=== PATIENT | female | born 1960 | race Caucasian/White ===

== ENCOUNTER 2024-06-18 13:50 | Outpatient (CLI) | payer OTHER, SELFPAY ==
--- NOTE | ~2024-06-18 | MM_ITS ---
EXAMINATION: MM screening jennifer BI w janet HISTORY: Screening TECHNIQUE: Craniocaudal and mediolateral oblique 3-D tomosynthesis images were obtained and synthetic 2-D images were generated. CAD analysis was submitted and interpreted. COMPARISON: No prior mammogram is available for comparison at this institution. BREAST PARENCHYMAL COMPOSITION: The breasts are heterogeneously dense, which may obscure small masses . FINDINGS: There is no evidence of suspicious mass, calcification, or architectural distortion to sugg est malignancy in either breast. There has been no suspicious interval change. IMPRESSION: 1. No mammographic evidence of malignancy. 2. Recommend routine screening mammography in one year. BI-RADS Category 1: Negative Reviewed, dictated and finalized at location B.
== END 2024-06-18 13:51 | disposition home or self-care (01) ==
LOC: ANHIMG 13:51
PROVIDERS: PCP Family Medicine; Visit Provider Student in an Organized Health Care Education/Training Program
DX: Z12.31 Encounter for screening mammogram for malignant neoplasm of breast (principal)
CPT/HCPCS: 77063; 77067

== ENCOUNTER 2025-02-22 09:15 | Outpatient (CLI) | payer MEDICARE, MEDICAID, SELFPAY ==
--- NOTE | ~2025-02-22 | MR_ITS ---
MRI of the left knee Clinical history: Medial meniscal tear Technique: Coronal proton density and proton density-weighted images, sagittal proton-density and T2 fat-sat images, and axial proton-density fat-saturated images were acquired. Findings: Possible partial tear at the proximal aspect of the ACL. No definite complete tear evident. Posterior cruciate ligament intact. Medial collateral ligament and the lateral collateral ligament c omplex are intact. Popliteus tendon is intact. There is complex tearing of the posterior horn and body of medial meniscus. No lateral meniscal tear evident. There is extensive high-grade chondromalacia patella. There is mild to moderate chondromalacia of the medial femoral condyle. There is high-grade chondral malacia at the inner aspect of the lateral femo ral condyle and aspect of the lateral tibial plateau. There is extensive amorphous marrow edema throu ghout the medial tibial plateau region extending to the tibial spine, with underlying linear subchond ral insufficiency fracture. There is more mild amorphous marrow edema in the medial femoral condyle w ith possible very early subchondral insufficiency fracture. Small tricompartmental osteophytes are pr esent. Extensor mechanism is intact. There is small joint effusion. There is moderate to large complex Mckinnon 's cyst. Impression: Subchondral insufficiency fracture at the medial tibial plateau with extensive surrounding amorphous marrow edema. Mild amorphous marrow edema in the medial femoral condyle with questionable very early developing sub chondral insufficiency fracture. Extensive complex tearing of the posterior horn and body of medial meniscus. Questionable partial tear of the proximal ACL. Underlying degenerative changes/chondromalacia of the knee, as above. Moderate to large complex Mckinnon's cyst with small joint effusion. Reviewed, dictated and finalized at [facility]. Impression: Subchondral insufficiency fracture at the medial tibial plateau with extensive surrounding amorphous marrow edema. Mild amorphous marrow edema in the medial femoral condyle with questionable carloz y early developing subchondral insufficiency fracture. Extensive complex tearing of the posterior horn and body of medial meniscus. Questionable partial tear of the proximal ACL. Underlying degenerative changes/chondromalacia of the knee, as above. Moderate to large complex Mckinnon's cyst with small joint effusion.
--- OUTSIDE RECORDS SUMMARY | 2025-02-22 09:20 | XMS_ITS | Continuity of Care Document ---
Author Organization [facility] Address [address] [facility] [place] [address] Phone Care Team Providers Care Scientist Immunology Name Role Phone Fabian Dalton PT Unavailable Unavailable Procedures Procedure Date Therapeutic Activities Neuromuscular Re-Ed Therapeutic Activities Neuromuscular Re-Ed Therapeutic Activities Neuromuscular Re-Ed Progress Note Therapeutic Activities Neuromuscular Re-Ed Therapeutic Exercise Therapeutic Activities Neuromuscular Re-Ed Therapeutic Exercise Therapeutic Activities Neuromuscular Re-Ed Therapeutic Exercise Therapeutic Activities Neuromuscular Re-Ed Therapeutic Exercise Therapeutic Activities Neuromuscular Re-Ed Therapeutic Exercise Therapeutic Activities Neuromuscular Re-Ed Therapeutic Exercise Therapeutic Activities Neuromuscular Re-Ed Therapeutic Exercise Therapeutic Activities Neuromuscular Re-Ed Therapeutic Exercise Therapeutic Activities Neuromuscular Re-Ed Therapeutic Exercise Doc neg elder mal no plan PT Evaluation Moderate Complexity Therapeutic Activities Neuromuscular Re-Ed HFO w/o joints CF Advance Directives Directive Yes / No Effective Date File Name No Information Encounters Encounter Description Practice Location Reason(s) For Visit Diagnoses Date Provider Providers Copied on Encounter [facility] [address] [place] [address], [id number], tel:[phone] [place] No Information 5 Krystle Peralta. . Referring Provider: Thomas Horowitz, [address] [place] [address], [id number]. tel:[phone] [place] [address], [id number], tel:[phone] [place] No Information 5 Liam Devi. [address] [place] [address], [address], [place], [facility], . tel: [phone] Referring Provider: Thomas Horowitz, [address] [place] [address], [id number]. tel:[phone] [place] [address], [id number], tel:[phone] [place] No Information 5 Benigno Reyes . Referring Provider: Thomas Horowitz, [address] [place] [address], [id number]. tel:[phone] [place] [address], [id number], [place] tel:[phone] [place] No Information 5 Krystle Greenwood . Referring Provider: Thomas Horowitz, [address] [place] [address], [address]. tel:[phone], [id number], tel:[phone] [place] No Information 5 Krystle Fabian. . Referring Provider: Thomas Horowitz, [address] [place] [address], [address]. tel:[phone] [place] [address], [id number], tel:[phone] [place] No Information 5 Krystle Fabian. . Referring Provider: Thomas Horowitz, [address] [place] [address], [address]. tel:[phone] [place] [address], [id number], [place] tel:[phone] [place] No Information 5 Krystle Fabian. . Referring Provider: Thomas Horowitz, [address] [place] [address], [address]. tel:[phone] [place] [address], [id number], [place] tel:[phone] [place] No Information 5 Krystle Fabian. . Referring Provider: Thomas Horowitz, [address] [place] [address], [address]. tel:[phone] [place] [address], [id number], [place] tel:[phone] [place] No Information 5 Krystle Fabian. . Referring Provider: Thomas Horowitz, [address] [place] [address], [address]. tel:[phone] [place] [address], [id number], [place] tel:[phone] [place] No Information 5 Liam Butler [address] [facility] [address] [facility], [address], [place], [facility], . tel: [phone] Referring Provider: Thomas Horowitz [address] [place] [address], [address]. tel:[phone] [place] [address], [id number], tel:[phone] [place] No Information 5 Krystle Avilaon. . Referring Provider: Thomas Horowitz, [address] [place] [address], [address]. tel:[phone] [place] [address], [id number], tel:[phone] [place] No Information 5 Krystle Avilaon. . Referring Provider: Thomas Horowitz, [address] [place] [address], [address]. tel:[phone] [place] [address], [id number], tel:[phone] [place] No Information 5 Krystle Avilaon. . Referring Provider: Thomas Horowitz, [address] [place] [address], [address]. tel:[phone] [place] [address], [id number], tel:[phone] [facility] No Information 4 Maulik Moe. [address], [address], [place], [address], [place]. tel:[phone] Referring Provider: Rui Graham, [facility] [address], [place], [address]. tel:[phone] Family History Family Member Type Diagnosis Age At Onset No Information Payers Payer name Insurance type Covered republican ID Authoriza tion(s) Medicare [place] MB [id number] Medicaid OON Write Off CI 00 Social History Type Description Quantity Date Captured Comments Sex Female Smoking Status No Information Chief Complaint And Reason For Visit No Information Reason For Referral Reason For Referral No Information History Of Present Illness Encounter Date Complaint History Of Prese nt Illness No Information Functional Status Date Functional Assessmen t No Information Instructions Date Instruction Additional Infor mation No Information Assessments Type Assessment Date No Information Patient Care Teams Name Effective Dates (start - stop) Status Members No Information
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
--- OUTSIDE RECORDS SUMMARY | 2025-02-22 09:20 | XMS_ITS | Encounter Summary ---
Author Organization [facility] Address [address] [place] [address] Phone Care Team Providers Care Heavy Equipment Supervisor Name Role Phone Sen Pruitt MD Primary Care Provider Alli Mancuso MD Unavailable Reason for Visit * Reason Comments Medication Refill Encounter Details Date Type Department Care Team (Late st Contact Info) Description 11/21/2020 Refill [facility] [address] [place] [address] Sen Pruitt MD [address] [place] [address] Medication Refill Social History Tobacco Use Types Packs/Day Years Used Date Smoking Tobacco: Former Cigarettes 0 11/26/1981 - 11/26/2011 Smokeless Tobacco: Never Alcohol Use Standard Drinks/Week Comments Yes 0 (1 standard drink = 0.6 oz pur e alcohol) 2-3 drinks per week PHQ-2 Answer Date Recorded Total Score - Questions 1-9 1 06/2020 Comments No Sex and Gender Information Value Date Recorded Sex Assigned at Not on file Legal Sex Female 4:[address] Gender Identity Not on file Sexual Orientation Not on file COVID-19 Exposure Response Date Recorded In the last month, have you been in contact with someone who was confirmed or suspected to have Coronavirus / COVID-19? No / Unsure 11/15/2020 4:[address] documented as of this encounter Miscellaneous Notes * Telephone Encounter - Sen Pruitt MD - 11/22/2020 1:[address] Script(s) signed and e-prescribed to listed pharmacy E TESTER * Telephone Encounter - Julieth Abreu RN - 11/22/2020 11:58 AM CST Medication failed the protocol, provider to review and approve the medication order. Requested Prescriptions Pending Prescriptions Disp Refills buPROPion (WELLBUTRIN) 300 MG TABLET SR 24 HR XL tablet [Pharmacy Med Name: buPROPion HCL XL 300 MGTABLET] 90 Tab 1 Sig: TAKE ONE TABLET BY MOUTH EVERY MORNING Not Delegated - Psychiatry: Antidepressants Failed - 11/21/2020 11:05 AM Failed - This refill cannot be delegated Passed - Valid encounter within last 12 months Past Office Visits Recent Outpatient Visits 1 month ago Essential hypertension [facility] - Internal Medicine & Pediatrics - Sen Red MD 2 months ago Vaginal discharge [facility] - Internal Medicine & Pediatrics - Sen Red MD 3 months ago Attention deficit hyperactivity disorder (ADHD), predominantly inattentive type [facility] - Internal Medicine & Pediatrics Kamille Camejo APN, ENVIRONMENTAL AUDITOR 3 months ago Mood changes [facility] - Internal Medicine & Pediatrics - Sen Red MD 7 months ago Essential hypertension [facility] - Internal Medicine & Pediatrics - Sen Red MD 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 - Recent and Past Visits Recent Visits Date Type Provider Dept 10/15/20 Office Visit Sen Pruitt MD [facility] 09/15/20 Office Visit Sen Pruitt MD [facility] 08/18/20 Office Visit Kamille Claudio APN, ENVIRONMENTAL AUDITOR [facility] 08/04/20 Office Visit Sen Pruitt MD [facility] 04/02/20 Office Visit Sen Pruitt MD [facility] 11/24/19 Office Visit Sen Pruitt MD [facility] 08/20/19 Office Visit Sen Pruitt MD [facility] Showing recent visits within past 460 days with a meds authorizing provider and meeting all other requirements Future Appointments No visits were found meeting these conditions. Showing future appointments within next 90 days with a meds authorizing provider and meeting all other requirements E TESTER documented in this encounter Plan of Treatment Not on file documented as of this encounter Goals Goal Patient Goal Type Associated Problems Recent Progress Patient-Stated? Author Angelica would like to go back to the gym and turn over in bed Pain Management No Cinda Funez RN Note: Goal Reviewed with: patient Readiness to change: Ready to change Department associated with goal: [facility] Steps to achieve goal: 1. Will start Physical therapy in two weeks 2. Medications documented as of this encounter Visit Diagnoses Not on filedocumented in this encounter Additional Health Concerns Assessment Noted Time PHQ-9 Depression Total Score: 1 04/02/20 20 9:00 AM CDT documented as of this encounter Care Teams Heavy Equipment Supervisor Relationship Specialty Start Date End Date Sen Pruitt MD PCP - General Internal Medicine/Pediatrics 07/23/18 05/30/23 Alli Mancuso MD [address] [place] [address] Consulting Physician Gastroenterology 04/14/20 documented as of this encounter
--- OUTSIDE RECORDS SUMMARY | 2025-02-22 09:20 | XMS_ITS | Referral Summary ---
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) 01/30/2025 Orders Only [facility] Bone Marrow Transplant [address] [place] [phone] Neeraj Sandoval MD 01/26/2025 Orders Only [address] [address] Jana Schaffer, RN 01/25/2025 Orders Only [facility] Oncology [address] [place] [phone] Neeraj Sandoval MD 01/16/2025 Orders Only [address] [address] Jana Schaffer, RN 01/15/2025 Orders Only [facility] Bone Marrow Transplant [address] [place] [phone] Neeraj Sandoval MD 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); History of allogeneic bone marrow transplant (HCC); 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) 01/12/2025 Results Follow-Up [address] [place] [address] Parris Sanders MD 01/12/2025 2:30 PM ORGANISATIONAL PSYCHOLOGIST Office Visit [facility] Dermatology [address] [facility] Floor 6 [place] [phone] Len Parsons MD Multiple benign nevi (Primary Dx); History of allogeneic bone marrow transplant (HCC); 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); 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 [address] [place] [address] Osteopenia of left hip; 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); Postmenopausal Discharge Disposition: Discharge to home or self care 01/09/2025 1:55 PM ORGANISATIONAL PSYCHOLOGIST [facility] [address] [place] [address] [address] [place] [address] Osteopenia of left hip; 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); Postmenopausal; History of allogeneic bone marrow transplant (HCC) 01/09/2025 12:10 PM ORGANISATIONAL PSYCHOLOGIST Clinical Support [facility] [address] [facility] [address] [place] [address] Osteopenia of left hip 01/09/2025 12:40 PM ORGANISATIONAL PSYCHOLOGIST Office Visit [facility] [address] [facility] [address] [place] [address] Parris Sanders MD Osteopenia of left hip (Primary Dx); 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); Postmenopausal 01/08/[address] [place] [address] Parris Sanders MD 12/31/2024 12:45 PM ORGANISATIONAL PSYCHOLOGIST - 12/31/2024 11:59 PM ORGANISATIONAL PSYCHOLOGIST Hospital Encounter [facility] - Diagnostic Imaging [address] [facility] Floor [address] [place] [address] History of allogeneic bone marrow transplant (HCC); 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) Discharge Disposition: Discharge to home or self care 12/31/2024 11:00 AM ORGANISATIONAL PSYCHOLOGIST Lab [facility] - Lab Collection [address] [facility] Floor 6 [place] [address] 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) 12/31/2024 11:40 AM ORGANISATIONAL PSYCHOLOGIST Office Visit [facility] Bone Marrow Transplant [address] [facility] Floor 6 [place] [phone] Neeraj Sandoval MD History of allogeneic bone marrow transplant (HCC) (Primary Dx); 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); 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 [address] [facility] 5th [place] [address] [place] [address] Parris Sanders MD Osteopenia of left hip (Primary Dx) from Last 3 Months Allergies No known active allergies Medications rivaroxaban (XARELTO) 20 mg tabletIndications:Ve nous Thrombosis Take 1 tablet (20 mg total) by mouth daily with dinner 30 tablet 06/02/20 025 Active acyclovir (ZOVIRAX) 400 mg tabletIndications:Pr ophylaxis, Medical Take 1 tablet (400 mg total) by mouth 3 (three) times a day 90 tablet 07/17/20 025 Active buPROPion XL (WELLBUTRIN XL) 150 mg 24 hr tabletIndications:An xiety with Depression Take 1 tablet (150 mg total) by mouth daily before breakfast 30 tablet 11 07/18/20 24 025 Active ergocalciferol (VITAMIN D) 50,000 unit capsuleIndications:V itamin D deficiency Take 1 capsule (50,000 Units total) by mouth once a week 4 capsule 11 07/25/20 24 025 Active busPIRone (BUSPAR) 10 mg tabletIndications:Ge neralized Anxiety Disorder Take 1 tablet (10 mg total) by mouth 3 (three) times a day 90 tablet 11 07/29/20 24 025 Active amLODIPine (NORVASC) 5 mg tabletIndications:hy pertension Take 1 tablet (5 mg total) by mouth daily before breakfast 90 tablet 3 10/15/20 24 025 Active gilteritinib (Xospata) 40 mg tabletIndications: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 Take 3 tablets (120 mg total) by mouth daily 90 tablet 5 10/21/20 24 025 Active gabapentin (NEURONTIN) 300 mg capsuleIndications: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 Take 1 capsule (300 mg total) by mouth 2 (two) times a day 60 capsule 1 11/17/20 24 Active venlafaxine XR (EFFEXOR-XR) 150 mg 24 hr capsuleIndications:A nxiety with Depression Take 1 capsule (150 mg total) by mouth daily before breakfast 30 capsule 1 11/17/20 24 Active artificial tears, dextran-hypromellose -glycerin, (GENTEAL TEARS MODERATE) 0.1-0.3-0.2 %Indications: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),History of allogeneic bone marrow transplant (HCC),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 Take with or without food. Mondays, Wednesdays, and Fridays for two weeks then stop. 12/31/19 25 025 Discontin ued(Thera py completed ) Active Problems Problem Noted Date Diagnosed Date Other osteoporosis without current pathological fracture 01/12/2025 GVHD (graft versus host disease) 09/11/2023 Lknng-wnzpca-lonu disease 09/11/2023 Immunocompromised 01/19/2023 Overview (07/17/2024): Bone [...] hypertension 11/21/2018 Overview (07/17/2024): Stable on norvasc Resolved Problems Problem Noted Date Diagnosed Date Resolved Date Acute myeloid leukemia 07/04/202201/15 Overview (07/17/2024): S/p bone marrow transplant Following with Dr. Voss at [facility] Immunizations Immunization Administration Dates Next Due Pfizer SARS-CoV-2 Monovalent Vaccination (12+ Yrs) PURPLE 12/22/2021 Social History Tobacco Use Types Packs/Day Years Used Date Smoking Tobacco: Former Cigarettes 0.8 15.2 S tarted: 11/26/1974 Smokeless Tobacco: Never Tobacco Cessation:Counseling Given: Not Answered AUDIT-C Answer Date Recorded Q1: How often do you have a drink containing alcohol? Never 05/09/2024 Q2: How many drinks containi ng alcohol do you have on a typical day when you are drinking? Patient does not drink Q3: How often do you have si x or more drinks on one occasion? Never 05/09/2024 Personal Safety Answer Date Recorded Have you ever been in or are you currently in a harmful physical or emotional relationship or is someone making you feel afraid or unsafe? Denies 05/09/2024 Comments Unknown Sex and Gender Information Value Date Recorded Sex Assigned at Not on file Legal Sex Female 6:18 PM ORGANISATIONAL PSYCHOLOGIST Gender Identity Female 08/30/2023 12:40 PM CDT Sexual Orientation Not on file Last Filed Vital Signs Vital Sign Reading Time Taken Comments Blood Pressure 129/85 12/31/2024 11:17 AM ORGANISATIONAL PSYCHOLOGIST Pulse 69 12/31/2024 11:17 AM ORGANISATIONAL PSYCHOLOGIST Temperature 36.3 C (97.3 F) 12/31/2024 11:17 AM ORGANISATIONAL PSYCHOLOGIST Respiratory Rate 17 12/31/2024 11:17 AM ORGANISATIONAL PSYCHOLOGIST Oxygen Saturation 99% 12/31/2024 11:17 AM ORGANISATIONAL PSYCHOLOGIST Inhaled Oxygen Concentration - - Weight 70.1 kg (154 lb 9.6 oz) 01/09/2025 12:20 PM ORGANISATIONAL PSYCHOLOGIST Height 162.5 cm (5' 3.98 ) 01/09/2025 12:[address] Body Mass Index 26.56 01/09/2025 12:20 PM ORGANISATIONAL PSYCHOLOGIST Plan of Treatment Not on file Procedures Procedure Name Priority Date/Time Associated Diagnosis Comments URIC ACID Routine 02/11/2025 12:23 PM CDT 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) VITAMIN D 25 HYDROXY Routine 02/11/2025 12:23 PM CDT 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) LUTEINIZING HORMONE (LH) Routine 02/11/2025 12:21 PM CDT 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) FOLLICLE STIMULATING HORMONE Routine 02/11/2025 12:21 PM CDT 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) T4, FREE Routine 02/11/2025 12:21 PM CDT 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) T3, FREE Routine 02/11/2025 12:21 PM CDT 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) TSH Routine 02/11/2025 12:21 PM CDT 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) LACTATE DEHYDROGENASE Routine 02/11/2025 12:21 PM CDT 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) COMPREHENSIVE METABOLIC PANEL Routine 02/11/2025 12:21 PM CDT 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) CBC WITH AUTO DIFFERENTIAL Routine 02/11/2025 12:21 PM CDT 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) CYTOMEGALOVIRUS (CMV) DNA, QUANT GEN LAB Routine 02/11/2025 12:21 PM CDT 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) XR SPINE THORACIC 2 VIEWS Schedule Routine, Read Routine (OP Routine) 01/09/2025 2:12 PM ORGANISATIONAL PSYCHOLOGIST Osteopenia of left hip 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) Postmenopausal XR SPINE LUMBAR 2 OR 3 VIEWS Schedule Routine, Read Routine (OP Routine) 01/09/2025 2:12 PM ORGANISATIONAL PSYCHOLOGIST Osteopenia of left hip 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) Postmenopausal EGFR Routine 01/09/2025 2:00 PM ORGANISATIONAL PSYCHOLOGIST Osteopenia of left hip 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) Postmenopausal DIFFERENTIAL AUTO Routine 01/09/2025 2:0 0 PM ORGANISATIONAL PSYCHOLOGIST 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) CBC WITH AUTO DIFFERENTIAL Routine 01/09/2025 2:00 PM ORGANISATIONAL PSYCHOLOGIST 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) LACTATE DEHYDROGENASE Routine 01/09/2025 2:00 PM ORGANISATIONAL PSYCHOLOGIST 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) PHOSPHORUS Routine 01/09/2025 2:00 PM ORGANISATIONAL PSYCHOLOGIST Osteopenia of left hip 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) Postmenopausal PTH Routine 01/09/2025 2:00 PM ORGANISATIONAL PSYCHOLOGIST Osteopenia of left hip 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) Postmenopausal VITAMIN D 25 HYDROXY Routine 01/09/2025 2:00 PM ORGANISATIONAL PSYCHOLOGIST Osteopenia of left hip 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) Postmenopausal COMPREHENSIVE METABOLIC PANEL Routine 01/09/2025 2:00 PM ORGANISATIONAL PSYCHOLOGIST Osteopenia of left hip 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) Postmenopausal DEXA TBS AXIAL SKELETON BONE DENSITY 1 OR MORE SITES Schedule Routine, Read Routine (OP Routine) 01/09/2025 11:49 AM ORGANISATIONAL PSYCHOLOGIST Osteopenia of left hip XR HIP RIGHT 2 OR 3 VIEWS Schedule Routine, Read Routine (OP Routine) 12/31/2024 1:08 PM ORGANISATIONAL PSYCHOLOGIST 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) EGFR Routine 12/31/2024 10:51 AM ORGANISATIONAL PSYCHOLOGIST 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) DIFFERENTIAL AUTO Routine 12/31/2024 10: 51 AM ORGANISATIONAL PSYCHOLOGIST 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) CBC WITH AUTO DIFFERENTIAL Routine 12/31/2024 10:51 AM ORGANISATIONAL PSYCHOLOGIST 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) COMPREHENSIVE METABOLIC PANEL Routine 12/31/2024 10:51 AM ORGANISATIONAL PSYCHOLOGIST 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) LACTATE DEHYDROGENASE Routine 12/31/2024 10:51 AM ORGANISATIONAL PSYCHOLOGIST 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) from Last 3 Months Results * (ABNORMAL) Vitamin D 25 hydroxy (02/11/2025 12:23 PM CDT) Vitamin D 25-OH 102(H) 30 - 100 ng/mL [facility] Comment: Vitamin D Status 25-OH Vitamin D: Deficiency: <20 ng/mL Insufficiency: 20 - 29 ng/mL Optimal: > or = 30 ng/mL For 25-OH Vitamin D testing on patients on D2-supplementation and patients for whom quantitation of D2 and D3 fractions is required, the [facility](TM) 25-OH VIT D, (D2,D3), LC/MS/MS is recommended: order code 19162 (patients >2yrs). See Note 1 Note 1 For additional information, please refer to http://education.[employer]/faq/AAM782 (This link is being provided for informational/ educational purposes only.) Blood 02/11/2025 12:2 3 PM CDT 02/11/2025 12:24 PM CDT Neeraj Sandoval MD LAB BLOOD ORDERABLES Final Resul t Performing Organization Address [facility] Co de Phone Number [facility] [address] [place] [address] * Uric acid (02/11/2025 12:23 PM CDT) Pathologist [facility] Uric acid 4.0 2.5 - 7.0 mg/dL [facility] Comment: Therapeutic target for gout patients: <6.0 mg/dL Blood 02/11/2025 12:2 3 PM CDT 02/11/2025 12:24 PM CDT Neeraj Sandoval MD LAB BLOOD ORDERABLES Final Resul t Performing Organization Address [facility] Co de Phone Number [facility] [address] [place] [address] * (ABNORMAL) Cytomegalovirus (CMV) DNA PCR, quantitative Blood (02/11/2025 12:21 PM CDT) Pathologist [facility] CMV DNA qn <34.5(A) Not Detected IU/mL [facility] Comment: Detected CMV DNA was detected below 34.5 IU/mL. Viral load in this range cannot be accurately quantified by t CMV DNA log IU/mL <1.54(A) Not Detected Log IU/mL [facility] Comment: Detected (Note) For additional information, please refer to http://education.[employer]/faq/CMVandEBVPCR (This link is being provided for informational/educational purposes only.) [facility] [address] [address],[address] [place] [address] Fermin Jasso MD, PhD Blood 02/11/2025 12:2 1 PM CDT 02/11/2025 12:22 PM CDT Narrative [facility] - 02/14/2025 3:53 PM CDT FASTING:NO FASTING: NO Neeraj Sandoval MD LAB MICROBIOLOGY - GENERAL ORDER BEATA Final Result [facility] [address] [address], [address] [place] [address] * CBC with auto differential (02/11/2025 12:21 PM CDT) WBC 6.5 3.8 - 10.8 Thousand/u L [facility] RBC, POC 4.25 3.80 - 5.10 Million/uL [facility] Hgb 13.5 11.7 - 15.5 g/dL [facility] Hct 40.8 35.0 - 45.0 % [facility] MCV 96.0 80.0 - 100.0 fL [facility] MCH 31.8 27.0 - 33.0 pg [facility] MCHC 33.1 32.0 - 36.0 g/dL [facility] Comment: For adults, a slight decrease in the calculated MCHC value (in the range of 30 to 32 g/dL) is most likely not clinically significant; however, it should be interpreted with caution in correlation with other red cell parameters and the patient's clinical condition. Rdw 13.7 11.0 - 15.0 % [facility] Platelets 246 140 - 400 Thousand/u L [facility] MPV 9.9 7.5 - 12.5 fL [facility] Neutrophils, abs 4,518 1,500 - 7,800 cells/uL [facility] Lymphocytes, abs 1,014 850 - 3,900 cells/uL [facility] Monocyte abs 644 200 - 950 cells/uL [facility] Eosinophils, abs 267 15 - 500 cells/uL [facility] Basophils, abs 59 0 - 200 cells/uL [facility] Neutrophils 69.5 % [facility] Lymphocyte pct 15.6 % [facility] Monocytes 9.9 % [facility] Eosinophils 4.1 % [facility] Basophils 0.9 % [facility] Blood 02/11/2025 12:2 1 PM CDT 02/11/2025 12:22 PM CDT Narrative [facility] - 02/14/2025 3:53 PM CDT FASTING:NO FASTING: NO Neeraj Sandoval MD LAB BLOOD ORDERABLES Final Resul t Performing Organization Address [facility]/ZIP Co de Phone Number [facility] [address] [place] [address] * T3, free (02/11/2025 12:21 PM CDT) Free T3 2.8 2.3 - 4.2 pg/mL [facility] Blood 02/11/2025 12:2 1 PM CDT 02/11/2025 12:22 PM CDT Narrative [facility] - 02/14/2025 3:53 PM CDT FASTING:NO FASTING: NO Neeraj Sandoval MD LAB BLOOD ORDERABLES Final Resul t Performing Organization Address City/[facility]/ZIP Co de Phone Number [facility] [address] [place] [address] * TSH (02/11/2025 12:21 PM CDT) TSH 1.48 0.40 - 4.50 mIU/L [facility] Blood 02/11/2025 12:2 1 PM CDT 02/11/2025 12:22 PM CDT Narrative [facility] - 02/14/2025 3:53 PM CDT FASTING:NO FASTING: NO us Neeraj Sandoval MD LAB BLOOD ORDERABLES Final Resul t Performing Organization Address [facility] Co de Phone Number [facility] [address] [place] [address] * T4, free (02/11/2025 12:21 PM CDT) Free T4 1.1 0.8 - 1.8 ng/dL [facility] Blood 02/11/2025 12:2 1 PM CDT 02/11/2025 12:22 PM CDT Narrative [facility] - 02/14/2025 3:53 PM CDT FASTING:NO FASTING: NO us Neeraj Sandoval MD LAB BLOOD ORDERABLES Final Resul t Performing Organization Address [facility] de Phone Number [facility] [address] [place] [address] * Lactate dehydrogenase (LD) (02/11/2025 12:21 PM CDT) Lactate dehydrogenase (LDH) 249 120 - 250 U/L [facility] Blood 02/11/2025 12:2 1 PM CDT 02/11/2025 12:22 PM CDT Narrative [facility] - 02/14/2025 3:53 PM CDT FASTING:NO FASTING: NO us Neeraj Sandoval MD LAB BLOOD ORDERABLES Final Resul t Performing Organization Address [facility] Co de Phone Number [facility] [address] [place] [address] * LH (02/11/2025 12:21 PM CDT) Pathologist [facility] LH 56.4 mIU/mL [facility] Comment: Reference Range Follicular Phase 1.9-12.5 Mid-Cycle Peak 8.7-76.3 Luteal Phase 0.5-16.9 Postmenopausal 10.0-54.7 Blood 02/11/2025 12:2 1 PM CDT 02/11/2025 12:22 PM CDT Narrative [facility] - 02/14/2025 3:53 PM CDT FASTING:NO FASTING: NO Neeraj Sandoval MD LAB BLOOD ORDERABLES Final Resul t Performing Organization Address [facility] Co de Phone Number [facility] [address] [place] [address] * Follicle stimulating hormone (02/11/2025 12:21 PM CDT) [facility] FSH 92.8 mIU/mL [facility] Comment: Reference Range Follicular Phase 2.5-10.2 Mid-cycle Peak 3.1-17.7 Luteal Phase 1.5- 9.1 Postmenopausal 23.0-116.3 Blood 02/11/2025 12:2 1 PM CDT 02/11/2025 12:22 PM CDT Narrative [facility] - 02/14/2025 3:53 PM CDT FASTING:NO FASTING: NO Neeraj Sandoval MD LAB BLOOD ORDERABLES Final Resul t Performing Organization Address [facility] de Phone Number [facility] [address] [place] [address] * (ABNORMAL) Comprehensive metabolic panel (02/11/2025 12:21 PM CDT) [facility] Glucose 94 65 - 139 mg/dL [facility] Comment: Non-fasting reference interval BUN 10 7 - 25 mg/dL [facility] Creatinine 0.86 0.50 - 1.05 mg/dL [facility] eGFR 76 > OR = 60 mL/min/1.7 3m2 [facility] BUN/creat ratio SEE NOTE: 6 - 22 (calc) [facility] Comment: Not Reported: BUN and Creatinine are within reference range. Sodium 142 135 - 146 mmol/L [facility] Potassium, pl 4.4 3.5 - 5.3 mmol/L [facility] Chloride 105 98 - 110 mmol/L [facility] CO2 28 20 - 32 mmol/L [facility] Calcium 9.0 8.6 - 10.4 mg/dL [facility] Protein, sr 6.6 6.1 - 8.1 g/dL [facility] Albumin 4.2 3.6 - 5.1 g/dL [facility] GLOBULIN 2.4 1.9 - 3.7 g/dL (calc) [facility] Alb/glob ratio 1.8 1.0 - 2.5 (calc) [facility] Bilirubin, total 0.6 0.2 - 1.2 mg/dL [facility] Alk phos 108 37 - 153 U/L [facility] AST 29 10 - 35 U/L [facility] ALT (SGPT) 39(H) 6 - 29 U/L [facility] Blood 02/11/2025 12:2 1 PM CDT 02/11/2025 12:22 PM CDT Narrative [facility] - 02/14/2025 3:53 PM CDT FASTING:NO FASTING: NO us Neeraj Sandoval MD LAB BLOOD ORDERABLES Final Resul t [facility] [address] [place] [address] * XR Spine Lumbar 2 or 3 Views (01/09/2025 2:12 PM ORGANISATIONAL PSYCHOLOGIST) Anatomical Region Laterality Modality Spine N/A Computed Radiogr aphy 01/09/2025 3:23 PM ORGANISATIONAL PSYCHOLOGIST Impressions 01/09/2025 3:32 PM ORGANISATIONAL PSYCHOLOGIST 1. Compression deformities of L2 and L4 superior endplates with less than 25% height loss and no osseous retropulsion. 2. Possible L1 inferior endplate deformity with less than 25% height loss and no osseous retropulsion. 3. No compression deformity in the thoracic spine. Dictated by: Pablito Bryant MD The radiology attending physician has personally reviewed this study, and had reviewed and/or edited this written report and agrees with it. Electronically signed by: Tee Gonzalez M.D. Narrative 01/09/2025 3:32 PM ORGANISATIONAL PSYCHOLOGIST EXAMINATION: XR SPINE THORACIC 2 VIEWS, XR SPINE LUMBAR 2 OR 3 VIEWS HISTORY: Height loss, back pain. Possible L1 compression fracture. FINDINGS: No comparison available. Thoracic spine: Alignment is normal. Multilevel degenerative disc disease of the thoracic spine. No compression fracture. Lumbar spine: There are compression deformities of the L2 and L4 superior endplates with less than 25% height loss. There is a possible inferior endplate deformity of L1. There is no osseous retropulsion. Multilevel degenerative disc disease worse and moderate at L4-L5 and L5-S1. No listhesis. Lower lumbar facet osteoarthritis. 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 Procedure Note Tee Gonzalez MD - 01/09/2025 EXAMINATION: XR SPINE THORACIC 2 VIEWS, XR SPINE LUMBAR 2 OR 3 VIEWS HISTORY: Height loss, back pain. Possible L1 compression fracture. FINDINGS: No comparison available. Thoracic spine: Alignment is normal. Multilevel degenerative disc disease of the thoracic spine. No compression fracture. Lumbar spine: There are compression deformities of the L2 and L4 superior endplates with less than 25% height loss. There is a possible inferior endplate deformity of L1. There is no osseous retropulsion. Multilevel degenerative disc disease worse and moderate at L4-L5 and L5-S1. No listhesis. Lower lumbar facet osteoarthritis. 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 IMPRESSION: 1. Compression deformities of L2 and L4 superior endplates with less than 25% height loss and no osseous retropulsion. 2. Possible L1 inferior endplate deformity with less than 25% height loss and no osseous retropulsion. 3. No compression deformity in the thoracic spine. Dictated by: Pablito Bryant MD The radiology attending physician has personally reviewed this study, and had reviewed and/or edited this written report and agrees with it. Electronically signed by: Tee Gonzalez M.D. us Parris Sanders MD IMG XR PROCEDURES Final Re sult * XR Spine Thoracic 2 Views (01/09/2025 2:12 PM ORGANISATIONAL PSYCHOLOGIST) Anatomical Region Laterality Modality Spine N/A Computed Radiogr aphy 01/09/2025 3:23 PM ORGANISATIONAL PSYCHOLOGIST Impressions 01/09/2025 3:32 PM ORGANISATIONAL PSYCHOLOGIST 1. Compression deformities of L2 and L4 superior endplates with less than 25% height loss and no osseous retropulsion. 2. Possible L1 inferior endplate deformity with less than 25% height loss and no osseous retropulsion. 3. No compression deformity in the thoracic spine. Dictated by: Pablito Bryant MD The radiology attending physician has personally reviewed this study, and had reviewed and/or edited this written report and agrees with it. Electronically signed by: Tee Gonzalez M.D. Narrative 01/09/2025 3:32 PM ORGANISATIONAL PSYCHOLOGIST EXAMINATION: XR SPINE THORACIC 2 VIEWS, XR SPINE LUMBAR 2 OR 3 VIEWS HISTORY: Height loss, back pain. Possible L1 compression fracture. FINDINGS: No comparison available. Thoracic spine: Alignment is normal. Multilevel degenerative disc disease of the thoracic spine. No compression fracture. Lumbar spine: There are compression deformities of the L2 and L4 superior endplates with less than 25% height loss. There is a possible inferior endplate deformity of L1. There is no osseous retropulsion. Multilevel degenerative disc disease worse and moderate at L4-L5 and L5-S1. No listhesis. Lower lumbar facet osteoarthritis. 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 Procedure Note Tee Gonzalez MD - 01/09/2025 EXAMINATION: XR SPINE THORACIC 2 VIEWS, XR SPINE LUMBAR 2 OR 3 VIEWS HISTORY: Height loss, back pain. Possible L1 compression fracture. FINDINGS: No comparison available. Thoracic spine: Alignment is normal. Multilevel degenerative disc disease of the thoracic spine. No compression fracture. Lumbar spine: There are compression deformities of the L2 and L4 superior endplates with less than 25% height loss. There is a possible inferior endplate deformity of L1. There is no osseous retropulsion. Multilevel degenerative disc disease worse and moderate at L4-L5 and L5-S1. No listhesis. Lower lumbar facet osteoarthritis. 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 IMPRESSION: 1. Compression deformities of L2 and L4 superior endplates with less than 25% height loss and no osseous retropulsion. 2. Possible L1 inferior endplate deformity with less than 25% height loss and no osseous retropulsion. 3. No compression deformity in the thoracic spine. Dictated by: Pablito Bryant MD The radiology attending physician has personally reviewed this study, and had reviewed and/or edited this written report and agrees with it. Electronically signed by: Tee Gonzalez M.D. Parris Sanders MD IMG XR PROCEDURES Final Re sult * eGFR (01/09/2025 2:00 PM ORGANISATIONAL PSYCHOLOGIST) eGFR 64 >=60 mL/min/1. 73 m2 Comment: Interpretive Data Reference Interval Normal >/= 90 mL/min/1.73m2 Mildly decreased* 60 - 89 mL/min/1.73m2 Mildly to moderately decreased 45 - 59 mL/min/1.73m2 Moderately to severely decreased 30 - 44 mL/min/1.73m2 Severely decreased 15 - 29 mL/min/1.73m2 Kidney Failure < 15 mL/min/1.73m2 *Relative to young adult level Estimated glomerular filtration rate is determined by the 2020 CKD-EPI equation recommended by the National Kidney Foundation (A Unifying Approach to GFR Estimation: Recommendations of the NKF-ASK Task Force on Reassessing the Inclusion of Race in Diagnosing Kidney Disease, JASN 202). The CKD-EPI equation should not be used for patients with unstable renal function and has not been validated in children and those over 70. Current interpretive data was last reviewed 2021. Blood 01/09/2025 2:00 PM ORGANISATIONAL PSYCHOLOGIST 01/09/2025 4:34 PM ORGANISATIONAL PSYCHOLOGIST us Parris Sanders MD LAB BLOOD ORDERABLES Final Result [facility] [address] [facility] Department [place] [address] * Differential, auto (01/09/2025 2:00 PM ORGANISATIONAL PSYCHOLOGIST) Neutrophil abs 1.8 1.5 - 6.5 K/cumm Imm gran abs 0.0 0.0 - 0.1 K/cumm [facility] Lymphocyte abs 1.5 0.8 - 3.3 K/cumm [facility] Monocyte abs 0.4 0.2 - 0.8 K/cumm [facility] Eosinophil abs 0.1 0.0 - 0.5 K/cumm [facility] Basophil abs 0.0 0.0 - 0.1 K/cumm [facility] Neutrophil pct 46.5 % [facility] Comment: Interpretive Data Percent cell count reference ranges are not reported, since discordance with absolute values may lead to misinterpretation of CBC data. Current Interpretive Data was last revised on 2018. Imm gran pct 0.5 % [facility] Comment: Interpretive Data Percent cell count reference ranges are not reported, since discordance with absolute values may lead to misinterpretation of CBC data. Current Interpretive Data was last revised on 2018. Lymphocyte pct 38.8 % [facility] Comment: Interpretive Data Percent cell count reference ranges are not reported, since discordance with absolute values may lead to misinterpretation of CBC data. Current Interpretive Data was last revised on 2018. Monocyte pct 10.2 % [facility] Comment: Interpretive Data Percent cell count reference ranges are not reported, since discordance with absolute values may lead to misinterpretation of CBC data. Current Interpretive Data was last revised on 2018. Eosinophil pct 3.0 % [facility] Comment: Interpretive Data Percent cell count reference ranges are not reported, since discordance with absolute values may lead to misinterpretation of CBC data. Current Interpretive Data was last revised on 2018. Basophil pct 1.0 % [facility] Comment: Interpretive Data Percent cell count reference ranges are not reported, since discordance with absolute values may lead to misinterpretation of CBC data. Current Interpretive Data was last revised on 2018. Blood 01/09/2025 2:00 PM ORGANISATIONAL PSYCHOLOGIST 01/09/2025 4:16 PM ORGANISATIONAL PSYCHOLOGIST Neeraj Sandoval MD LAB BLOOD ORDERABLES Final Resul t Performing Organization Address City/[facility] Co de Phone Number [facility] Department [place] [address] * (ABNORMAL) CBC with auto differential (01/09/2025 2:00 PM ORGANISATIONAL PSYCHOLOGIST) WBC 3.9 3.8 - 9.9 K/cumm Hgb 13.4 11.9 - 15.5 g/dL [facility] Hct 41.4 35.6 - 45.5 % [facility] Plt 192 150 - 400 K/cumm [facility] MPV 9.4 9.1 - 12.3 fL [facility] RBC 4.26 3.90 - 5.20 M/cumm [facility] MCV 97.2(H) 81.3 - 96.4 fL [facility] MCH 31.5 27.1 - 33.3 pg [facility] MCHC 32.4 32.3 - 35.7 g/dL [facility] RDW CV 14.6 11.1 - 14.9 % [facility] RDW SD 52.0(H) 35.7 - 48.1 fL [facility] NRBC abs 0.00 0.00 - 0.01 K/cumm [facility] Blood 01/09/2025 2:00 PM ORGANISATIONAL PSYCHOLOGIST 01/09/2025 4:16 PM ORGANISATIONAL PSYCHOLOGIST Neeraj Sandoval MD LAB BLOOD ORDERABLES Final Resul t Performing Organization Address [facility] Co de Phone Number [facility] Department [place] [address] * Vitamin D 25 hydroxy (01/09/2025 2:00 PM ORGANISATIONAL PSYCHOLOGIST) Pathologist [facility] Vitamin D 25-OH 74 30 - 80 ng/mL Blood 01/09/2025 2:00 PM ORGANISATIONAL PSYCHOLOGIST 01/09/2025 4:16 PM ORGANISATIONAL PSYCHOLOGIST Parris Sanders MD LAB BLOOD ORDERABLES Final Result Performing Organization Address [facility] de Phone Number [facility] [place] [address] * Phosphorus (01/09/2025 2:00 PM ORGANISATIONAL PSYCHOLOGIST) [facility] Phosphorus, pl 4.1 2.3 - 4.5 mg/dL Blood 01/09/2025 2:00 PM ORGANISATIONAL PSYCHOLOGIST 01/09/2025 4:16 PM ORGANISATIONAL PSYCHOLOGIST Parris Sanders MD LAB BLOOD ORDERABLES Final Result Performing Organization Address [facility] de Phone Number [facility] [place] [address] * (ABNORMAL) PTH (01/09/2025 2:00 PM ORGANISATIONAL PSYCHOLOGIST) [facility] PTH 70(H) 15 - 65 pg/mL Blood 01/09/2025 2:00 PM ORGANISATIONAL PSYCHOLOGIST 01/09/2025 4:16 PM ORGANISATIONAL PSYCHOLOGIST Result [facility] Parris Sanders MD LAB BLOOD ORDERABLES Final Result Performing Organization Address [facility] de Phone Number [facility] [place] [address] * (ABNORMAL) Lactate dehydrogenase (LD) (01/09/2025 2:00 PM ORGANISATIONAL PSYCHOLOGIST) [facility] Lactate dehydrogenase (LDH) 283(H) 100 - 250 Units/L Blood 01/09/2025 2:00 PM ORGANISATIONAL PSYCHOLOGIST 01/09/2025 4:16 PM ORGANISATIONAL PSYCHOLOGIST Neeraj Sandoval MD LAB BLOOD ORDERABLES Final Resul t [facility] [address] [facility] Department [place] [address] * Comprehensive metabolic panel (01/09/2025 2:00 PM ORGANISATIONAL PSYCHOLOGIST) Sodium 145 135 - 145 mmol/L Potassium, pl 4.8 3.3 - 4.9 mmol/L [facility] Chloride 105 97 - 110 mmol/L [facility] CO2 31 22 - 32 mmol/L [facility] Anion gap 9 2 - 15 mmol/L [facility] BUN 8 6 - 25 mg/dL [facility] Creatinine 0.99 0.60 - 1.10 mg/dL [facility] Glucose 79 70 - 199 mg/dL [facility] Comment: Interpretive Data Fasting glucose >/= 126 mg/dl is diagnostic for diabetes. Fasting is defined as no caloric intake for at least 8 hours. Fasting glucose between 100 mg/dl to 125 mg/dl is diagnostic of prediabetes. In a patient with classic symptoms of hyperglycemia or hyperglycemic crisis, a random glucose >/= 200 mg/dl is diagnostic for diabetes. In the absence of unequivocal hyperglycemia, results should be confirmed by repeat testing. The classification and Diagnosis of Diabetes Diabetes Care 202; 46: S19-S40. Current interpretive data was last revised 2022. Calcium 9.5 8.5 - 10.3 mg/dL [facility] Bilirubin, total 0.4 0.1 - 1.2 mg/dL [facility] Protein, pl 7.2 6.5 - 8.5 g/dL [facility] Albumin 4.3 3.5 - 5.0 g/dL [facility] Alk phos 100 40 - 130 Units/L [facility] ALT 33 7 - 45 Units/L [facility] AST 24 10 - 45 Units/L [facility] Blood 01/09/2025 2:00 PM ORGANISATIONAL PSYCHOLOGIST 01/09/2025 4:16 PM ORGANISATIONAL PSYCHOLOGIST Parris Sanders MD LAB BLOOD ORDERABLES Final Result [facility] Department [place] [address] * Dexa TBS Axial Skeleton Bone Density 1 or more sites (01/09/2025 11:49 AM ORGANISATIONAL PSYCHOLOGIST) Anatomical Region Laterality Modality Wrist, Body N/A Radiographic Valarie ging Narrative 01/12/2025 9:24 PM ORGANISATIONAL PSYCHOLOGIST Patient Name: Angelica Guerra Date of : 1960 Date of scan: 01/09/2025 Bone mineral density was performed on a Holo[employer]-On Discovery Densitometer. Based on machine cross-calibration and precision studies the least significant changes of this densitometer is 0.024 g/cm2 at the spine, 0.020 g/cm2 at the total proximal femur, and 0.014g/cm2 at the forearm. HISTORY: This is a 64 y.o. postmenopausal female with a history of bone marrow transplant, leukemia, low bone mass, and vitamin D deficiency. She reports that she has quit smoking. Her smoking use included cigarettes. She started smoking about 50 years ago. She has a 11.3 pack-year smoking history. She has never used smokeless tobacco. Currently on treatment with calcium, vitamin D, and anticoagulants, previously treated with glucocorticoids, testosterone, and diuretics, and current complaint of back pain, neck pain, and leg pain. INDICATIONS: Menopause status, history of glucocorticoids use, vitamin D deficiency, and history of low bone mass. FINDINGS: BONE MINERAL DENSITY OF THE LUMBAR SPINE Bone Mineral Density (BMD) of the lumbar spine was measured from L1-L4 and the average density was calculated to be 1.323 gm/cm2. This corresponds to a T-score (standard deviations from the mean of young adults) of 2.5. When compared to the previous study of 12/28/2023 there has been a 0.039 gm/cm (3.0%) increase in bone density that is considered significant. BONE MINERAL DENSITY OF THE PROXIMAL FEMUR Bone Mineral Density (BMD) of the left hip total was found to be 0.779 gm/cm2. This corresponds to a T-score standard deviations from the mean of young adults of -1.3. Femoral neck is 0.620 gm/cm2 with a T-score (standard deviations from the mean of young adults) of -2.1. When compared to the previous study of 12/28/2023 there has been a 0.020 gm/cm (2.7%) increase in bone density that is considered significant. BONE MINERAL DENSITY OF THE FOREARM Bone Mineral density (BMD) of the left proximal 1/3 of the radius measures 0.730 gm/cm2. This corresponds to a T-score (standard deviations from the mean of young adults) of 0.6. When compared to the previous study of 12/28/2023 there has been a 0.039 gm/cm (5.7%) increase in bone density that is considered significant. A forearm bone density study was performed in addition to the routine study due to the need to provide a comparison to the previous exam and department forearm protocol. SUMMARY: Bone mineral density shows evidence of low bone mass at the proximal femur and moderately increased fracture risk (Osteopenia). There has been a significant increase in bone density since previous measurement. The lumbar spine Trabecular Bone Score is 1.306 which suggests partially degraded bone microarchitecture compared to the general population. Final decisions regarding diagnostic or therapeutic recommendations should include BMD, TBS, additional clinical risk factors as well the clinical context of the patient. Please see attached TBS results for further details. ADDITIONAL COMMENTS: Postmenopausal Women and Men Over 50: Diagnostic criteria: Osteoporosis: BMD at or below -2.5 T-score; Osteopenia (low bone mass): BMD between -1.0 and -2.5 T-score. If the patient has a history of a fragility fracture, a fracture that occurred with trauma equivalent to a fall from a standing position or less, then the diagnosis is osteoporosis regardless of bone density. The history and data sections of the bone mineral density scan were prepared by Antoinette Shaw) [employer]RAD[employer] who is accredited by the International Society of Clinical Densitometry. The overall patient assessment and scan interpretation were performed by Parris Sanders M.D. who is certified by the International Society of Clinical Densitometry. [id number] us Parris Sanders MD IM DXA PROCEDURES Final R esult * XR Hip Right 2 or 3 Views (12/31/2024 1:08 PM ORGANISATIONAL PSYCHOLOGIST) Anatomical Region Laterality Modality Lower Extremities, Hip, Pelvis Right D igital Radiography 12/31/2024 2:02 PM ORGANISATIONAL PSYCHOLOGIST Impressions 12/31/2024 2:29 PM ORGANISATIONAL PSYCHOLOGIST 1. 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 Dictated by: Elijah Tolentino M.D. The radiology attending physician has personally reviewed this study, and had reviewed and/or edited this written report and agrees with it. Electronically signed by: Tee Gonzalez M.D. Narrative 12/31/2024 2:29 PM ORGANISATIONAL PSYCHOLOGIST EXAMINATION: XR HIP RIGHT 2 OR 3 VIEWS HISTORY: Chronic hip pain COMPARISON: No comparisons are available. FINDINGS: No acute fracture. No dislocation. Mild right hip osteoarthritis. Partially imaged moderate right sacroiliac joint osteoarthritis. 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 Procedure Note Tee Gonzalez MD - 12/31/2024 EXAMINATION: XR HIP RIGHT 2 OR 3 VIEWS HISTORY: Chronic hip pain COMPARISON: No comparisons are available. FINDINGS: No acute fracture. No dislocation. Mild right hip osteoarthritis. Partially imaged moderate right sacroiliac joint osteoarthritis. 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 IMPRESSION: 1. 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 Dictated by: Elijah Tolentino M.D. The radiology attending physician has personally reviewed this study, and had reviewed and/or edited this written report and agrees with it. Electronically signed by: Tee Gonzalez M.D. Neeraj Sandoval MD IMG XR PROCEDURES Final Result * eGFR (12/31/2024 10:51 AM ORGANISATIONAL PSYCHOLOGIST) eGFR 79 >=60 mL/min/1. 73 m2 Comment: Interpretive Data Reference Interval Normal >/= 90 mL/min/1.73m2 Mildly decreased* 60 - 89 mL/min/1.73m2 Mildly to moderately decreased 45 - 59 mL/min/1.73m2 Moderately to severely decreased 30 - 44 mL/min/1.73m2 Severely decreased 15 - 29 mL/min/1.73m2 Kidney Failure < 15 mL/min/1.73m2 *Relative to young adult level Estimated glomerular filtration rate is determined by the 2020 CKD-EPI equation recommended by the National Kidney Foundation (A Unifying Approach to GFR Estimation: Recommendations of the NKF-ASK Task Force on Reassessing the Inclusion of Race in Diagnosing Kidney Disease, JASN 2020). The CKD-EPI equation should not be used for patients with unstable renal function and has not been validated in children and those over 70. Current interpretive data was last reviewed 2021. Blood 12/31/2024 10:5 1 AM ORGANISATIONAL PSYCHOLOGIST 12/31/2024 11:02 AM ORGANISATIONAL PSYCHOLOGIST us Neeraj Sandoval MD LAB BLOOD ORDERABLES Final Resul t [facility] [address] [facility] [address] Department [place] [address] * Differential, auto (12/31/2024 10:51 AM ORGANISATIONAL PSYCHOLOGIST) Neutrophil abs 2.2 1.5 - 6.5 K/cumm Comment:Testing performed by : [facility], [address] [place] [phone] Lymphocyte abs 1.4 0.8 - 3.3 K/cumm [facility] Comment:Testing performed by : [facility], [address] [place] [phone] Monocyte abs 0.5 0.2 - 0.8 K/cumm [facility] Comment:Testing performed by : [facility], [address] [place] [phone] Eosinophil abs 0.2 0.0 - 0.5 K/cumm [facility] Comment:Testing performed by : [facility], [address] [place] [phone] Basophil abs 0.0 0.0 - 0.1 K/cumm [facility] Comment:Testing performed by : [facility], [address] [place] [phone] Neutrophil pct 52.0 % [facility] Comment: Interpretive Data Percent cell count reference ranges are not reported, since discordance with absolute values may lead to misinterpretation of CBC data. Current Interpretive Data was last revised on 2018. Testing performed by: [facility], [address] [place] [phone] Lymphocyte pct 32.5 % [facility] Comment: Interpretive Data Percent cell count reference ranges are not reported, since discordance with absolute values may lead to misinterpretation of CBC data. Current Interpretive Data was last revised on 2018. Testing performed by: [facility], [address] [place] [phone] Monocyte pct 10.7 % [facility] Comment: Interpretive Data Percent cell count reference ranges are not reported, since discordance with absolute values may lead to misinterpretation of CBC data. Current Interpretive Data was last revised on 2018. Testing performed by: [facility], [address] [place] [address] Eosinophil pct 4.1 % [facility] Comment: Interpretive Data Percent cell count reference ranges are not reported, since discordance with absolute values may lead to misinterpretation of CBC data. Current Interpretive Data was last revised on 2018. Testing performed by: [facility], [address] [place] [phone] Basophil pct 0.7 % [facility] Comment: Interpretive Data Percent cell count reference ranges are not reported, since discordance with absolute values may lead to misinterpretation of CBC data. Current Interpretive Data was last revised on 2018. Testing performed by: [facility], [address] [place] [phone] Blood 12/31/2024 10:5 1 AM ORGANISATIONAL PSYCHOLOGIST 12/31/2024 11:00 AM ORGANISATIONAL PSYCHOLOGIST us Neeraj Sandoval MD LAB BLOOD ORDERABLES Final Resul t [facility] [address] [facility] [address] Department [place] [address] * CBC with auto differential (12/31/2024 10:51 AM ORGANISATIONAL PSYCHOLOGIST) WBC 4.3 3.8 - 9.9 K/cumm Comment:Testing performed by : [facility], [address] [place], [place] [phone] Hgb 12.6 11.9 - 15.5 g/dL [facility] Comment:Testing performed by : [facility], [address] [place], [place] [phone] Hct 37.9 35.6 - 45.5 % [facility] Comment:Testing performed by : [facility], [address] [place], [place] [phone] Plt 201 150 - 400 K/cumm [facility] Comment:Testing performed by : [facility], [address] [place], [place] [phone] MPV 7.9 6.8 - 10.4 fL [facility] Comment:Testing performed by : [facility], [address] [place] [address] RBC 3.95 3.90 - 5.20 M/cumm [facility] Comment:Testing performed by : [facility], [address] [place], [place] [phone] MCV 96.0 81.3 - 96.4 fL [facility] Comment:Testing performed by : [facility], [address] [place] [address] MCH 31.9 27.1 - 33.3 pg [facility] Comment:Testing performed by : [facility], [address] [place] [address] MCHC 33.2 32.3 - 35.7 g/dL [facility] Comment:Testing performed by : [facility], [address] [place] [address] RDW CV 14.8 11.1 - 14.9 % [facility] Comment:Testing performed by : [facility], [address] [place] [address] NRBC abs 0.00 0.00 - 0.01 K/cumm [facility] Comment:Testing performed by : [facility], [address] [place] [phone] Blood 12/31/2024 10:5 1 AM ORGANISATIONAL PSYCHOLOGIST 12/31/2024 11:00 AM ORGANISATIONAL PSYCHOLOGIST Neeraj Sandoval MD LAB BLOOD ORDERABLES Final Resul t Performing Organization Address [facility] Co de Phone Number [facility] Department [place] [address] * Lactate dehydrogenase (LD) (12/31/2024 10:51 AM ORGANISATIONAL PSYCHOLOGIST) Lactate dehydrogenase (LDH) 239 100 - 250 Units/L Blood 12/31/2024 10:5 1 AM ORGANISATIONAL PSYCHOLOGIST 12/31/2024 11:02 AM ORGANISATIONAL PSYCHOLOGIST Neeraj Sandoval MD LAB BLOOD ORDERABLES Final Resul t Performing Organization Address [facility] de Phone Number [facility] [place] [address] * (ABNORMAL) Comprehensive metabolic panel (12/31/2024 10:51 AM ORGANISATIONAL PSYCHOLOGIST) Sodium 141 135 - 145 mmol/L Potassium, pl 5.1(H) 3.3 - 4.9 mmol/L [facility] Chloride 105 97 - 110 mmol/L [facility] CO2 32 22 - 32 mmol/L [facility] Anion gap 4 2 - 15 mmol/L [facility] BUN 10 6 - 25 mg/dL [facility] Creatinine 0.84 0.60 - 1.10 mg/dL [facility] Glucose 83 70 - 199 mg/dL [facility] Comment: Interpretive Data Fasting glucose >/= 126 mg/dl is diagnostic for diabetes. Fasting is defined as no caloric intake for at least 8 hours. Fasting glucose between 100 mg/dl to 125 mg/dl is diagnostic of prediabetes. In a patient with classic symptoms of hyperglycemia or hyperglycemic crisis, a random glucose >/= 200 mg/dl is diagnostic for diabetes. In the absence of unequivocal hyperglycemia, results should be confirmed by repeat testing. The classification and Diagnosis of Diabetes Diabetes Care 202; 46: S19-S40. Current interpretive data was last revised 2022. Calcium 9.1 8.5 - 10.3 mg/dL [facility] Bilirubin, total 0.5 0.1 - 1.2 mg/dL [facility] Protein, pl 6.9 6.5 - 8.5 g/dL [facility] Albumin 4.1 3.5 - 5.0 g/dL [facility] Alk phos 100 40 - 130 Units/L [facility] ALT 39 7 - 45 Units/L [facility] AST 32 10 - 45 Units/L [facility] Blood 12/31/2024 10:5 1 AM ORGANISATIONAL PSYCHOLOGIST 12/31/2024 11:02 AM ORGANISATIONAL PSYCHOLOGIST us Neeraj Sandoval MD LAB BLOOD ORDERABLES Final Resul t [facility] [address] [facility] [place] [address] from Last 3 Months Insurance [facility] MEDICARE [facility] MEDICARE IDPA Advance Directives For more information, please contact: [phone] * Full Code (Latest Code Status on File) Date Activated Date Inactivated Comments 04/09/2024 9:57 AM 04/10/2024 5:28 AM Care Teams Forensic Document Examiner Relationship Specialty Start Date End Date Thomas Horowitz DO John [address] [place] [id number] PCP - General Family Medicine 04/24/24 Neeraj Sandoval MD [address] [facility] [address] [place] [address] Medical Oncologist/Pharmacy Technician Assistant Medical Oncology 08/01/23
--- OUTSIDE RECORDS SUMMARY | 2025-02-22 09:20 | XMS_ITS | Encounter Summary ---
Author Organization [facility] Address [address] 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 No / Unsure 07/26/2020 1:22 PM CDT documented as of this encounter Miscellaneous Notes * Telephone Encounter - Kaya Velasquez, RN - 07/30/2020 8:15 AM CDT Refill request for: omeprazole Last office visit: 04/14/20 Next office visit: none scheduled Medication pended for physician approval documented in this encounter Plan of Treatment Not on file documented as of this encounter Goals Goal Patient Goal Type Associated Problems Recent Progress Patient-Stated? Author Angelica would like to go back to the gym and turn over in bed Pain Management No Cinda Funez RN Note: Goal Reviewed with: patient Readiness to change: Ready to change Department associated with goal: [facility] Steps to achieve goal: 1. Will start Physical therapy in two weeks 2. Medications documented as of this encounter Visit Diagnoses Not on filedocumented in this encounter Additional Health Concerns Assessment Noted Time PHQ-9 Depression Total Score: 1 04/02/20 20 9:00 AM CDT documented as of this encounter Care Teams Dimensional Inspector Relationship Specialty Start Date End Date Sen Pruitt MD PCP - General Internal Medicine/Pediatrics 07/23/18 05/30/23 Alli Mancuso MD [address] [place] [address] Consulting Physician Gastroenterology 04/14/20 documented as of this encounter
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
--- OUTSIDE RECORDS SUMMARY | 2025-02-22 09:20 | XMS_ITS | Encounter Summary ---
Author Organization [facility] Address [address] 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 No / Unsure 04/14/2020 8:24 AM CDT documented as of this encounter Miscellaneous Notes * Telephone Encounter - Tom Madrigal CNA - 04/14/2020 6:41 PM CDT Date of service 04/21/20 Dr. Hodges documented in this encounter Plan of Treatment Not on file documented as of this encounter Visit Diagnoses Not on filedocumented in this encounter Additional Health Concerns Assessment Noted Time PHQ-9 Depression Total Score: 1 04/02/20 20 9:00 AM CDT documented as of this encounter Care Teams Distribution Warehouse Manager Relationship Specialty Start Date End Date Sen Pruitt MD PCP - General Internal Medicine/Pediatrics 07/23/18 05/30/23 Alli Mancuso MD [address] [place] [address] Consulting Physician Gastroenterology 04/14/20 documented as of this encounter
--- OUTSIDE RECORDS SUMMARY | 2025-02-22 09:20 | XMS_ITS | Data Portability ---
Author Organization [facility], [id number] Address [address] [place] [address] Assessment No assessment recorded. Plan of Treatment Reminders Order Date Submit Date Provider Last Modified By Organization Details Last Modified Time Details Appointments None recorde d. Lab wet mount panel, vaginal fluid 2024 025 erna [id number] Geraldo Corrales_tereza, [address], [place], [address], 5 12:14:32 bacteri al vaginos is panel, vaginal 2024 025 erna [facility] ([facility]), [address] [facility] , [facility] [address], [place], [address], 5 21:17:24 Referral None recorde d. Procedures None recorde d. Surgeries None recorde d. Imaging US, pelvis, transab dominal + transva ginal 2024 025 [facility], [address], [facility] [address], [place], [address], 5 18:15:31 Medication Orders metroni dazole 0.75 % (37.5 mg/5 gram) vaginal gel [address] [id number], [address] [place], [address], 12:14:34 Patient TargetsNo targets recorded. Patient InstructionsNo instructions recorded. Reason for Referral None Reported. Results Created Date Observation Date Name Description Value Unit Range Abnormal Flag Note LastModifiedBy Organization Detail LastModifiedTime 02/14/2002/15/2025 BACTE RIAL VAGIN OSIS+ WITH LACTO PROFI LING top line result Normal normal Not Available [facility] ([facility]) [address] [place] [address] Dr Laureano, [place], [address], 02/16/2025 06:55:20 02/14/2002/15/2025 BACTE RIAL VAGIN OSIS+ WITH LACTO PROFI LING interpretati on SEE COMMEN T The organ isms detec balbina in this speci men are indic ative of rosa l micro claritza .Thes e resul ts, meant to aid in the diagn osis and manag ement of BV, do not compl etely rule out BV and shoul d be inter prete d in the aden xt of other test resul ts and clini koby findi ngs. Not Available [facility] ([facility]) [address] [place] [address] Dr Laureano, [place], [address], 02/16/2025 06:55:20 02/14/20 25 02/15/2025 BACTE RIAL VAGIN OSIS+ WITH LACTO PROFI LING atopobium vaginae Not Detect ed normal Not Available [facility]) [address] [place] [address] Dr Laureano, [place], [address], 02/16/2025 06:55:20 02/14/20 25 02/15/2025 BACTE RIAL VAGIN OSIS+ WITH LACTO PROFI LING gardnerella vaginalis Not Detect ed normal Not Available [facility] [address] [place] [address] Dr Laureano, [place], [address], 02/16/2025 06:55:20 02/14/20 25 02/15/2025 BACTE RIAL VAGIN OSIS+ WITH LACTO PROFI LING bvab2 Not Detect ed normal Not Available [facility] ([facility]) [address] [place] [address] Dr Laureano, [place], [address], 02/16/2025 06:55:20 02/14/20 25 02/15/2025 BACTE RIAL VAGIN OSIS+ WITH LACTO PROFI LING megasphaera 1 Not Detect ed normal Not Available [facility] ([facility]) [address] [place] [address] Dr Laureano, [place], [address], 02/16/2025 06:55:20 02/14/20 25 02/15/2025 BACTE RIAL VAGIN OSIS+ WITH LACTO PROFI LING megaspherea 2 Not Detect ed normal Not Available [facility] ([facility]) [address] [place] [address] Dr Laureano, [place], [address], 02/16/2025 06:55:20 02/14/20 25 02/15/2025 BACTE RIAL VAGIN OSIS+ WITH LACTO PROFI LING lactobacillu s crispatus Normal normal Not Available [facility] ([facility]) [address] [place] [address] Dr Laureano, [place], [address], 02/16/2025 06:55:20 02/14/20 25 02/15/2025 BACTE RIAL VAGIN OSIS+ WITH LACTO PROFI LING lactobacillu s gasseri Normal normal Not Available [facility] ([facility]) [address] [place] [address] Dr Laureano, [place], [address], 02/16/2025 06:55:20 02/14/20 25 02/15/2025 BACTE RIAL VAGIN OSIS+ WITH LACTO PROFI LING lactobacillu s iners ql Normal normal Not Available [facility] ([facility]) [address] [place] [address] Dr Laureano, [place], [address], 02/16/2025 06:55:20 02/14/20 25 02/15/2025 BACTE RIAL VAGIN OSIS+ WITH LACTO PROFI LING lactobacillu s jensenii ql Not Detect ed normal Not Available [facility]) [address] [place] [address] Dr Laureano, [place], [address], 02/16/2025 06:55:20 02/14/20 25 02/15/2025 BACTE RIAL VAGIN OSIS+ WITH LACTO PROFI LING mobiluncus mulieris Not Detect ed normal Not Available [facility] ([facility]) [address] [place] [address] Dr Laureano, [place], [address], 02/16/2025 06:55:20 02/14/20 25 02/15/2025 BACTE RIAL VAGIN OSIS+ WITH LACTO PROFI LING mobiluncus curtisii Not Detect ed normal Not Available [facility] ([facility]) [address] [place] [address] Dr Laureano, [place], [address], 02/16/2025 06:55:20 02/14/20 25 02/15/2025 BACTE RIAL VAGIN OSIS+ WITH LACTO PROFI LING mycoplasma hominis Not Detect ed normal Not Available [facility]) [address] [place] [address] Dr Laureano, [place], [address], 02/16/2025 06:55:20 02/14/20 25 02/15/2025 BACTE RIAL VAGIN OSIS+ WITH LACTO PROFI LING ureaplasma urealyticum Not Detect ed normal Not Available [facility] ([facility]) [address] [place] [address] Dr Laureano, [place], [address], 02/16/2025 06:55:20 02/14/20 25 02/13/2025 wet mount panel , vagin al fluid Unknown Analyte >20% Not Available [id number], [place], [address], 02/13/2025 12:10:36 02/14/20 25 02/13/2025 wet mount panel , vagin al fluid Unknown Analyte positi ve Not Available [id number], [place], [address], 02/13/2025 12:10:36 02/14/20 25 02/13/2025 wet mount panel , vagin al fluid Unknown Analyte Negati ve Not Available [id number], [place], [address], 02/13/2025 12:10:36 Result Notes None recorded. Problems Name Problem SNOMED Code Status Onset Date Resolution Date Notes Provider Name and Address Organization Details Recorded Time Bacterial vaginosis 878478605 Active 025 RIVKA MARK MD [address], [place], [address], [facility] 5 12:10:01 Atrophic vaginitis 45410119 Active 025 RIVKA MARK MD [address], [place], [address], [facility] 5 12:10:11 Acute myeloid leukemia, disease 18782898 Active 025 RIVKA MARK MD [address], [place], [address], [facility] 5 12:10:17 Pain in pelvis 92211234 Active 025 RIVKA MARK MD [address], [place], [address], [facility] 12:10:22 Problem Notes None recorded. Procedures Surgical History Date Name Laterality Status Provider Name and Address Organization Details Recorded Time 11/26/19 24 Date of Last Mammogram completed [facility] 02/12/2025 11:04:11 11/26/19 24 Date of Last Colonoscopy completed [facility] 02/12/2025 11:04:21 discectomy of spine completed [facility] 02/12/2025 11:05:54 Laparoscopy completed [facility] 02/12/2025 11:06:06 hysterectomy completed [facility] 02/12/2025 11:06:23 laminotomy completed [facility] 02/12/2025 11:06:39 partial excision of rib completed [facility] 02/12/2025 11:06:46 Endometrial Biopsy completed [facility] 02/13/2025 11:29:51 Appendectomy completed [facility] 02/13/2025 11:29:51 Imaging Results None recorded. Procedure Notes None recorded. Medical Equipment None Reported. Allergies No known drug allergies Medications Name Sig Start Date Stop Date Status Note LastModified by Organization Details LastModified Time tizanidine 4 mg tablet TAKE 1 TABLET BY MOUTH EVERY 6 HOURS NEEDED 02/13 completed Not Available Not Available Not Available sulfamethox azole 400 mg-trimetho prim 80 mg tablet TAKE 1 TABLET BY MOUTH EVERY DAY 02/13 completed Not Available Not Available Not Available hydrocodone 5 mg-acetamin ophen 325 mg tablet PLEASE SEE ATTACHED FOR DETAILED DIRECTION S 02/13 completed Not Available Not Available Not Available metronidazo le 0.75 % (37.5 mg/5 gram) vaginal gel Insert 1 applicato rful every day by vaginal route at bedtime for 5 days. 2024 active Not Available Not Available Not Avai lable prednisone 20 mg tablet TAKE 3 TABLETS FOR THREE DAYS, THEN TAKE 2 TABLETS FOR THREE DAYS, THEN TAKE 1 TABLET FOR THREE DAYS active Not Available Not Available No t Available venlafaxine ER 150 mg capsule,ext ended release 24 hr TAKE 1 CAPSULE BY MOUTH EVERY DAY active Not Available Not Available No t Available amlodipine 5 mg tablet TAKE 1 TABLET BY MOUTH DAILY BEFORE BREAKFAST . active Not Available Not Available No t Available acyclovir 400 mg tablet TAKE 1 TABLET BY MOUTH THREE TIMES A DAY active Not Available Not Available No t Available buspirone 10 mg tablet TAKE 1 TABLET BY MOUTH THREE TIMES A DAY active Not Available Not Available No t Available gabapentin 300 mg capsule TAKE 2 CAPSULES BY MOUTH 3 TIMES DAILY. active Not Available Not Available No t Available furosemide 20 mg tablet TAKE 1 TABLET BY MOUTH EVERY DAY NEEDED 02/13 completed Not Available Not Available Not Available ergocalcife rol (vitamin D2) 1,250 mcg (50,000 unit) capsule TAKE 1 CAPSULE BY MOUTH ONE TIME PER WEEK active Not Available Not Available No t Available estradiol 0.01% (0.1 mg/gram) vaginal cream INSERT 1 GRAM VAGINALLY 3 TIMES A WEEK active Not Available Not Available No t Available oxycodone 5 mg tablet TAKE 1 TABLET (5 MG TOTAL) BY MOUTH EVERY 4 (FOUR) HOURS NEEDED FOR PAIN FOR UP TO 10 DAYS 02/13 completed Not Available Not Available Not Available bupropion HCl XL 300 mg 24 hr tablet, extended release TAKE 1 TABLET BY MOUTH EVERY DAY 02/13 completed Not Available Not Available Not Available bupropion HCl XL 150 mg 24 hr tablet, extended release TAKE 1 TABLET (150 MG TOTAL) BY MOUTH DAILY BEFORE BREAKFAST active Not Available Not Available No t Available Xarelto 20 mg tablet TAKE 1 TABLET BY MOUTH EVERY DAY WITH DINNER active Not Available Not Available No t Available Jakafi 5 mg tablet 02/13 completed Not Available Not Available Not Available Xospata 40 mg tablet active Not Available Not Available No t Available Vitals Date Recorded Body height Body mass index (BMI) Body weight Systolic blood pressure Diastolic blood pressure Provider Name and Address Organization Details Last Updated DateTime 02/13/2025 162.56 cm 26.9 kg/m2 76340 g 134 mm[Hg] 74 mm[Hg] Zev Fonseca [facility] 11:29:32 Social History Question Answer Notes LastModified by Organizat ion Details LastModified Time Tobacco Smoking Status Former Smoker Zev Fonseca [facility] 02/13/2025 11:29:47 What Is Your Level Of Alcohol Consumption? Occasional Information not available 02/13/2025 If You Are , What Was Your Level Of Alcohol Consumption Prior To ? None Information not available 02/13/2025 How Many Years Have You Consumed Alcohol? 40 Information not available 02/13/2025 What Is Your Level Of Caffeine Consumption? Heavy Information not available 02/13/2025 Are You Currently Employed? No Information not available 02/13/2025 What Type Of Diet Are You Following? REGULAR Information not available 02/13/2025 At What Age Did You Start Smoking Tobacco? 17 Information not available 02/13/2025 How Much Tobacco Do You Smoke? 2 PPW Information not available 02/13/2025 Sex: Unknown Functional Status None recorded. Mental Status None recorded. Family History Relationship Description Onset Age of this Age Resolved Age Notes LastModified by Organization Details LastModified Time Father Hypertensive disorder [email or web address] Not available 2024 11:29:38 Father Family history of stroke [email or web address] Not available 2024 11:29:38 Father Heart disease [email or web address] Not available 2024 11:29:38 Father Substance abuse [email or web address] Not available 2024 11:29:38 Mother Hypertensive disorder [email or web address] Not available 2024 11:29:38 Mother Anxiety disorder [email or web address] Not available 2024 11:29:38 Mother Depressive disorder [email or web address] Not available 2024 11:29:38 Mother Osteoporosis [email or web address] Not avai lable 02/13/2025 11:29:38 Mother Substance abuse [email or web address] Not available 2024 11:29:38 Sister Hypertensive disorder [email or web address] Not available 2024 11:29:38 Sister Anxiety disorder [email or web address] Not available 2024 11:29:38 Sister Depressive disorder [email or web address] Not available 2024 11:29:38 Sister Hypothyroidi sm mwuebbels Not available 2024 11:29:38 Sister Substance abuse [email or web address] Not available 2024 11:29:38 Paternal Grandmother Anxiety disorder [email or web address] Not available 2024 11:29:38 Paternal Grandmother Depressive disorder [email or web address] Not available 2024 11:29:38 Paternal Grandfather Diabetes mellitus [email or web address] Not available 2024 11:29:38 Medical History Condition Response Cancer-Other Y Gynecological History Statement/Question Response History of PCOS N Date of Last Mammogram 11/26/2023 History of Fibroids N History of Infertility N History of Cervical Dysplasia N History of Vulvar Dysplasia N History of HPV N History of Recurrent Ovarian Cysts N History of Endometriosis Y Date of Last Colonoscopy 11/26/2023 Sexually Active? N History of Abnormal PAP N History of Dysmenorrhea Y Menses Monthly N Date of Last Pap Smear History of Sexually Transmitted Infectio n N Date of Last Cholesterol Screening 11/26 Obstetrics History GPAL:G 2 P 2 0 0 2 Type Value Multiple Births 0 Full Term 2 Induced 0 Spontaneous 0 Premature 0 Living 2 Ectopics 0 Total 2 Past Encounters Encounter ID Performer Location Encounter Start Date Encounter Closed Date Diagnosis/Indication Diagnosis SNOMED-CT Code Diagnosis ICD10 Code Diagnosis Note [id number] RIVKA GARCIA RD, MD [id number] [facility] [address] [facility] [place] [address] 02/13/2025 11:24:15 02/13/2025 12:10:04 Bacterial vaginosis 206567504 N76.0 Atrophic vaginitis 71341 000 N95.2 Acute myel oid leukemia, disease 33333036 C92.00 Continue care with oncologist Pain in pelvis 36266733 R10.2 Health Concerns Section Related Observation LastModified by Organization Detai ls LastModified Time None Recorded Concern Status LastModified by Organization Details LastModified Time None Recorded Advance Directives Directive None Recorded Payers Encounter Date Sequence Insurance Name Policy Number Policy Hawkins Covered Member ID Hawkins Member ID Guarantor Name 02/13/2025 1 [place]ARE[place] (MEDICARE[place] Angelica Guerra [id number] Angelica Gonzaleztristen 02/13/2025 2 [place] [facility] OF PUBLIC AID Angelica Guerra [id number] Angelica Guerra Notes Date Note Type Note Provider Name and Address Organization Details Recorded Time 02/13/2025 text/html Vaginal/Vulvar ProblemReported bypatient.Location:[facility]; vagina Onset/Timing:present most months Duration:persistent Quality:irritation Severity:moderate Context:not sexually active Alleviating Factors:none Aggravating Factors:none Associated Symptoms:no fever stopped estrogen cream a couple months ago. On chronic chemo for AML and has hot flashes and night sweats. Having a lot of vaginal discharge. More in last 2 months Thick green discharge. RIVKA CASTILLO MD [address] [facility] [address], [place], [address], [facility] 02/13/2025 12:16:50 OBGyn Episode No OBEpisode recorded.
--- OUTSIDE RECORDS SUMMARY | 2025-02-22 09:20 | XMS_ITS | Encounter Summary ---
Author Organization [facility] Address [facility] [place] [address] Care Team Providers Care Front Line Supervisor Name Role Phone Thomas Horowitz DO Primary Care Provider + Encounter Details Date Type Department Care Team (Late st Contact Info) Description 09/02/2024 MyCBuzzmetricst Message Enc [facility] Family & Internal Medicine [facility] [address] [place] [address] Thomas Horowitz DO [address] [place] [address] Medical marijuana card Social History Tobacco Use Types Packs/Day Years Used Date Smoking Tobacco: Former Cigarettes 1 35 1 979 - 2014 Passive Smoke Exposure: Never Smokeless Tobacco: Never Alcohol Use Standard Drinks/Week Comments Not Currently 0 (1 standard drink = 0.6 oz pur e alcohol) very rare. PHQ-2 Answer Date Recorded Patient Health Questionnaire-2 Score 4 03/11/2024 Comments No Sex and Gender Information Value Date Recorded Sex Assigned at Female 11/11/2024 10:08 AM COMMUNICATIONS ASSISTANT Legal Sex Female 8:10 PM CDT Gender Identity Female 11/11/2024 10:08 AM COMMUNICATIONS ASSISTANT Sexual Orientation Not on file documented as of this encounter Progress Notes * Thomas Horowitz DO - 09/03/2024 3:01 PM CDT I completed it online. Typically they talk with the dispensary from there from my understanding. * Thomas Horowitz DO - 09/03/2024 9:12 AM CDT It is completed now. * Caitie Mott MA - 09/02/2024 2:44 PM CDT Have you completed this? * Caitie Mott MA - 09/02/2024 2:44 PM CDTFrom: Angelica Guerra To: Dr. Thomas Horowitz Sent: 09/02/2024 7:54 AM CDT Subject: Medical marijuana card Good morning Dr Horowitz. I am following up on my medical marijuana card as you instructed me to do. I appreciate all the help. Thank you, Angelica documented in this encounter Plan of Treatment Upcoming Encounters Date Type Department Care Team (Late st Contact Info) Description 02/24/2025 9:00 AM CDT Office Visit [facility] Family & Internal Medicine - [address] [phone] Thomas Horowitz DO [address] [place] [address] documented as of this encounter Visit Diagnoses Not on filedocumented in this encounter Additional Health Concerns Assessment Noted Time PHQ-9 Depression Total Score: 15 024 11:51 AM CDT documented as of this encounter Care Teams Front Line Supervisor Relationship Specialty Start Date End Date Thomas Horowitz DO [address] [place] [address] PCP - General FAMILY PRACTICE 12/31/23 documented as of this encounter
--- OUTSIDE RECORDS SUMMARY | 2025-02-22 09:20 | XMS_ITS | Encounter Summary ---
Author Organization [facility] Address [address] 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 No / Unsure 08/26/2020 12:56 PM CDT documented as of this encounter Miscellaneous Notes * Telephone Encounter - Ghazala Galindo RN - 08/26/2020 9:01 AM CDT Patient notified and voiced good understanding. Thank you * Telephone Encounter - Rose Pruitt MD - 08/25/2020 8:21 AM CDT Requested Prescriptions Signed Prescriptions Disp Refills ??? buPROPion (WELLBUTRIN) 300 MG TABLET SR 24 HR XL tablet 30 Tab 2 Sig: Take 1 Tab by mouth every morning. Authorizing Provider: ROSE PRUITT Ok * Telephone Encounter - Hemalatha Gandhi - 08/24/2020 3:12 PM CDT Patient called in to request bupropion increase in dosage. documented in this encounter Plan of Treatment Not on file documented as of this encounter Goals Goal Patient Goal Type Associated Problems Recent Progress Patient-Stated? Author Angelica would like to go back to the gym and turn over in bed Pain Management No Cinda Fuenz, RN Note: Goal Reviewed with: patient Readiness to change: Ready to change Department associated with goal: [facility] Steps to achieve goal: 1. Will start Physical therapy in two weeks 2. Medications documented as of this encounter Visit Diagnoses Not on filedocumented in this encounter Additional Health Concerns Assessment Noted Time PHQ-9 Depression Total Score: 1 04/02/20 20 9:00 AM CDT documented as of this encounter Care Teams Reservations Sales Supervisor Relationship Specialty Start Date End Date Rose Pruitt MD PCP - General Internal Medicine/Pediatrics 07/23/18 05/30/23 Alli Mancuso MD [address] [place] [address] Consulting Physician Gastroenterology 04/14/20 documented as of this encounter
--- OUTSIDE RECORDS SUMMARY | 2025-02-22 09:20 | XMS_ITS | Encounter Summary ---
Author Organization [facility] Address formerly [facility] [place] [address] Care Team Providers Care Tax Senior Associate Name Role Phone Thomas Horowitz DO Primary Care Provider + Encounter Details Date Type Department Care Team (Late st Contact Info) Description 11/12/2024 MyChart Message Enc [facility] Family & Internal Medicine [facility] [address] [place] [address] Thomas Horowitz DO [facility] [place] [address] Prednisone Social History Tobacco Use Types Packs/Day Years [...] Sex Assigned at Female 11/11/2024 10:08 AM GRAPHITE GRINDER Legal Sex Female 8:10 PM CDT Gender Identity Female 11/11/2024 10:08 AM GRAPHITE GRINDER Sexual Orientation Not on file documented as of this encounter Progress Notes * Thomas Horowitz DO - 11/13/2024 8:23 AM CST Glad she is starting to feel better. HITE GRINDER documented in this encounter Plan of Treatment Upcoming Encounters Date Type Department Care Team (Late st Contact Info) Description 02/24/2025 9:00 AM CDT Office Visit [facility] Family & Internal Medicine [facility] [address] [place] [address] Thomas Horowitz DO [facility] [place] [address] documented as of this encounter Visit Diagnoses Not on filedocumented in this encounter Additional Health Concerns Assessment Noted Time PHQ-9 Depression Total Score: 15 024 11:51 AM CDT documented as of this encounter Care Teams Tax Senior Associate Relationship Specialty Start Date End Date Thomas Horowitz DO [address] [place] [address] PCP - General FAMILY PRACTICE 12/31/23 documented as of this encounter
--- OUTSIDE RECORDS SUMMARY | 2025-02-22 09:20 | XMS_ITS | Clinical Summary ---
Author Organization [facility] Address [facility] [place] [address] Care Team Providers Care Office Machine Servicer Name Role Phone Neeraj Sandoval MD Unavailable Thomas Horowitz DO Primary Care Provide r Allergies No known active allergies Medications rivaroxaban [...] by mouth daily before breakfast 30 tablet 07/18/20 025 Active ergocalciferol (VITAMIN D) 50,000 unit capsuleIndications:V itamin D deficiency Take 1 capsule (50,000 Units total) by mouth once a week 4 capsule 07/25/20 025 Active busPIRone (BUSPAR) 10 mg tabletIndications:Ge neralized Anxiety Disorder Take 1 tablet (10 mg total) by mouth 3 (three) times a day 90 tablet 07/29/20 025 Active amLODIPine (NORVASC) 5 mg tabletIndications:hy pertension Take 1 tablet (5 mg total) by mouth daily before breakfast 90 tablet 3 10/15/20 24 025 Active gilteritinib (Xospata) 40 mg tabletIndications: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 Voss at [facility] Date Type Department Care Team Description 02/11/[address] 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 Bone Marrow Transplant [address] [place] [phone] Neeraj Sandoval MD 01/26/2025 Orders Only [address] [address] Jana Schaffer, LISY 01/25/[address] [facility] Oncology [address] [place] [phone] Neeraj Sandoval MD 01/16/2025 Orders Only [address] [address] Jana Schaffer RN 01/15/[address] 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); Seborrheic keratosis; Solar purpura 01/12/2025 Results Follow-Up [address] [place] [address] Parris Sanders MD 01/09/2025 1:58 PM HYDRAULIC MECHANIC - 01/09/2025 11:59 PM HYDRAULIC MECHANIC Hospital [facility] Radiology at [address] [address] Osteopenia of left hip; 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); Postmenopausal Discharge Disposition: Discharge to home or self care 01/09/2025 1:55 PM HYDRAULIC MECHANIC [facility] [address] [place] [address] [address] [place] [address] Osteopenia of left hip; 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); Postmenopausal; History of allogeneic bone marrow transplant (HCC) 01/09/2025 12:40 PM HYDRAULIC MECHANIC Office Visit [facility] [address] [facility] [address] [place] [address] Parris Sanders MD Osteopenia of left hip (Primary Dx); 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); Postmenopausal 01/09/2025 12:10 PM HYDRAULIC MECHANIC Clinical Support [facility] [address] [facility] [address] [place] [address] Osteopenia of left hip 01/09/[address] Medical Office Building [address] [place] [address] Parris Sanders MD 01/08/2025 Telephone [facility] [address] [facility] Medical Office Building 2 [address] [place] [address] Parris Sanders MD 12/31/2024 12:45 PM HYDRAULIC MECHANIC - 12/31/2024 11:59 PM HYDRAULIC MECHANIC Hospital Encounter [facility] Cancer Outing - Diagnostic Imaging [address] [facility] [address] 8 [place] [address] History of allogeneic bone marrow transplant (HCC); 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) 12/18/2024 Orders Only [facility] [address] [facility] 5th [place] [address] [place] [address] Parris Sanders MD Osteopenia of left hip (Primary Dx) from Last 3 Months Immunizations Immunization Administration Dates Next Due Pfizer SARS-CoV-2 Monovalent Vaccination (12+ Yrs) PURPLE 12/22/2021 Surgical History Surgery Date Site/Laterality Comments LUMBAR PUNCTURE WO INJECTION , DIAGNOSTIC 07/13/2022 N/A EXPLORATORY LAPAROTOMY 11/26/1975 - 11/25/1976 ADHESIOLYSIS 11/26/1976 - 11/25/1977 LIGATION / DIVISION SAPHENOUS VEIN 11/26/1999 - 11/25/20 00 Right BONE RESECTION, RIB 11/26/2005 - 11/25/2006 PARTIAL HYSTERECTOMY 11/26/2001 - 11/25/2002 APPENDECTOMY HYSTERECTOMY SPINE SURGERY ORGAN TRANSPLANT 12/26/2022 ADENOIDECTOMY Child Medical History Medical History Date Comments Anemia Arthritis Osteoporosis 2022 Cancer (HCC) 06/27/2022 Brain concussion Depression Dysmenorrhea Hypertension Menstrual problem Dental disease Tinnitus Seizures (HCC) HL (hearing loss) History of chemotherapy 06/29/2022 Family History Medical History Relation Name Comments Arthritis Father Enrique Hearing loss Father Enrique Heart disease Father Enrique Hypertension Father Enrique Obesity Father Enrique Snoring Father Enrique Stroke Father Enrique Vision loss Father Enrique Lung cancer Maternal Grandmother Breast cancer Maternal cousin Depression Mother Erum Osteoarthritis Mother Erum Osteoporosis Mother Erum Diabetes Paternal Grandfather Rene Vision loss Paternal Grandfather Rene Drug abuse Sister 1 Sugar Miscarriages / Stillbirths Sister 2 Betty Thyroid disease Sister 2 Betty Allergies Sister 3 Chaya Thyroid disease Sister 3 Chaya Seizures Sister 4 Virginia Thyroid disease Sister 4 Virginia Thyroid disease Sister 5 Rufus Anesthesia problems Neg Hx Relation Name Status Comments Father Enrique Maternal Grandmother Maternal cousin Alive Mother Erum Paternal Grandfather Rene Sister 1 Sugar Sister 2 Betty Sister 3 Chaya Sister 4 Virginia Sister 5 Rufus Social History Tobacco Use Types Packs/Day Years [...] on file Legal Sex Female 6:18 PM HYDRAULIC MECHANIC Gender Identity Female 08/30/2023 12:40 PM CDT Sexual Orientation Not on file Obstetrics History Last Filed Vital Signs Vital Sign Reading Time Taken Comments Blood Pressure 129/85 12/31/2024 11:17 AM HYDRAULIC MECHANIC Pulse 69 12/31/2024 11:17 AM HYDRAULIC MECHANIC Temperature 36.3 C (97.3 F) 12/31/2024 11:17 AM HYDRAULIC MECHANIC Respiratory Rate 17 12/31/2024 11:17 AM HYDRAULIC MECHANIC Oxygen Saturation 99% 12/31/2024 11:17 AM HYDRAULIC MECHANIC Inhaled Oxygen Concentration - - Weight 70.1 kg (154 lb 9.6 oz) 01/09/2025 12:20 PM HYDRAULIC MECHANIC Height 162.5 cm (5' 3.98 ) 01/09/2025 12:[address] Body Mass Index 26.56 01/09/2025 12:20 PM HYDRAULIC MECHANIC Plan of Treatment Health Maintenance Due Date Last Done Comments Colon Cancer Screening-Colonoscopy 1960 Depression Screening 1960 Hepatitis C Screening 1962 DTaP/Tdap/Td Vaccine (1 - Tdap) 1973 Hepatitis B Screening 02/11/1980 Regular Well Visit/Exam 18-64 02/11/1980 Pneumococcal vaccine <65 (1 of 2 - PCV) 1981 Zoster Vaccine (1 of 2) 1981 Covid-19 Vaccine (3 - Pfizer risk series) 01/19/2022 12/22/2021, 12/01/2021 Breast Cancer Screening-Mammogram 04/27/2023 04/27/2022, 04/27/2022, 09/04/2017, Additional history exists Influenza Vaccine (#1) 2024 Procedures Procedure Name Priority Date/Time Associated Diagnosis [...] Read Routine (OP Routine) 01/09/2025 2:12 PM HYDRAULIC MECHANIC Osteopenia of left hip 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) Postmenopausal XR SPINE LUMBAR 2 OR 3 VIEWS Schedule Routine, Read Routine (OP Routine) 01/09/2025 2:12 PM HYDRAULIC MECHANIC Osteopenia of left hip 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) Postmenopausal EGFR Routine 01/09/2025 2:00 PM HYDRAULIC MECHANIC Osteopenia of left hip 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) Postmenopausal DIFFERENTIAL AUTO Routine 01/09/2025 2:0 0 PM HYDRAULIC MECHANIC 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) CBC WITH AUTO DIFFERENTIAL Routine 01/09/2025 2:00 PM HYDRAULIC MECHANIC 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) LACTATE DEHYDROGENASE Routine 01/09/2025 2:00 PM HYDRAULIC MECHANIC 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) PHOSPHORUS Routine 01/09/2025 2:00 PM HYDRAULIC MECHANIC Osteopenia of left hip 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) Postmenopausal PTH Routine 01/09/2025 2:00 PM HYDRAULIC MECHANIC Osteopenia of left hip 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) Postmenopausal VITAMIN D 25 HYDROXY Routine 01/09/2025 2:00 PM HYDRAULIC MECHANIC Osteopenia of left hip 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) Postmenopausal COMPREHENSIVE METABOLIC PANEL Routine 01/09/2025 2:00 PM HYDRAULIC MECHANIC Osteopenia of left hip 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) Postmenopausal DEXA TBS AXIAL SKELETON BONE DENSITY 1 OR MORE SITES Schedule Routine, Read Routine (OP Routine) 01/09/2025 11:49 AM HYDRAULIC MECHANIC Osteopenia of left hip XR HIP RIGHT 2 OR 3 VIEWS Schedule Routine, Read Routine (OP Routine) 12/31/2024 1:08 PM HYDRAULIC MECHANIC 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) EGFR Routine 12/31/2024 10:51 AM HYDRAULIC MECHANIC 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) DIFFERENTIAL AUTO Routine 12/31/2024 10: 51 AM HYDRAULIC MECHANIC 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) CBC WITH AUTO DIFFERENTIAL Routine 12/31/2024 10:51 AM HYDRAULIC MECHANIC 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) COMPREHENSIVE METABOLIC PANEL Routine 12/31/2024 10:51 AM HYDRAULIC MECHANIC 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) LACTATE DEHYDROGENASE Routine 12/31/2024 10:51 AM HYDRAULIC MECHANIC 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 See Note 1 Note 1 For additional information, please refer to http://education.Loudie/faq/XEG521 (This link is being provided for informational/ educational purposes only.) Blood 02/11/2025 12:2 3 PM CDT 02/11/2025 12:24 PM CDT Neeraj Sandoval MD LAB BLOOD ORDERABLES Final Resul t Performing Organization Address [facility] Co de Phone Number [facility] [address] [place] [address] * Uric acid (02/11/2025 12:23 PM CDT) Pathologist [facility] Uric acid 4.0 2.5 - 7.0 mg/dL [employer] Comment: Therapeutic target for gout patients: <6.0 mg/dL Blood 02/11/2025 12:2 3 PM CDT 02/11/2025 12:24 PM CDT Neeraj Sandoval MD LAB BLOOD ORDERABLES Final Resul t Performing Organization Address City/[facility]/ZIP Co de Phone Number [facility] [address] [place] [address] * (ABNORMAL) Cytomegalovirus (CMV) DNA PCR, quantitative Blood (02/11/2025 12:21 PM CDT) Pathologist [facility] CMV DNA qn <34.5(A) Not Detected IU/mL [facility] Comment: Detected CMV DNA was detected below 34.5 IU/mL. Viral load in this range cannot be accurately quantified by t CMV DNA log IU/mL <1.54(A) Not Detected Log IU/mL [facility] Comment: Detected (Note) For additional information, please refer to http://education.WeoGeo/faq/CMVandEBVPCR (This link is being provided for informational/educational purposes only.) [facility] [address] [address],[address] [facility] [address] Fermin Jasso MD, PhD Blood 02/11/2025 12:2 1 PM CDT 02/11/2025 12:22 PM CDT Narrative [facility] - 02/14/2025 3:53 PM CDT FASTING:NO FASTING: NO Neeraj Sandoval MD LAB MICROBIOLOGY - GENERAL ORDER BEATA Final Result [facility] [address] [address], [address] [place] [address] * CBC with auto differential (02/11/2025 12:21 PM CDT) [facility] WBC 6.5 3.8 - 10.8 Thousand/u L [...] ORDERABLES Final Resul t Performing Organization Address City/[facility] Co de Phone Number [facility] [address] [place] [address] * T3, free (02/11/2025 12:21 PM CDT) Pathologist [facility] Free T3 2.8 2.3 - 4.2 pg/mL [facility] Blood 02/11/2025 12:2 1 PM CDT 02/11/2025 12:22 PM CDT Narrative [facility] - 02/14/2025 3:53 PM CDT FASTING:NO FASTING: NO us Neeraj Sandoval MD LAB BLOOD ORDERABLES Final Resul t Performing Organization Address [facility]/ZIP Co de Phone Number [facility] [address] [place] [address] * TSH (02/11/2025 12:21 PM CDT) TSH 1.48 0.40 - 4.50 mIU/L [facility] Blood 02/11/2025 12:2 1 PM CDT 02/11/2025 12:22 PM CDT Narrative [facility] - 02/14/2025 3:53 PM CDT FASTING:NO FASTING: NO us Neeraj Sandoval MD LAB BLOOD ORDERABLES Final Resul t Performing Organization Address [facility]/ZIP Co de Phone Number [facility] [address] [place] [address] * T4, free (02/11/2025 12:21 PM CDT) Free T4 1.1 0.8 - 1.8 ng/dL [facility] Blood 02/11/2025 12:2 1 PM CDT 02/11/2025 12:22 PM CDT Narrative [facility] - 02/14/2025 3:53 PM CDT FASTING:NO FASTING: NO us Neeraj Sandoval MD LAB BLOOD ORDERABLES Final Resul t Performing Organization Address [facility] de Phone Number [facility] [address] [place] [address] * Lactate dehydrogenase (LD) (02/11/2025 12:21 PM CDT) Lactate dehydrogenase (LDH) 249 120 - 250 U/L [facility] Blood 02/11/2025 12:2 1 PM CDT 02/11/2025 12:22 PM CDT Narrative [facility] - 02/14/2025 3:53 PM CDT FASTING:NO FASTING: NO us Neeraj Sandoval MD LAB BLOOD ORDERABLES Final Resul t Performing Organization Address [facility] Co de Phone Number [facility] [address] [place] [address] * LH (02/11/2025 12:21 PM CDT) [facility] LH 56.4 mIU/mL [facility] Comment: Reference Range Follicular Phase 1.9-12.5 Mid-Cycle Peak 8.7-76.3 Luteal Phase 0.5-16.9 Postmenopausal 10.0-54.7 Blood 02/11/2025 12:2 1 PM CDT 02/11/2025 12:22 PM CDT Narrative [facility] - 02/14/2025 3:53 PM CDT FASTING:NO FASTING: NO Neeraj Sandoval MD LAB BLOOD ORDERABLES Final Resul t Performing Organization Address [facility] Co de Phone Number [facility] [address] [place] [address] * Follicle stimulating hormone (02/11/2025 12:21 PM CDT) [facility] FSH 92.8 mIU/mL [facility] Comment: Reference Range Follicular Phase 2.5-10.2 Mid-cycle Peak 3.1-17.7 Luteal Phase 1.5- 9.1 Postmenopausal 23.0-116.3 Blood 02/11/2025 12:2 1 PM CDT 02/11/2025 12:22 PM CDT Narrative [facility] - 02/14/2025 3:53 PM CDT FASTING:NO FASTING: NO Neeraj Sandoval MD LAB BLOOD ORDERABLES Final Resul t Performing Organization Address City[facility]/ZIP Co de Phone Number [facility] [address] [facility] [place] [address] * (ABNORMAL) Comprehensive metabolic panel (02/11/2025 12:21 PM CDT) [facility] Glucose 94 65 - 139 mg/dL [...] MD LAB BLOOD ORDERABLES Final Resul t TANIKA [facility] [address] [place] [address] * XR Spine Lumbar 2 or 3 Views (01/09/2025 2:12 PM HYDRAULIC MECHANIC) Anatomical Region Laterality Modality Spine N/A Computed Radiogr aphy 01/09/2025 3:23 PM HYDRAULIC MECHANIC Impressions 01/09/2025 3:32 PM HYDRAULIC MECHANIC 1. Compression deformities of L2 and L4 [...] Tee Gonzalez M.D. Narrative 01/09/2025 3:32 PM HYDRAULIC MECHANIC EXAMINATION: XR SPINE THORACIC 2 VIEWS, XR [...] Spine Thoracic 2 Views (01/09/2025 2:12 PM HYDRAULIC MECHANIC) Anatomical Region Laterality Modality Spine N/A Computed Radiogr aphy 01/09/2025 3:23 PM HYDRAULIC MECHANIC Impressions 01/09/2025 3:32 PM HYDRAULIC MECHANIC 1. Compression deformities of L2 and L4 [...] Tee Gonzalez M.D. Narrative 01/09/2025 3:32 PM HYDRAULIC MECHANIC EXAMINATION: XR SPINE THORACIC 2 VIEWS, XR [...] Re sult * eGFR (01/09/2025 2:00 PM HYDRAULIC MECHANIC) eGFR 64 >=60 mL/min/1. 73 m2 Comment: [...] last reviewed 2021. Blood 01/09/2025 2:00 PM HYDRAULIC MECHANIC 01/09/2025 4:34 PM HYDRAULIC MECHANIC us Parris Sanders MD LAB BLOOD ORDERABLES Final Result [facility] One [facility] Department [place] [address] * Differential, auto (01/09/2025 2:00 PM HYDRAULIC MECHANIC) Neutrophil abs 1.8 1.5 - 6.5 K/cumm Imm gran abs 0.0 0.0 - 0.1 K/cumm [facility] Lymphocyte abs 1.5 0.8 - 3.3 K/cumm [facility] Monocyte abs 0.4 0.2 - 0.8 K/cumm [facility] Eosinophil abs 0.1 0.0 - 0.5 K/cumm [facility] Basophil abs 0.0 0.0 - 0.1 K/cumm [facility] Neutrophil pct 46.5 % [facility] Comment: Interpretive Data Percent cell count reference ranges are not reported, since discordance with absolute values may lead to misinterpretation of CBC data. Current Interpretive Data was last revised on 2018. Imm gran pct 0.5 % [facility] Comment: Interpretive Data Percent cell count reference ranges are not reported, since discordance with absolute values may lead to misinterpretation of CBC data. Current Interpretive Data was last revised on 2018. Lymphocyte pct 38.8 % [facility] Comment: Interpretive Data Percent cell count reference ranges are not reported, since discordance with absolute values may lead to misinterpretation of CBC data. Current Interpretive Data was last revised on 2018. Monocyte pct 10.2 % [facility] Comment: Interpretive Data Percent cell count reference ranges are not reported, since discordance with absolute values may lead to misinterpretation of CBC data. Current Interpretive Data was last revised on 2018. Eosinophil pct 3.0 % [facility] Comment: Interpretive Data Percent cell count reference ranges are not reported, since discordance with absolute values may lead to misinterpretation of CBC data. Current Interpretive Data was last revised on 2018. Basophil pct 1.0 % [facility] Comment: Interpretive Data Percent cell count reference ranges are not reported, since discordance with absolute values may lead to misinterpretation of CBC data. Current Interpretive Data was last revised on 2018. Blood 01/09/2025 2:00 PM HYDRAULIC MECHANIC 01/09/2025 4:16 PM HYDRAULIC MECHANIC Neeraj Sandoval MD LAB BLOOD ORDERABLES Final Resul t Performing Organization Address [facility] Co de Phone Number [facility] [place] [address] * (ABNORMAL) CBC with auto differential (01/09/2025 2:00 PM HYDRAULIC MECHANIC) WBC 3.9 3.8 - 9.9 K/cumm Hgb 13.4 11.9 - 15.5 g/dL [facility] Hct 41.4 35.6 - 45.5 % [facility] Plt 192 150 - 400 K/cumm [facility] MPV 9.4 9.1 - 12.3 fL [facility] RBC 4.26 3.90 - 5.20 M/cumm [facility] MCV 97.2(H) 81.3 - 96.4 fL [facility] MCH 31.5 27.1 - 33.3 pg [facility] MCHC 32.4 32.3 - 35.7 g/dL [facility] RDW CV 14.6 11.1 - 14.9 % [facility] RDW SD 52.0(H) 35.7 - 48.1 fL [facility] NRBC abs 0.00 0.00 - 0.01 K/cumm [facility] Blood 01/09/2025 2:00 PM HYDRAULIC MECHANIC 01/09/2025 4:16 PM HYDRAULIC MECHANIC us Neeraj Sandoval MD LAB BLOOD ORDERABLES Final Resul t Performing Organization Address City[facility]/ZIP Co de Phone Number [facility] [place] [address] * Vitamin D 25 hydroxy (01/09/2025 2:00 PM HYDRAULIC MECHANIC) Pathologist [facility] Vitamin D 25-OH 74 30 - 80 ng/mL Blood 01/09/2025 2:00 PM HYDRAULIC MECHANIC 01/09/2025 4:16 PM HYDRAULIC MECHANIC Parris Sanders MD LAB BLOOD ORDERABLES Final Result Performing Organization Address City/[facility] Co de Phone Number [facility] Department [place] [address] * Phosphorus (01/09/2025 2:00 PM HYDRAULIC MECHANIC) [facility] Phosphorus, pl 4.1 2.3 - 4.5 mg/dL Blood 01/09/2025 2:00 PM HYDRAULIC MECHANIC 01/09/2025 4:16 PM HYDRAULIC MECHANIC Parris Sanders MD LAB BLOOD ORDERABLES Final Result Performing Organization Address [facility] de Phone Number [facility] [place] [address] * (ABNORMAL) PTH (01/09/2025 2:00 PM HYDRAULIC MECHANIC) [facility] PTH 70(H) 15 - 65 pg/mL Blood 01/09/2025 2:00 PM HYDRAULIC MECHANIC 01/09/2025 4:16 PM HYDRAULIC MECHANIC Result [facility] Parris Sanders MD LAB BLOOD ORDERABLES Final Result Performing Organization Address [facility] de Phone Number [facility] [place] [address] * (ABNORMAL) Lactate dehydrogenase (LD) (01/09/2025 2:00 PM HYDRAULIC MECHANIC) [facility] Lactate dehydrogenase (LDH) 283(H) 100 - 250 Units/L Blood 01/09/2025 2:00 PM HYDRAULIC MECHANIC 01/09/2025 4:16 PM HYDRAULIC MECHANIC us Neeraj Sandoval MD LAB BLOOD ORDERABLES Final Resul t [facility] One [facility] Department [place] [address] * Comprehensive metabolic panel (01/09/2025 2:00 PM HYDRAULIC MECHANIC) Pathologist [facility] Sodium 145 135 - 145 mmol/L Potassium, pl 4.8 3.3 - 4.9 mmol/L [facility] Chloride 105 97 - 110 mmol/L [facility] CO2 31 22 - 32 mmol/L [facility] Anion gap 9 2 - 15 mmol/L [facility] BUN 8 6 - 25 mg/dL [facility] Creatinine 0.99 0.60 - 1.10 mg/dL [facility] Glucose 79 70 - 199 mg/dL [facility] Comment: Interpretive Data Fasting glucose >/= 126 [...] classification and Diagnosis of Diabetes Diabetes Care 2021; 46: S19-S40. Current interpretive data was last revised 2022. Calcium 9.5 8.5 - 10.3 mg/dL [facility] Bilirubin, total 0.4 0.1 - 1.2 mg/dL [facility] Protein, pl 7.2 6.5 - 8.5 g/dL [facility] Albumin 4.3 3.5 - 5.0 g/dL [facility] Alk phos 100 40 - 130 Units/L [facility] ALT 33 7 - 45 Units/L [facility] AST 24 10 - 45 Units/L [facility] Blood 01/09/2025 2:00 PM HYDRAULIC MECHANIC 01/09/2025 4:16 PM HYDRAULIC MECHANIC us Parris Sanders MD LAB BLOOD ORDERABLES Final Result [facility] Department [place] [address] * Dexa TBS Axial Skeleton Bone Density 1 or more sites (01/09/2025 11:49 AM HYDRAULIC MECHANIC) Anatomical Region Laterality Modality Wrist, Body N/A Radiographic Valarie ging Narrative 01/12/2025 9:24 PM HYDRAULIC MECHANIC Patient Name: Angelica Guerra Date of : 1960 Date of scan: 01/09/2025 Bone mineral density was performed on a HoloGoPollGo Discovery Densitometer. Based on machine cross-calibration and [...] by the International Society of Clinical Densitometry. [id number] us Parris Sanders MD [facility] DXA PROCEDURES Final R esult * XR Hip Right 2 or 3 Views (12/31/2024 1:08 PM HYDRAULIC MECHANIC) Anatomical Region Laterality Modality Lower Extremities, Hip, Pelvis Right D igital Radiography 12/31/2024 2:02 PM HYDRAULIC MECHANIC Impressions 12/31/2024 2:29 PM HYDRAULIC MECHANIC 1. 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 Dictated by: Elijah Tolentino M.D. The radiology attending physician has personally reviewed this study, and had reviewed and/or edited this written report and agrees with it. Electronically signed by: Tee Gonzalez M.D. Narrative 12/31/2024 2:29 PM HYDRAULIC MECHANIC EXAMINATION: XR HIP RIGHT 2 OR 3 [...] Final Result * eGFR (12/31/2024 10:51 AM HYDRAULIC MECHANIC) eGFR 79 >=60 mL/min/1. 73 m2 Comment: [...] reviewed 2021. Blood 12/31/2024 10:5 1 AM HYDRAULIC MECHANIC 12/31/2024 11:02 AM HYDRAULIC MECHANIC us Neeraj Sandoval MD LAB BLOOD ORDERABLES Final Resul t [facility] Department of Laboratories [place] [id number] * Differential, auto (12/31/2024 10:51 AM HYDRAULIC MECHANIC) Neutrophil abs 2.2 1.5 - 6.5 K/cumm Comment:Testing performed by : [facility], [address] [place] [phone] Lymphocyte abs 1.4 0.8 - 3.3 K/cumm [facility] Comment:Testing performed by : [facility], [address] [place] [phone] Monocyte abs 0.5 0.2 - 0.8 K/cumm [facility] Comment:Testing performed by : [facility], [address] [place] [phone] Eosinophil abs 0.2 0.0 - 0.5 K/cumm [facility] Comment:Testing performed by : [facility], [address] [place] [phone] Basophil abs 0.0 0.0 - 0.1 K/cumm [facility] Comment:Testing performed by : [facility], [address] [place] [phone] Neutrophil pct 52.0 % [facility] Comment: Interpretive Data Percent cell count reference ranges are not reported, since discordance with absolute values may lead to misinterpretation of CBC data. Current Interpretive Data was last revised on 2018. Testing performed by: [facility], [address] [place] [phone] Lymphocyte pct 32.5 % [facility] Comment: Interpretive Data Percent cell count reference ranges are not reported, since discordance with absolute values may lead to misinterpretation of CBC data. Current Interpretive Data was last revised on 2018. Testing performed by: [facility], [address] [place] [phone] Monocyte pct 10.7 % [facility] Comment: Interpretive Data Percent cell count reference ranges are not reported, since discordance with absolute values may lead to misinterpretation of CBC data. Current Interpretive Data was last revised on 2018. Testing performed by: [facility], [address] [place] [phone] Eosinophil pct 4.1 % [facility] Comment: Interpretive Data Percent cell count reference ranges are not reported, since discordance with absolute values may lead to misinterpretation of CBC data. Current Interpretive Data was last revised on 2018. Testing performed by: [facility], [address] [place] [phone] Basophil pct 0.7 % [facility] Comment: Interpretive Data Percent cell count reference ranges are not reported, since discordance with absolute values may lead to misinterpretation of CBC data. Current Interpretive Data was last revised on 2018. Testing performed by: [facility], [address] [place] [phone] Blood 12/31/2024 10:5 1 AM HYDRAULIC MECHANIC 12/31/2024 11:00 AM HYDRAULIC MECHANIC us Neeraj Sandoval MD LAB BLOOD ORDERABLES Final Resul t [facility] One [facility] Department [place] [address] * CBC with auto differential (12/31/2024 10:51 AM HYDRAULIC MECHANIC) WBC 4.3 3.8 - 9.9 K/cumm Comment:Testing performed by : [facility], [address] [place] [address] Hgb 12.6 11.9 - 15.5 g/dL [facility] Comment:Testing performed by : [facility], [address] [place] [address] Hct 37.9 35.6 - 45.5 % [facility] Comment:Testing performed by : [facility], [address] [place] [address] Plt 201 150 - 400 K/cumm [facility] Comment:Testing performed by : [facility], [address] [place] [address] MPV 7.9 6.8 - 10.4 fL [facility] Comment:Testing performed by : [facility], [address] [place] [address] RBC 3.95 3.90 - 5.20 M/cumm [facility] Comment:Testing performed by : [facility], [address] [place] [address] MCV 96.0 81.3 - 96.4 fL [facility] Comment:Testing performed by : [facility], [address] [place] [address] MCH 31.9 27.1 - 33.3 pg [facility] Comment:Testing performed by : [facility], [address] [place] [address] MCHC 33.2 32.3 - 35.7 g/dL [facility] Comment:Testing performed by : [facility], [address] [place] [address] RDW CV 14.8 11.1 - 14.9 % [facility] Comment:Testing performed by : [facility], [address] [place] [address] NRBC abs 0.00 0.00 - 0.01 K/cumm [facility] Comment:Testing performed by : [facility], [address] [place] [phone] Blood 12/31/2024 10:5 1 AM HYDRAULIC MECHANIC 12/31/2024 11:00 AM HYDRAULIC MECHANIC Neeraj Sandoval MD LAB BLOOD ORDERABLES Final Resul t Performing Organization Address [facility] Co de Phone Number [facility] [place] [address] * Lactate dehydrogenase (LD) (12/31/2024 10:51 AM HYDRAULIC MECHANIC) Lactate dehydrogenase (LDH) 239 100 - 250 Units/L Blood 12/31/2024 10:5 1 AM HYDRAULIC MECHANIC 12/31/2024 11:02 AM HYDRAULIC MECHANIC Neeraj Sandoval MD LAB BLOOD ORDERABLES Final Resul t Performing Organization Address [facility] de Phone Number [facility] Department [place] [address] * (ABNORMAL) Comprehensive metabolic panel (12/31/2024 10:51 AM HYDRAULIC MECHANIC) Sodium 141 135 - 145 mmol/L Potassium, pl 5.1(H) 3.3 - 4.9 mmol/L [facility] Chloride 105 97 - 110 mmol/L [facility] CO2 32 22 - 32 mmol/L [facility] Anion gap 4 2 - 15 mmol/L [facility] BUN 10 6 - 25 mg/dL [facility] Creatinine 0.84 0.60 - 1.10 mg/dL [facility] Glucose 83 70 - 199 mg/dL [facility] Comment: Interpretive Data Fasting glucose >/= 126 [...] pl 6.9 6.5 - 8.5 g/dL [facility] Albumin 4.1 3.5 - 5.0 g/dL [facility] Alk phos 100 40 - 130 Units/L [facility] ALT 39 7 - 45 Units/L [facility] AST 32 10 - 45 Units/L [facility] Blood 12/31/2024 10:5 1 AM HYDRAULIC MECHANIC 12/31/2024 11:02 AM HYDRAULIC MECHANIC Neeraj Sandoval MD LAB BLOOD ORDERABLES Final Resul t [facility] One [facility] Department [place] [address] from Last 3 Months Insurance [facility] MEDICARE [facility] MEDIC[facility] [place] Advance Directives For more information, please contact: [phone] * Full Code (Latest Code Status on File) Date Activated Date Inactivated Comments 04/09/2024 9:57 AM 04/10/2024 5:28 AM Care Teams Office Machine Servicer Relationship Specialty Start Date End Date Thomas Horowitz DO [address] [place] [id number] PCP - General Family Medicine 04/24/24 Neeraj Sandoval MD [address] [facility] 7 DIV IM BONE [place] [address] Medical Oncologist/Parking Analyst Medical Oncology 08/01/23
--- OUTSIDE RECORDS SUMMARY | 2025-02-22 09:20 | XMS_ITS | Encounter Summary ---
Author Organization [facility] Healthcare Address [address] [place] [address] Care Team Providers Care Nanny/Household Manager Name Role Phone Neeraj aSndoval MD Unavailable Unknown, Notidonis Primary Care Provider Unavail able Thomas Horowitz DO Primary Care Provide r Encounter Details Date Type Department Care Team (Late st Contact Info) Description 04/03/2024 Telephone [facility] Radiology [address] [place] [address] José Luis Lyon, RN Social History Tobacco Use Types Packs/Day Years Used Date Smoking Tobacco: Former Cigarettes 0.8 15.2 S tarted: 1975 Smokeless Tobacco: Never Personal Safety Answer Date Recorded Getting School Help Needed Not on file 11/07 Comments Unknown Sex and Gender Information Value Date Recorded Sex Assigned at Not on file Legal Sex Female 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 Gender Identity Female 08/30/2023 12:40 PM CDT Sexual Orientation Not on file documented as of this encounter Plan of Treatment Not on file documented as of this encounter Visit Diagnoses Not on filedocumented in this encounter Care Teams Nanny/Household Manager Relationship Specialty Start Date End Date Unknown, Isac PCP - General 08/27/23 04/23/24 Thomas Horowitz DO [address] [place] [id number] PCP - General Family Medicine 04/24/24 Neeraj Sandoval MD [address] [place] [address] [address] [place] 7 DIV [place] [address] Medical Oncologist/Heading Saw Operator Medical Oncology 08/01/23 documented as of this encounter
--- OUTSIDE RECORDS SUMMARY | 2025-02-22 09:20 | XMS_ITS | Encounter Summary ---
Author Organization [facility] Address [facility] [place] [address] Care Team Providers Care Data Warehouse Administrator Name Role Phone Thomas Horowitz DO Primary Care Provider + Encounter Details Date Type Department Care Team (Late Contact Info) Description 01/01/2025 MyChart Message Enc [facility] Family & Internal [place] [address] [place] [address] Thomas Horowitz DO [address] [place] [address] [place] Social History Tobacco Use Types Packs/Day Years [...] Sex Assigned at Female 11/11/2024 10:08 AM TAKER DOWN Legal Sex Female 8:10 PM CDT Gender Identity Female 11/11/2024 10:08 AM TAKER DOWN Sexual Orientation Not on file documented as of this encounter Plan of Treatment Upcoming Encounters Date Type Department Care Team (Late Contact Info) Description 02/24/2025 9:00 AM CDT Office Visit [facility] Family & Internal Medicine - [address] [phone] Thomas Horowitz DO [address] [place] [address] documented as of this encounter Visit Diagnoses Not on filedocumented in this encounter Additional Health Concerns Assessment Noted Time PHQ-9 Depression Total Score: 15 024 11:51 AM CDT documented as of this encounter Care Teams Data Warehouse Administrator Relationship Specialty Start Date End Date Thomas Horowitz DO [address] [place] [address] PCP - General FAMILY PRACTICE 12/31/23 documented as of this encounter
--- OUTSIDE RECORDS SUMMARY | 2025-02-22 09:20 | XMS_ITS | Encounter Summary ---
Author Organization [facility] Address [facility] [place] [address] Care Team Providers Care Arranger Assembler Name Role Phone Thomas Horowitz DO Primary Care Provider + Encounter Details Date Type Department Care Team (Late Contact Info) Description 06/24/2024 Almashopping Message Enc [facility] Family & Internal Medicine [address] [phone] [facility] Provider Appointment for 07/11/2024 Social History Tobacco Use Types Packs/Day Years [...] Sex Assigned at Female 11/11/2024 10:08 AM PHONOGRAPH CARTRIDGE ASSEMBLER Legal Sex Female 8:10 PM CDT Gender Identity Female 11/11/2024 10:08 AM PHONOGRAPH CARTRIDGE ASSEMBLER Sexual Orientation Not on file documented as of this encounter Plan of Treatment Upcoming Encounters Date Type Department Care Team (Late Contact Info) Description 02/24/2025 9:00 AM CDT Office Visit [facility] Family & Internal [address] [phone] Thomas Horowitz DO [facility] [address] [place] [address] documented as of this encounter Visit Diagnoses Not on filedocumented in this encounter Additional Health Concerns Assessment Noted Time PHQ-9 Depression Total Score: 15 024 11:51 AM CDT documented as of this encounter Care Teams Arranger Assembler Relationship Specialty Start Date End Date Thomas Horowitz DO [address] [place] [address] PCP - General FAMILY PRACTICE 12/31/23 documented as of this encounter
--- OUTSIDE RECORDS SUMMARY | 2025-02-22 09:20 | XMS_ITS | Encounter Summary ---
Author Organization [facility] Address [address] [place] [address] Phone Care Team Providers Care Web Application Dev Specialist Name Role Phone Sen Pruitt MD Primary Care Provider Alli Mancuso MD Unavailable Reason for Visit * Reason Onset Date Comments Medication Refill 04/29/2021 [place] Encounter Details Date Type Department Care Team (Late st Contact Info) Description 04/29/2021 Refill [facility] - Internal Medicine & Pediatrics - [place] [address] [place], [place] [phone] Sen Pruitt MD [address] [place] [address] Medication Refill ([place]) Social History Tobacco Use Types Packs/Day Years [...] on file Legal Sex Female 4:[address] 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 Requested Prescriptions Pending Prescriptions Disp Refills buPROPion (WELLBUTRIN) 300 MG TABLET SR 24 HR XL tablet 90 Tablet 1 Sig: Take 1 Tablet by mouth every morning. Bupropion (6 Month Refill Only) Protocol Failed - 04/29/2021 2:28 PM Failed - Visit with relevant provider in past 6 months or upcoming 90 days Recent Visits No visits were found meeting these conditions. Showing recent visits within past 182 days and meeting all other requirements Future Appointments No visits were found meeting these conditions. Showing future appointments within next 90 days and meeting all other requirements Failed - Has an encounter in the past 6 months with a depression or anxiety visit diagnosis Passed - Patient has established therapy with Bupropion for at least 6 months * Telephone Encounter - Roberta Acevedo - 04/29/2021 2:02 PM CDT Received phone call from Angelica Guerra regarding a requested refill/medication management. Pharmacy verified with caller Yes Name of pharmacy: [facility] Outcome: medication pended, routed to authorizing physician/LAUREN BabbleriStormWind. documented in this encounter Plan of Treatment Not on file documented as of this encounter Goals Goal Patient Goal Type Associated Problems Recent Progress Patient-Stated? Author Angelica would like to go back to the gym and turn over in bed Pain Management No Cinda Funez RN Note: Goal Reviewed with: patient Readiness to change: Ready to change Department associated with goal: [facility] Steps to achieve goal: 1. Will start Physical therapy in two weeks 2. Medications documented as of this encounter Visit Diagnoses Not on filedocumented in this encounter Additional Health Concerns Assessment Noted Time PHQ-9 Depression Total Score: 1 04/02/20 20 9:00 AM CDT documented as of this encounter Care Teams Web Application Dev Specialist Relationship Specialty Start Date End Date Sen Pruitt MD PCP - General Internal Medicine/Pediatrics 07/23/18 05/30/23 Alli Mancuso MD [address] [place] [address] Consulting Physician Gastroenterology 04/14/20 documented as of this encounter
--- OUTSIDE RECORDS SUMMARY | 2025-02-22 09:20 | XMS_ITS | Encounter Summary ---
Author Organization [facility] Address [address] [facility] 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 No / Unsure 05/13/2020 4:01 PM CDT documented as of this encounter Plan of Treatment Not on file documented as of this encounter Procedures Procedure Name Priority Date/Time Associated Diagnosis Comments HAPTOGLOBIN Routine 06/02/2020 2:09 PM CDT Anemia, unspecified documented in this encounter Results * HAPTOGLOBIN (06/02/2020 2:09 PM CDT) HAPTOGLOBIN 56 35 - 250 mg/dL 06/02/2020 5:41 PM CDT [facility] Blood 06/02/2020 2:09 PM CDT 06/02/2020 5:09 PM CDT us Jeffrey Wallace MD CHEMISTRY ORDERABLES Fin al Result [facility] [address] [place] [address], [place] documented in this encounter Visit Diagnoses Diagnosis Anemia, unspecified documented in this encounter Additional Health Concerns Assessment Noted Time PHQ-9 Depression Total Score: 1 04/02/20 20 9:00 AM CDT documented as of this encounter Care Teams Home Agent Relationship Specialty Start Date End Date Sen Pruitt MD PCP - General Internal Medicine/Pediatrics 07/23/18 05/30/23 Alli Mancuso MD [address] [place] [address] Consulting Physician Gastroenterology 04/14/20 documented as of this encounter
--- OUTSIDE RECORDS SUMMARY | 2025-02-22 09:20 | XMS_ITS | Clinical Summary ---
Author Organization [facility] Address [address] [place] [address] Phone Care Team Providers Care Medical Doctor Name Role Phone Alli Mancuso MD Unavailable Allergies No known active allergies Medications Multiple Vitamins-Mineral s (MULTIVITAMIN PO) Take 1 Tab by mouth daily. Active Cholecalciferol (VITAMIN D PO)Indications:h as been taking daily Take 5,000 Units by mouth daily. Does not take on Sunday and Sunday. Indications: has been taking daily Active B Complex Vitamins (VITAMIN B COMPLEX PO) Take 1,000 mg by mouth daily. Active MAGNESIUM GLYCINATE PLUS PO Take 1-4 Caps by mouth nightly as needed. Active CRANBERRY PO Take 2 Tabs by mouth daily. Active otherIndications :CLEAR MIND by Other route daily. Indications: CLEAR MIND Active otherIndications :DIETARY ENZYME by Other route 3 times daily. Indications: DIETARY ENZYME Active Coenzyme Q10 (CO Q 10 PO) Take by mouth daily. Active [place]-3 Fatty Acids (OMEGA 3 PO) Take by mouth 2 times daily. Active liothyronine (CYTOMEL) 5 MCG Tablet Take 5 mcg by mouth 2 times daily. Combined with Levothyroxine Active Probiotic Product (PROBIOTIC-10 PO) Take by mouth. Activ e ESTRADIOL POIndications:6 lines at night Take by mouth. Indications: 6 lines at night Active otherIndications :DANAZOLE by Other route. Indications: DANAZOLE Active Misc Natural Products (ADRENAL PO)Indications:A drenal Revive Take by mouth daily. Indications: Adrenal Revive Active Testosterone 10 MG/ACT (2%) Gel 2 Applicators by Transdermal route every morning. Apply to forearms Active PROGESTERONE MICRONIZED PO Take 75 mg by mouth nightly. Active other by Other route. Ibutamoren 10 mg, 1 cap per day by mouth, 5 days per week, every other week Active LEVOTHYROXINE SODIUM PO Take 5 mcg by mouth 2 times daily. Combined with Liothyronine Active omeprazole (PriLOSEC) 20 MG CAPSULE DELAYED RELEASE TAKE ONE CAPSULE BY MOUTH EVERY MORNING ONE HOUR BEFORE EATING 90 Cap 2 07/30/20 20 Active lisinopril (PRINIVIL, ZESTRIL) 10 MG TabletIndication s:Essential hypertension Take 0.5 Tabs by mouth daily. 180 Tab 3 10/15/20 20 Active buPROPion (WELLBUTRIN) 300 MG TABLET SR 24 HR XL tablet Take 1 Tablet by mouth every morning. 90 Tablet 1 04/29/20 21 Active Active Problems Problem Noted Date Diagnosed Date Lumbar radiculopathy 06/09/2020 Colon cancer screening 04/21/2020 Overview (04/26/2020): Colonoscopy 04/21/2020. Repeat due 03/2030. Pyogenic granuloma of skin 03/20/2019 High blood pressure 11/21/2018 Attention deficit hyperactiv ity disorder (ADHD), predominantly inattentive type 10/25/2018 Psoriasis of scalp 07/19/2018 Fatigue 07/19/2018 Hair loss 07/19/2018 Family History Medical History Relation Name Comments Asthma Other 1 Heart Disease Other 2 Hypertension Other 3 High Cholesterol Other 4 Stroke Other 5 Osteoporosis Other 6 Mental Disorder, Other Other 7 Alcohol Abuse Other 8 Breast Cancer Other 9 cousin Ovarian Cancer Neg Hx Relation Name Status Comments Other 1 Other 2 Other 3 Other 4 Other 5 Other 6 Other 7 Other 8 Other 9 cousin Alive Social History Tobacco Use Types Packs/Day Years Used Date Smoking Tobacco: Former Cigarettes 0 11/26/1981 - 11/26/2011 Smokeless Tobacco: Never Tobacco Cessation:Counseling Given: No Alcohol Use Standard Drinks/Week Comments Yes 0 (1 standard drink = 0.6 oz pur e alcohol) 2-3 drinks per week PHQ-2 Answer Date Recorded Total Score - Questions 1-9 1 06/2020 Comments No Sex and Gender Information Value Date Recorded Sex Assigned at Not on file Legal Sex Female 4:02 AM SUPPLY CHAIN INTERN Gender Identity Not on file Sexual Orientation Not on file Last Filed Vital Signs Vital Sign Reading Time Taken Comments Blood Pressure 112/78 10/15/2020 2:30 PM SUPPLY CHAIN INTERN Pulse 84 10/15/2020 2:30 PM SUPPLY CHAIN INTERN Temperature 36.7 C (98.1 F) 07/02/2020 12:53 PM CDT Respiratory Rate 18 10/15/2020 2:30 PM SUPPLY CHAIN INTERN Oxygen Saturation 100% 09/15/2020 3:13 PM CDT Inhaled Oxygen Concentration - - Weight 74.5 kg (164 lb 4.8 oz) 10/15/2020 2:30 P M SUPPLY CHAIN INTERN Height 165.1 cm (5' 5 ) 10/15/2020 2:30 PM SUPPLY CHAIN INTERN Body Mass Index 27.34 10/15/2020 2:30 PM SUPPLY CHAIN INTERN Plan of Treatment Health Maintenance Due Date Last Done Comments Hepatitis C Virus (HCV) Screening 1960 TdaP Immunization 1960 Cologuard 02/11/2012 Pneumococcal Immunization (5 0+ years) (1 of 1 - PCV) 02/11/2012 Zoster Immunization (1 of 2) 02/11/2012 Immunochemical Fecal Occult Blood 08/22/2019 08/22/2018 Influenza Immunization (#1) 2024 SARS-COV-2 Immunization ( - season) 2024 Colonoscopy 04/21/2030 04/21/2020, 04/21/2020, 05/22/2012 Colorectal Cancer Screening 04/21/2030 Respiratory Syncytial Virus (RSV) Immunization (Adult) (1 - 1-dose 75+ series) 2037 04/21/2020 Mammogram Discontinued 09/04/2017, 08/28/2017 Hepatitis B Immunization Aged Out No longer eligible based on patient's age to complete this topic Meningococcal Immunization (ACWY) Aged Out No longer eligible based on patient's age to complete this topic Rotavirus Immunization Aged Out No lo nger eligible based on patient's age to complete this topic Goals Goal Patient Goal Type Associated Problems Recent Progress Patient-Stated? Author Angelica would like to go back to the gym and turn over in bed Pain Management No Cinda Funez, RN Note: Goal Reviewed with: patient Readiness to change: Ready to change Department associated with goal: [facility] Steps to achieve goal: 1. Will start Physical therapy in two weeks 2. Medications Procedures Procedure Name Priority Date/Time Associated Diagnosis Comments STOOL, OCCULT BLOOD IMMUNOASSAY (IFOB) Routine 08/22/2018 8:00 AM CDT Anemia, unspecified type [facility] DIAG BILATERAL DIGITAL WO CAD W JAZZMINE Routine 09/04/2017 7:41 AM CDT Mammogram abnormal Breast calcifications from Last 3 Months or Most Recently Relevant to Health Maintenance Results * STOOL, OCCULT BLOOD IMMUNOASSAY (IFOB) (08/22/2018 8:00 AM CDT) OCCULT BLOOD - IFOB Negative Negative 08/22/2018 2:10 PM CDT [facility] Specimen of unknown material (specimen) STOOL SPECIMEN / Unknown Non-Phlebotomy Collection / Unknown 08/22/2018 8:00 AM CDT 08/22/2018 10:31 AM CDT us Sen Pruitt MD BODY FLUIDS & STOOLS O RDERABLES Final Result Performing Organization Address City/State/[facility] Co de Phone Number [facility] [address] [place] [address], [place] * [facility] DIAG BILATERAL DIGITAL WO CAD W JAZZMINE (09/04/2017 7:41 AM CDT) Anatomical Region Laterality Modality breast Bilateral Mammography 09/04/2017 7:41 AM CDT Impressions 09/04/2017 5:13 PM CDT IMPRESSION: 1. Bilateral breast asymmetries corresponds to superimposed breast tissue. 2. There is no mammographic evidence of malignancy. RECOMMENDATION: A screening mammogram is recommended in 1 year. Written results and recommendations were given to the patient at the conclusion of this examination today. BI-RADS: 2 - Benign Findings. ATTESTATION: I, Dr. Opal Reynolds, as the teaching physician, personally reviewed the radiologic study(studies) and concur with this interpretation. Narrative 09/04/2017 5:13 PM CDT DICTATING PHYSICIAN: Michael Gordillo D.O. EXAM: [facility] ABBEY BILATERAL DIGITAL WO CAD W JAZZMINE, 09/04/2017 7:41 AM. COMPARISON: 08/28/2017, 05/23/2016, 05/09/2016. HISTORY: Returned from screening mammography for evaluation of bilateral breast asymmetries and right breast calcification. FINDINGS: Bilateral spot compression and right magnification views were obtained. The breast tissue is heterogeneously dense, which could obscure detection of small masses. With additional imaging the bilateral breast asymmetries seen in prior mammography in the slight lateral middle depth right breast, posterior central right breast, and lateral middle depth left breast efface with spot compression and are compatible with superimposition of normal breast tissue. There is a single coarse benign-appearing calcification in the posterior central breast which is not associated with the asymmetry on magnification view. No suspicious masses, calcifications, or other significant findings are seen. With this additional imaging there now has been no significant interval change when compared to other prior exams. . Procedure Note Opal Reynolds MD - 09/04/2017 DICTATING PHYSICIAN: Michael Gordillo D.O. EXAM: [facility] ABBEY BILATERAL DIGITAL WO CAD W JAZZMINE, 09/04/2017 7:41 AM. COMPARISON: 08/28/2017, 05/23/2016, 05/09/2016. HISTORY: Returned from screening mammography for evaluation of bilateralbreast asymmetries and right breast calcification. FINDINGS: Bilateral spot compression and right magnification views wereobtained. The breast tissue is heterogeneously dense, which could obscuredetection of small masses. With additional imaging the bilateral breast asymmetries seen in priormammography in the slight lateral middle depth right breast, posteriorcentral right breast, and lateral middle depth left breast efface withspot compression and are compatible with superimposition of normal breasttissue. There is a single coarse benign- appearing calcification in theposterior central breast which is not associated with the asymmetry onmagnification view. No suspicious masses, calcifications, or othersignificant findings are seen. With this additional imaging there now hasbeen no significant interval change when compared to other prior exams. . IMPRESSION: 1. Bilateral breast asymmetries corresponds to superimposed breasttissue. 2. There is no mammographic evidence of malignancy. RECOMMENDATION: A screening mammogram is recommended in 1 year. Written results and recommendations were given to the patient at theconclusion of this examination today. BI-RADS: 2 - Benign Findings. ATTESTATION: I, Dr. Opal Reynolds, as the teaching physician, personally reviewedthe radiologic study(studies) and concur with this interpretation. us Kamille Claudio RISK AND COMPLIANCE ANALYTICS DIRECTOR, PROGRAMS MANAGER IMG MAMMO ORDERABLES Dionna l Result from Last 3 Months or Most Recently Relevant to Health Maintenance Insurance [facility] Care Teams Medical Doctor Relationship Specialty Start Date End Date Alli Mancuso MD [address] [place] [address] Consulting Physician Gastroenterology 04/14/20
--- OUTSIDE RECORDS SUMMARY | 2025-02-22 09:20 | XMS_ITS | Encounter Summary ---
Author Organization [facility] Address [facility] [place] [address] Care Team Providers Care Plaster Die Maker Name Role Phone Thomas Horowitz DO Primary Care Provider + Encounter Details Date Type Department Care Team (Late Contact Info) Description 06/20/2024 [employer] Message Enc [facility] Family & Internal [place] [address] [place] [address] Thomas Horowitz DO [address] [place] [id number] Mammogram results Social History Tobacco Use Types Packs/Day Years [...] Sex Assigned at Female 11/11/2024 10:08 AM THREAD MARKER Legal Sex Female 8:10 PM CDT Gender Identity Female 11/11/2024 10:08 AM THREAD MARKER Sexual Orientation Not on file documented as of this encounter Plan of Treatment Upcoming Encounters Date Type Department Care Team (Late Contact Info) Description 02/24/2025 9:00 AM CDT Office Visit [facility] Family & Internal Medicine - [address] [address] Thomas Horowitz DO [address] [place] [phone] documented as of this encounter Visit Diagnoses Not on filedocumented in this encounter Additional Health Concerns Assessment Noted Time PHQ-9 Depression Total Score: 15 024 11:51 AM CDT documented as of this encounter Care Teams Plaster Die Maker Relationship Specialty Start Date End Date Thomas Horowitz DO [address] [place] [id number] PCP - General FAMILY PRACTICE 12/31/23 documented as of this encounter
--- OUTSIDE RECORDS SUMMARY | 2025-02-22 09:20 | XMS_ITS | Encounter Summary ---
Author Organization [facility] Address [facility] [place] [address] Care Team Providers Care Dietitian Helper Name Role Phone Thomas Horowitz DO Primary Care Provider + Reason for Visit * Reason Onset Date Comments Refill Request 11/03/2024 Encounter Details Date Type Department Care Team (Late st Contact Info) Description 11/03/2024 MyChart Message Enc [facility] Family & Internal Medicine [facility] [address] [place] [address] Thomas Horowitz DO [facility] [place] [address] Ven[place]af[place] Social History Tobacco Use Types Packs/Day Years [...] Sex Assigned at Female 11/11/2024 10:08 AM AIR QUALITY CHEMIST Legal Sex Female 8:10 PM CDT Gender Identity Female 11/11/2024 10:08 AM AIR QUALITY CHEMIST Sexual Orientation Not on file documented as of this encounter Plan of Treatment Upcoming Encounters Date Type Department Care Team (Late st Contact Info) Description 02/24/2025 9:00 AM CDT Office Visit [facility] Family & Internal Medicine - [place] [address] [place] [address] Thomas Horowitz DO [address] [place] [id number] documented as of this encounter Visit Diagnoses Not on filedocumented in this encounter Additional Health Concerns Assessment Noted Time PHQ-9 Depression Total Score: 15 024 11:51 AM CDT documented as of this encounter Care Teams Dietitian Helper Relationship Specialty Start Date End Date Thomas Horowitz DO [address] [place] [id number] PCP - General FAMILY PRACTICE 12/31/23 documented as of this encounter
--- OUTSIDE RECORDS SUMMARY | 2025-02-22 09:20 | XMS_ITS | Encounter Summary ---
Author Organization [facility] Address [address] [place] [address] Care Team Providers Care Silo Operator Name Role Phone Neeraj Sandoval MD Unavailable Thomas Horowitz DO Primary Care Provide r Encounter Details Date Type Department Care Team (Late st Contact Info) Description 05/06/2024 Telephone [facility] Radiology [address] [place] [address] Eliel Xie RN Social History Tobacco Use Types Packs/Day Years Used Date Smoking Tobacco: Former Cigarettes 0.8 15.2 S tarted: 1975 Smokeless Tobacco: Never AUDIT-C Answer Date Recorded Q1: How often [...] on file Legal Sex Female 6:18 PM TEST ENGINE OPERATOR Gender Identity Female 08/30/2023 12:40 PM CDT Sexual Orientation Not on file documented as of this encounter Functional Status documented as of this encounter Plan of Treatment Not on file documented as of this encounter Visit Diagnoses Not on filedocumented in this encounter Care Teams Silo Operator Relationship Specialty Start Date End Date Thomas Horowitz DO [address] [place] [id number] PCP - General Family Medicine 04/24/24 Neeraj Sandoval MD [address] [facility] 7 DIV [place] [address] Medical Oncologist/Pupil Personnel Services Director Medical Oncology 08/01/23 documented as of this encounter
== END 2025-02-22 09:16 | disposition home or self-care (01) ==
PROVIDERS: PCP Student in an Organized Health Care Education/Training Program; Visit Provider Orthopaedic Surgery
DX: S83.242A Other tear of medial meniscus, current injury, left knee, initial encounter (principal); X58.XXXA Exposure to other specified factors, initial encounter; M71.22 Synovial cyst of popliteal space [Baker], left knee; M25.462 Effusion, left knee
CPT/HCPCS: 73721

== ENCOUNTER 2025-03-05 10:55 | Outpatient (CLI) | payer MEDICARE, MEDICAID, SELFPAY ==
--- NOTE | ~2025-03-05 | US_ITS ---
Pelvic ultrasound. Clinical History: Pelvic pain Technique: Realtime transabdominal and transvaginal scanning of the pelvis was performed. Color flow Doppler and Doppler spectral analysis were performed. Findings: Uterus absent, compatible hysterectomy. Neither ovary seen. No adnexal mass seen. There is no evidence of free fluid in the cul de sac. Impression: No significant abnormality seen. Status post hysterectomy. Nonvisualization of ovaries. Reviewed, dictated and finalized at location . Impression: No significant abnormality seen. Status post hysterectomy. Nonvisualization of ovaries.
--- OUTSIDE RECORDS SUMMARY | 2025-03-05 11:46 | XMS_ITS ---
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 Voss at [place]
--- OUTSIDE RECORDS SUMMARY | 2025-03-05 11:46 | XMS_ITS | Data Portability ---
Author Organization [facility], [id number] Address [address] [place] [address] Assessment No assessment recorded. Plan of Treatment Reminders Order Date Submit Date Provider Last Modified By Organization Details Last Modified Time Details Appointments None recorde d. Lab wet mount panel, vaginal fluid 2024 025 erna [id number] Geraldo Corrales_tereza, [address], [place], [address], 12:14:32 bacteri al vaginos is panel, vaginal 2024 025 erna [facility] ([facility]), [address] [facility] [address] , [facility] [address], [place], [address], 5 21:17:24 Referral None recorde d. Procedures None recorde d. Surgeries None recorde d. Imaging US, pelvis, transab dominal + transva ginal 2024 025 [facility], [address], [facility] [address], [place], [address], 5 19:25:27 Medication Orders metroni dazole 0.75 % (37.5 mg/5 gram) vaginal gel 2024 025 [facility][id number], [address] [place], [address], 12:14:34 Patient TargetsNo targets recorded. Patient InstructionsNo instructions recorded. Reason for Referral None Reported. Results Created Date Observation Date Name Description Value Unit Range Abnormal Flag Note LastModifiedBy Organization Detail LastModifiedTime 02/14/2002/15/2025 BACTE RIAL VAGIN OSIS+ WITH LACTO PROFI LING top line result Normal normal Not Available [facility] ([facility]) [address] [place] [address] Dr Laureano, [place], [address], 02/16/2025 06:55:20 02/14/2002/15/2025 BACTE RIAL VAGIN OSIS+ [...] and clini koby findi ngs. Not Available [facility] [address] [place] [address] Dr Laureano, [place], [address], 02/16/2025 06:55:20 02/14/20 25 02/15/2025 BACTE RIAL VAGIN OSIS+ WITH LACTO PROFI LING atopobium vaginae Not Detect ed normal Not Available [facility] ([facility]) [address] [place] [address] Dr Laureano, [place], [address], 02/16/2025 06:55:20 02/14/20 25 02/15/2025 BACTE RIAL VAGIN OSIS+ WITH LACTO PROFI LING gardnerella vaginalis Not Detect ed normal Not Available [facility]) [address] [place] [address] Dr Laureano, [place], [address], 02/16/2025 06:55:20 02/14/20 25 02/15/2025 BACTE RIAL VAGIN OSIS+ WITH LACTO PROFI LING bvab2 Not Detect ed normal Not Available [facility] ([facility]) [address] [place] [address] Dr Laureano, [place], [address], 02/16/2025 06:55:20 02/14/20 25 02/15/2025 BACTE RIAL VAGIN OSIS+ WITH LACTO PROFI LING megasphaera 1 Not Detect ed normal Not Available [facility] ([facility]) [address] [place] [address] Dr Laureano, [place], [address], 02/16/2025 06:55:20 02/14/20 25 02/15/2025 BACTE RIAL VAGIN OSIS+ WITH LACTO PROFI LING megaspherea 2 Not Detect ed normal Not Available [facility] ([facility]) [address] [place] [address] Dr Laureano, [place], [address], 02/16/2025 06:55:20 02/14/20 25 02/15/2025 BACTE RIAL VAGIN OSIS+ WITH LACTO PROFI LING lactobacillu s crispatus Normal normal Not Available [facility] ([facility]) [address] [place] [address] Dr Laureano, [place], [address], 02/16/2025 06:55:20 02/14/20 25 02/15/2025 BACTE RIAL VAGIN OSIS+ WITH LACTO PROFI LING lactobacillu s gasseri Normal normal Not Available [facility] ([facility]) [address] [place] [address] Dr Laureano, [place], [address], 02/16/2025 06:55:20 02/14/20 25 02/15/2025 BACTE RIAL VAGIN OSIS+ WITH LACTO PROFI LING lactobacillu s iners ql Normal normal Not Available [facility] ([facility]) [address] [place] [address] Dr Laureano, [place], [address], 02/16/2025 06:55:20 02/14/20 25 02/15/2025 BACTE RIAL VAGIN OSIS+ WITH LACTO PROFI LING lactobacillu s jensenii ql Not Detect ed normal Not Available [facility] ([facility]) [address] [place] [address] Dr Laureano, [place], [address], 02/16/2025 06:55:20 02/14/20 25 02/15/2025 BACTE RIAL VAGIN OSIS+ WITH LACTO PROFI LING mobiluncus mulieris Not Detect ed normal Not Available [facility] ([facility]) [address] [place] [address] Dr Laureano, [place], [address], 02/16/2025 06:55:20 02/14/20 25 02/15/2025 BACTE RIAL VAGIN OSIS+ WITH LACTO PROFI LING mobiluncus curtisii Not Detect ed normal Not Available [facility] ([facility]) [address] [place] [address] Dr Laureano, [place], [address], 02/16/2025 06:55:20 02/14/20 25 02/15/2025 BACTE RIAL VAGIN OSIS+ WITH LACTO PROFI LING mycoplasma hominis Not Detect ed normal Not Available [facility] ([facility]) [address] [place] [address] Dr Laureano, [place], [address], 02/16/2025 06:55:20 02/14/20 25 02/15/2025 BACTE RIAL VAGIN OSIS+ WITH LACTO PROFI LING ureaplasma urealyticum Not Detect ed normal Not Available [facility] ([facility]) [address] [place] [address] Dr Laureano, [place], [address], 02/16/2025 06:55:20 02/14/20 25 02/13/2025 wet mount panel , vagin al fluid Unknown Analyte >20% Not Available [id number], [place], [address], 02/13/2025 12:10:36 02/14/20 25 02/13/2025 wet mount panel , vagin al fluid Unknown Analyte positi ve Not Available [id number], [place], [address], 02/13/2025 12:10:36 02/14/20 25 02/13/2025 wet mount panel , vagin al fluid Unknown Analyte Negati ve Not Available [id number], [place], [address], 02/13/2025 12:10:36 Result Notes None recorded. 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 Procedures Surgical History Date Name Laterality Status Provider Name and Address Organization Details Recorded Time 11/26/19 24 Date of Last Mammogram completed [facility] 02/12/2025 11:04:11 11/26/19 24 Date of Last Colonoscopy completed [facility] 02/12/2025 11:04:21 discectomy of spine completed [facility] 02/12/2025 11:05:[address] [facility] 02/12/2025 11:06:[address] [facility] 02/12/2025 11:06:[address] [facility] 02/12/2025 11:06:39 partial excision of rib completed [facility] 02/12/2025 11:06:46 Endometrial Biopsy completed [facility] 02/13/2025 11:29:[address] [facility] 02/13/2025 11:29:51 Imaging Results None recorded. Procedure Notes None recorded. Medical Equipment None Reported. Allergies No known drug allergies Medications Name Sig Start Date Stop Date Status Note LastModified by Organization Details LastModified Time prednisone 10 mg tablet 10 MG ORALLY TWICE A DAY FOR 10 DAYS active Not Available Not Available No t Available tizanidine 4 mg tablet TAKE 1 TABLET BY MOUTH EVERY 8 HOURS NEEDED active Not Available Not Available No t Available sulfamethox azole 400 mg-trimetho prim 80 mg tablet TAKE 1 TABLET BY MOUTH EVERY DAY 02/13 completed Not Available Not Available Not Available hydrocodone 5 mg-acetamin ophen 325 mg tablet PLEASE SEE ATTACHED FOR DETAILED DIRECTION S 02/13 completed Not Available Not Available Not Available metronidazo le 0.75 % (37.5 mg/5 gram) vaginal gel INSERT 1 APPLICATO RFUL VAGINALLY EVERY DAY AT BEDTIME FOR 5 DAYS active Not Available Not Available No t Available prednisone 20 mg tablet TAKE 3 TABLETS [...] Not Available Not Available No t Available tramadol 50 mg tablet TAKE 1 TABLET BY MOUTH EVERY 6 HOURS NEEDED FOR PAIN active Not Available Not Available No t [...] Updated DateTime 02/13/2025 162.56 cm 26.9 kg/m2 48823 g 134 mm[Hg] 74 mm[Hg] Zev Fonseca [facility] 11:29:32 Social History Question Answer Notes LastModified by Organizat ion Details LastModified Time Tobacco Smoking Status Former Smoker Zev Fonseca [facility] 02/13/2025 11:29:47 What Is Your Level Of [...] SNOMED-CT Code Diagnosis ICD10 Code Diagnosis Note [id number] RIVKA GARCIA RD, MD [id number] [facility] [place] [address] 02/13/2025 11:24:15 02/13/2025 12:10:04 Bacterial vaginosis 057542905 N76.0 Atrophic vaginitis 69565 000 N95.2 Acute myel oid leukemia, disease 03605291 C92.00 Continue care with oncologist Pain in pelvis 33180945 R10.2 Health Concerns Section Related Observation LastModified by Organization Detai ls LastModified Time None Recorded Concern Status LastModified by Organization Details LastModified Time None Recorded Advance Directives Directive None Recorded Payers Encounter Date Sequence Insurance Name Policy Number Policy Hawkins Covered Member ID Hawkins Member ID Guarantor Name 02/13/2025 1 [place] Angelica Guerra [id number] Angelica Guerra 02/13/2025 2 [place] [id number] Angelica Guerra [id number] Angelica Guerra Notes Date Note Type Note [...] Thick green discharge. RIVKA CASTILLO MD [address] [facility] [address], [place], [address], [facility] 02/13/2025 12:16:50 OBGyn Episode No OBEpisode recorded.
--- OUTSIDE RECORDS SUMMARY | 2025-03-05 11:46 | XMS_ITS | Referral Summary ---
Author Organization [facility] Address [facility] [place] [address] Care Team Providers Care Service Station Operator Name Role Phone Neeraj Sandoval MD Unavailable Thomas Horowitz DO Primary Care Provide r Encounters Date Type Department Care Team Description 03/05/2025 Orders Only [address] [address] Rupa Segovia, LISY 02/11/2025 Orders Only [facility] Bone Marrow Transplant [address] [place] [phone] Neeraj Sandoval MD 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) 01/30/2025 Orders Only [facility] Bone Marrow Transplant [address] [place] [phone] Neeraj Sandoval MD 01/26/2025 Orders Only [address] [address] Jana Schaffer, RN 01/25/2025 Orders Only [facility] Oncology [address] [place] [phone] Neeraj Sandoval MD 01/16/2025 Orders Only [address] [address] Jana Schaffer, RN 01/15/2025 Orders Only [facility] Bone Marrow Transplant [address] [place] [phone] Neeraj Sandoval MD 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); History of allogeneic bone marrow transplant (HCC); 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) 01/12/2025 Results Follow-Up [address] [place] [address] Parris Sanders MD 01/12/2025 2:30 PM QUALITY CONTROL SYSTEMS MANAGER Office Visit [facility] Dermatology [address] [facility] Floor 6 [place] [address] Len Parsons MD Multiple benign nevi (Primary Dx); History of allogeneic bone marrow transplant (HCC); 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); 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); Seborrheic keratosis; Solar purpura 01/09/[address] [place] [address] Parris Sanders MD 01/09/2025 1:58 PM QUALITY CONTROL SYSTEMS MANAGER - 01/09/2025 11:59 PM QUALITY CONTROL SYSTEMS MANAGER Hospital [facility] Radiology at [address] [address] Osteopenia of left hip; 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); Postmenopausal Discharge Disposition: Discharge to home or self care 01/09/2025 1:55 PM QUALITY CONTROL SYSTEMS MANAGER [facility] [address] [place] [address] [address] [place] [address] Osteopenia of left hip; 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); Postmenopausal; History of allogeneic bone marrow transplant (HCC) 01/09/2025 12:10 PM QUALITY CONTROL SYSTEMS MANAGER Clinical Support [facility] [address] [facility] [address] [place] [address] Osteopenia of left hip 01/09/2025 12:40 PM QUALITY CONTROL SYSTEMS MANAGER Office Visit [place] [id number] [facility] [address] [place] [address] Parris Sanders MD Osteopenia of left hip (Primary Dx); 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); Postmenopausal 01/08/2025 Telephone [facility] [address] [facility] [address] [place] [phone] Parris Sanders MD 12/31/2024 12:45 PM QUALITY CONTROL SYSTEMS MANAGER - 12/31/2024 11:59 PM QUALITY CONTROL SYSTEMS MANAGER Hospital Encounter [facility] - Diagnostic Imaging [address] [place] [address] [address] 8 [place] [address] History of allogeneic bone marrow transplant (HCC); 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) Discharge Disposition: Discharge to home or self care 12/31/2024 11:00 AM QUALITY CONTROL SYSTEMS MANAGER Lab [facility] - Lab Collection [address] [facility] Floor 6 [place] [address] 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) 12/31/2024 11:40 AM QUALITY CONTROL SYSTEMS MANAGER Office Visit [facility] Bone Marrow Transplant [address] [place] [address] [address] 6 [place] [phone] Neeraj Sandoval MD History of allogeneic bone marrow transplant (HCC) (Primary Dx); 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); 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) 12/31/2024 10:30 AM QUALITY CONTROL SYSTEMS MANAGER Lab [facility] Oncology Lab [address] [place] [address] [address] 6 [place] [address] 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) 12/18/2024 Orders Only [facility] [address] [facility] 5[address] [place] [address] [place] [address] Parris Sanders MD Osteopenia of left hip (Primary Dx) from Last 3 Months Allergies No known active allergies Medications rivaroxaban (XARELTO) 20 mg tabletIndications:Ve nous Thrombosis Take 1 tablet (20 mg total) by mouth daily with dinner 30 tablet 11 06/02/20 24 025 Active acyclovir (ZOVIRAX) 400 mg tabletIndications:Pr ophylaxis, Medical Take 1 tablet (400 mg total) by mouth 3 (three) times a day 90 tablet 11 07/17/20 24 025 Active buPROPion XL (WELLBUTRIN XL) 150 [...] NEEDED (DRY EYE) 30 mL 3 01/15/20 Active Active Problems Problem Noted Date Diagnosed Date Other osteoporosis without current pathological fracture 01/12/2025 GVHD (graft versus host disease) 09/11/2023 Eozqb-yedeqs-okpp disease 09/11/2023 Immunocompromised 01/19/2023 Overview (07/17/2024): Bone [...] marrow transplant Following with Dr. Voss at [facility] Immunization Administration Dates Next Due Pfizer SARS-CoV-2 Monovalent Vaccination (12+ Yrs) PURPLE 12/22/2021 Social History Tobacco Use Types Packs/Day Years Used Date Smoking Tobacco: Former Cigarettes 0.8 15.3 S tarted: 11/26/1974 Smokeless Tobacco: Never Tobacco [...] on file Legal Sex Female 6:18 PM QUALITY CONTROL SYSTEMS MANAGER Gender Identity Female 08/30/2023 12:40 PM CDT Sexual Orientation Not on file Last Filed Vital Signs Vital Sign Reading Time Taken Comments Blood Pressure 129/85 12/31/2024 11:17 AM QUALITY CONTROL SYSTEMS MANAGER Pulse 69 12/31/2024 11:17 AM QUALITY CONTROL SYSTEMS MANAGER Temperature 36.3 C (97.3 F) 12/31/2024 11:17 AM QUALITY CONTROL SYSTEMS MANAGER Respiratory Rate 17 12/31/2024 11:17 AM QUALITY CONTROL SYSTEMS MANAGER Oxygen Saturation 99% 12/31/2024 11:17 AM QUALITY CONTROL SYSTEMS MANAGER Inhaled Oxygen Concentration - - Weight 70.1 kg (154 lb 9.6 oz) 01/09/2025 12:20 PM QUALITY CONTROL SYSTEMS MANAGER Height 162.5 cm (5' 3.98 ) 01/09/2025 12:[address] Body Mass Index 26.56 01/09/2025 12:20 PM QUALITY CONTROL SYSTEMS MANAGER Plan of Treatment Not on file Procedures [...] Read Routine (OP Routine) 01/09/2025 2:12 PM QUALITY CONTROL SYSTEMS MANAGER Osteopenia of left hip 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) Postmenopausal XR SPINE LUMBAR 2 OR 3 VIEWS Schedule Routine, Read Routine (OP Routine) 01/09/2025 2:12 PM QUALITY CONTROL SYSTEMS MANAGER Osteopenia of left hip 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) Postmenopausal EGFR Routine 01/09/2025 2:00 PM QUALITY CONTROL SYSTEMS MANAGER Osteopenia of left hip 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) Postmenopausal DIFFERENTIAL AUTO Routine 01/09/2025 2:0 0 PM QUALITY CONTROL SYSTEMS MANAGER 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) CBC WITH AUTO DIFFERENTIAL Routine 01/09/2025 2:00 PM QUALITY CONTROL SYSTEMS MANAGER 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) LACTATE DEHYDROGENASE Routine 01/09/2025 2:00 PM QUALITY CONTROL SYSTEMS MANAGER 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) PHOSPHORUS Routine 01/09/2025 2:00 PM QUALITY CONTROL SYSTEMS MANAGER Osteopenia of left hip 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) Postmenopausal PTH Routine 01/09/2025 2:00 PM QUALITY CONTROL SYSTEMS MANAGER Osteopenia of left hip 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) Postmenopausal VITAMIN D 25 HYDROXY Routine 01/09/2025 2:00 PM QUALITY CONTROL SYSTEMS MANAGER Osteopenia of left hip 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) Postmenopausal COMPREHENSIVE METABOLIC PANEL Routine 01/09/2025 2:00 PM QUALITY CONTROL SYSTEMS MANAGER Osteopenia of left hip 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) Postmenopausal DEXA TBS AXIAL SKELETON BONE DENSITY 1 OR MORE SITES Schedule Routine, Read Routine (OP Routine) 01/09/2025 11:49 AM QUALITY CONTROL SYSTEMS MANAGER Osteopenia of left hip XR HIP RIGHT 2 OR 3 VIEWS Schedule Routine, Read Routine (OP Routine) 12/31/2024 1:08 PM QUALITY CONTROL SYSTEMS MANAGER 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) EGFR Routine 12/31/2024 10:51 AM QUALITY CONTROL SYSTEMS MANAGER 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) DIFFERENTIAL AUTO Routine 12/31/2024 10: 51 AM QUALITY CONTROL SYSTEMS MANAGER 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) CBC WITH AUTO DIFFERENTIAL Routine 12/31/2024 10:51 AM QUALITY CONTROL SYSTEMS MANAGER 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) COMPREHENSIVE METABOLIC PANEL Routine 12/31/2024 10:51 AM QUALITY CONTROL SYSTEMS MANAGER 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) LACTATE DEHYDROGENASE Routine 12/31/2024 10:51 AM QUALITY CONTROL SYSTEMS MANAGER 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) from Last 3 Months Results * (ABNORMAL) Vitamin D 25 hydroxy (02/11/2025 12:23 PM CDT) Pathologist [facility] Vitamin D 25-OH 102(H) 30 - 100 ng/mL [facility] Comment: Vitamin D Status 25-OH Vitamin D: Deficiency: <20 ng/mL Insufficiency: 20 - 29 ng/mL Optimal: > or = 30 ng/mL For 25-OH Vitamin D testing on patients on D2-supplementation and patients for whom quantitation of D2 and D3 fractions is required, the [facility](TM) 25-OH VIT D, (D2,D3), LC/MS/MS is recommended: order code 95509 (patients >2yrs). See Note 1 Note 1 For additional information, please refer to http://education.[employer]/faq/UTH923 (This link is being provided for informational/ educational purposes only.) Blood 02/11/2025 12:2 3 PM CDT 02/11/2025 12:24 PM CDT Neeraj Sandoval MD LAB BLOOD ORDERABLES Final Resul t Performing Organization Address City/[facility]/ZIP Co de Phone Number [facility] [address] [place] [address] * Uric acid (02/11/2025 12:23 PM CDT) Uric acid 4.0 2.5 - 7.0 mg/dL [facility] Comment: Therapeutic target for gout patients: <6.0 mg/dL Blood 02/11/2025 12:2 3 PM CDT 02/11/2025 12:24 PM CDT Neeraj Sandoval MD LAB BLOOD ORDERABLES Final Resul t [facility] [address] [place] [address] * (ABNORMAL) Cytomegalovirus (CMV) DNA PCR, quantitative Blood (02/11/2025 12:21 PM CDT) CMV DNA qn <34.5(A) Not Detected IU/mL [facility] Comment: Detected CMV DNA was detected below 34.5 IU/mL. Viral load in this range cannot be accurately quantified by t CMV DNA log IU/mL <1.54(A) Not Detected Log IU/mL [facility] Comment: Detected (Note) For additional information, please refer to http://education.[employer]/faq/CMVandEBVPCR (This link is being provided for informational/educational purposes only.) [facility] [address] [facility] [address] [facility] [address] Fermin Jasso MD, PhD Blood 02/11/2025 12:2 1 PM CDT 02/11/2025 12:22 PM CDT Narrative [facility] - 02/14/2025 3:53 PM CDT FASTING:NO FASTING: NO us Neeraj Sandoval MD LAB MICROBIOLOGY - GENERAL ORDER BEATA Final Result [facility] [address] [address], [address] [place] [address] * CBC with auto differential (02/11/2025 12:21 PM CDT) Pathologist [facility] WBC 6.5 3.8 - 10.8 Thousand/u [...] ORDERABLES Final Resul t Performing Organization Address City/[facility] Co de Phone Number [facility] [address] [place] [address] * T3, free (02/11/2025 12:21 PM CDT) Free T3 2.8 2.3 - 4.2 pg/mL [facility] Blood 02/11/2025 12:2 1 PM CDT 02/11/2025 12:22 PM CDT Narrative [facility] - 02/14/2025 3:53 PM CDT FASTING:NO FASTING: NO Neeraj Sandoval MD LAB BLOOD ORDERABLES Final Resul t Performing Organization Address City/[facility] Co de Phone Number [facility] [address] [place] [address] * TSH (02/11/2025 12:21 PM CDT) TSH 1.48 0.40 - 4.50 mIU/L [facility] Blood 02/11/2025 12:2 1 PM CDT 02/11/2025 12:22 PM CDT Narrative [facility] - 02/14/2025 3:53 PM CDT FASTING:NO FASTING: NO Neeraj Sandoval MD LAB BLOOD ORDERABLES Final Resul t Performing Organization Address [facility] de Phone Number [facility] [address] [place] [address] * T4, free (02/11/2025 12:21 PM CDT) Free T4 1.1 0.8 - 1.8 ng/dL [facility] Blood 02/11/2025 12:2 1 PM CDT 02/11/2025 12:22 PM CDT Narrative [facility] - 02/14/2025 3:53 PM CDT FASTING:NO FASTING: NO us Neeraj Sandoval MD LAB BLOOD ORDERABLES Final Resul t Performing Organization Address [facility] de Phone Number [facility] [address] [place] [address] * Lactate dehydrogenase (LD) (02/11/2025 12:21 PM CDT) Lactate dehydrogenase (LDH) 249 120 - 250 U/L [facility] Blood 02/11/2025 12:2 1 PM CDT 02/11/2025 12:22 PM CDT Narrative [facility] - 02/14/2025 3:53 PM CDT FASTING:NO FASTING: NO us Neeraj Sandoval MD LAB BLOOD ORDERABLES Final Resul t Performing Organization Address [facility] de Phone Number [facility] [address] [place] [address] * LH (02/11/2025 12:21 PM CDT) LH 56.4 mIU/mL [facility] Comment: Reference Range Follicular Phase 1.9-12.5 Mid-Cycle Peak 8.7-76.3 Luteal Phase 0.5-16.9 Postmenopausal 10.0-54.7 Blood 02/11/2025 12:2 1 PM CDT 02/11/2025 12:22 PM CDT Narrative [facility] - 02/14/2025 3:53 PM CDT FASTING:NO FASTING: NO us Neeraj Sandoval MD LAB BLOOD ORDERABLES Final Resul t Performing Organization Address [facility] de Phone Number [facility] [address] [place] [address] * Follicle stimulating hormone (02/11/2025 12:21 PM CDT) Pathologist [facility] FSH 92.8 mIU/mL [facility] Comment: Reference Range Follicular Phase 2.5-10.2 Mid-cycle Peak 3.1-17.7 Luteal Phase 1.5- 9.1 Postmenopausal 23.0-116.3 Blood 02/11/2025 12:2 1 PM CDT 02/11/2025 12:22 PM CDT Narrative [facility] - 02/14/2025 3:53 PM CDT FASTING:NO FASTING: NO us Neeraj Sandoval MD LAB BLOOD ORDERABLES Final Resul t Performing Organization Address [facility] de Phone Number [facility] [address] [place] [address] * (ABNORMAL) Comprehensive metabolic panel (02/11/2025 12:21 PM CDT) Glucose 94 65 - 139 mg/dL [facility] Comment: Non-fasting reference interval BUN 10 7 - 25 mg/dL [facility] Creatinine 0.86 0.50 - 1.05 mg/dL [facility] eGFR 76 > OR = 60 mL/min/1.7 3m2 [facility] BUN/creat ratio SEE NOTE: (calc) [facility] Comment: Not Reported: [...] BLOOD ORDERABLES Final Resul t [facility] [address] [place] [address] * XR Spine Lumbar 2 or 3 Views (01/09/2025 2:12 PM QUALITY CONTROL SYSTEMS MANAGER) Anatomical Region Laterality Modality Spine N/A Computed Radiogr aphy 01/09/2025 3:23 PM QUALITY CONTROL SYSTEMS MANAGER Impressions 01/09/2025 3:32 PM QUALITY CONTROL SYSTEMS MANAGER 1. Compression deformities of L2 and L4 [...] Tee Gonzalez M.D. Narrative 01/09/2025 3:32 PM QUALITY CONTROL SYSTEMS MANAGER EXAMINATION: XR SPINE THORACIC 2 VIEWS, XR [...] Spine Thoracic 2 Views (01/09/2025 2:12 PM QUALITY CONTROL SYSTEMS MANAGER) Anatomical Region Laterality Modality Spine N/A Computed Radiogr aphy 01/09/2025 3:23 PM QUALITY CONTROL SYSTEMS MANAGER Impressions 01/09/2025 3:32 PM QUALITY CONTROL SYSTEMS MANAGER 1. Compression deformities of L2 and L4 [...] Tee Gonzalez M.D. Narrative 01/09/2025 3:32 PM QUALITY CONTROL SYSTEMS MANAGER EXAMINATION: XR SPINE THORACIC 2 VIEWS, XR [...] Re sult * eGFR (01/09/2025 2:00 PM QUALITY CONTROL SYSTEMS MANAGER) eGFR 64 >=60 mL/min/1. 73 m2 Comment: [...] last reviewed 2021. Blood 01/09/2025 2:00 PM QUALITY CONTROL SYSTEMS MANAGER 01/09/2025 4:34 PM QUALITY CONTROL SYSTEMS MANAGER Parris Sanders MD LAB BLOOD ORDERABLES Final Result [facility] Department [place] [address] * Differential, auto (01/09/2025 2:00 PM QUALITY CONTROL SYSTEMS MANAGER) Neutrophil abs 1.8 1.5 - 6.5 K/cumm Imm gran abs 0.0 0.0 - 0.1 K/cumm [facility] Lymphocyte abs 1.5 0.8 - 3.3 K/cumm [facility] Monocyte abs 0.4 0.2 - 0.8 K/cumm [facility] Eosinophil abs 0.1 0.0 - 0.5 K/cumm [facility] Basophil abs 0.0 0.0 - 0.1 K/cumm [facility] Neutrophil pct 46.5 % [facility] Comment: Interpretive Data Percent cell count reference ranges are not reported, since discordance with absolute values may lead to misinterpretation of CBC data. Current Interpretive Data was last revised on 2018. Imm gran pct 0.5 % [facility] Comment: Interpretive Data Percent cell count reference ranges are not reported, since discordance with absolute values may lead to misinterpretation of CBC data. Current Interpretive Data was last revised on 2018. Lymphocyte pct 38.8 % [facility] Comment: Interpretive Data Percent cell count reference ranges are not reported, since discordance with absolute values may lead to misinterpretation of CBC data. Current Interpretive Data was last revised on 2018. Monocyte pct 10.2 % [facility] Comment: Interpretive Data Percent cell count reference ranges are not reported, since discordance with absolute values may lead to misinterpretation of CBC data. Current Interpretive Data was last revised on 2018. Eosinophil pct 3.0 % [facility] Comment: Interpretive Data Percent cell count reference ranges are not reported, since discordance with absolute values may lead to misinterpretation of CBC data. Current Interpretive Data was last revised on 2018. Basophil pct 1.0 % [facility] Comment: Interpretive Data Percent cell count reference ranges are not reported, since discordance with absolute values may lead to misinterpretation of CBC data. Current Interpretive Data was last revised on 2018. Blood 01/09/2025 2:00 PM QUALITY CONTROL SYSTEMS MANAGER 01/09/2025 4:16 PM QUALITY CONTROL SYSTEMS MANAGER Neeraj Sandoval MD LAB BLOOD ORDERABLES Final Resul t Performing Organization Address [facility]/ZIP Co de Phone Number [facility] Department [place] [address] * (ABNORMAL) CBC with auto differential (01/09/2025 2:00 PM QUALITY CONTROL SYSTEMS MANAGER) Pathologist [facility] WBC 3.9 3.8 - 9.9 K/cumm Hgb 13.4 11.9 - 15.5 g/dL [facility] Hct 41.4 35.6 - 45.5 % [facility] Plt 192 150 - 400 K/cumm [facility] MPV 9.4 9.1 - 12.3 fL [facility] RBC 4.26 3.90 - 5.20 M/cumm [facility] MCV 97.2(H) 81.3 - 96.4 fL [facility] MCH 31.5 27.1 - 33.3 pg [facility] MCHC 32.4 32.3 - 35.7 g/dL [facility] RDW CV 14.6 11.1 - 14.9 % [facility] RDW SD 52.0(H) 35.7 - 48.1 fL [facility] NRBC abs 0.00 0.00 - 0.01 K/cumm [facility] Blood 01/09/2025 2:00 PM QUALITY CONTROL SYSTEMS MANAGER 01/09/2025 4:16 PM QUALITY CONTROL SYSTEMS MANAGER Neeraj Sandoval MD LAB BLOOD ORDERABLES Final Resul t [facility] Department [place] [address] * Vitamin D 25 hydroxy (01/09/2025 2:00 PM QUALITY CONTROL SYSTEMS MANAGER) Pathologist [facility] Vitamin D 25-OH 74 30 - 80 ng/mL Blood 01/09/2025 2:00 PM QUALITY CONTROL SYSTEMS MANAGER 01/09/2025 4:16 PM QUALITY CONTROL SYSTEMS MANAGER us Parris Sanders MD LAB BLOOD ORDERABLES Final Result Performing Organization Address [facility] Phone Number [facility] [place] [address] * Phosphorus (01/09/2025 2:00 PM QUALITY CONTROL SYSTEMS MANAGER) Phosphorus, pl 4.1 2.3 - 4.5 mg/dL Blood 01/09/2025 2:00 PM QUALITY CONTROL SYSTEMS MANAGER 01/09/2025 4:16 PM QUALITY CONTROL SYSTEMS MANAGER Parris Sanders MD LAB BLOOD ORDERABLES Final Result Performing Organization Address [facility] Phone Number [facility] [place] [address] * (ABNORMAL) PTH (01/09/2025 2:00 PM QUALITY CONTROL SYSTEMS MANAGER) PTH 70(H) 15 - 65 pg/mL Blood 01/09/2025 2:00 PM QUALITY CONTROL SYSTEMS MANAGER 01/09/2025 4:16 PM QUALITY CONTROL SYSTEMS MANAGER Parris Sanders MD LAB BLOOD ORDERABLES Final Result Performing Organization Address [facility] Phone Number [place] [address] * (ABNORMAL) Lactate dehydrogenase (LD) (01/09/2025 2:00 PM QUALITY CONTROL SYSTEMS MANAGER) Lactate dehydrogenase (LDH) 283(H) 100 - 250 Units/L Blood 01/09/2025 2:00 PM QUALITY CONTROL SYSTEMS MANAGER 01/09/2025 4:16 PM QUALITY CONTROL SYSTEMS MANAGER Neeraj Sandoval MD LAB BLOOD ORDERABLES Final Resul t Performing Organization Address [facility]/State/ZIP Co de Phone Number [facility] Department [place] [address] * Comprehensive metabolic panel (01/09/2025 2:00 PM QUALITY CONTROL SYSTEMS MANAGER) Sodium 145 135 - 145 mmol/L Potassium, pl 4.8 3.3 - 4.9 mmol/L [facility] Chloride 105 97 - 110 mmol/L [facility] CO2 31 22 - 32 mmol/L [facility] Anion gap 9 2 - 15 mmol/L [facility] BUN 8 6 - 25 mg/dL [facility] Creatinine 0.99 0.60 - 1.10 mg/dL [facility] Glucose 79 70 - 199 mg/dL [facility] Comment: Interpretive Data Fasting [...] 2022. Calcium 9.5 8.5 - 10.3 mg/dL [facility] Bilirubin, total 0.4 0.1 - 1.2 mg/dL [facility] Protein, pl 7.2 6.5 - 8.5 g/dL [facility] Albumin 4.3 3.5 - 5.0 g/dL [facility] Alk phos 100 40 - 130 Units/L [facility] ALT 33 7 - 45 Units/L [facility] AST 24 10 - 45 Units/L [facility] Blood 01/09/2025 2:00 PM QUALITY CONTROL SYSTEMS MANAGER 01/09/2025 4:16 PM QUALITY CONTROL SYSTEMS MANAGER us Parris Sanders MD LAB BLOOD ORDERABLES Final Result [facility] Department [place] [address] * Dexa TBS Axial Skeleton Bone Density 1 or more sites (01/09/2025 11:49 AM QUALITY CONTROL SYSTEMS MANAGER) Anatomical Region Laterality Modality Wrist, Body N/A Radiographic Valarie ging Narrative 01/12/2025 9:24 PM QUALITY CONTROL SYSTEMS MANAGER Patient Name: Angelica Guerra Date of : 1960 Date of scan: 01/09/2025 Bone mineral density was performed on a [id number] Discovery Densitometer. Based on machine cross-calibration and [...] mineral density scan were prepared by Antoinette Luna(Cristiano) CONRADO who is accredited by the International Society of Clinical Densitometry. The overall patient assessment and scan interpretation were performed by Parris Sanders M.D. who is certified by the International Society of Clinical Densitometry. [id number] Parris Sanders MD [facility] DXA PROCEDURES Final R esult * XR Hip Right 2 or 3 Views (12/31/2024 1:08 PM QUALITY CONTROL SYSTEMS MANAGER) Anatomical Region Laterality Modality Lower Extremities, Hip, Pelvis Right D igital Radiography 12/31/2024 2:02 PM QUALITY CONTROL SYSTEMS MANAGER Impressions 12/31/2024 2:29 PM QUALITY CONTROL SYSTEMS MANAGER 1. 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 Dictated by: Elijah Tolentino M.D. The radiology attending physician has personally reviewed this study, and had reviewed and/or edited this written report and agrees with it. Electronically signed by: Tee Gonzalez M.D. Narrative 12/31/2024 2:29 PM QUALITY CONTROL SYSTEMS MANAGER EXAMINATION: XR HIP RIGHT 2 OR 3 [...] Final Result * eGFR (12/31/2024 10:51 AM QUALITY CONTROL SYSTEMS MANAGER) eGFR 79 >=60 mL/min/1. 73 m2 Comment: [...] reviewed 2021. Blood 12/31/2024 10:5 1 AM QUALITY CONTROL SYSTEMS MANAGER 12/31/2024 11:02 AM QUALITY CONTROL SYSTEMS MANAGER us Neeraj Sandoval MD LAB BLOOD ORDERABLES Final Resul t [facility] Department [place] [address] * Differential, auto (12/31/2024 10:51 AM QUALITY CONTROL SYSTEMS MANAGER) Neutrophil abs 2.2 1.5 - 6.5 K/cumm Comment:Testing performed by : [facility], [address] [place], [place] [phone] Lymphocyte abs 1.4 0.8 - 3.3 K/cumm CERNER BJ Comment:Testing performed by : [facility], [address] [place] [phone] Monocyte abs 0.5 0.2 - 0.8 K/cumm CERNER BJ Comment:Testing performed by : [facility], [address] [place] [phone] Eosinophil abs 0.2 0.0 - 0.5 K/cumm CERNER BJ Comment:Testing performed by : [facility], [address] [place] [phone] Basophil abs 0.0 0.0 - 0.1 K/cumm CERNER BJ Comment:Testing performed by : [facility], [address] [place] [phone] Neutrophil pct 52.0 % CERNER BJ Comment: Interpretive Data Percent cell count reference ranges are not reported, since discordance with absolute values may lead to misinterpretation of CBC data. Current Interpretive Data was last revised on 2018. Testing performed by: [facility], [address] [place] [phone] Lymphocyte pct 32.5 % CERSTONE CRUZ Comment: Interpretive Data Percent cell count reference ranges are not reported, since discordance with absolute values may lead to misinterpretation of CBC data. Current Interpretive Data was last revised on 2018. Testing performed by: [facility], [address] [place] [phone] Monocyte pct 10.7 % CERSTONE CRUZ Comment: Interpretive Data Percent cell count reference ranges are not reported, since discordance with absolute values may lead to misinterpretation of CBC data. Current Interpretive Data was last revised on 2018. Testing performed by: [facility], [address] [place] [phone] Eosinophil pct 4.1 % CERSTONE CRUZ Comment: Interpretive Data Percent cell count reference ranges are not reported, since discordance with absolute values may lead to misinterpretation of CBC data. Current Interpretive Data was last revised on 2018. Testing performed by: [facility], [address] [place] [phone] Basophil pct 0.7 % CERSTONE CRUZ Comment: Interpretive Data Percent cell count reference ranges are not reported, since discordance with absolute values may lead to misinterpretation of CBC data. Current Interpretive Data was last revised on 2018. Testing performed by: [facility], [address] [place] [phone] Blood 12/31/2024 10:5 1 AM QUALITY CONTROL SYSTEMS MANAGER 12/31/2024 11:00 AM QUALITY CONTROL SYSTEMS MANAGER us Neeraj Sandoval MD LAB BLOOD ORDERABLES Final Resul t [facility]ION [facility] Department [place] [address] * CBC with auto differential (12/31/2024 10:51 AM QUALITY CONTROL SYSTEMS MANAGER) WBC 4.3 3.8 - 9.9 K/cumm Comment:Testing performed by : [facility], [address] [place] [address] Hgb 12.6 11.9 - 15.5 g/dL CERNER BJ Comment:Testing performed by : [facility], [address] [place] [address] Hct 37.9 35.6 - 45.5 % CERNER BJ Comment:Testing performed by : [facility], [address] [place] [address] Plt 201 150 - 400 K/cumm CERNER BJ Comment:Testing performed by : [facility], [address] [place] [address] MPV 7.9 6.8 - 10.4 fL CERNER BJ Comment:Testing performed by : [facility], [address] [place], [place] [phone] RBC 3.95 3.90 - 5.20 M/cumm CERNER BJ Comment:Testing performed by : [facility], [address] [place] [address] MCV 96.0 81.3 - 96.4 fL CERNER BJ Comment:Testing performed by : [facility], [address] [place] [address] MCH 31.9 27.1 - 33.3 pg CERNER BJ Comment:Testing performed by : [facility], [address] [place] [address] MCHC 33.2 32.3 - 35.7 g/dL CERNER BJ Comment:Testing performed by : [facility], [address] [place] [address] RDW CV 14.8 11.1 - 14.9 % CERNER BJ Comment:Testing performed by : [facility], [address] [place] [address] NRBC abs 0.00 0.00 - 0.01 K/cumm CERNER BJ Comment:Testing performed by : [facility], [address] [place] [address] Blood 12/31/2024 10:5 1 AM QUALITY CONTROL SYSTEMS MANAGER 12/31/2024 11:00 AM QUALITY CONTROL SYSTEMS MANAGER Neeraj Sandoval MD LAB BLOOD ORDERABLES Final Resul t Performing Organization Address City/[facility] Co de Phone Number [facility] [place] [address] * Lactate dehydrogenase (LD) (12/31/2024 10:51 AM QUALITY CONTROL SYSTEMS MANAGER) Pathologist [facility] Lactate dehydrogenase (LDH) 239 100 - 250 Units/L Blood 12/31/2024 10:5 1 AM QUALITY CONTROL SYSTEMS MANAGER 12/31/2024 11:02 AM QUALITY CONTROL SYSTEMS MANAGER Neeraj Sandoval MD LAB BLOOD ORDERABLES Final Resul t Performing Organization Address [facility] de Phone Number [facility] Department [place] [address] * (ABNORMAL) Comprehensive metabolic panel (12/31/2024 10:51 AM QUALITY CONTROL SYSTEMS MANAGER) [facility] Sodium 141 135 - 145 mmol/L Potassium, pl 5.1(H) 3.3 - 4.9 mmol/L [facility] Chloride 105 97 - 110 mmol/L [facility] CO2 32 22 - 32 mmol/L [facility] Anion gap 4 2 - 15 mmol/L [facility] BUN 10 6 - 25 mg/dL [facility] Creatinine 0.84 0.60 - 1.10 mg/dL [facility] Glucose 83 70 - 199 mg/dL [facility] Comment: Interpretive Data Fasting [...] CERNER BJ Blood 12/31/2024 10:5 1 AM QUALITY CONTROL SYSTEMS MANAGER 12/31/2024 11:02 AM QUALITY CONTROL SYSTEMS MANAGER us Neeraj Sandoval MD LAB BLOOD ORDERABLES Final Resul t [facility] Department [place] [address] from Last 3 Months Insurance [facility] MEDICARE [facility] MEDICARE [place] Advance Directives For more information, please contact: [phone] * Full Code (Latest Code Status on File) Date Activated Date Inactivated Comments 04/09/2024 9:57 AM 04/10/2024 5:28 AM Care Teams Service Station Operator Relationship Specialty Start Date End Date Thomas Horowitz DO [address] [place] [id number] PCP - General Family Medicine 04/24/24 Neeraj Sandoval MD [address] [facility] [address] [place] [address] Medical Oncologist/Configuration Management Specialist Medical Oncology 08/01/23
--- OUTSIDE RECORDS SUMMARY | 2025-03-05 11:47 | XMS_ITS | Clinical Summary ---
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 Voss at [facility] Date Type Department Care Team Description 03/05/2025 Orders Only [address] [address] Rupa Segovia RN 02/11/2025 Orders Only [facility] Bone Marrow Transplant [address] [place] [phone] Neeraj Sandoval MD 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) 01/30/2025 Orders Only [facility] Bone Marrow Transplant [address] [place] [phone] Neeraj Sandoval MD 01/26/2025 Orders Only [address] [address] Jana Schaffer RN 01/25/2025 Orders Only [facility] Oncology [address] [place] [phone] Neeraj Sandoval MD 01/16/2025 Orders Only [facility] [address] [place] [address] Jana Schaffer RN 01/15/2025 Orders Only [facility] Bone Marrow Transplant [address] [place] [phone] Neeraj Sandoval MD 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); History of allogeneic bone marrow transplant (HCC); 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) 01/12/2025 2:30 PM SLOT FLOORPERSON Office Visit [facility] Dermatology [address] [place] [phone] Len Parsons MD Multiple benign nevi (Primary Dx); History of allogeneic bone marrow transplant (HCC); 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); 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); Seborrheic keratosis; Solar purpura 01/12/2025 Results Follow-Up [address] Medical Office Building 2 [address] [place] [address] Parris Sanders MD 01/09/2025 1:58 PM SLOT FLOORPERSON - 01/09/2025 11:59 PM SLOT FLOORPERSON [facility] Radiology at [address] [address] Osteopenia of left hip; 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); Postmenopausal Discharge Disposition: Discharge to home or self care 01/09/2025 1:55 PM SLOT FLOORPERSON [facility] [address] [place] [address] [address] [place] [address] Osteopenia of left hip; 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); Postmenopausal; History of allogeneic bone marrow transplant (HCC) 01/09/2025 12:40 PM SLOT FLOORPERSON Office Visit [address] [place] [address] Parris Sanders MD Osteopenia of left hip (Primary Dx); 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); Postmenopausal 01/09/2025 12:10 PM SLOT FLOORPERSON Clinical Support [address] [place] [address] Osteopenia of left hip 01/09/[address] Office Building [address] [place] [address] Parris Sanders MD 01/08/[address] Office Building [address] [place] [address] Parris Sanders MD 12/31/2024 12:45 PM SLOT FLOORPERSON - 12/31/2024 11:59 PM SLOT FLOORPERSON Hospital Encounter [facility] - Diagnostic Imaging [address] [facility] Floor 8 [place] [address] History of allogeneic bone marrow transplant (HCC); 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) Discharge Disposition: Discharge to home or self care 12/31/2024 11:40 AM SLOT FLOORPERSON Office Visit [facility] Bone Marrow Transplant [facility] Floor 6 [place] [address] Neeraj Sandoval MD History of allogeneic bone marrow transplant (HCC) (Primary Dx); 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); 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) 12/31/2024 11:00 AM SLOT FLOORPERSON Lab [facility] - Lab Collection [address] [facility] Floor 6 [place] [address] 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) 12/31/2024 10:30 AM SLOT FLOORPERSON Lab [facility] Oncology Lab [address] [place] [address] Floor 6 [place] [address] 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) 12/18/2024 Orders Only [facility] [address] [facility] Medicine 5th [place] [address] [place] [address] Parris Sanders MD Osteopenia of left hip [...] on file Legal Sex Female 6:18 PM SLOT FLOORPERSON Gender Identity Female 08/30/2023 12:40 PM CDT Sexual Orientation Not on file Obstetrics History Last Filed Vital Signs Vital Sign Reading Time Taken Comments Blood Pressure 129/85 12/31/2024 11:17 AM SLOT FLOORPERSON Pulse 69 12/31/2024 11:17 AM SLOT FLOORPERSON Temperature 36.3 C (97.3 F) 12/31/2024 11:17 AM SLOT FLOORPERSON Respiratory Rate 17 12/31/2024 11:17 AM SLOT FLOORPERSON Oxygen Saturation 99% 12/31/2024 11:17 AM SLOT FLOORPERSON Inhaled Oxygen Concentration - - Weight 70.1 kg (154 lb 9.6 oz) 01/09/2025 12:20 PM SLOT FLOORPERSON Height 162.5 cm (5' 3.98 ) 01/09/2025 12:[address] Body Mass Index 26.56 01/09/2025 12:20 PM SLOT FLOORPERSON Plan of Treatment Health Maintenance Due Date [...] 04/27/2022, 09/04/2017, Additional history exists Influenza Vaccine (Season Ended) 2025 Procedures Procedure Name Priority Date/Time Associated Diagnosis [...] Read Routine (OP Routine) 01/09/2025 2:12 PM SLOT FLOORPERSON Osteopenia of left hip 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) Postmenopausal XR SPINE LUMBAR 2 OR 3 VIEWS Schedule Routine, Read Routine (OP Routine) 01/09/2025 2:12 PM SLOT FLOORPERSON Osteopenia of left hip 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) Postmenopausal EGFR Routine 01/09/2025 2:00 PM SLOT FLOORPERSON Osteopenia of left hip 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) Postmenopausal DIFFERENTIAL AUTO Routine 01/09/2025 2:0 0 PM SLOT FLOORPERSON 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) CBC WITH AUTO DIFFERENTIAL Routine 01/09/2025 2:00 PM SLOT FLOORPERSON 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) LACTATE DEHYDROGENASE Routine 01/09/2025 2:00 PM SLOT FLOORPERSON 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) PHOSPHORUS Routine 01/09/2025 2:00 PM SLOT FLOORPERSON Osteopenia of left hip 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) Postmenopausal PTH Routine 01/09/2025 2:00 PM SLOT FLOORPERSON Osteopenia of left hip 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) Postmenopausal VITAMIN D 25 HYDROXY Routine 01/09/2025 2:00 PM SLOT FLOORPERSON Osteopenia of left hip 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) Postmenopausal COMPREHENSIVE METABOLIC PANEL Routine 01/09/2025 2:00 PM SLOT FLOORPERSON Osteopenia of left hip 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) Postmenopausal DEXA TBS AXIAL SKELETON BONE DENSITY 1 OR MORE SITES Schedule Routine, Read Routine (OP Routine) 01/09/2025 11:49 AM SLOT FLOORPERSON Osteopenia of left hip XR HIP RIGHT 2 OR 3 VIEWS Schedule Routine, Read Routine (OP Routine) 12/31/2024 1:08 PM SLOT FLOORPERSON 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) EGFR Routine 12/31/2024 10:51 AM SLOT FLOORPERSON 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) DIFFERENTIAL AUTO Routine 12/31/2024 10: 51 AM SLOT FLOORPERSON 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) CBC WITH AUTO DIFFERENTIAL Routine 12/31/2024 10:51 AM SLOT FLOORPERSON 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) COMPREHENSIVE METABOLIC PANEL Routine 12/31/2024 10:51 AM SLOT FLOORPERSON 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) LACTATE DEHYDROGENASE Routine 12/31/2024 10:51 AM SLOT FLOORPERSON 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) from Last 3 Months Results * (ABNORMAL) Vitamin D 25 hydroxy (02/11/2025 12:23 PM CDT) Pathologist [facility] Vitamin D 25-OH 102(H) 30 - 100 ng/mL [facility] Comment: Vitamin D Status 25-OH Vitamin D: Deficiency: <20 ng/mL Insufficiency: 20 - 29 ng/mL Optimal: > or = 30 ng/mL For 25-OH Vitamin D testing on patients on D2-supplementation and patients for whom quantitation of D2 and D3 fractions is required, the Quest[facility]ure[facility](TM) 25-OH VIT D, (D2,D3), LC/MS/MS is recommended: order code 60997 (patients >2yrs). See Note 1 Note 1 For additional information, please refer to http://education.Aristotl/faq/YPI248 (This link is being provided for informational/ educational purposes only.) Blood 02/11/2025 12:2 3 PM CDT 02/11/2025 12:24 PM CDT Neeraj Sandoval MD LAB BLOOD ORDERABLES Final Resul t Performing Organization Address [facility] Co de Phone Number [facility] [address] [place] [address] * Uric acid (02/11/2025 12:23 PM CDT) Uric acid 4.0 2.5 - 7.0 mg/dL [facility] Comment: Therapeutic target for gout patients: <6.0 mg/dL Blood 02/11/2025 12:2 3 PM CDT 02/11/2025 12:24 PM CDT Neeraj Sandoval MD LAB BLOOD ORDERABLES Final Resul t Performing Organization Address City/[facility]/ZIP Co de Phone Number [facility] [address] [place] [address] * (ABNORMAL) Cytomegalovirus (CMV) DNA PCR, quantitative Blood (02/11/2025 12:21 PM CDT) CMV DNA qn <34.5(A) Not Detected IU/mL [facility] Comment: Detected CMV DNA was detected below 34.5 IU/mL. Viral load in this range cannot be accurately quantified by t CMV DNA log IU/mL <1.54(A) Not Detected Log IU/mL [facility] Comment: Detected (Note) For additional information, please refer to http://education.GHash.IO.Stevie/faq/CMVandEBVPCR (This link is being provided for informational/educational purposes only.) [facility] [address] [address],[address] [facility] [id number] Fermin Jasso MD, PhD Blood 02/11/2025 12:2 1 PM CDT 02/11/2025 12:22 PM CDT Narrative [facility] - 02/14/2025 3:53 PM CDT FASTING:NO FASTING: NO us Neeraj Sandoval MD LAB MICROBIOLOGY - GENERAL ORDER BEATA Final Result [facility] [address] [address], [address] [place] [address] * CBC with auto differential (02/11/2025 12:21 [...] ORDERABLES Final Resul t Performing Organization Address City/[facility] Co de Phone Number [facility] [address] [place] [address] * T3, free (02/11/2025 12:21 PM CDT) Free T3 2.8 2.3 - 4.2 pg/mL [facility] Blood 02/11/2025 12:2 1 PM CDT 02/11/2025 12:22 PM CDT Narrative [facility] - 02/14/2025 3:53 PM CDT FASTING:NO FASTING: NO Neeraj Sandoval MD LAB BLOOD ORDERABLES Final Resul t Performing Organization Address City/[facility] Co de Phone Number [facility] [address] [place] [address] * TSH (02/11/2025 12:21 PM CDT) TSH 1.48 0.40 - 4.50 mIU/L [facility] Blood 02/11/2025 12:2 1 PM CDT 02/11/2025 12:22 PM CDT Narrative [facility] - 02/14/2025 3:53 PM CDT FASTING:NO FASTING: NO Neeraj Sandoval MD LAB BLOOD ORDERABLES Final Resul t Performing Organization Address [facility]/ZIP Co de Phone Number [facility] [address] [place] [address] * T4, free (02/11/2025 12:21 PM CDT) Free T4 1.1 0.8 - 1.8 ng/dL [facility] Blood 02/11/2025 12:2 1 PM CDT 02/11/2025 12:22 PM CDT Narrative [facility] - 02/14/2025 3:53 PM CDT FASTING:NO FASTING: NO Neeraj Sandoval MD LAB BLOOD ORDERABLES Final Resul t Performing Organization Address [facility] de Phone Number [facility] [address] [place] [address] * Lactate dehydrogenase (LD) (02/11/2025 12:21 PM CDT) Lactate dehydrogenase (LDH) 249 120 - 250 U/L [facility] Blood 02/11/2025 12:2 1 PM CDT 02/11/2025 12:22 PM CDT Narrative [facility] - 02/14/2025 3:53 PM CDT FASTING:NO FASTING: NO Neeraj Sandoval MD LAB BLOOD ORDERABLES Final Resul t Performing Organization Address [facility] de Phone Number [facility] [address] [facility] [place] [address] * LH (02/11/2025 12:21 PM CDT) LH 56.4 mIU/mL [facility] Comment: Reference Range Follicular Phase 1.9-12.5 Mid-Cycle Peak 8.7-76.3 Luteal Phase 0.5-16.9 Postmenopausal 10.0-54.7 Blood 02/11/2025 12:2 1 PM CDT 02/11/2025 12:22 PM CDT Narrative [facility] - 02/14/2025 3:53 PM CDT FASTING:NO FASTING: NO Neeraj Sandoval MD LAB BLOOD ORDERABLES Final Resul t Performing Organization Address [facility] de Phone Number [facility] [address] [place] [address] * Follicle stimulating hormone (02/11/2025 12:21 PM CDT) FSH 92.8 mIU/mL [facility] Comment: Reference Range Follicular Phase 2.5-10.2 Mid-cycle Peak 3.1-17.7 Luteal Phase 1.5- 9.1 Postmenopausal 23.0-116.3 Blood 02/11/2025 12:2 1 PM CDT 02/11/2025 12:22 PM CDT Narrative [facility] - 02/14/2025 3:53 PM CDT FASTING:NO FASTING: NO Neeraj Sandoval MD LAB BLOOD ORDERABLES Final Resul t Performing Organization Address [facility] de Phone Number [facility] [address] [place] [address] * (ABNORMAL) Comprehensive metabolic panel (02/11/2025 12:21 [...] BLOOD ORDERABLES Final Resul t [facility] [address] [address] [phone] * XR Spine Lumbar 2 or 3 Views (01/09/2025 2:12 PM SLOT FLOORPERSON) Anatomical Region Laterality Modality Spine N/A Computed Radiogr aphy 01/09/2025 3:23 PM SLOT FLOORPERSON Impressions 01/09/2025 3:32 PM SLOT FLOORPERSON 1. Compression deformities of L2 and L4 [...] Tee Gonzalez M.D. Narrative 01/09/2025 3:32 PM SLOT FLOORPERSON EXAMINATION: XR SPINE THORACIC 2 VIEWS, XR [...] Spine Thoracic 2 Views (01/09/2025 2:12 PM SLOT FLOORPERSON) Anatomical Region Laterality Modality Spine N/A Computed Radiogr aphy 01/09/2025 3:23 PM SLOT FLOORPERSON Impressions 01/09/2025 3:32 PM SLOT FLOORPERSON 1. Compression deformities of L2 and L4 [...] Tee Gonzalez M.D. Narrative 01/09/2025 3:32 PM SLOT FLOORPERSON EXAMINATION: XR SPINE THORACIC 2 VIEWS, XR [...] Re sult * eGFR (01/09/2025 2:00 PM SLOT FLOORPERSON) eGFR 64 >=60 mL/min/1. 73 m2 Comment: [...] last reviewed 2021. Blood 01/09/2025 2:00 PM SLOT FLOORPERSON 01/09/2025 4:34 PM SLOT FLOORPERSON us Parris Sanders MD LAB BLOOD ORDERABLES Final Result [facility] Department [place] [address] * Differential, auto (01/09/2025 2:00 PM SLOT FLOORPERSON) Neutrophil abs 1.8 1.5 - 6.5 K/cumm Imm gran abs 0.0 0.0 - 0.1 K/cumm [facility] Lymphocyte abs 1.5 0.8 - 3.3 K/cumm [facility] Monocyte abs 0.4 0.2 - 0.8 K/cumm [facility] Eosinophil abs 0.1 0.0 - 0.5 K/cumm [facility] Basophil abs 0.0 0.0 - 0.1 K/cumm [facility] Neutrophil pct 46.5 % [facility] Comment: Interpretive Data Percent cell count reference ranges are not reported, since discordance with absolute values may lead to misinterpretation of CBC data. Current Interpretive Data was last revised on 2018. Imm gran pct 0.5 % [facility] Comment: Interpretive Data Percent cell count reference ranges are not reported, since discordance with absolute values may lead to misinterpretation of CBC data. Current Interpretive Data was last revised on 2018. Lymphocyte pct 38.8 % [facility] Comment: Interpretive Data Percent cell count reference ranges are not reported, since discordance with absolute values may lead to misinterpretation of CBC data. Current Interpretive Data was last revised on 2018. Monocyte pct 10.2 % [facility] Comment: Interpretive Data Percent cell count reference ranges are not reported, since discordance with absolute values may lead to misinterpretation of CBC data. Current Interpretive Data was last revised on 2018. Eosinophil pct 3.0 % [facility] Comment: Interpretive Data Percent cell count reference ranges are not reported, since discordance with absolute values may lead to misinterpretation of CBC data. Current Interpretive Data was last revised on 2018. Basophil pct 1.0 % [facility] Comment: Interpretive Data Percent cell count reference ranges are not reported, since discordance with absolute values may lead to misinterpretation of CBC data. Current Interpretive Data was last revised on 2018. Blood 01/09/2025 2:00 PM SLOT FLOORPERSON 01/09/2025 4:16 PM SLOT FLOORPERSON Neeraj Sandoval MD LAB BLOOD ORDERABLES Final Resul t Performing Organization Address [facility] Co de Phone Number [facility] Department [place] [address] * (ABNORMAL) CBC with auto differential (01/09/2025 2:00 PM SLOT FLOORPERSON) Pathologist [facility] WBC 3.9 3.8 - 9.9 K/cumm Hgb 13.4 11.9 - 15.5 g/dL [facility] Hct 41.4 35.6 - 45.5 % [facility] Plt 192 150 - 400 K/cumm [facility] MPV 9.4 9.1 - 12.3 fL [facility] RBC 4.26 3.90 - 5.20 M/cumm [facility] MCV 97.2(H) 81.3 - 96.4 fL [facility] MCH 31.5 27.1 - 33.3 pg [facility] MCHC 32.4 32.3 - 35.7 g/dL [facility] RDW CV 14.6 11.1 - 14.9 % [facility] RDW SD 52.0(H) 35.7 - 48.1 fL [facility] NRBC abs 0.00 0.00 - 0.01 K/cumm [facility] Blood 01/09/2025 2:00 PM SLOT FLOORPERSON 01/09/2025 4:16 PM SLOT FLOORPERSON Neeraj Sandoval MD LAB BLOOD ORDERABLES Final Resul t Performing Organization Address [facility]/ZIP Co de Phone Number [facility] Department [place] [address] * Vitamin D 25 hydroxy (01/09/2025 2:00 PM SLOT FLOORPERSON) Pathologist [facility] Vitamin D 25-OH 74 30 - 80 ng/mL Blood 01/09/2025 2:00 PM SLOT FLOORPERSON 01/09/2025 4:16 PM SLOT FLOORPERSON us Parris Sanders MD LAB BLOOD ORDERABLES Final Result Performing Organization Address [facility] Co de Phone Number [facility] [place] [address] * Phosphorus (01/09/2025 2:00 PM SLOT FLOORPERSON) Phosphorus, pl 4.1 2.3 - 4.5 mg/dL Blood 01/09/2025 2:00 PM SLOT FLOORPERSON 01/09/2025 4:16 PM SLOT FLOORPERSON Parris Sanders MD LAB BLOOD ORDERABLES Final Result Performing Organization Address [facility] de Phone Number [facility] [place] [address] * (ABNORMAL) PTH (01/09/2025 2:00 PM SLOT FLOORPERSON) Pathologist [facility] PTH 70(H) 15 - 65 pg/mL Blood 01/09/2025 2:00 PM SLOT FLOORPERSON 01/09/2025 4:16 PM SLOT FLOORPERSON Parris Sanders MD LAB BLOOD ORDERABLES Final Result Performing Organization Address [facility] de Phone Number [facility] [place] [address] * (ABNORMAL) Lactate dehydrogenase (LD) (01/09/2025 2:00 PM SLOT FLOORPERSON) Lactate dehydrogenase (LDH) 283(H) 100 - 250 Units/L Blood 01/09/2025 2:00 PM SLOT FLOORPERSON 01/09/2025 4:16 PM SLOT FLOORPERSON us Neeraj Sandoval MD LAB BLOOD ORDERABLES Final Resul t [facility] Department [place] [address] * Comprehensive metabolic panel (01/09/2025 2:00 PM SLOT FLOORPERSON) Sodium 145 135 - 145 mmol/L Potassium, pl 4.8 3.3 - 4.9 mmol/L [facility] Chloride 105 97 - 110 mmol/L [facility] CO2 31 22 - 32 mmol/L [facility] Anion gap 9 2 - 15 mmol/L [facility] BUN 8 6 - 25 mg/dL [facility] Creatinine 0.99 0.60 - 1.10 mg/dL [facility] Glucose 79 70 - 199 mg/dL [facility] Comment: Interpretive Data Fasting glucose >/= [...] 2022. Calcium 9.5 8.5 - 10.3 mg/dL [facility] Bilirubin, total 0.4 0.1 - 1.2 mg/dL [facility] Protein, pl 7.2 6.5 - 8.5 g/dL [facility] Albumin 4.3 3.5 - 5.0 g/dL [facility] Alk phos 100 40 - 130 Units/L [facility] ALT 33 7 - 45 Units/L [facility] AST 24 10 - 45 Units/L [facility] Blood 01/09/2025 2:00 PM SLOT FLOORPERSON 01/09/2025 4:16 PM SLOT FLOORPERSON Parris Sanders MD LAB BLOOD ORDERABLES Final Result Performing Organization Address City/[facility]/ZIP Co de Phone Number [facility] Department [place] [address] * Dexa TBS Axial Skeleton Bone Density 1 or more sites (01/09/2025 11:49 AM SLOT FLOORPERSON) Anatomical Region Laterality Modality Wrist, Body N/A Radiographic Valarie ging Narrative 01/12/2025 9:24 PM SLOT FLOORPERSON Patient Name: Angelica Guerra Date of : 1960 Date of scan: 01/09/2025 Bone mineral density was performed on a [employer] Discovery Densitometer. Based on machine cross-calibration and [...] density scan were prepared by Antoinette Luna(Cristiano) [employer] who is accredited by the International Society of Clinical Densitometry. The overall patient assessment and scan interpretation were performed by Parris Sanders M.D. who is certified by the International Society of Clinical Densitometry. [id number] us Parris Sanders MD [facility]XA PROCED[facility] Final R esult * XR Hip Right 2 or 3 Views (12/31/2024 1:08 PM SLOT FLOORPERSON) Anatomical Region Laterality Modality Lower Extremities, Hip, Pelvis Right D igital Radiography 12/31/2024 2:02 PM SLOT FLOORPERSON Impressions 12/31/2024 2:29 PM SLOT FLOORPERSON 1. 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 Dictated by: Elijah Tolentino M.D. The radiology attending physician has personally reviewed this study, and had reviewed and/or edited this written report and agrees with it. Electronically signed by: Tee Gonzalez M.D. Narrative 12/31/2024 2:29 PM SLOT FLOORPERSON EXAMINATION: XR HIP RIGHT 2 OR 3 [...] Final Result * eGFR (12/31/2024 10:51 AM SLOT FLOORPERSON) eGFR 79 >=60 mL/min/1. 73 m2 Comment: [...] reviewed 2021. Blood 12/31/2024 10:5 1 AM SLOT FLOORPERSON 12/31/2024 11:02 AM SLOT FLOORPERSON us Neeraj Sandoval MD LAB BLOOD ORDERABLES Final Resul t [facility] Department [place] [address] * Differential, auto (12/31/2024 10:51 AM SLOT FLOORPERSON) Neutrophil abs 2.2 1.5 - 6.5 K/cumm Comment:Testing performed by : [facility], [address] [place] [phone] Lymphocyte abs 1.4 0.8 - 3.3 K/cumm [facility] Comment:Testing performed by : [facility], [address] [place] [phone] Monocyte abs 0.5 0.2 - 0.8 K/cumm CERNER BJ Comment:Testing performed by : [facility], [address] [place] [phone] Eosinophil abs 0.2 0.0 - 0.5 K/cumm CERNER BJ Comment:Testing performed by : [facility], [address] [place] [phone] Basophil abs 0.0 0.0 - 0.1 K/cumm CERNER BJ Comment:Testing performed by : [facility], [address] [place] [phone] Neutrophil pct 52.0 % CERNER [facility] Comment: Interpretive Data Percent cell count reference ranges are not reported, since discordance with absolute values may lead to misinterpretation of CBC data. Current Interpretive Data was last revised on 2018. Testing performed by: [facility], [address] [place] [phone] Lymphocyte pct 32.5 % LION CRUZ Comment: Interpretive Data Percent cell count reference ranges are not reported, since discordance with absolute values may lead to misinterpretation of CBC data. Current Interpretive Data was last revised on 2018. Testing performed by: [facility], [address] [place] [phone] Monocyte pct 10.7 % LION CRUZ Comment: Interpretive Data Percent cell count reference ranges are not reported, since discordance with absolute values may lead to misinterpretation of CBC data. Current Interpretive Data was last revised on 2018. Testing performed by: [facility], [address] [place] [phone] Eosinophil pct 4.1 % LION CRUZ Comment: Interpretive Data Percent cell count reference ranges are not reported, since discordance with absolute values may lead to misinterpretation of CBC data. Current Interpretive Data was last revised on 2018. Testing performed by: [facility], [address] [place] [phone] Basophil pct 0.7 % LION CRUZ Comment: Interpretive Data Percent cell count reference ranges are not reported, since discordance with absolute values may lead to misinterpretation of CBC data. Current Interpretive Data was last revised on 2018. Testing performed by: [facility], [address] [place] [phone] Blood 12/31/2024 10:5 1 AM SLOT FLOORPERSON 12/31/2024 11:00 AM SLOT FLOORPERSON us Neeraj Sandoval MD LAB BLOOD ORDERABLES Final Resul t LION CRUZ [facility] Department [place] [address] * CBC with auto differential (12/31/2024 10:51 AM SLOT FLOORPERSON) WBC 4.3 3.8 - 9.9 K/cumm Comment:Testing performed by : [facility], [address] [place] [address] Hgb 12.6 11.9 - 15.5 g/dL CERNER BJ Comment:Testing performed by : [facility], [address] [place] [address] Hct 37.9 35.6 - 45.5 % CERNER BJ Comment:Testing performed by : [facility], [address] [place] [address] Plt 201 150 - 400 K/cumm CERNER BJ Comment:Testing performed by : [facility], [address] [place], [place] [phone] MPV 7.9 6.8 - 10.4 fL CERNER BJ Comment:Testing performed by : [facility], [address] [place], [place] [phone] RBC 3.95 3.90 - 5.20 M/cumm CERNER BJ Comment:Testing performed by : [facility], [address] [place], [place] [phone] MCV 96.0 81.3 - 96.4 fL CERNER BJ Comment:Testing performed by : [facility], [address] [place], [place] [phone] MCH 31.9 27.1 - 33.3 pg CERNER BJ Comment:Testing performed by : [facility], [address] [place] [address] MCHC 33.2 32.3 - 35.7 g/dL CERNER BJ Comment:Testing performed by : [facility], [address] [place] [address] RDW CV 14.8 11.1 - 14.9 % CERNER BJ Comment:Testing performed by : [facility], [address] [place] [address] NRBC abs 0.00 0.00 - 0.01 K/cumm CERNER BJ Comment:Testing performed by : [facility], [address] [place] [address] Blood 12/31/2024 10:5 1 AM SLOT FLOORPERSON 12/31/2024 11:00 AM SLOT FLOORPERSON Neeraj Sandoval MD LAB BLOOD ORDERABLES Final Resul t Performing Organization Address City/[facility] Co de Phone Number [facility] [place] [address] * Lactate dehydrogenase (LD) (12/31/2024 10:51 AM SLOT FLOORPERSON) Lactate dehydrogenase (LDH) 239 100 - 250 Units/L Blood 12/31/2024 10:5 1 AM SLOT FLOORPERSON 12/31/2024 11:02 AM SLOT FLOORPERSON Neeraj Sandoval MD LAB BLOOD ORDERABLES Final Resul t Performing Organization Address [facility] de Phone Number [facility] [place] [address] * (ABNORMAL) Comprehensive metabolic panel (12/31/2024 10:51 AM SLOT FLOORPERSON) Sodium 141 135 - 145 mmol/L Potassium, pl 5.1(H) 3.3 - 4.9 mmol/L [facility] Chloride 105 97 - 110 mmol/L [facility] CO2 32 22 - 32 mmol/L [facility] Anion gap 4 2 - 15 mmol/L [facility] BUN 10 6 - 25 mg/dL [facility] Creatinine 0.84 0.60 - 1.10 mg/dL [facility] Glucose 83 70 - 199 mg/dL [facility] Comment: Interpretive Data Fasting glucose >/= [...] total 0.5 0.1 - 1.2 mg/dL [facility] Protein, pl 6.9 6.5 - 8.5 g/dL CERNER BJ Albumin 4.1 3.5 - 5.0 g/dL CERNER BJ Alk phos 100 40 - 130 Units/L [facility] ALT 39 7 - 45 Units/L [facility] AST 32 10 - 45 Units/L CERNER BJ Blood 12/31/2024 10:5 1 AM SLOT FLOORPERSON 12/31/2024 11:02 AM SLOT FLOORPERSON us Neeraj Sandoval MD LAB BLOOD ORDERABLES Final Resul t [facility] Department [place] [address] from Last 3 Months Insurance [facility] MEDICARE [facility] MEDICARE IDPA Advance Directives For more information, please contact: [phone] * Full Code (Latest Code Status on File) Date Activated Date Inactivated Comments 04/09/2024 9:57 AM 04/10/2024 5:28 AM Care Teams Cap Sewer Relationship Specialty Start Date End Date Thomas Horowitz DO [address] [place] [phone] PCP - General Family Medicine 04/24/24 Neeraj Sandoval MD [address] [facility] 7 DIV [place] [address] Medical Oncologist/Miniature Set Designer Medical Oncology 08/01/23
--- OUTSIDE RECORDS SUMMARY | 2025-03-05 11:47 | XMS_ITS | Encounter Summary ---
Author Organization [facility] Healthcare Address [address] [place] [address] Care Team Providers Care Special Education Preschool Teacher Name Role Phone Neeraj Sandoval MD Unavailable Thomas Horowitz DO Primary Care Provide r Encounter Details Date Type Department Care Team (Late st Contact Info) Description 03/05/2025 Orders Only [address] [address] Rupa Segovia, RN Social History Tobacco Use Types Packs/Day Years Used Date Smoking Tobacco: Former Cigarettes 0.8 15.3 S tarted: 11/26/1974 Smokeless Tobacco: Never AUDIT-C Answer Date Recorded [...] on file Legal Sex Female 6:18 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
--- OUTSIDE RECORDS SUMMARY | 2025-03-05 11:47 | XMS_ITS | Encounter Summary ---
Author Organization [facility] Address [address] [facility] [place] [address] Phone Care Team Providers Care Business Continuity Consultant Name Role Phone Sen Pruitt MD Primary Care Provider Alli Mancuso MD Unavailable Reason for Visit * Reason Comments Medication Refill Encounter Details Date Type Department Care Team (Late st Contact Info) Description 07/30/[address] 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 Steps to achieve goal: 1. Will start Physical therapy in two weeks 2. Medications documented as of this encounter Visit Diagnoses Not on filedocumented in this encounter Additional Health Concerns Assessment Noted Time PHQ-9 Depression Total Score: 1 04/02/20 20 9:00 AM CDT documented as of this encounter Care Teams Business Continuity Consultant Relationship Specialty Start Date End Date Sen Pruitt MD PCP - General Internal Medicine/Pediatrics 07/23/18 05/30/23 Alli Mancuso MD [address] [place] [address] Consulting Physician Gastroenterology 04/14/20 documented as of this encounter
--- OUTSIDE RECORDS SUMMARY | 2025-03-05 11:47 | XMS_ITS | Encounter Summary ---
Author Organization [facility] Address [facility] [place] [address] Care Team Providers Care Asbestos Cement Sheet Supervisor Name Role Phone Thomas Horowitz DO Primary Care Provider + Encounter Details Date Type Department Care Team (Late Contact Info) Description 06/20/2024 MyChart Message Enc [facility] Family & Internal Medicine [facility] [address] [place] [address] Thomas Horowitz DO [address] [place] [phone] Mammogram results Social History Tobacco Use [...] Sex Assigned at Female 11/11/2024 10:08 AM COMMUNITY PLACEMENT 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 Legal Sex Female 8:10 PM CDT Gender Identity Female 11/11/2024 10:08 AM COMMUNITY PLACEMENT WORKER Sexual Orientation Not on file documented as of this encounter Plan of Treatment Upcoming Encounters Date Type Department Care Team (Late Contact Info) Description 03/13/2025 12:00 PM CDT Appointment [facility] [address] [place] [address] Thomas Horowitz DO [address] [place] [address] 04/14/2025 10:20 AM CDT Office Visit [facility] Family & Internal Medicine - [place] [address] [place] [address] Thomas Horowitz DO [address] [place] [address] documented as of this encounter Visit Diagnoses Not on filedocumented in this encounter Additional Health Concerns Assessment Noted Time PHQ-9 Depression Total Score: 15 024 11:51 AM CDT documented as of this encounter Care Teams Asbestos Cement Sheet Supervisor Relationship Specialty Start Date End Date Thomas Horowitz DO [address] [place] [phone] PCP - General FAMILY PRACTICE 12/31/23 documented as of this encounter
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
--- OUTSIDE RECORDS SUMMARY | 2025-03-05 11:47 | XMS_ITS | Encounter Summary ---
Author Organization [facility] Address [address] [place] [address] Phone Care Team Providers Care Beverage Steward Name Role Phone Sen Pruitt MD Primary Care Provider Alli Mancuso MD Unavailable Reason for Visit * Reason Comments Medication Refill Encounter Details Date Type Department Care Team (Late st Contact Info) Description 11/21/2020 Refill [facility] [address] [place] [address] Sen Pruitt MD [address] [place] [address] Medication Refill Social History Tobacco [...] on file Legal Sex Female 4:02 AM TRANSLATOR INTERPRETER Gender Identity Not on file Sexual Orientation Not on file COVID-19 Exposure Response Date Recorded In the last month, have you been in contact with someone who was confirmed or suspected to have Coronavirus / COVID-19? No / Unsure 11/15/2020 4:57 PM TRANSLATOR INTERPRETER documented as of this encounter Miscellaneous Notes * Telephone Encounter - Sen Pruitt MD - 11/22/2020 1:11 PM TRANSLATOR INTERPRETER Script(s) signed and e-prescribed to listed pharmacy SLATOR INTERPRETER * Telephone Encounter - Julieth Arbeu RN - 11/22/2020 11:58 AM CST Medication [...] Outpatient Visits 1 month ago Essential hypertension [facility] Group - Internal Medicine & Pediatrics - Sen Red MD 2 months ago Vaginal discharge [facility] Medical [facility] - Internal Medicine & Pediatrics - Sen Red MD 3 months ago Attention deficit hyperactivity disorder (ADHD), predominantly inattentive type [facility] Medical [facility] - Internal Medicine & Pediatrics Kamille Camejo APN, OB SCRUB TECH 3 months ago Mood changes [facility] Medical [facility] - Internal Medicine & Pediatrics - Sen Red MD 7 months ago Essential hypertension [facility] - Internal Medicine & Pediatrics - Sen Red MD Upcoming Appointments BULK LOADER - Recent and Past Visits Recent Visits Date Type Provider Dept 10/15/20 Office Visit Sen Pruitt MD [facility] Im/Pediatrics Darius William 09/15/20 Office Visit Sen Pruitt MD [facility]/P[facility]s Darius William 08/18/20 Office Visit Kamille Claudio APN, OB SCRUB TECH [facility] Im/Pediatrics Darius William 08/04/20 Office Visit Sen Pruitt MD [facility] Im/Pediatrics Darius William 04/02/20 Office Visit Sen Pruitt MD [facility] Im/Pediatrics Darius William 11/24/19 Office Visit Sen Pruitt MD [facility] Im/Pediatrics Darius William 08/20/19 Office Visit Sen Pruitt MD [facility] Im/Pediatrics Darius William Showing recent visits within past 460 days with a meds authorizing provider and meeting all other requirements Future Appointments No visits were found meeting these conditions. Showing future appointments within next 90 days with a meds authorizing provider and meeting all other requirements SLATOR INTERPRETER documented in this encounter Plan of Treatment Not on file documented as of this encounter Goals Goal Patient Goal Type Associated Problems Recent Progress Patient-Stated? Author Angelica would like to go back to the gym and turn over in bed Pain Management No Cinda Funez RN Note: Goal Reviewed with: patient Readiness to change: Ready to change Department associated with goal: [facility] Steps to achieve goal: 1. Will start Physical therapy in two weeks 2. Medications documented as of this encounter Visit Diagnoses Not on filedocumented in this encounter Additional Health Concerns Assessment Noted Time PHQ-9 Depression Total Score: 1 04/02/20 20 9:00 AM CDT documented as of this encounter Care Teams Beverage Steward Relationship Specialty Start Date End Date Sen Pruitt MD PCP - General Internal Medicine/Pediatrics 07/23/18 05/30/23 Alli Mancuso MD [address] [place] [address] Consulting Physician Gastroenterology 04/14/20 documented as of this encounter
--- OUTSIDE RECORDS SUMMARY | 2025-03-05 11:47 | XMS_ITS | Encounter Summary ---
Author Organization [facility] Address [facility] [place] [address] Care Team Providers Care Professor Of Political Science Name Role Phone Thomas Horowitz DO Primary Care Provider + Reason for Visit * Reason Onset Date Comments Refill Request 11/03/2024 Encounter Details Date Type Department Care Team (Late st Contact Info) Description 11/03/2024 MyChart Message Enc [facility] Medical Group Family & Internal Medicine [facility] [address] [place] [address] Thomas Horowitz DO [facility] [place] [address] [place] Social History Tobacco Use [...] Sex Assigned at Female 11/11/2024 10:08 AM LOGGING TRUCK DRIVER Legal Sex Female 8:10 PM CDT Gender Identity Female 11/11/2024 10:08 AM LOGGING TRUCK DRIVER Sexual Orientation Not on file documented as of this encounter Plan of Treatment Upcoming Encounters Date Type Department Care Team (Late st Contact Info) Description 03/13/2025 12:00 PM CDT Appointment [facility] Open MRI [address] [place] [address] Thomas Horowitz DO [address] [place] [address] 04/14/2025 10:20 AM CDT Office Visit [facility] Medical Group Family & Internal Medicine - [address] [address] Thomas Horowitz DO [address] [place] [address] documented as of this encounter Visit Diagnoses Not on filedocumented in this encounter Additional Health Concerns Assessment Noted Time PHQ-9 Depression Total Score: 15 024 11:51 AM CDT documented as of this encounter Care Teams Professor Of Political Science Relationship Specialty Start Date End Date Thomas Horowitz DO [address] [place] [address] PCP - General FAMILY PRACTICE 12/31/23 documented as of this encounter
--- OUTSIDE RECORDS SUMMARY | 2025-03-05 11:47 | XMS_ITS | Encounter Summary ---
Author Organization [facility] Address [address] 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 Will start Physical therapy in two weeks 2. Medications documented as of this encounter Visit Diagnoses Not on filedocumented in this encounter Additional Health Concerns Assessment Noted Time PHQ-9 Depression Total Score: 1 04/02/20 20 9:00 AM CDT documented as of this encounter Care Teams Commercial Energy Rater Relationship Specialty Start Date End Date Rose Pruitt MD PCP - General Internal Medicine/Pediatrics 07/23/18 05/30/23 Alli Mancuso MD [address] [place] [address] Consulting Physician Gastroenterology 04/14/20 documented as of this encounter
--- OUTSIDE RECORDS SUMMARY | 2025-03-05 11:47 | XMS_ITS | Encounter Summary ---
Author Organization [facility] Address [facility] [place] [address] Care Team Providers Care Treater Name Role Phone Thomas Horowitz DO Primary Care Provider + Encounter Details Date Type Department Care Team (Late Contact Info) Description 01/01/2025 MyChart Message Enc [facility] Medical Group Family & Internal Medicine [facility] [address] [place] [address] Thomas Horowitz DO [address] [place] [address] [place] Social History Tobacco Use Types [...] Sex Assigned at Female 11/11/2024 10:08 AM AIRBRUSH ARTIST PHOTOGRAPHY Legal Sex Female 8:10 PM CDT Gender Identity Female 11/11/2024 10:08 AM AIRBRUSH ARTIST PHOTOGRAPHY Sexual Orientation Not on file documented as of this encounter Plan of Treatment Upcoming Encounters Date Type Department Care Team (Late Contact Info) Description 03/13/2025 12:00 PM CDT Appointment [facility] [address] [place] [address] Thomas Horowitz DO [address] [place] [address] 04/14/2025 10:20 AM CDT Office Visit [facility] Medical Group Family & Internal Medicine - [place] [address] [place] [address] Thomas Horowitz DO [address] [place] [address] documented as of this encounter Visit Diagnoses Not on filedocumented in this encounter Additional Health Concerns Assessment Noted Time PHQ-9 Depression Total Score: 15 024 11:51 AM CDT documented as of this encounter Care Teams Treater Relationship Specialty Start Date End Date Thomas Horowitz DO [address] [place] [address] PCP - General FAMILY PRACTICE 12/31/23 documented as of this encounter
--- OUTSIDE RECORDS SUMMARY | 2025-03-05 11:47 | XMS_ITS | Encounter Summary ---
Author Organization [facility] Address [facility] [place] [address] Care Team Providers Care Orthopedic Shoe Fitter Name Role Phone Thomas Horowitz DO Primary Care Provider + Encounter Details Date Type Department Care Team (Late st Contact Info) Description 11/12/2024 MyChart Message Enc [facility] Medical Group Family & Internal Medicine [facility] [address] [place] [address] Thomas Horowitz DO [facility] [place] [address] Prednisone Social History Tobacco Use [...] Sex Assigned at Female 11/11/2024 10:08 AM TIER IN Legal Sex Female 8:10 PM CDT Gender Identity Female 11/11/2024 10:08 AM TIER IN Sexual Orientation Not on file documented as of this encounter Progress Notes * Thomas Horowitz DO - 11/13/2024 8:23 AM CST Glad she is starting to feel better. IN documented in this encounter Plan of Treatment Upcoming Encounters Date Type Department Care Team (Late st Contact Info) Description 03/13/2025 12:00 PM CDT Appointment [facility] Open MRI [address] [facility] [place] [address] Thomas Horowitz DO [address] [place] [address] 04/14/2025 10:20 AM CDT Office Visit [facility] Medical Group Family & Internal Medicine - [place] [address] [place] [address] Thomas Horowitz DO [address] [place] [address] documented as of this encounter Visit Diagnoses Not on filedocumented in this encounter Additional Health Concerns Assessment Noted Time PHQ-9 Depression Total Score: 15 024 11:51 AM CDT documented as of this encounter Care Teams Orthopedic Shoe Fitter Relationship Specialty Start Date End Date Thomas Horowitz DO [address] [place] [address] PCP - General FAMILY PRACTICE 12/31/23 documented as of this encounter
--- OUTSIDE RECORDS SUMMARY | 2025-03-05 11:47 | XMS_ITS | Clinical Summary ---
Author Organization [facility] Address [address] [place] [address] Phone Care Team Providers Care Industrial Relations Counselor Name Role Phone Alli Mancuso MD Unavailable [phone] Allergies No known active allergies Medications Multiple [...] 10 PO) Take by mouth daily. Active [place]-3 Fatty Acids (OMEGA 3 PO) Take by [...] on file Legal Sex Female 4:02 AM UNIT NURSE Gender Identity Not on file Sexual Orientation Not on file Last Filed Vital Signs Vital Sign Reading Time Taken Comments Blood Pressure 112/78 10/15/2020 2:30 PM UNIT NURSE Pulse 84 10/15/2020 2:30 PM UNIT NURSE Temperature 36.7 C (98.1 F) 07/02/2020 12:53 PM CDT Respiratory Rate 18 10/15/2020 2:30 PM UNIT NURSE Oxygen Saturation 100% 09/15/2020 3:13 PM CDT Inhaled Oxygen Concentration - - Weight 74.5 kg (164 lb 4.8 oz) 10/15/2020 2:30 P M UNIT NURSE Height 165.1 cm (5' 5 ) 10/15/2020 2:30 PM UNIT NURSE Body Mass Index 27.34 10/15/2020 2:30 PM UNIT NURSE Plan of Treatment Health Maintenance Due Date Last Done Comments Hepatitis C Virus (HCV) Screening 1960 TdaP Immunization 1960 Cologuard 02/11/2012 Pneumococcal Immunization (5 0+ years) (1 of 1 - PCV) 02/11/2012 Zoster Immunization (1 of 2) 02/11/2012 Immunochemical Fecal Occult Blood 08/22/2019 08/22/2018 SARS-COV-2 Immunization (1 - 2023- season) 2024 Influenza Immunization (Seas on Ended) 2025 Colonoscopy 04/21/2030 04/21/2020, 04/21/2020, 05/22/2012 Colorectal Cancer [...] Ready to change Department associated with goal: [facility] Steps to achieve goal: 1. Will start Physical therapy in two weeks 2. Medications Procedures Procedure Name Priority Date/Time Associated Diagnosis Comments STOOL, OCCULT BLOOD IMMUNOASSAY (IFOB) Routine 08/22/2018 8:00 AM CDT Anemia, unspecified type [facility] DIAG BILATERAL DIGITAL WO CAD W JAZZMINE Routine 09/04/2017 7:41 AM CDT Mammogram abnormal Breast calcifications from Last 3 Months or Most Recently Relevant to Health Maintenance Results * STOOL, OCCULT BLOOD IMMUNOASSAY (IFOB) (08/22/2018 8:00 AM CDT) OCCULT BLOOD - IFOB Negative Negative 08/22/2018 2:10 PM CDT [facility] Specimen of unknown material (specimen) STOOL SPECIMEN / Unknown Non-Phlebotomy Collection / Unknown 08/22/2018 8:00 AM CDT 08/22/2018 10:31 AM CDT us Sen Pruitt MD BODY FLUIDS & STOOLS O RDERABLES Final Result Performing Organization Address City/State/[facility] Co de Phone Number [facility] [address] [place] [address], [place] * [facility] DIAG BILATERAL DIGITAL WO CAD [...] CDT DICTATING PHYSICIAN: Michael Gordillo D.O. EXAM: [facility] ABBEY BILATERAL DIGITAL WO CAD [...] 09/04/2017 DICTATING PHYSICIAN: Michael Gordillo D.O. EXAM: [facility] BILATERAL DIGITAL WO CAD W JAZZMINE, 09/04/2017 [...] concur with this interpretation. us Kamille Claudio COMMUNITY SPECIALIST, FACILITIES MAINTENANCE MANAGER IMG MAMMO ORDERABLES Dionna l Result from Last 3 Months or Most Recently Relevant to Health Maintenance Insurance [facility] Care Teams Industrial Relations Counselor Relationship Specialty Start Date End Date Alli Mancuso MD [address] [place] [address] Consulting Physician Gastroenterology 04/14/20
--- OUTSIDE RECORDS SUMMARY | 2025-03-05 11:47 | XMS_ITS | Encounter Summary ---
Author Organization [facility] Address [address] [facility] 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 Blood 06/02/2020 2:09 PM CDT 06/02/2020 5:09 PM CDT us Jeffrey Wallace MD CHEMISTRY ORDERABLES Fin al Result [facility] [address] [place] [address], [place] documented in this encounter Visit Diagnoses Diagnosis Anemia, unspecified documented in this encounter Additional Health Concerns Assessment Noted Time PHQ-9 Depression Total Score: 1 04/02/20 20 9:00 AM CDT documented as of this encounter Care Teams Document Review Attorney Relationship Specialty Start Date End Date Sen Pruitt MD PCP - General Internal Medicine/Pediatrics 07/23/18 05/30/23 Alli Mancuso MD [address] [place] [address] Consulting Physician Gastroenterology 04/14/20 documented as of this encounter
--- OUTSIDE RECORDS SUMMARY | 2025-03-05 11:47 | XMS_ITS | Encounter Summary ---
Author Organization [facility] Address [facility] [place] [address] Care Team Providers Care Sales Representatives Name Role Phone Thomas Horowitz DO Primary Care Provider + Encounter Details Date Type Department Care Team (Late Contact Info) Description 06/24/2024 [employer] Message Enc [facility] Medical Group Family & Internal Medicine [address] [address] [facility] Provider Appointment for 07/11/2024 Social History Tobacco [...] Sex Assigned at Female 11/11/2024 10:08 AM IN PROCESSING INSTRUCTOR Legal Sex Female 8:10 PM CDT Gender Identity Female 11/11/2024 10:08 AM IN PROCESSING INSTRUCTOR Sexual Orientation Not on file documented as of this encounter Plan of Treatment Upcoming Encounters Date Type Department Care Team (Late Contact Info) Description 03/13/2025 12:00 PM CDT Appointment [facility] MRI [address] [place] [address] Thomas Horowitz DO [address] [place] [address] 04/14/2025 10:20 AM CDT Office Visit [facility] Medical Group Family & Internal Medicine - [place] [address] [place] [address] Thomas Horowitz DO [address] [place] [address] documented as of this encounter Visit Diagnoses Not on filedocumented in this encounter Additional Health Concerns Assessment Noted Time PHQ-9 Depression Total Score: 15 024 11:51 AM CDT documented as of this encounter Care Teams Sales Representatives Relationship Specialty Start Date End Date Thomas Horowitz DO [address] [place] [address] PCP - General FAMILY PRACTICE 12/31/23 documented as of this encounter
--- OUTSIDE RECORDS SUMMARY | 2025-03-05 11:47 | XMS_ITS | Encounter Summary ---
Author Organization [facility] Address [address] 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
--- OUTSIDE RECORDS SUMMARY | 2025-03-05 11:47 | XMS_ITS | Encounter Summary ---
Author Organization [facility] Address [address] [place] [address] Care Team Providers Care Ordained Minister Name Role Phone Neeraj Sandoval MD Unavailable Thomas oHrowitz DO Primary Care Provide r Encounter Details Date Type Department Care Team (Late st Contact Info) Description 05/06/2024 Telephone [facility] Radiology [address] [place] [address] Eliel Xie RN Social History Tobacco Use Types Packs/Day Years Used Date Smoking Tobacco: Former Cigarettes 0.8 15.3 S tarted: 1975 Smokeless Tobacco: Never AUDIT-C [...] on file Legal Sex Female 6:18 PM BAND TACKER Gender Identity Female 08/30/2023 12:40 PM CDT Sexual Orientation Not on file documented as of this encounter Functional Status documented as of this encounter Plan of Treatment Not on file documented as of this encounter Visit Diagnoses Not on filedocumented in this encounter Care Teams Ordained Minister Relationship Specialty Start Date End Date Thomas Horowitz DO [address] [place] [address] PCP - General Family Medicine 04/24/24 Neeraj Sandoval MD [address] [facility] [address] DIV [place] [address] Medical Oncologist/Supervisor Pit And Auxiliaries Medical Oncology 08/01/23 documented as of this encounter
--- OUTSIDE RECORDS SUMMARY | 2025-03-05 11:47 | XMS_ITS | Encounter Summary ---
Author Organization [facility] Address [facility] [place] [address] Care Team Providers Care Shelter Advocate Name Role Phone Thomas Horowitz DO Primary Care Provider + Reason for Visit * Reason Onset Date Comments Error 03/04/2025 Encounter Details Date Type Department Care Team (Late st Contact Info) Description 03/04/2025 Telephone [facility] Medical Group Family & Internal Medicine [facility] [address] [place] [address] Thomas Horowitz DO [facility] [place], [place] [id number] Error Social History Tobacco Use Types Packs/Day Years [...] Sex Assigned at Female 11/11/2024 10:08 AM TRANSPORTATION SPECIALIST Legal Sex Female 8:10 PM CDT Gender Identity Female 11/11/2024 10:08 AM TRANSPORTATION SPECIALIST Sexual Orientation Not on file documented as of this encounter Progress Notes * Dulce Malone - 03/04/2025 10:03 AM CDT error documented in this encounter Plan of Treatment Upcoming Encounters Date Type Department Care Team (Late st Contact Info) Description 03/13/2025 12:00 PM CDT [facility] [address] [facility] [address] Thomas Horowitz DO [address] [place] [address] 04/14/2025 10:20 AM CDT Office Visit [facility] Medical Group Family & Internal Medicine [facility] [address] [place] [address] Thomas Horowitz DO [address] [place] [address] documented as of this encounter Visit Diagnoses Not on filedocumented in this encounter Additional Health Concerns Assessment Noted Time PHQ-9 Depression Total Score: 15 024 11:51 AM CDT documented as of this encounter Care Teams Shelter Advocate Relationship Specialty Start Date End Date Thomas Horowitz DO [address] [place] [address] PCP - General FAMILY PRACTICE 12/31/23 documented as of this encounter
--- OUTSIDE RECORDS SUMMARY | 2025-03-05 11:47 | XMS_ITS | Encounter Summary ---
Author Organization [facility] Address [address] [place] [address] Care Team Providers Care Engraving Plate Maker Name Role Phone Neeraj Sandoval MD Unavailable Unknown, Notidonis Primary Care Provider Unavail able Thomas Horowitz DO Primary Care Provide r Encounter Details Date Type Department Care Team (Late st Contact Info) Description 04/03/2024 Telephone [facility] Radiology [address] [place] [address] José Luis Lyon, RN Social History Tobacco Use Types Packs/Day Years Used Date Smoking Tobacco: Former Cigarettes 0.8 15.3 S tarted: 1975 Smokeless Tobacco: Never Personal Safety Answer Date Recorded Getting School Help Needed Not on file 11/07 Comments Unknown Sex and Gender Information Value Date Recorded Sex Assigned at Not on file Legal Sex Female 6:18 PM CORPORATE FINANCIAL ANALYST Gender Identity Female 08/30/2023 12:40 PM CDT Sexual Orientation Not on file documented as of this encounter Plan of Treatment Not on file documented as of this encounter Visit Diagnoses Not on filedocumented in this encounter Care Teams Engraving Plate Maker Relationship Specialty Start Date End Date Unknown, Isac PCP - General 08/27/23 04/23/24 Thomas Horowitz DO [address] [place] [address] PCP - General Family Medicine 04/24/24 Neeraj Sandoval MD [address] [place] [address] [address] [place] [address] Medical Oncologist/Chief Lifestyle Officer Medical Oncology 08/01/23 documented as of this encounter
--- OUTSIDE RECORDS SUMMARY | 2025-03-05 11:47 | XMS_ITS | Encounter Summary ---
Author Organization [facility] Address [facility] [place] [address] Care Team Providers Care Sports Broadcasting Internship Name Role Phone Thomas Horowitz DO Primary Care Provider + Encounter Details Date Type Department Care Team (Late st Contact Info) Description 09/02/2024 MyCJukelyt Message Enc [facility] Family & Internal Medicine [facility] [address] [place] [address] Thomas Horowitz DO [address] [place] [address] Medical marijuana card Social History [...] Sex Assigned at Female 11/11/2024 10:08 AM ADMINISTRATIVE SALES ASSISTANT Legal Sex Female 8:10 PM CDT Gender Identity Female 11/11/2024 10:08 AM ADMINISTRATIVE SALES ASSISTANT Sexual Orientation Not on file documented [...] Info) Description 03/13/2025 12:00 PM CDT Appointment [facility] Open MRI [address] [place] [address] Thomas Horowitz DO [address] [place] [address] 04/14/2025 10:20 AM CDT Office Visit [facility] Family & Internal Medicine - [place] [address] [place] [address] Thomas Horowitz DO [address] [place] [address] documented as of this encounter Visit Diagnoses Not on filedocumented in this encounter Additional Health Concerns Assessment Noted Time PHQ-9 Depression Total Score: 15 024 11:51 AM CDT documented as of this encounter Care Teams Sports Broadcasting Internship Relationship Specialty Start Date End Date Thomas Horowitz DO [address] [place] [id number] PCP - General FAMILY PRACTICE 12/31/23 documented as of this encounter
--- OUTSIDE RECORDS SUMMARY | 2025-03-05 11:47 | XMS_ITS | Encounter Summary ---
Author Organization [facility] Address [address] 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 documented in this encounter Plan of Treatment Not on file documented as of this encounter Goals Goal Patient Goal Type Associated Problems Recent Progress Patient-Stated? Author Angelica would like to go back to the gym and turn over in bed Pain Management No Cinda Funez RN Note: Goal Reviewed with: patient Readiness to change: Ready to change Department associated with goal: [facility] Steps to achieve goal: 1. Will start Physical therapy in two weeks 2. Medications documented as of this encounter Visit Diagnoses Not on filedocumented in this encounter Additional Health Concerns Assessment Noted Time PHQ-9 Depression Total Score: 1 04/02/20 20 9:00 AM CDT documented as of this encounter Care Teams Assisted Living Nursing Director Relationship Specialty Start Date End Date Sen Pruitt MD PCP - General Internal Medicine/Pediatrics 07/23/18 05/30/23 Alli Mancuso MD [address] [place] [address] Consulting Physician Gastroenterology 04/14/20 documented as of this encounter
== END 2025-03-05 10:56 | disposition home or self-care (01) ==
PROVIDERS: PCP Student in an Organized Health Care Education/Training Program; Visit Provider Obstetrics & Gynecology
DX: R10.2 Pelvic and perineal pain (principal)
CPT/HCPCS: 76830; 76856

== ENCOUNTER 2025-03-19 11:23 | Outpatient (CLI) | payer MEDICARE, MEDICAID, SELFPAY ==
--- NOTE | 2025-03-19 11:41 | ECG_ITS ---
Test Date: 2025-03-19 11:48:09 Measurements Intervals [place] Rate: 75 P: 56 IN: 157 QRS: 0 QRSD: 76 T: 22 QT: 365 QTc: 408 Interpretive Statements SINUS RHYTHM POSSIBLE LEFT ATRIAL ENLARGEMENT POSSIBLE ANTERIOR MYOCARDIAL INFARCTION BASELINE ARTIFACT- I, II, III, AVR, AVL,A VF, V4-V6 ABNORMAL ECG No previous ECG available for comparison Electronically Signed On 03-19-2025 11:49:37 CDT by Cornel Esteves D.O.
--- OUTSIDE RECORDS SUMMARY | 2025-03-19 12:59 | XMS_ITS | Encounter Summary ---
Author Organization [facility] Address [address] [facility] 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 Will start Physical therapy in two weeks 2. Medications documented as of this encounter Visit Diagnoses Not on filedocumented in this encounter Additional Health Concerns Assessment Noted Time PHQ-9 Depression Total Score: 1 04/02/20 20 9:00 AM CDT documented as of this encounter Care Teams Primer Charger Relationship Specialty Start Date End Date Sen Pruitt MD PCP - General Internal Medicine/Pediatrics 07/23/18 05/30/23 Alli Mancuso MD [address] [place] [address] Consulting Physician Gastroenterology 04/14/20 documented as of this encounter
--- OUTSIDE RECORDS SUMMARY | 2025-03-19 12:59 | XMS_ITS | Data Portability ---
Author Organization [facility], [id number] Address [address] [place] [address] Assessment No assessment recorded. Plan of Treatment Reminders Order Date Submit Date Provider Last Modified By Organization Details Last Modified Time Details Appointments None recorde d. Lab wet mount panel, vaginal fluid 2024 025 erna [id number], [address], [place], [address], 12:14:32 bacteri al vaginos is panel, vaginal 2024 025 erna [facility] ([facility]), [address] [facility] , [facility] [address], [place], [address], 5 21:17:24 Referral None recorde d. Procedures None recorde d. Surgeries None recorde d. Imaging US, pelvis, transab dominal + transva ginal 2024 025 [facility], [address], [facility] [address], [place], [address], 5 13:22:33 Medication Orders metroni dazole 0.75 % (37.5 mg/5 gram) vaginal gel 2024 025 [id number], [address] [place], [address], 12:14:34 Patient TargetsNo targets recorded. Patient InstructionsNo instructions recorded. Reason for Referral None Reported. Results Created Date Observation Date Name Description Value Unit Range Abnormal Flag Note LastModifiedBy Organization Detail LastModifiedTime 02/14/2002/15/2025 BACTE RIAL VAGIN OSIS+ WITH LACTO PROFI LING top line result Normal normal Not Available [facility] ([facility]) [address] [place] [address] Dr Laureano, [place], [address], 02/16/2025 06:55:20 02/14/2002/15/2025 BACTE RIAL VAGIN OSIS+ [...] and clini koby findi ngs. Not Available [facility]) [address] [place] [address] Dr Laureano, [place], [address], 02/16/2025 06:55:20 02/14/20 25 02/15/2025 BACTE RIAL VAGIN OSIS+ WITH LACTO PROFI LING atopobium vaginae Not Detect ed normal Not Available [facility]) [address] [place] [address] Dr Laureano, [place], [address], 02/16/2025 06:55:20 02/14/20 25 02/15/2025 BACTE RIAL VAGIN OSIS+ WITH LACTO PROFI LING gardnerella vaginalis Not Detect ed normal Not Available [facility]) [address] [place] [address] Dr Laureano, [place], [address], 02/16/2025 06:55:20 02/14/20 25 02/15/2025 BACTE RIAL VAGIN OSIS+ WITH LACTO PROFI LING bvab2 Not Detect ed normal Not Available [facility] ([facility]) [address] [place] [address] Dr Laureano, [place], [address], 02/16/2025 06:55:20 02/14/20 25 02/15/2025 BACTE RIAL VAGIN OSIS+ WITH LACTO PROFI LING megasphaera 1 Not Detect ed normal Not Available [facility] ([facility]) [address] [place] [address] Dr Laureano, [place], [address], 02/16/2025 06:55:20 02/14/20 25 02/15/2025 BACTE RIAL VAGIN OSIS+ WITH LACTO PROFI LING megaspherea 2 Not Detect ed normal Not Available [facility] ([facility]) [address] [place] [address] Dr Laureano, [place], [address], 02/16/2025 06:55:20 02/14/20 25 02/15/2025 BACTE RIAL VAGIN OSIS+ WITH LACTO PROFI LING lactobacillu s crispatus Normal normal Not Available [facility] ([facility]) [address] [place] [address] Dr Laureano, [place], [address], 02/16/2025 06:55:20 02/14/20 25 02/15/2025 BACTE RIAL VAGIN OSIS+ WITH LACTO PROFI LING lactobacillu s gasseri Normal normal Not Available [facility] ([facility]) [address] [place] [address] Dr Laureano, [place], [address], 02/16/2025 06:55:20 02/14/20 25 02/15/2025 BACTE RIAL VAGIN OSIS+ WITH LACTO PROFI LING lactobacillu s iners ql Normal normal Not Available [facility] ([facility]) [address] [place] [address] Dr Laureano, [place], [address], 02/16/2025 06:55:20 02/14/20 25 02/15/2025 BACTE RIAL VAGIN OSIS+ WITH LACTO PROFI LING lactobacillu s jensenii ql Not Detect ed normal Not Available [facility]) [address] [place] [address] Dr Laureano, [place], [address], 02/16/2025 06:55:20 02/14/20 25 02/15/2025 BACTE RIAL VAGIN OSIS+ WITH LACTO PROFI LING mobiluncus mulieris Not Detect ed normal Not Available [facility] ([facility]) [address] [place] [address] Dr Laureano, [place], [address], 02/16/2025 06:55:20 02/14/20 25 02/15/2025 BACTE RIAL VAGIN OSIS+ WITH LACTO PROFI LING mobiluncus curtisii Not Detect ed normal Not Available [facility] ([facility]) [address] [place] [address] Dr Laureano, [place], [address], 02/16/2025 06:55:20 02/14/20 25 02/15/2025 BACTE RIAL VAGIN OSIS+ WITH LACTO PROFI LING mycoplasma hominis Not Detect ed normal Not Available [facility]) [address] [place] [address] Dr Laureano, [place], [address], 02/16/2025 06:55:20 02/14/20 25 02/15/2025 BACTE RIAL VAGIN OSIS+ WITH LACTO PROFI LING ureaplasma urealyticum Not Detect ed normal Not Available [facility]) [address] [place] [address] Dr Laureano, [place], [address], 02/16/2025 06:55:20 02/14/20 25 02/13/2025 wet mount panel , vagin al fluid Unknown Analyte >20% Not Available [id number], [place], [address], 02/13/2025 12:10:36 02/14/20 25 02/13/2025 wet mount panel , vagin al fluid Unknown Analyte positi ve Not Available [id number], [place], [address], 02/13/2025 12:10:36 02/14/20 25 02/13/2025 wet mount panel , vagin al fluid Unknown Analyte Negati ve Not Available [id number], [place], [address], 02/13/2025 12:10:36 03/05/20 25 03/05/2025 US, pelvi s, trans abdom inal + trans vagin al No observ ation record ed. [facility] [address], [place], [address], 03/10/2025 10:11:44 Result Notes None recorded. 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 Procedures Surgical History Date Name Laterality Status Provider Name and Address Organization Details Recorded Time 11/26/19 24 Date of Last Mammogram completed [facility] 02/12/2025 11:04:11 11/26/19 24 Date of Last Colonoscopy completed [facility] 02/12/2025 11:04:21 discectomy of spine completed [facility] 02/12/2025 11:05:54 Laparoscopy completed [facility] 02/12/2025 11:06:06 hysterectomy completed [facility] 02/12/2025 11:06:23 laminotomy completed [facility] 02/12/2025 11:06:39 partial excision of rib completed [facility] 02/12/2025 11:06:46 Endometrial Biopsy completed [facility] 02/13/2025 11:29:51 Appendectomy completed [facility] 02/13/2025 11:29:51 Imaging Results Imaging Date Name Status LastModified by Organization Details LastModified Time 03/05/2025 US, pelvis, transabdominal + transvaginal completed [place] [address], [place], [address], 03/10/2025 10:11:44 Procedure Notes None recorded. Medical Equipment None [...] Updated DateTime 02/13/2025 162.56 cm 26.9 kg/m2 40961 g 134 mm[Hg] 74 mm[Hg] Zev Fonseca [facility] 11:29:32 Social History Question Answer Notes LastModified by Organizat ion Details LastModified Time Tobacco Smoking Status Former Smoker Zev Fonseca [facility] 02/13/2025 11:29:47 What Is Your Level Of [...] SNOMED-CT Code Diagnosis ICD10 Code Diagnosis Note [id number] RIVKA GARCIA RD, MD [id number] [address] [place] [address] 02/13/2025 11:24:15 02/13/2025 12:10:04 Bacterial vaginosis 325727147 N76.0 Atrophic vaginitis 88683 000 N95.2 Acute myel oid leukemia, disease 52789315 C92.00 Continue care with oncologist Pain in pelvis 81406117 R10.2 Health Concerns Section Related Observation LastModified by Organization Detai ls LastModified Time None Recorded Concern Status LastModified by Organization Details LastModified Time None Recorded Advance Directives Directive None Recorded Payers Encounter Date Sequence Insurance Name Policy Number Policy Hawkins Covered Member ID Hawkins Member ID Guarantor Name 02/13/2025 1 [place] Angelica Guerra [id number] Angelica Guerra 02/13/2025 2 [place] [facility] Angelica Guerra [id number] Angelica Guerra Notes Date Note Type Note [...] Thick green discharge. RIVKA CASTILLO MD [address] [facility] [address], [place], [address], [facility] 02/13/2025 12:16:50 OBGyn Episode No OBEpisode recorded.
--- OUTSIDE RECORDS SUMMARY | 2025-03-19 12:59 | XMS_ITS | Encounter Summary ---
Author Organization [facility] Address [address] 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 Author Agnelica would like to go back to the gym and turn over in bed Pain Management No Cinda Funez, RN Note: Goal Reviewed with: patient Readiness to change: Ready to change Department associated with goal: [facility] Steps to achieve goal: 1. Will start Physical therapy in two weeks 2. Medications documented as of this encounter Visit Diagnoses Not on filedocumented in this encounter Additional Health Concerns Assessment Noted Time PHQ-9 Depression Total Score: 1 04/02/20 20 9:00 AM CDT documented as of this encounter Care Teams Toddler Lead Teacher Relationship Specialty Start Date End Date Rose Pruitt MD PCP - General Internal Medicine/Pediatrics 07/23/18 05/30/23 Alli Mancuso MD [address] [place] [address] Consulting Physician Gastroenterology 04/14/20 documented as of this encounter
--- OUTSIDE RECORDS SUMMARY | 2025-03-19 13:00 | XMS_ITS | Encounter Summary ---
Author Organization [facility] Address [address] 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 No / Unsure 11/15/2020 4:57 PM DOOR SERVICEMAN documented as of this encounter Miscellaneous Notes * Telephone Encounter - Sen Pruitt MD - 11/22/2020 1:11 PM DOOR SERVICEMAN Script(s) signed and e-prescribed to listed pharmacy SERVICEMAN * Telephone Encounter - Julieth Abreu RN [...] Outpatient Visits 1 month ago Essential hypertension [facility] - Internal Medicine & Pediatrics - Sen Red MD 2 months ago Vaginal discharge [facility] Medical [facility] - Internal Medicine & Pediatrics - Sen Red MD 3 months ago Attention deficit hyperactivity disorder (ADHD), predominantly inattentive type [facility] Medical [facility] - Internal Medicine & Pediatrics Kamille Camejo APN, FOOD TRADES ASSISTANTS 3 months ago Mood changes [facility] Medical [facility] - Internal Medicine & Pediatrics - Sen Red MD 7 months ago Essential hypertension [facility] - Internal Medicine & Pediatrics - Sen Red MD Upcoming Appointments 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 - 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 and Past Visits Recent Visits Date Type Provider Dept 10/15/20 Office Visit [facility]ru[facility] Darius William 09/15/20 Office Visit Sen Pruitt MD [facility] William 08/18/20 Office Visit Kamille Claudio APN, FOOD TRADES ASSISTANTS [facility] Darius William 08/04/20 Office Visit Sen Pruitt MD [facility] D[facility] William 04/02/20 Office Visit Sen Pruitt MD [facility] Im/Pediatrics Darius William 11/24/19 Office Visit Sen Pruitt MD [facility] Im/Pediatrics Darius William 08/20/19 Office Visit Sen Pruitt MD [facility] Im/Pediatrics Darius William Showing recent visits within past 460 days with a meds authorizing provider and meeting all other requirements Future Appointments No visits were found meeting these conditions. Showing future appointments within next 90 days with a meds authorizing provider and meeting all other requirements SERVICEMAN documented in this encounter Plan of Treatment [...] Department associated with goal: [facility] Steps to achieve goal: 1. Will start Physical therapy in two weeks 2. Medications documented as of this encounter Visit Diagnoses Not on filedocumented in this encounter Additional Health Concerns Assessment Noted Time PHQ-9 Depression Total Score: 1 04/02/20 20 9:00 AM CDT documented as of this encounter Care Teams Stripper Latex Relationship Specialty Start Date End Date Sen Pruitt MD PCP - General Internal Medicine/Pediatrics 07/23/18 05/30/23 Alli Mancuso MD [address] [place] [address] Consulting Physician Gastroenterology 04/14/20 documented as of this encounter
--- OUTSIDE RECORDS SUMMARY | 2025-03-19 13:00 | XMS_ITS | Referral Summary ---
Author Organization [facility] Address [facility] [place] [address] Care Team Providers Care Seat Joiner Name Role Phone Neeraj Sandoval MD Unavailable Thomas Horowitz DO Primary Care Provide r Encounters Date Type Department Care Team Description 03/13/2025 Orders Only [facility] ONCOLOGY Scanning, Provider 03/05/2025 Orders Only [address] [address] Rupa Segovia RN 02/11/2025 Orders Only [facility] Bone Marrow Transplant [address] [place] [phone] Neeraj Sandoval MD 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) 01/30/2025 Orders Only [facility] Bone Marrow Transplant [address] [place] [phone] Neeraj Sandoval MD 01/26/2025 Orders Only [facility] [address] [address] Jana Schaffer, RN 01/25/2025 Orders Only [facility] Oncology [address] [place] [phone] Neeraj Sandoval MD 01/16/2025 Orders Only [facility] [address] [address] Jana Schaffer, RN 01/15/2025 Orders Only [facility] Bone Marrow Transplant [facility] Floor 6 [place] [address] Neeraj Sandoval MD 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); History of allogeneic bone marrow transplant (HCC); 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) 01/12/2025 Results Follow-Up [address] Medical Office Building [address] [place] [address] Parris Sanders MD 01/12/2025 2:30 PM SINK MAKER Office Visit [facility] Dermatology [facility] Floor 6 [place] [address] Len Parsons MD Multiple benign nevi (Primary Dx); History of allogeneic bone marrow transplant (HCC); 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); 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); Seborrheic keratosis; Solar purpura 01/09/[address] Medical Office [address] [place] [address] Parris Sanders MD 01/09/2025 1:58 PM SINK MAKER - 01/09/2025 11:59 PM SINK MAKER [facility] [address] [place] [address] Osteopenia of left hip; 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); Postmenopausal Discharge Disposition: Discharge to home or self care 01/09/2025 1:55 PM SINK MAKER Lab [facility] [address] [place] [address] [address] [place] [address] Osteopenia of left hip; 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); Postmenopausal; History of allogeneic bone marrow transplant (HCC) 01/09/2025 12:10 PM SINK MAKER Clinical Support [place] [address] [facility] [address] [place] [address] Osteopenia of left hip 01/09/2025 12:40 PM SINK MAKER Office Visit [address] [place] [address] Parris Sanders MD Osteopenia of left hip (Primary Dx); 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); Postmenopausal 01/08/2025 Telephone [facility] Health [facility] Medical Office Building 2 [address] [place] [address] Parris Sanders MD 12/31/2024 12:45 PM SINK MAKER - 12/31/2024 11:59 PM SINK MAKER Hospital Encounter [facility] - Diagnostic Imaging [address] [facility] Floor 8 [place] [address] History of allogeneic bone marrow transplant (HCC); 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) Discharge Disposition: Discharge to home or self care 12/31/2024 11:00 AM SINK MAKER Lab [facility] - Lab Collection [address] [facility] Floor 6 [place] [address] 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) 12/31/2024 11:40 AM SINK MAKER Office Visit [facility] Bone Marrow Transplant [address] [place] [address] 6 [place] [address] Neeraj Sandoval MD History of allogeneic bone marrow transplant (HCC) (Primary Dx); 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); 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 Voss at [facility] Immunizations Immunization Administration Dates Next Due Pfizer [...] on file Legal Sex Female 6:18 PM SINK MAKER Gender Identity Female 08/30/2023 12:40 PM CDT Sexual Orientation Not on file Last Filed Vital Signs Vital Sign Reading Time Taken Comments Blood Pressure 129/85 12/31/2024 11:17 AM SINK MAKER Pulse 69 12/31/2024 11:17 AM SINK MAKER Temperature 36.3 C (97.3 F) 12/31/2024 11:17 AM SINK MAKER Respiratory Rate 17 12/31/2024 11:17 AM SINK MAKER Oxygen Saturation 99% 12/31/2024 11:17 AM SINK MAKER Inhaled Oxygen Concentration - - Weight 70.1 kg (154 lb 9.6 oz) 01/09/2025 12:20 PM SINK MAKER Height 162.5 cm (5' 3.98 ) 01/09/2025 12:[address] Body Mass Index 26.56 01/09/2025 12:20 PM SINK MAKER Plan of Treatment Not on file Procedures Procedure Name Priority Date/Time Associated Diagnosis Comments SCAN - RADIOLOGY/IMAGING 03/13/2025 URIC ACID Routine 02/11/2025 12:23 PM CDT [...] Read Routine (OP Routine) 01/09/2025 2:12 PM SINK MAKER Osteopenia of left hip 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) Postmenopausal XR SPINE LUMBAR 2 OR 3 VIEWS Schedule Routine, Read Routine (OP Routine) 01/09/2025 2:12 PM SINK MAKER Osteopenia of left hip 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) Postmenopausal EGFR Routine 01/09/2025 2:00 PM SINK MAKER Osteopenia of left hip 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) Postmenopausal DIFFERENTIAL AUTO Routine 01/09/2025 2:0 0 PM SINK MAKER 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) CBC WITH AUTO DIFFERENTIAL Routine 01/09/2025 2:00 PM SINK MAKER 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) LACTATE DEHYDROGENASE Routine 01/09/2025 2:00 PM SINK MAKER 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) PHOSPHORUS Routine 01/09/2025 2:00 PM SINK MAKER Osteopenia of left hip 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) Postmenopausal PTH Routine 01/09/2025 2:00 PM SINK MAKER Osteopenia of left hip 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) Postmenopausal VITAMIN D 25 HYDROXY Routine 01/09/2025 2:00 PM SINK MAKER Osteopenia of left hip 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) Postmenopausal COMPREHENSIVE METABOLIC PANEL Routine 01/09/2025 2:00 PM SINK MAKER Osteopenia of left hip 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) Postmenopausal DEXA TBS AXIAL SKELETON BONE DENSITY 1 OR MORE SITES Schedule Routine, Read Routine (OP Routine) 01/09/2025 11:49 AM SINK MAKER Osteopenia of left hip XR HIP RIGHT 2 OR 3 VIEWS Schedule Routine, Read Routine (OP Routine) 12/31/2024 1:08 PM SINK MAKER 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) EGFR Routine 12/31/2024 10:51 AM SINK MAKER 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) DIFFERENTIAL AUTO Routine 12/31/2024 10: 51 AM SINK MAKER 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) CBC WITH AUTO DIFFERENTIAL Routine 12/31/2024 10:51 AM SINK MAKER 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) COMPREHENSIVE METABOLIC PANEL Routine 12/31/2024 10:51 AM SINK MAKER 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) LACTATE DEHYDROGENASE Routine 12/31/2024 10:51 AM SINK MAKER 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) from Last 3 Months Results * SCAN - RADIOLOGY/IMAGING (03/13/2025) Anatomical Region Laterality Modality Other us Provider Scanning Final Result * (ABNORMAL) Vitamin D 25 hydroxy (02/11/2025 [...] D, (D2,D3), LC/MS/MS is recommended: order code 69924 (patients >2yrs). See Note 1 Note 1 For additional information, please refer to http://education.Widemile/faq/UXY771 (This link is being provided for informational/ educational purposes only.) Blood 02/11/2025 12:2 3 PM CDT 02/11/2025 12:24 PM CDT Neeraj Sandoval MD LAB BLOOD ORDERABLES Final Resul t Performing Organization Address City/[facility]/ZIP Co de Phone Number [facility] [address] [place] [address] * Uric acid (02/11/2025 12:23 PM CDT) Uric acid 4.0 2.5 - 7.0 mg/dL [facility] Comment: Therapeutic target for gout patients: <6.0 mg/dL Blood 02/11/2025 12:2 3 PM CDT 02/11/2025 12:24 PM CDT Neeraj Sandoval MD LAB BLOOD ORDERABLES Final Resul t Performing Organization Address City/[facility]/ZIP Co de Phone Number [facility] [address] [facility] [address] * (ABNORMAL) Cytomegalovirus (CMV) DNA PCR, quantitative Blood (02/11/2025 12:21 PM CDT) CMV DNA qn <34.5(A) Not Detected IU/mL [facility] Comment: Detected CMV DNA was detected below 34.5 IU/mL. Viral load in this range cannot be accurately quantified by t CMV DNA log IU/mL <1.54(A) Not Detected Log IU/mL [facility] Comment: Detected (Note) For additional information, please refer to http://education.[employer].MakuCell/faq/CMVandEBVPCR (This link is being provided for informational/educational purposes only.) [facility] [address] [facility] [address] [facility] [id number] Fermin Jasso MD, PhD Blood 02/11/2025 12:2 1 PM CDT 02/11/2025 12:22 PM CDT Narrative [facility] - 02/14/2025 3:53 PM CDT FASTING:NO FASTING: NO us Neeraj Sandoval MD LAB MICROBIOLOGY - GENERAL ORDER BEATA Final Result [facility] [address] [address], [address] [place] [address] * CBC with auto differential (02/11/2025 12:21 [...] ORDERABLES Final Resul t Performing Organization Address City/[facility]/ZIP Co de Phone Number [facility] [address] [place] [address] * T3, free (02/11/2025 12:21 PM CDT) Pathologist [facility] Free T3 2.8 2.3 - 4.2 pg/mL [facility] Blood 02/11/2025 12:2 1 PM CDT 02/11/2025 12:22 PM CDT Narrative [facility] - 02/14/2025 3:53 PM CDT FASTING:NO FASTING: NO Neeraj Sandoval MD LAB BLOOD ORDERABLES Final Resul t Performing Organization Address City/[facility] Co de Phone Number [facility] [address] [place] [address] * TSH (02/11/2025 12:21 PM CDT) Pathologist [facility] TSH 1.48 0.40 - 4.50 mIU/L [facility] Blood 02/11/2025 12:2 1 PM CDT 02/11/2025 12:22 PM CDT Narrative [facility] - 02/14/2025 3:53 PM CDT FASTING:NO FASTING: NO us Neeraj Sandoval MD LAB BLOOD ORDERABLES Final Resul t Performing Organization Address [facility] Co de Phone Number [facility] [address] [place] [address] * T4, free (02/11/2025 12:21 PM CDT) Free T4 1.1 0.8 - 1.8 ng/dL [facility] Blood 02/11/2025 12:2 1 PM CDT 02/11/2025 12:22 PM CDT Narrative [facility] - 02/14/2025 3:53 PM CDT FASTING:NO FASTING: NO us Neeraj Sandoval MD LAB BLOOD ORDERABLES Final Resul t Performing Organization Address [facility] de Phone Number [facility] [address] [place] [address] * Lactate dehydrogenase (LD) (02/11/2025 12:21 PM CDT) Lactate dehydrogenase (LDH) 249 120 - 250 U/L [facility] Blood 02/11/2025 12:2 1 PM CDT 02/11/2025 12:22 PM CDT Narrative [facility] - 02/14/2025 3:53 PM CDT FASTING:NO FASTING: NO us Neeraj Sandoval MD LAB BLOOD ORDERABLES Final Resul t Performing Organization Address [facility] Co de Phone Number [facility] [address] [facility] [place] [address] * LH (02/11/2025 12:21 PM CDT) LH 56.4 mIU/mL [facility] Comment: Reference Range Follicular Phase 1.9-12.5 Mid-Cycle Peak 8.7-76.3 Luteal Phase 0.5-16.9 Postmenopausal 10.0-54.7 Blood 02/11/2025 12:2 1 PM CDT 02/11/2025 12:22 PM CDT Narrative [facility] - 02/14/2025 3:53 PM CDT FASTING:NO FASTING: NO us Neeraj Sandoval MD LAB BLOOD ORDERABLES Final Resul t Performing Organization Address [facility] de Phone Number [facility] [address] [place] [address] * Follicle stimulating hormone (02/11/2025 12:21 PM CDT) FSH 92.8 mIU/mL [facility] Comment: Reference Range Follicular Phase 2.5-10.2 Mid-cycle Peak 3.1-17.7 Luteal Phase 1.5- 9.1 Postmenopausal 23.0-116.3 Blood 02/11/2025 12:2 1 PM CDT 02/11/2025 12:22 PM CDT Narrative [facility] - 02/14/2025 3:53 PM CDT FASTING:NO FASTING: NO us Neeraj Sanodval MD LAB BLOOD ORDERABLES Final Resul t Performing Organization Address [facility] de Phone Number [facility] [address] [place] [address] * (ABNORMAL) Comprehensive metabolic panel (02/11/2025 12:21 [...] BLOOD ORDERABLES Final Resul t [facility] [address] [facility] [place] [address] * XR Spine Lumbar 2 or 3 Views (01/09/2025 2:12 PM SINK MAKER) Anatomical Region Laterality Modality Spine N/A Computed Radiogr aphy 01/09/2025 3:23 PM SINK MAKER Impressions 01/09/2025 3:32 PM SINK MAKER 1. Compression deformities of L2 and L4 [...] Tee Gonzalez M.D. Narrative 01/09/2025 3:32 PM SINK MAKER EXAMINATION: XR SPINE THORACIC 2 VIEWS, XR [...] Spine Thoracic 2 Views (01/09/2025 2:12 PM SINK MAKER) Anatomical Region Laterality Modality Spine N/A Computed Radiogr aphy 01/09/2025 3:23 PM SINK MAKER Impressions 01/09/2025 3:32 PM SINK MAKER 1. Compression deformities of L2 and L4 [...] Tee Gonzalez M.D. Narrative 01/09/2025 3:32 PM SINK MAKER EXAMINATION: XR SPINE THORACIC 2 VIEWS, XR [...] Re sult * eGFR (01/09/2025 2:00 PM SINK MAKER) eGFR 64 >=60 mL/min/1. 73 m2 Comment: [...] last reviewed 2021. Blood 01/09/2025 2:00 PM SINK MAKER 01/09/2025 4:34 PM SINK MAKER us Parris Sanders MD LAB BLOOD ORDERABLES Final Result [facility] [place] [address] * Differential, auto (01/09/2025 2:00 PM SINK MAKER) Neutrophil abs 1.8 1.5 - 6.5 K/cumm Imm gran abs 0.0 0.0 - 0.1 K/cumm [facility] Lymphocyte abs 1.5 0.8 - 3.3 K/cumm [facility] Monocyte abs 0.4 0.2 - 0.8 K/cumm [facility] Eosinophil abs 0.1 0.0 - 0.5 K/cumm [facility] Basophil abs 0.0 0.0 - 0.1 K/cumm [facility] Neutrophil pct 46.5 % [facility] Comment: Interpretive Data Percent cell count reference ranges are not reported, since discordance with absolute values may lead to misinterpretation of CBC data. Current Interpretive Data was last revised on 2018. Imm gran pct 0.5 % [facility] Comment: Interpretive Data Percent cell count reference ranges are not reported, since discordance with absolute values may lead to misinterpretation of CBC data. Current Interpretive Data was last revised on 2018. Lymphocyte pct 38.8 % [facility] Comment: Interpretive Data Percent cell count reference ranges are not reported, since discordance with absolute values may lead to misinterpretation of CBC data. Current Interpretive Data was last revised on 2018. Monocyte pct 10.2 % [facility] Comment: Interpretive Data Percent cell count reference ranges are not reported, since discordance with absolute values may lead to misinterpretation of CBC data. Current Interpretive Data was last revised on 2018. Eosinophil pct 3.0 % [facility] Comment: Interpretive Data Percent cell count reference ranges are not reported, since discordance with absolute values may lead to misinterpretation of CBC data. Current Interpretive Data was last revised on 2018. Basophil pct 1.0 % [facility] Comment: Interpretive Data Percent cell count reference ranges are not reported, since discordance with absolute values may lead to misinterpretation of CBC data. Current Interpretive Data was last revised on 2018. Blood 01/09/2025 2:00 PM SINK MAKER 01/09/2025 4:16 PM SINK MAKER Neeraj Sandoval MD LAB BLOOD ORDERABLES Final Resul t Performing Organization Address [facility] Co de Phone Number [facility] [place] [address] * (ABNORMAL) CBC with auto differential (01/09/2025 2:00 PM SINK MAKER) Pathologist [facility] WBC 3.9 3.8 - 9.9 K/cumm Hgb 13.4 11.9 - 15.5 g/dL [facility] Hct 41.4 35.6 - 45.5 % [facility] Plt 192 150 - 400 K/cumm [facility] MPV 9.4 9.1 - 12.3 fL [facility] RBC 4.26 3.90 - 5.20 M/cumm [facility] MCV 97.2(H) 81.3 - 96.4 fL [facility] MCH 31.5 27.1 - 33.3 pg [facility] MCHC 32.4 32.3 - 35.7 g/dL [facility] RDW CV 14.6 11.1 - 14.9 % [facility] RDW SD 52.0(H) 35.7 - 48.1 fL [facility] NRBC abs 0.00 0.00 - 0.01 K/cumm [facility] Blood 01/09/2025 2:00 PM SINK MAKER 01/09/2025 4:16 PM SINK MAKER Neeraj Sandoval MD LAB BLOOD ORDERABLES Final Resul t Performing Organization Address [facility]/ZIP Co de Phone Number [facility] [place] [address] * Vitamin D 25 hydroxy (01/09/2025 2:00 PM SINK MAKER) Pathologist [facility] Vitamin D 25-OH 74 30 - 80 ng/mL Blood 01/09/2025 2:00 PM SINK MAKER 01/09/2025 4:16 PM SINK MAKER us Parris Sanders MD LAB BLOOD ORDERABLES Final Result Performing Organization Address [facility] Co de Phone Number [facility] [place] [address] * Phosphorus (01/09/2025 2:00 PM SINK MAKER) Phosphorus, pl 4.1 2.3 - 4.5 mg/dL Blood 01/09/2025 2:00 PM SINK MAKER 01/09/2025 4:16 PM SINK MAKER us Parris Sanders MD LAB BLOOD ORDERABLES Final Result Performing Organization Address [facility] de Phone Number [facility] [place] [address] * (ABNORMAL) PTH (01/09/2025 2:00 PM SINK MAKER) Pathologist [facility] PTH 70(H) 15 - 65 pg/mL Blood 01/09/2025 2:00 PM SINK MAKER 01/09/2025 4:16 PM SINK MAKER Parris Sanders MD LAB BLOOD ORDERABLES Final Result Performing Organization Address [facility] [place] [address] * (ABNORMAL) Lactate dehydrogenase (LD) (01/09/2025 2:00 PM SINK MAKER) Lactate dehydrogenase (LDH) 283(H) 100 - 250 Units/L Blood 01/09/2025 2:00 PM SINK MAKER 01/09/2025 4:16 PM SINK MAKER Neeraj Sandoval MD LAB BLOOD ORDERABLES Final Resul t [facility] One [facility] Department [place] [address] * Comprehensive metabolic panel (01/09/2025 2:00 PM SINK MAKER) Sodium 145 135 - 145 mmol/L Potassium, pl 4.8 3.3 - 4.9 mmol/L [facility] Chloride 105 97 - 110 mmol/L [facility] CO2 31 22 - 32 mmol/L [facility] Anion gap 9 2 - 15 mmol/L [facility] BUN 8 6 - 25 mg/dL [facility] Creatinine 0.99 0.60 - 1.10 mg/dL [facility] Glucose 79 70 - 199 mg/dL [facility] Comment: Interpretive Data Fasting glucose >/= [...] 2022. Calcium 9.5 8.5 - 10.3 mg/dL [facility] Bilirubin, total 0.4 0.1 - 1.2 mg/dL [facility] Protein, pl 7.2 6.5 - 8.5 g/dL [facility] Albumin 4.3 3.5 - 5.0 g/dL [facility] Alk phos 100 40 - 130 Units/L [facility] ALT 33 7 - 45 Units/L [facility] AST 24 10 - 45 Units/L [facility] Blood 01/09/2025 2:00 PM SINK MAKER 01/09/2025 4:16 PM SINK MAKER Parris Sanders MD LAB BLOOD ORDERABLES Final Result [facility] One [facility] Department [place] [address] * Dexa TBS Axial Skeleton Bone Density 1 or more sites (01/09/2025 11:49 AM SINK MAKER) Anatomical Region Laterality Modality Wrist, Body N/A Radiographic Valarie ging Narrative 01/12/2025 9:24 PM SINK MAKER Patient Name: Angelica Guerra Date of : 1960 Date of scan: 01/09/2025 Bone mineral density was performed on a [employer] Discovery Densitometer. Based on machine cross-calibration and [...] mineral density scan were prepared by Antoinette Luna(R) CBDYuli who is accredited by the International Society of Clinical Densitometry. The overall patient assessment and scan interpretation were performed by Parris Sanders M.D. who is certified by the International Society of Clinical Densitometry. [id number] us Parris Sanders MD [facility] DXA PROCEDURES Final R esult * XR Hip Right 2 or 3 Views (12/31/2024 1:08 PM SINK MAKER) Anatomical Region Laterality Modality Lower Extremities, Hip, Pelvis Right D igital Radiography 12/31/2024 2:02 PM SINK MAKER Impressions 12/31/2024 2:29 PM SINK MAKER 1. 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 Dictated by: Elijah Tolentino M.D. The radiology attending physician has personally reviewed this study, and had reviewed and/or edited this written report and agrees with it. Electronically signed by: Tee Gonzalez M.D. Narrative 12/31/2024 2:29 PM SINK MAKER EXAMINATION: XR HIP RIGHT 2 OR 3 [...] Final Result * eGFR (12/31/2024 10:51 AM SINK MAKER) eGFR 79 >=60 mL/min/1. 73 m2 Comment: [...] reviewed 2021. Blood 12/31/2024 10:5 1 AM SINK MAKER 12/31/2024 11:02 AM SINK MAKER us Neeraj Sandoval MD LAB BLOOD ORDERABLES Final Resul t [facility] One [facility] Department [place] [address] * Differential, auto (12/31/2024 10:51 AM SINK MAKER) Neutrophil abs 2.2 1.5 - 6.5 K/cumm Comment:Testing performed by : [facility], [address] [place], [place] [phone] Lymphocyte abs 1.4 0.8 - 3.3 K/cumm [facility] Comment:Testing performed by : [facility], [address] [place] [phone] Monocyte abs 0.5 0.2 - 0.8 K/cumm [facility] Comment:Testing performed by : [facility], [address] [place] [address] Eosinophil abs 0.2 0.0 - 0.5 K/cumm [facility] Comment:Testing performed by : [facility], [address] [place] [phone] Basophil abs 0.0 0.0 - 0.1 K/cumm [facility] Comment:Testing performed by : [facility], [address] [place], [place] [phone] Neutrophil pct 52.0 % [facility] Comment: Interpretive Data Percent cell count reference ranges are not reported, since discordance with absolute values may lead to misinterpretation of CBC data. Current Interpretive Data was last revised on 2018. Testing performed by: [facility], [address] [place] [phone] Lymphocyte pct 32.5 % LION CRUZ Comment: Interpretive Data Percent cell count reference ranges are not reported, since discordance with absolute values may lead to misinterpretation of CBC data. Current Interpretive Data was last revised on 2018. Testing performed by: [facility], [address] [place] [phone] Monocyte pct 10.7 % LION CRUZ Comment: Interpretive Data Percent cell count reference ranges are not reported, since discordance with absolute values may lead to misinterpretation of CBC data. Current Interpretive Data was last revised on 2018. Testing performed by: [facility], [address] [place] [phone] Eosinophil pct 4.1 % LION CRUZ Comment: Interpretive Data Percent cell count reference ranges are not reported, since discordance with absolute values may lead to misinterpretation of CBC data. Current Interpretive Data was last revised on 2018. Testing performed by: [facility], [address] [place] [phone] Basophil pct 0.7 % LION CRUZ Comment: Interpretive Data Percent cell count reference ranges are not reported, since discordance with absolute values may lead to misinterpretation of CBC data. Current Interpretive Data was last revised on 2018. Testing performed by: [facility], [address] [place] [phone] Blood 12/31/2024 10:5 1 AM SINK MAKER 12/31/2024 11:00 AM SINK MAKER us Neeraj Sandoval MD LAB BLOOD ORDERABLES Final Resul t LION ALEJANDRA [facility] Department [place] [address] * CBC with auto differential (12/31/2024 10:51 AM SINK MAKER) WBC 4.3 3.8 - 9.9 K/cumm Comment:Testing performed by : [facility], [address] [place] [address] Hgb 12.6 11.9 - 15.5 g/dL CERNER BJ Comment:Testing performed by : [facility], [address] [place], [place] [id number] Hct 37.9 35.6 - 45.5 % CERNER BJ Comment:Testing performed by : [facility], [address] [place], [place] [id number] Plt 201 150 - 400 K/cumm CERNER BJ Comment:Testing performed by : [facility], [address] [place], [place] [id number] MPV 7.9 6.8 - 10.4 fL CERNER BJ Comment:Testing performed by : [facility], [address] [place], [place] [id number] RBC 3.95 3.90 - 5.20 M/cumm CERNER BJ Comment:Testing performed by : [facility], [address] [place], [place] [id number] MCV 96.0 81.3 - 96.4 fL CERNER BJ Comment:Testing performed by : [facility], [address] [place], [place] [id number] MCH 31.9 27.1 - 33.3 pg CERNER BJ Comment:Testing performed by : [facility], [address] [place] [address] MCHC 33.2 32.3 - 35.7 g/dL CERNER BJ Comment:Testing performed by : [facility], [address] [place] [address] RDW CV 14.8 11.1 - 14.9 % CERNER BJ Comment:Testing performed by : [facility], [address] [place] [address] NRBC abs 0.00 0.00 - 0.01 K/cumm CERNER BJ Comment:Testing performed by : [facility], [address] [place] [address] Blood 12/31/2024 10:5 1 AM SINK MAKER 12/31/2024 11:00 AM SINK MAKER Neeraj Sandoval MD LAB BLOOD ORDERABLES Final Resul t Performing Organization Address City/[facility] Co de Phone Number [facility] [place] [address] * Lactate dehydrogenase (LD) (12/31/2024 10:51 AM SINK MAKER) Lactate dehydrogenase (LDH) 239 100 - 250 Units/L Blood 12/31/2024 10:5 1 AM SINK MAKER 12/31/2024 11:02 AM SINK MAKER Neeraj Sandoval MD LAB BLOOD ORDERABLES Final Resul t Performing Organization Address [facility] de Phone Number [facility] [place] [address] * (ABNORMAL) Comprehensive metabolic panel (12/31/2024 10:51 AM SINK MAKER) Sodium 141 135 - 145 mmol/L Potassium, pl 5.1(H) 3.3 - 4.9 mmol/L [facility] Chloride 105 97 - 110 mmol/L [facility] CO2 32 22 - 32 mmol/L [facility] Anion gap 4 2 - 15 mmol/L [facility] BUN 10 6 - 25 mg/dL [facility] Creatinine 0.84 0.60 - 1.10 mg/dL [facility] Glucose 83 70 - 199 mg/dL [facility] Comment: Interpretive Data Fasting glucose >/= [...] CERNER BJ Blood 12/31/2024 10:5 1 AM SINK MAKER 12/31/2024 11:02 AM SINK MAKER us Neeraj Sandoval MD LAB BLOOD ORDERABLES Final Resul t [facility] Department [place] [address] from Last 3 Months Insurance [facility] MEDICARE [facility] MEDICARE [employer] Advance Directives For more information, please contact: [phone] * Full Code (Latest Code Status on File) Date Activated Date Inactivated Comments 04/09/2024 9:57 AM 04/10/2024 5:28 AM Care Teams Seat Joiner Relationship Specialty Start Date End Date Thomas Horowitz DO [address] [place] [address] [phone] PCP - General Family Medicine 04/24/24 Neeraj Sandoval MD [address] [facility] 7 DIV IM [employer] [place] [address] Medical Oncologist/Cookie Mixer Helper Medical Oncology 08/01/23
--- OUTSIDE RECORDS SUMMARY | 2025-03-19 13:00 | XMS_ITS | Clinical Summary ---
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 Voss at [facility] Date Type Department Care Team Description 03/13/2025 Orders Only [facility] ONCOLOGY Scanning, Provider 03/05/2025 Orders Only [address] [address] Rupa Segovia RN 02/11/2025 Orders Only [facility]row Transplant [address] [place] [phone] Neeraj Sandoval MD 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) 01/30/2025 Orders Only [facility] Transplant [address] [place] [phone] Neeraj Sandoval MD 01/26/2025 Orders Only [facility] Infusion [address] [address] Jana Schaffer RN 01/25/2025 Orders Only [facility] Oncology [address] [place] [phone] Neeraj Sandoval MD 01/16/2025 Orders Only [facility] Infusion Center [address] [place] [address] Jana Schaffer, LISY 01/15/2025 Orders Only [facility] Transplant [address] [place] [phone] Neeraj Sandoval MD 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); History of allogeneic bone marrow transplant (HCC); 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) 01/12/2025 2:30 PM CITY COUNCILMAN Office Visit [facility] Dermatology [address] [place] [address] Len Parsons MD Multiple benign nevi (Primary Dx); History of allogeneic bone marrow transplant (HCC); 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); 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); Seborrheic keratosis; Solar purpura 01/12/2025 Results Follow-Up [address] Medical Office Building [address] [place] [address] Parris Sanders MD 01/09/2025 1:58 PM CITY COUNCILMAN - 01/09/2025 11:59 PM CITY COUNCILMAN Hospital [facility] Radiology at [facility] [address] [place] [address] Osteopenia of left hip; 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); Postmenopausal Discharge Disposition: Discharge to home or self care 01/09/2025 1:55 PM CITY COUNCILMAN [facility] [address] [place] [address] [address] [place] [address] Osteopenia of left hip; 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); Postmenopausal; History of allogeneic bone marrow transplant (HCC) 01/09/2025 12:40 PM CITY COUNCILMAN Office Visit [facility] [address] [facility] [address] [place] [address] Parris Sanders MD Osteopenia of left hip (Primary Dx); 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); Postmenopausal 01/09/2025 12:10 PM CITY COUNCILMAN Clinical Support [facility] [address] [facility] [address] [place] [address] Osteopenia of left hip 01/09/[address] Medical Office Building [address] [place] [address] Parris Sanders MD 01/08/[address] Medical Office Building [address] [place] [address] Parris Sanders MD 12/31/2024 12:45 PM CITY COUNCILMAN - 12/31/2024 11:59 PM CITY COUNCILMAN Hospital Encounter [facility] [address] [facility] [address] [place] [address] History of allogeneic bone marrow transplant (HCC); 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) Discharge Disposition: Discharge to home or self care 12/31/2024 11:40 AM CITY COUNCILMAN Office Visit [facility]row Transplant [address] [place] [address] [address] [place] [phone] Neeraj Sandoval MD History of allogeneic bone marrow transplant (HCC) (Primary Dx); 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); 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) 12/31/2024 11:00 AM CITY COUNCILMAN Lab [facility] - Lab Collection [address] [place] [address] 6 [place] [address] 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) 12/31/2024 10:30 AM CITY COUNCILMAN Lab [facility] On[facility] Lab [address] [place] [phone] 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) from Last 3 Months Immunizations Immunization Administration [...] on file Legal Sex Female 6:18 PM CITY COUNCILMAN Gender Identity Female 08/30/2023 12:40 PM CDT Sexual Orientation Not on file Obstetrics History Last Filed Vital Signs Vital Sign Reading Time Taken Comments Blood Pressure 129/85 12/31/2024 11:17 AM CITY COUNCILMAN Pulse 69 12/31/2024 11:17 AM CITY COUNCILMAN Temperature 36.3 C (97.3 F) 12/31/2024 11:17 AM CITY COUNCILMAN Respiratory Rate 17 12/31/2024 11:17 AM CITY COUNCILMAN Oxygen Saturation 99% 12/31/2024 11:17 AM CITY COUNCILMAN Inhaled Oxygen Concentration - - Weight 70.1 kg (154 lb 9.6 oz) 01/09/2025 12:20 PM CITY COUNCILMAN Height 162.5 cm (5' 3.98 ) 01/09/2025 12:[address] Body Mass Index 26.56 01/09/2025 12:20 PM CITY COUNCILMAN Plan of Treatment Health Maintenance Due Date [...] Read Routine (OP Routine) 01/09/2025 2:12 PM CITY COUNCILMAN Osteopenia of left hip 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) Postmenopausal XR SPINE LUMBAR 2 OR 3 VIEWS Schedule Routine, Read Routine (OP Routine) 01/09/2025 2:12 PM CITY COUNCILMAN Osteopenia of left hip 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) Postmenopausal EGFR Routine 01/09/2025 2:00 PM CITY COUNCILMAN Osteopenia of left hip 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) Postmenopausal DIFFERENTIAL AUTO Routine 01/09/2025 2:0 0 PM CITY COUNCILMAN 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) CBC WITH AUTO DIFFERENTIAL Routine 01/09/2025 2:00 PM CITY COUNCILMAN 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) LACTATE DEHYDROGENASE Routine 01/09/2025 2:00 PM CITY COUNCILMAN 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) PHOSPHORUS Routine 01/09/2025 2:00 PM CITY COUNCILMAN Osteopenia of left hip 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) Postmenopausal PTH Routine 01/09/2025 2:00 PM CITY COUNCILMAN Osteopenia of left hip 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) Postmenopausal VITAMIN D 25 HYDROXY Routine 01/09/2025 2:00 PM CITY COUNCILMAN Osteopenia of left hip 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) Postmenopausal COMPREHENSIVE METABOLIC PANEL Routine 01/09/2025 2:00 PM CITY COUNCILMAN Osteopenia of left hip 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) Postmenopausal DEXA TBS AXIAL SKELETON BONE DENSITY 1 OR MORE SITES Schedule Routine, Read Routine (OP Routine) 01/09/2025 11:49 AM CITY COUNCILMAN Osteopenia of left hip XR HIP RIGHT 2 OR 3 VIEWS Schedule Routine, Read Routine (OP Routine) 12/31/2024 1:08 PM CITY COUNCILMAN 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) EGFR Routine 12/31/2024 10:51 AM CITY COUNCILMAN 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) DIFFERENTIAL AUTO Routine 12/31/2024 10: 51 AM CITY COUNCILMAN 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) CBC WITH AUTO DIFFERENTIAL Routine 12/31/2024 10:51 AM CITY COUNCILMAN 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) COMPREHENSIVE METABOLIC PANEL Routine 12/31/2024 10:51 AM CITY COUNCILMAN 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) LACTATE DEHYDROGENASE Routine 12/31/2024 10:51 AM CITY COUNCILMAN 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) [...] D, (D2,D3), LC/MS/MS is recommended: order code [id number] (patients >2yrs). See Note 1 Note 1 For additional information, please refer to http://education.[employer]/faq/BVQ391 (This link is being provided for informational/ educational purposes only.) Blood 02/11/2025 12:2 3 PM CDT 02/11/2025 12:24 PM CDT Neeraj Sandoval MD LAB BLOOD ORDERABLES Final Resul t Performing Organization Address City/[facility]/ZIP Co de Phone Number [facility] [address] [place] [address] * Uric acid (02/11/2025 12:23 PM CDT) Pathologist [facility] Uric acid 4.0 2.5 - 7.0 mg/dL [facility] Comment: Therapeutic target for gout patients: <6.0 mg/dL Blood 02/11/2025 12:2 3 PM CDT 02/11/2025 12:24 PM CDT Neeraj Sandoval MD LAB BLOOD ORDERABLES Final Resul t Performing Organization Address City/[facility]/ZIP Co de Phone Number [facility] [address] [place] [address] * (ABNORMAL) Cytomegalovirus (CMV) DNA PCR, quantitative Blood (02/11/2025 12:21 PM CDT) CMV DNA qn <34.5(A) Not Detected IU/mL [facility] Comment: Detected CMV DNA was detected below 34.5 IU/mL. Viral load in this range cannot be accurately quantified by t CMV DNA log IU/mL <1.54(A) Not Detected Log IU/mL [facility] Comment: Detected (Note) For additional information, please refer to http://education.[employer].Plurchase/faq/CMVandEBVPCR (This link is being provided for informational/educational purposes only.) [facility] med [facility] [address] [address],[address] [place] [address] Fermin Jasso MD, PhD Blood 02/11/2025 12:2 1 PM CDT 02/11/2025 12:22 PM CDT Narrative [facility] - 02/14/2025 3:53 PM CDT FASTING:NO FASTING: NO us Neeraj Sandoval MD LAB MICROBIOLOGY - GENERAL ORDER BEATA Final Result [facility] [address] [address], [address] [place] [address] * CBC with auto differential (02/11/2025 12:21 [...] Resul t Performing Organization Address [facility] de Phone Number [facility] [address] [place] [address] * T3, free (02/11/2025 12:21 PM CDT) Free T3 2.8 2.3 - 4.2 pg/mL [facility] Blood 02/11/2025 12:2 1 PM CDT 02/11/2025 12:22 PM CDT Narrative [facility] - 02/14/2025 3:53 PM CDT FASTING:NO FASTING: NO Neeraj Sandoval MD LAB BLOOD ORDERABLES Final Resul t Performing Organization Address City/[facility] Co de Phone Number [facility] [address] [place] [address] * TSH (02/11/2025 12:21 PM CDT) TSH 1.48 0.40 - 4.50 mIU/L [facility] Blood 02/11/2025 12:2 1 PM CDT 02/11/2025 12:22 PM CDT Narrative [facility] - 02/14/2025 3:53 PM CDT FASTING:NO FASTING: NO Neeraj Sandoval MD LAB BLOOD ORDERABLES Final Resul t Performing Organization Address [facility]/ZIP Co de Phone Number [facility] [address] [place] [address] * T4, free (02/11/2025 12:21 PM CDT) Pathologist [facility] Free T4 1.1 0.8 - 1.8 ng/dL [facility] Blood 02/11/2025 12:2 1 PM CDT 02/11/2025 12:22 PM CDT Narrative [facility] - 02/14/2025 3:53 PM CDT FASTING:NO FASTING: NO Neeraj Sandoval MD LAB BLOOD ORDERABLES Final Resul t Performing Organization Address [facility] Co de Phone Number [facility] [address] [place] [address] * Lactate dehydrogenase (LD) (02/11/2025 12:21 PM CDT) Lactate dehydrogenase (LDH) 249 120 - 250 U/L [facility] Blood 02/11/2025 12:2 1 PM CDT 02/11/2025 12:22 PM CDT Narrative [facility] - 02/14/2025 3:53 PM CDT FASTING:NO FASTING: NO us Neeraj Sandoval MD LAB BLOOD ORDERABLES Final Resul t Performing Organization Address [facility] Co de Phone Number [facility] [address] [facility] [place] [address] * LH (02/11/2025 12:21 PM CDT) LH 56.4 mIU/mL [facility] Comment: Reference Range Follicular Phase 1.9-12.5 Mid-Cycle Peak 8.7-76.3 Luteal Phase 0.5-16.9 Postmenopausal 10.0-54.7 Blood 02/11/2025 12:2 1 PM CDT 02/11/2025 12:22 PM CDT Narrative [facility] - 02/14/2025 3:53 PM CDT FASTING:NO FASTING: NO Neeraj Sandoval MD LAB BLOOD ORDERABLES Final Resul t Performing Organization Address [facility] de Phone Number [facility] [address] [place] [address] * Follicle stimulating hormone (02/11/2025 12:21 PM CDT) [facility] FSH 92.8 mIU/mL [facility] Comment: Reference Range Follicular Phase 2.5-10.2 Mid-cycle Peak 3.1-17.7 Luteal Phase 1.5- 9.1 Postmenopausal 23.0-116.3 Blood 02/11/2025 12:2 1 PM CDT 02/11/2025 12:22 PM CDT Narrative [facility] - 02/14/2025 3:53 PM CDT FASTING:NO FASTING: NO Neeraj Sandoval MD LAB BLOOD ORDERABLES Final Resul t Performing Organization Address [facility] de Phone Number [facility] [address] [place] [address] * (ABNORMAL) Comprehensive metabolic panel (02/11/2025 12:21 PM CDT) [facility] Glucose 94 65 - 139 mg/dL [facility] [...] BLOOD ORDERABLES Final Resul t [facility] [address] [place] [address] * XR Spine Lumbar 2 or 3 Views (01/09/2025 2:12 PM CITY COUNCILMAN) Anatomical Region Laterality Modality Spine N/A Computed Radiogr aphy 01/09/2025 3:23 PM CITY COUNCILMAN Impressions 01/09/2025 3:32 PM CITY COUNCILMAN 1. Compression deformities of L2 and L4 [...] Tee Gonzalez M.D. Narrative 01/09/2025 3:32 PM CITY COUNCILMAN EXAMINATION: XR SPINE THORACIC 2 VIEWS, XR [...] Spine Thoracic 2 Views (01/09/2025 2:12 PM CITY COUNCILMAN) Anatomical Region Laterality Modality Spine N/A Computed Radiogr aphy 01/09/2025 3:23 PM CITY COUNCILMAN Impressions 01/09/2025 3:32 PM CITY COUNCILMAN 1. Compression deformities of L2 and L4 [...] Tee Gonzalez M.D. Narrative 01/09/2025 3:32 PM CITY COUNCILMAN EXAMINATION: XR SPINE THORACIC 2 VIEWS, XR [...] Re sult * eGFR (01/09/2025 2:00 PM CITY COUNCILMAN) eGFR 64 >=60 mL/min/1. 73 m2 Comment: [...] last reviewed 2021. Blood 01/09/2025 2:00 PM CITY COUNCILMAN 01/09/2025 4:34 PM CITY COUNCILMAN Parris Sanders MD LAB BLOOD ORDERABLES Final Result [facility] Department [place] [address] * Differential, auto (01/09/2025 2:00 PM CITY COUNCILMAN) Neutrophil abs 1.8 1.5 - 6.5 K/cumm Imm gran abs 0.0 0.0 - 0.1 K/cumm [facility] Lymphocyte abs 1.5 0.8 - 3.3 K/cumm [facility] Monocyte abs 0.4 0.2 - 0.8 K/cumm [facility] Eosinophil abs 0.1 0.0 - 0.5 K/cumm [facility] Basophil abs 0.0 0.0 - 0.1 K/cumm [facility] Neutrophil pct 46.5 % [facility] Comment: Interpretive Data Percent cell count reference ranges are not reported, since discordance with absolute values may lead to misinterpretation of CBC data. Current Interpretive Data was last revised on 2018. Imm gran pct 0.5 % [facility] Comment: Interpretive Data Percent cell count reference ranges are not reported, since discordance with absolute values may lead to misinterpretation of CBC data. Current Interpretive Data was last revised on 2018. Lymphocyte pct 38.8 % [facility] Comment: Interpretive Data Percent cell count reference ranges are not reported, since discordance with absolute values may lead to misinterpretation of CBC data. Current Interpretive Data was last revised on 2018. Monocyte pct 10.2 % [facility] Comment: Interpretive Data Percent cell count reference ranges are not reported, since discordance with absolute values may lead to misinterpretation of CBC data. Current Interpretive Data was last revised on 2018. Eosinophil pct 3.0 % [facility] Comment: Interpretive Data Percent cell count reference ranges are not reported, since discordance with absolute values may lead to misinterpretation of CBC data. Current Interpretive Data was last revised on 2018. Basophil pct 1.0 % [facility] Comment: Interpretive Data Percent cell count reference ranges are not reported, since discordance with absolute values may lead to misinterpretation of CBC data. Current Interpretive Data was last revised on 2018. Blood 01/09/2025 2:00 PM CITY COUNCILMAN 01/09/2025 4:16 PM CITY COUNCILMAN Neeraj Sandoval MD LAB BLOOD ORDERABLES Final Resul t Performing Organization Address City/[facility]/ZIP Co de Phone Number [facility] [place] [address] * (ABNORMAL) CBC with auto differential (01/09/2025 2:00 PM CITY COUNCILMAN) [facility] WBC 3.9 3.8 - 9.9 K/cumm Hgb 13.4 11.9 - 15.5 g/dL [facility] Hct 41.4 35.6 - 45.5 % [facility] Plt 192 150 - 400 K/cumm [facility] MPV 9.4 9.1 - 12.3 fL [facility] RBC 4.26 3.90 - 5.20 M/cumm [facility] MCV 97.2(H) 81.3 - 96.4 fL [facility] MCH 31.5 27.1 - 33.3 pg [facility] MCHC 32.4 32.3 - 35.7 g/dL [facility] RDW CV 14.6 11.1 - 14.9 % [facility] RDW SD 52.0(H) 35.7 - 48.1 fL [facility] NRBC abs 0.00 0.00 - 0.01 K/cumm [facility] Blood 01/09/2025 2:00 PM CITY COUNCILMAN 01/09/2025 4:16 PM CITY COUNCILMAN us Neeraj Sandoval MD LAB BLOOD ORDERABLES Final Resul t Performing Organization Address City/[facility]/ZIP Co de Phone Number [facility] [place] [address] * Vitamin D 25 hydroxy (01/09/2025 2:00 PM CITY COUNCILMAN) [facility] Vitamin D 25-OH 74 30 - 80 ng/mL Blood 01/09/2025 2:00 PM CITY COUNCILMAN 01/09/2025 4:16 PM CITY COUNCILMAN us Parris Sanders MD LAB BLOOD ORDERABLES Final Result Performing Organization Address [facility] Phone Number [facility] [place] [address] * Phosphorus (01/09/2025 2:00 PM CITY COUNCILMAN) [facility] Phosphorus, pl 4.1 2.3 - 4.5 mg/dL Blood 01/09/2025 2:00 PM CITY COUNCILMAN 01/09/2025 4:16 PM CITY COUNCILMAN us Parris Sanders MD LAB BLOOD ORDERABLES Final Result Performing Organization Address [facility] Phone Number [facility] Department [place] [address] * (ABNORMAL) PTH (01/09/2025 2:00 PM CITY COUNCILMAN) [facility] PTH 70(H) 15 - 65 pg/mL Blood 01/09/2025 2:00 PM CITY COUNCILMAN 01/09/2025 4:16 PM CITY COUNCILMAN Result [facility] Parris Sanders MD LAB BLOOD ORDERABLES Final Result Performing Organization Address [facility] Phone Number [facility] [place] [address] * (ABNORMAL) Lactate dehydrogenase (LD) (01/09/2025 2:00 PM CITY COUNCILMAN) [facility] Lactate dehydrogenase (LDH) 283(H) 100 - 250 Units/L Blood 01/09/2025 2:00 PM CITY COUNCILMAN 01/09/2025 4:16 PM CITY COUNCILMAN Result [facility] Neeraj Sandoval MD LAB BLOOD ORDERABLES Final Resul t [facility] Department [place] [address] * Comprehensive metabolic panel (01/09/2025 2:00 PM CITY COUNCILMAN) Sodium 145 135 - 145 mmol/L Potassium, pl 4.8 3.3 - 4.9 mmol/L [facility] Chloride 105 97 - 110 mmol/L [facility] CO2 31 22 - 32 mmol/L [facility] Anion gap 9 2 - 15 mmol/L [facility] BUN 8 6 - 25 mg/dL [facility] Creatinine 0.99 0.60 - 1.10 mg/dL [facility] Glucose 79 70 - 199 mg/dL [facility] Comment: Interpretive Data Fasting glucose >/= [...] Calcium 9.5 8.5 - 10.3 mg/dL [facility] Bilirubin, total 0.4 0.1 - 1.2 mg/dL [facility] Protein, pl 7.2 6.5 - 8.5 g/dL [facility] Albumin 4.3 3.5 - 5.0 g/dL [facility] Alk phos 100 40 - 130 Units/L [facility] ALT 33 7 - 45 Units/L [facility] AST 24 10 - 45 Units/L [facility] Blood 01/09/2025 2:00 PM CITY COUNCILMAN 01/09/2025 4:16 PM CITY COUNCILMAN Parris Sanders MD LAB BLOOD ORDERABLES Final Result [facility] Department [place] [address] * Dexa TBS Axial Skeleton Bone Density 1 or more sites (01/09/2025 11:49 AM CITY COUNCILMAN) Anatomical Region Laterality Modality Wrist, Body N/A Radiographic Valarie ging Narrative 01/12/2025 9:24 PM CITY COUNCILMAN Patient Name: Angelica Guerra Date of : 1960 Date of scan: 01/09/2025 Bone mineral density was performed on a [employer] Discovery Densitometer. Based on machine cross-calibration and [...] by the International Society of Clinical Densitometry. [id number] Parris Sanders MD [facility] DXA PROCEDURES Final R esult * XR Hip Right 2 or 3 Views (12/31/2024 1:08 PM CITY COUNCILMAN) Anatomical Region Laterality Modality Lower Extremities, Hip, Pelvis Right D igital Radiography 12/31/2024 2:02 PM CITY COUNCILMAN Impressions 12/31/2024 2:29 PM CITY COUNCILMAN 1. 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 Dictated by: Elijah Tolentino M.D. The radiology attending physician has personally reviewed this study, and had reviewed and/or edited this written report and agrees with it. Electronically signed by: Tee Gonzalez M.D. Narrative 12/31/2024 2:29 PM CITY COUNCILMAN EXAMINATION: XR HIP RIGHT 2 OR 3 [...] by: Tee Gonzalez M.D. Neeraj Sandoval MD IM XR PROCEDURES Final Result * eGFR (12/31/2024 10:51 AM CITY COUNCILMAN) eGFR 79 >=60 mL/min/1. 73 m2 Comment: [...] reviewed 2021. Blood 12/31/2024 10:5 1 AM CITY COUNCILMAN 12/31/2024 11:02 AM CITY COUNCILMAN us Neeraj Sandoval MD LAB BLOOD ORDERABLES Final Resul t [facility] Department [place] [address] * Differential, auto (12/31/2024 10:51 AM CITY COUNCILMAN) Neutrophil abs 2.2 1.5 - 6.5 K/cumm Comment:Testing performed by : [facility], [address] [place] [phone] Lymphocyte abs 1.4 0.8 - 3.3 K/cumm [facility] Comment:Testing performed by : [facility], [address] [place] [phone] Monocyte abs 0.5 0.2 - 0.8 K/cumm [facility] Comment:Testing performed by : [facility], [address] [place] [phone] Eosinophil abs 0.2 0.0 - 0.5 K/cumm [facility] Comment:Testing performed by : [facility], [address] [place] [phone] Basophil abs 0.0 0.0 - 0.1 K/cumm [facility] Comment:Testing performed by : [facility], [address] [place] [phone] Neutrophil pct 52.0 % [facility] Comment: Interpretive Data Percent cell count reference ranges are not reported, since discordance with absolute values may lead to misinterpretation of CBC data. Current Interpretive Data was last revised on 2018. Testing performed by: [facility], [address] [place] [phone] Lymphocyte pct 32.5 % [facility] Comment: Interpretive Data Percent cell count reference ranges are not reported, since discordance with absolute values may lead to misinterpretation of CBC data. Current Interpretive Data was last revised on 2018. Testing performed by: [facility], [address] [place] [phone] Monocyte pct 10.7 % [facility] Comment: Interpretive Data Percent cell count reference ranges are not reported, since discordance with absolute values may lead to misinterpretation of CBC data. Current Interpretive Data was last revised on 2018. Testing performed by: [facility], [address] [place] [phone] Eosinophil pct 4.1 % [facility] Comment: Interpretive Data Percent cell count reference ranges are not reported, since discordance with absolute values may lead to misinterpretation of CBC data. Current Interpretive Data was last revised on 2018. Testing performed by: [facility], [address] [place] [phone] Basophil pct 0.7 % [facility] Comment: Interpretive Data Percent cell count reference ranges are not reported, since discordance with absolute values may lead to misinterpretation of CBC data. Current Interpretive Data was last revised on 2018. Testing performed by: [facility], [address] [place] [phone] Blood 12/31/2024 10:5 1 AM CITY COUNCILMAN 12/31/2024 11:00 AM CITY COUNCILMAN us Neeraj Sandoval MD LAB BLOOD ORDERABLES Final Resul t [facility] Department [place] [address] * CBC with auto differential (12/31/2024 10:51 AM CITY COUNCILMAN) WBC 4.3 3.8 - 9.9 K/cumm Comment:Testing performed by : [facility], [address] [place] [address] Hgb 12.6 11.9 - 15.5 g/dL [facility] Comment:Testing performed by : [facility], [address] [place] [address] Hct 37.9 35.6 - 45.5 % [facility] Comment:Testing performed by : [facility], [address] [place], [place] [phone] Plt 201 150 - 400 K/cumm [facility] Comment:Testing performed by : [facility], [address] [place], [place] [id number] MPV 7.9 6.8 - 10.4 fL [facility] Comment:Testing performed by : [facility], [address] [place], [place] [phone] RBC 3.95 3.90 - 5.20 M/cumm [facility] Comment:Testing performed by : [facility], [address] [place] [address] MCV 96.0 81.3 - 96.4 fL [facility] Comment:Testing performed by : [facility], [address] [place], [place] [phone] MCH 31.9 27.1 - 33.3 pg [facility] Comment:Testing performed by : [facility], [address] [place] [address] MCHC 33.2 32.3 - 35.7 g/dL [facility] Comment:Testing performed by : [facility], [address] [place] [address] RDW CV 14.8 11.1 - 14.9 % [facility] Comment:Testing performed by : [facility], [address] [place], [place] [phone] NRBC abs 0.00 0.00 - 0.01 K/cumm [facility] Comment:Testing performed by : [facility], [address] [place] [phone] Blood 12/31/2024 10:5 1 AM CITY COUNCILMAN 12/31/2024 11:00 AM CITY COUNCILMAN Neeraj Sandoval MD LAB BLOOD ORDERABLES Final Resul t Performing Organization Address City/[facility] [place] [address] * Lactate dehydrogenase (LD) (12/31/2024 10:51 AM CITY COUNCILMAN) Lactate dehydrogenase (LDH) 239 100 - 250 Units/L Blood 12/31/2024 10:5 1 AM CITY COUNCILMAN 12/31/2024 11:02 AM CITY COUNCILMAN Neeraj Sandoval MD LAB BLOOD ORDERABLES Final Resul t Performing Organization Address [facility] Phone Number [facility] [place] [address] * (ABNORMAL) Comprehensive metabolic panel (12/31/2024 10:51 AM CITY COUNCILMAN) Sodium 141 135 - 145 mmol/L Potassium, pl 5.1(H) 3.3 - 4.9 mmol/L [facility] Chloride 105 97 - 110 mmol/L [facility] CO2 32 22 - 32 mmol/L [facility] Anion gap 4 2 - 15 mmol/L [facility] BUN 10 6 - 25 mg/dL [facility] Creatinine 0.84 0.60 - 1.10 mg/dL [facility] Glucose 83 70 - 199 mg/dL [facility] Comment: Interpretive Data Fasting glucose >/= [...] [facility] Blood 12/31/2024 10:5 1 AM CITY COUNCILMAN 12/31/2024 11:02 AM CITY COUNCILMAN us Neeraj Sandoval MD LAB BLOOD ORDERABLES Final Resul t [facility] Department [place] [address] from Last 3 Months Insurance [facility] MEDICARE [facility] MEDICARE IDPA Advance Directives For more information, please contact: [phone] * Full Code (Latest Code Status on File) Date Activated Date Inactivated Comments 04/09/2024 9:57 AM 04/10/2024 5:28 AM Care Teams Billet Checker Relationship Specialty Start Date End Date Thomas Horowitz DO [address] [place] [address] PCP - General Family Medicine 04/24/24 Neeraj Sandoval MD [address] [facility] 7 DIV [place] [address] Medical Oncologist/Line Mover Medical Oncology 08/01/23
--- OUTSIDE RECORDS SUMMARY | 2025-03-19 13:00 | XMS_ITS ---
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 Voss at [place]
--- OUTSIDE RECORDS SUMMARY | 2025-03-19 13:00 | XMS_ITS | Encounter Summary ---
Author Organization [facility] Address [address] [place] [address] Phone Care Team Providers Care Web Offset Press Feeder Name Role Phone Sen Pruitt MD Primary Care Provider Alli Mancuso MD Unavailable Encounter Details Date Type Department Care Team (Late st Contact Info) Description 04/14/2020 Telephone [facility] [place] [address] Provider, None [place] Social History Tobacco [...] on file Legal Sex Female 4:02 AM RESERVATIONS CLERK Gender Identity Not on file Sexual Orientation [...] as of this encounter Care Teams Web Offset Press Feeder Relationship Specialty Start Date End Date Sen Pruitt MD PCP - General Internal Medicine/Pediatrics 07/23/18 05/30/23 Alli Mancuso MD [address] [place] [address] Consulting Physician Gastroenterology 04/14/20 documented as of this encounter
--- OUTSIDE RECORDS SUMMARY | 2025-03-19 13:00 | XMS_ITS | Clinical Summary ---
Author Organization [facility] Address [address] [place] [address] Phone Care Team Providers Care Visiting Housekeeper Name Role Phone Alli Mancuso MD Unavailable [phone] Allergies No known active allergies Medications Multiple [...] 10 PO) Take by mouth daily. 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 Gender Identity Not on file Sexual Orientation Not on file Last Filed Vital Signs Vital Sign Reading Time Taken Comments Blood Pressure 112/78 10/15/2020 2:30 PM FOOD SERVICE WORKER Pulse 84 10/15/2020 2:30 PM FOOD SERVICE WORKER Temperature 36.7 C (98.1 F) 07/02/2020 12:53 PM CDT Respiratory Rate 18 10/15/2020 2:30 PM FOOD SERVICE WORKER Oxygen Saturation 100% 09/15/2020 3:13 PM CDT Inhaled Oxygen Concentration - - Weight 74.5 kg (164 lb 4.8 oz) 10/15/2020 2:30 P M FOOD SERVICE WORKER Height 165.1 cm (5' 5 ) 10/15/2020 2:30 PM FOOD SERVICE WORKER Body Mass Index 27.34 10/15/2020 2:30 PM FOOD SERVICE WORKER Plan of Treatment Health Maintenance Due Date [...] Ready to change Department associated with goal: [facility] Steps to achieve goal: 1. Will start Physical therapy in two weeks 2. Medications Procedures Procedure Name Priority Date/Time Associated Diagnosis Comments STOOL, OCCULT BLOOD IMMUNOASSAY (IFOB) Routine 08/22/2018 8:00 AM CDT Anemia, unspecified type [facility] DIAG BILATERAL DIGITAL WO CAD W JAZZMINE Routine 09/04/2017 7:41 AM CDT Mammogram abnormal Breast calcifications from Last 3 Months or Most Recently Relevant to Health Maintenance Results * STOOL, OCCULT BLOOD IMMUNOASSAY (IFOB) (08/22/2018 8:00 AM CDT) OCCULT BLOOD - IFOB Negative Negative 08/22/2018 2:10 PM CDT [facility] Specimen of unknown material (specimen) STOOL SPECIMEN / Unknown Non-Phlebotomy Collection / Unknown 08/22/2018 8:00 AM CDT 08/22/2018 10:31 AM CDT us Sen Pruitt MD BODY FLUIDS & STOOLS O RDERABLES Final Result Performing Organization Address City/State/[facility] Co de Phone Number [facility] [address] [place] [address], [place] * [facility] DIAG BILATERAL DIGITAL WO CAD W JAZZMINE [...] CDT DICTATING PHYSICIAN: Michael Gordillo D.O. EXAM: [facility] ABBEY BILATERAL DIGITAL WO CAD W JAZZMINE, [...] 09/04/2017 DICTATING PHYSICIAN: Michael Gordillo D.O. EXAM: [facility] BILATERAL DIGITAL WO CAD W JAZZMINE, 09/04/2017 [...] concur with this interpretation. us Kamille Claudio MANAGEMENT REP, GRAIN INSPECTOR IMG MAMMO ORDERABLES Dionna l Result from Last 3 Months or Most Recently Relevant to Health Maintenance Insurance [facility] Address: [facility] [address] [place] [address] Care Teams Visiting Housekeeper Relationship Specialty Start Date End Date Alli Mancuso MD [address] [place] [address] Consulting Physician Gastroenterology 04/14/20
--- OUTSIDE RECORDS SUMMARY | 2025-03-19 13:00 | XMS_ITS | Encounter Summary ---
Author Organization [facility] Address [address] [facility] 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 Blood 06/02/2020 2:09 PM CDT 06/02/2020 5:09 PM CDT us Jeffrey Wallace MD CHEMISTRY ORDERABLES Fin al Result [facility] [address] [place] [address], [place] documented in this encounter Visit Diagnoses Diagnosis Anemia, unspecified documented in this encounter Additional Health Concerns Assessment Noted Time PHQ-9 Depression Total Score: 1 04/02/20 20 9:00 AM CDT documented as of this encounter Care Teams Sales Floor Manager Relationship Specialty Start Date End Date Sen Pruitt MD PCP - General Internal Medicine/Pediatrics 07/23/18 05/30/23 Alli Mancuso MD [address] [place] [address] Consulting Physician Gastroenterology 04/14/20 documented as of this encounter
--- OUTSIDE RECORDS SUMMARY | 2025-03-19 13:00 | XMS_ITS | Encounter Summary ---
Author Organization [facility] Address [address] [place] [address] Phone Care Team Providers Care Mandarin Tutor Name Role Phone Sen Pruitt MD Primary Care Provider Alli Mancuso MD Unavailable [phone] Reason for Visit * Reason Onset Date Comments Medication Refill 04/29/2021 [place] Encounter Details Date Type Department Care Team (Late st Contact Info) Description 04/29/2021 Refill [facility] - Internal Medicine & [facility] - [place] [address] [place], [place] [address] Sen Pruitt MD [address] [place] [address] Medication Refill ([place]) Social History [...] on file Legal Sex Female 4:02 AM DEPUTY COMMONWEALTH'S 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 documented in this encounter Plan of Treatment Not on file documented as of this encounter Goals Goal Patient Goal Type Associated Problems Recent Progress Patient-Stated? Author Angelica would like to go back to the gym and turn over in bed Pain Management No Cinda Funez RN Note: Goal Reviewed with: patient Readiness to change: Ready to change Department associated with goal: [facility] Steps to achieve goal: 1. Will start Physical therapy in two weeks 2. Medications documented as of this encounter Visit Diagnoses Not on filedocumented in this encounter Additional Health Concerns Assessment Noted Time PHQ-9 Depression Total Score: 1 04/02/20 20 9:00 AM CDT documented as of this encounter Care Teams Mandarin Tutor Relationship Specialty Start Date End Date Sen Pruitt MD PCP - General Internal Medicine/Pediatrics 07/23/18 05/30/23 Alli Mancuso MD [address] [place] [address] Consulting Physician Gastroenterology 04/14/20 documented as of this encounter
--- OUTSIDE RECORDS SUMMARY | 2025-03-19 13:00 | XMS_ITS | Encounter Summary ---
Author Organization [facility] Address [address] [place] [address] Care Team Providers Care Stone Setter Metal Optical Frames Name Role Phone Neearj Sandoval MD Unavailable Unknown, Notidonis Primary Care Provider Unavail able Thomas Horowitz DO Primary Care Provide r Encounter Details Date Type Department Care Team (Late st Contact Info) Description 04/03/20[address] [facility] Radiology [address] [place] [address] José Luis Lyon, RN Social History Tobacco Use Types Packs/Day Years Used Date Smoking Tobacco: Former Cigarettes 0.8 15.3 S tarted: 1975 Smokeless Tobacco: Never Personal Safety Answer Date Recorded Getting School Help Needed Not on file 11/07 Comments Unknown Sex and Gender Information Value Date Recorded Sex Assigned at Not on file Legal Sex Female 6:18 PM AIRPORT OPERATIONS 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 Gender Identity Female 08/30/2023 12:40 PM CDT Sexual Orientation Not on file documented as of this encounter Plan of Treatment Not on file documented as of this encounter Visit Diagnoses Not on filedocumented in this encounter Care Teams Stone Setter Metal Optical Frames Relationship Specialty Start Date End Date Unknown, Isac PCP - General 08/27/23 04/23/24 Thomas Horowitz DO [address] [place] [address] PCP - General Family Medicine 04/24/24 Neeraj Sandoval MD [address] [place] [address] [address] DIV [place] [address] Medical Oncologist/Material Controller Medical Oncology 08/01/23 documented as of this encounter
--- OUTSIDE RECORDS SUMMARY | 2025-03-19 13:00 | XMS_ITS | Encounter Summary ---
Author Organization [facility] Healthcare Address [address] [place] [address] Care Team Providers Care Manufacturing Test Technician Name Role Phone Neeraj Sandoval MD Unavailable Thomas Horowitz DO Primary Care Provide r Encounter Details Date Type Department Care Team (Late st Contact Info) Description 05/06/2024 Telephone [facility] Radiology [address] [place] [address] Eliel Xie RN Social History Tobacco Use [...] on file Legal Sex Female 6:18 PM BATTERY FILLER Gender Identity Female 08/30/2023 12:40 PM CDT Sexual Orientation Not on file documented as of this encounter Functional Status documented as of this encounter Plan of Treatment Not on file documented as of this encounter Visit Diagnoses Not on filedocumented in this encounter Care Teams Manufacturing Test Technician Relationship Specialty Start Date End Date Thomas Horowitz DO [address] [place] [address] PCP - General Family Medicine 04/24/24 Neeraj Sandoval MD [address] [facility] 7 DIV [place] [address] Medical Oncologist/Neuropathologist Medical Oncology 08/01/23 documented as of this encounter
--- OUTSIDE RECORDS SUMMARY | 2025-03-19 13:00 | XMS_ITS | Encounter Summary ---
Author Organization [facility] Address [address] [place] [address] Phone Care Team Providers Care Drug Discovery Informatics Specialist Name Role Phone Neeraj Sandoval MD Unavailable Thomas Horowitz DO Primary Care Provide r Encounter Details Date Type Department Care Team (Latest Contact Info) Description 03/13/2025 Orders Only [facility] Scanning, Provider Social History Tobacco Use Types Packs/Day Years [...] on file Legal Sex Female 6:18 PM RADIO MECHANIC HELPER Gender Identity Female 08/30/2023 12:40 PM CDT Sexual Orientation Not on file documented as of this encounter Plan of Treatment Not on file documented as of this encounter Procedures Procedure Name Priority Date/Time Associated Diagnosis Comments SCAN - RADIOLOGY/IMAGING 03/13/2025 documented in this encounter Results * SCAN - RADIOLOGY/IMAGING (03/13/2025) Anatomical Region Laterality Modality Other us Provider Scanning Final Result documented in this encounter Visit Diagnoses Not on filedocumented in this encounter Care Teams Drug Discovery Informatics Specialist Relationship Specialty Start Date End Date Thomas Horowitz DO [address] [place] [address] PCP - General Family Medicine 04/24/24 Neeraj Sandoval MD [address] [facility] 7 DIV IM [place] [address] Medical Oncologist/Day Worker Medical Oncology 08/01/23 documented as of this encounter
== END 2025-03-19 11:24 | disposition home or self-care (01) ==
LOC: ANHSURGERY 11:28
PROVIDERS: PCP Student in an Organized Health Care Education/Training Program; Visit Provider Orthopaedic Surgery
DX: S83.242A Other tear of medial meniscus, current injury, left knee, initial encounter (principal); Z01.818 Encounter for other preprocedural examination; X58.XXXA Exposure to other specified factors, initial encounter; R94.31 Abnormal electrocardiogram [ECG] [EKG]
CPT/HCPCS: 93005

== ENCOUNTER 2025-03-23 01:44 | Day surgery (SDC) | payer MEDICARE, MEDICAID, SELFPAY ==
[2025-03-16 11:02] VITALS: BMI 26.1
--- NOTE | 2025-03-16 11:19 | PC.NURSE ---
Report to the Outpatient Waiting Room, entrance under the green pavilion located off [facility], at time ____829___ on date ___03/23/25____. Planned Procedure Time: ____1030____.? Time changes happen often and if your time is changed the preop area will call you the afternoon before. - You and your visitor will be asked to self-screen and do not enter if you have any COVID symptoms. Please call surgeon if you need to reschedule. - A mask is optional within the hospital at this time. Patients may have clear liquids (water, carbonated beverages, clear teas, apple juice) until 3 hours prior to surgery with a maximum of 20 ounces. - No food from midnight until time of surgery and no smoking, or chewing tobacco (or any form of nicotine). No chewing gum, candy or mints. Take only the following medications with a SIP of water on the morning of surgery: ____acyclovir, amlodipine, buspirone, gabapentin, venlafaxine__ DO NOT STOP ANY OF YOUR OTHER PRESCRIPTION MEDICATIONS PRIOR TO SURGERY EXCEPT THE FOLLOWING Hold all vitamins and supplements for 3 days per anesthesiologist. Medications to discontinue per physician ___please HOLD Rivaroxaban (Xarelto) for 5 days prior to surgery____ Please no make-up, nail luxembourgish, hairspray, perfume, deodorant, or body powder the day of surgery.? No jewelry (including any body piercings) or valuables the day of surgery, leave them at home.? Please take a shower or bath the night before, or the morning of, surgery with an antibacterial soap.? Wear comfortable, loose fitting clothing.? - Jewelry must be removed prior to entering the operating room.? Rings and piercings that are not removed may be cut off. - The hospital will not accept responsibility for valuables.? - Please leave all valuables, including medications, at home the day of surgery. If you are going home after surgery, a licensed bulk driver must drive you home.? - NO public transportation without another adult if you receive anesthesia. - We recommend that an adult stay with you for 24 hours following discharge. - We also recommend that you do not drive, make important decision, drink alcoholic beverages, or take any drugs that were not prescribed by your health care provider for at least 24 hours after your discharge time. Follow any additional instructions given to you from your surgeon. Telephone instructions given to ___Kyra___and asked if any additional questions and then verbalized understanding. Patient advised to call surgeon office or pre surgery nurse liaison [phone] if any additional questions.
--- NOTE | 2025-03-17 10:42 | P.HP_ITS ---
H&P: HPI History of Present Illness Date/Time: 03/17/25 10:42 Chief Complaint: Patient has catching, locking, and mechanical symptoms of her left knee. She has failed conservative treatment like to consider arthroscopic intervention. Review of Systems Musculoskeletal: Musculoskeletal: Reports myalgias, Reports arthralgias, Reports joint swelling and Reports stiffness Neurologic: Reports abnormal gait [facility] Family History Family History Father Cerebrovascular accident Social History Social History Smoking packs per day: 0.5 Smoking cigarettes per day: 10.0 Years smoked: 35 Smoking pack-years: 17.50 Smoking status: Former smoker Tobacco type: cigarettes Additional smoking assessment comments: quit in 2011 Alcohol intake: never Substance use: never Substance use type: marijuana Other substance usage details: Sometimes Do You Feel Safe in your Home?: Yes Lack of Transportation: No Lack of Food: Never True Current Housing: I Have Housing Concerned About Future Housing: No Difficulty Paying Gas/Electric Bills: No Difficulty Paying for Meds: No Currently Unemployed: No Education: Associate Degree Difficulty w/ Childcare or Family Care: No Living arrangements: alone Meds Home Medications and Allergies Home Medications ?Medication ?Instructions ?Recorded ?Confirmed ?Type acyclovir 400 mg tablet 400 mg PO BID 02/12/25 03/16/25 History amlodipine 5 mg tablet 5 mg PO DAILY 02/12/25 03/16/25 History buspirone 10 mg tablet 30 mg PO DAILY 02/12/25 03/16/25 History dextran 70-hypromellose 0.1 %-0.3 1 drp EACH EYE 4-6XD PRN dry eye(s) 02/12/25 03/16/25 History % eye drops gabapentin 300 mg capsule 900 mg PO TID 02/12/25 03/16/25 History gilteritinib 40 mg tablet (Xospata) 120 mg PO DAILY 02/12/25 03/16/25 History rivaroxaban 20 mg tablet (Xarelto) 20 mg PO DAILY 02/12/25 03/16/25 History venlafaxine 150 mg 150 mg PO DAILY 02/12/25 03/16/25 History capsule,extended release 24 hr ergocalciferol (vitamin D2) 1,250 1,250 mcg PO WEEKLY 02/26/25 03/16/25 History mcg (50,000 unit) capsule tizanidine 2 mg capsule 2 mg PO TID PRN muscle spasticity 02/26/25 03/16/25 History Allergies Allergy/AdvReac Type Severity Reaction Status Date / Time No Known Allergies Allergy Verified 03/16/25 10:36 Exam Radiology Reports: Comments: Magnetic Resonance Report Signed Patient: Angelica Guerra MRI of the left knee Clinical history: Medial meniscal tear Technique: Coronal proton density and proton density-weighted images, sagittal proton-density and T2 fat-sat images, and axial proton-density fat-saturated images were acquired. Findings: Possible partial tear at the proximal aspect of the ACL. No definite complete tear evident. Posterior cruciate ligament intact. Medial collateral ligament and the lateral collateral ligament complex are intact. Popliteus tendon is intact. There is complex tearing of the posterior horn and body of medial meniscus. No lateral meniscal tear evident. There is extensive high-grade chondromalacia patella. There is mild to moderate chondromalacia of the medial femoral condyle. There is high-grade chondral malacia at the inner aspect of the lateral femoral condyle and aspect of the lateral tibial plateau. There is extensive amorphous marrow edema throughout the medial tibial plateau region extending to the tibial spine, with underlying linear subchondral insufficiency fracture. There is more mild amorphous marrow edema in the medial femoral condyle with possible very early subchondral insufficiency fracture. Small tricompartmental osteophytes are present. Extensor mechanism is intact. There is small joint effusion. There is moderate to large complex Mckinnon's cyst. Impression: Subchondral insufficiency fracture at the medial tibial plateau with extensive surrounding amorphous marrow edema. Mild amorphous marrow edema in the medial femoral condyle with questionable very early developing subchondral insufficiency fracture. Extensive complex tearing of the posterior horn and body of medial meniscus. Questionable partial tear of the proximal ACL. Underlying degenerative changes/chondromalacia of the knee, as above. Moderate to large complex Mckinnon's cyst with small joint effusion. Reviewed, dictated and finalized at [facility]. Knee X-Ray 02/12/25 Knee MRI 02/23/25 Orthopedics Result Report 02/12/25 Assessment and Plan Assessment and plan (1) Acute medial meniscus tear of left knee: Code(s): S83.242A - Other tear of medial meniscus, current injury, left knee, initial enc ounter Status: Acute Assessment and Plan: Patient has meniscal tear left knee. She has failed conservative treatment like to consider arthroscopic intervention. Did have a crack in the tibial plateau which is healing at this time. We will proceed with arthroscopy partial meniscectomy proceed as indicated. I discussed risks, benefits, limitations, and alternatives with the patient in detail. She understands and agrees.
[2025-03-23] VITALS (8 sets, daily range): BP systolic 106–167; BP diastolic 70–92; PULSE 61–77; RESP 12–18; TEMP 36–36.6; O2SAT 100
--- OUTSIDE RECORDS SUMMARY | 2025-03-23 01:50 | XMS_ITS | Encounter Summary ---
Author Organization [facility] Address [facility] [place] [address] Care Team Providers Care Manager Telecom Name Role Phone Thomas Horowitz DO Primary Care Provider + Encounter Details Date Type Department Care Team (Late st Contact Info) Description 11/12/2024 MyChart Message Enc [facility] Medical Group Family & Internal Medicine [facility] [address] [place] [address] Thomas Horowitz DO [facility] [place] [address] Prednisone Social History Tobacco Use [...] Sex Assigned at Female 11/11/2024 10:08 AM NEUROLOGICAL SURGEON Legal Sex Female 8:10 PM CDT Gender Identity Female 11/11/2024 10:08 AM NEUROLOGICAL SURGEON Sexual Orientation Not on file documented as of this encounter Progress Notes * Thomas Horowitz DO - 11/13/2024 8:23 AM CST Glad she is starting to feel better. OLOGICAL SURGEON documented in this encounter Plan of Treatment Upcoming Encounters Date Type Department Care Team (Late st Contact Info) Description 04/14/2025 10:20 AM CDT Office Visit [facility] Medical Group Family & Internal Medicine [facility] [address] [place] [address] Thomas Horowitz DO [facility] [place] [address] documented as of this encounter Visit Diagnoses Not on filedocumented in this encounter Additional Health Concerns Assessment Noted Time PHQ-9 Depression Total Score: 15 024 11:51 AM CDT documented as of this encounter Care Teams Manager Telecom Relationship Specialty Start Date End Date Thomas Horowitz DO [address] [place] [address] PCP - General FAMILY PRACTICE 12/31/23 documented as of this encounter
--- OUTSIDE RECORDS SUMMARY | 2025-03-23 01:50 | XMS_ITS | Encounter Summary ---
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 Gender Identity Female 08/30/2023 12:40 PM CDT Sexual Orientation Not on file documented as of this encounter Functional Status documented as of this encounter Plan of Treatment Not on file documented as of this encounter Visit Diagnoses Not on filedocumented in this encounter Care Teams Bus Operator Relationship Specialty Start Date End Date Thomas Horowitz DO [address] [place] [address] PCP - General Family Medicine 04/24/24 Neeraj Sandoval MD [address] [facility] 7 DIV [place] [address] Medical Oncologist/Family Consultant Medical Oncology 08/01/23 documented as of this encounter
--- OUTSIDE RECORDS SUMMARY | 2025-03-23 01:50 | XMS_ITS | Data Portability ---
Author Organization [facility], [id number] Address [address] [place] [address] Assessment No assessment recorded. Plan of Treatment Reminders Order Date Submit Date Provider Last Modified By Organization Details Last Modified Time Details Appointments None recorde d. Lab wet mount panel, vaginal fluid 2024 025 erna [id number], [address], [place], [address], 5 12:14:32 bacteri al vaginos is panel, vaginal 2024 025 erna [facility] ([facility]), [address] [facility] , [facility] [address], [place], [address], 5 21:17:24 Referral None recorde d. Procedures None recorde d. Surgeries None recorde d. Imaging US, pelvis, transab dominal + transva ginal 2024 025 [facility], [address], [facility] [address], [place], [address], 5 13:22:33 Medication Orders metroni dazole 0.75 % (37.5 mg/5 gram) vaginal gel 2024 025 [id number], [address] [place], [address], 12:14:34 Patient TargetsNo targets recorded. Patient InstructionsNo instructions recorded. Reason for Referral None Reported. Results Created Date Observation Date Name Description Value Unit Range Abnormal Flag Note LastModifiedBy Organization Detail LastModifiedTime 02/14/2002/15/2025 BACTE RIAL VAGIN OSIS+ WITH LACTO PROFI LING top line result Normal normal Not Available [facility] ([facility]) [address] [place] [address] Dr Laureano, [place], [address], 02/16/2025 06:55:20 02/14/2002/15/2025 BACTE RIAL VAGIN OSIS+ [...] and clini koby findi ngs. Not Available [facility]ey hospit[facility] ([facility]) [address] [place] [address] Dr Laureano, [place], [address], 02/16/2025 06:55:20 02/14/20 25 02/15/2025 BACTE RIAL VAGIN OSIS+ WITH LACTO PROFI LING atopobium vaginae Not Detect ed normal Not Available [facility] ([facility]) [address] [place] [address] Dr Laureano, [place], [address], 02/16/2025 06:55:20 02/14/20 25 02/15/2025 BACTE RIAL VAGIN OSIS+ WITH LACTO PROFI LING gardnerella vaginalis Not Detect ed normal Not Available [facility] [address] [place] [address] Dr Laureano, [place], [address], 02/16/2025 06:55:20 02/14/20 25 02/15/2025 BACTE RIAL VAGIN OSIS+ WITH LACTO PROFI LING bvab2 Not Detect ed normal Not Available [facility] ([facility]) [address] [place] [address] Dr Laureano, [place], [address], 02/16/2025 06:55:20 02/14/20 25 02/15/2025 BACTE RIAL VAGIN OSIS+ WITH LACTO PROFI LING megasphaera 1 Not Detect ed normal Not Available [facility] ([facility]) [address] [place] [address] Dr Laureano, [place], [address], 02/16/2025 06:55:20 02/14/20 25 02/15/2025 BACTE RIAL VAGIN OSIS+ WITH LACTO PROFI LING megaspherea 2 Not Detect ed normal Not Available [facility] ([facility]) [address] [place] [address] Dr Laureano, [place], [address], 02/16/2025 06:55:20 02/14/20 25 02/15/2025 BACTE RIAL VAGIN OSIS+ WITH LACTO PROFI LING lactobacillu s crispatus Normal normal Not Available [facility] ([facility]) [address] [place] [address] Dr Laureano, [place], [address], 02/16/2025 06:55:20 02/14/20 25 02/15/2025 BACTE RIAL VAGIN OSIS+ WITH LACTO PROFI LING lactobacillu s gasseri Normal normal Not Available [facility] ([facility]) [address] [place] [address] Dr Laureano, [place], [address], 02/16/2025 06:55:20 02/14/20 25 02/15/2025 BACTE RIAL VAGIN OSIS+ WITH LACTO PROFI LING lactobacillu s iners ql Normal normal Not Available [facility] ([facility]) [address] [place] [address] Dr Laureano, [place], [address], 02/16/2025 06:55:20 02/14/20 25 02/15/2025 BACTE RIAL VAGIN OSIS+ WITH LACTO PROFI LING lactobacillu s jensenii ql Not Detect ed normal Not Available [facility] ([facility]) [address] [place] [address] Dr Laureano, [place], [address], 02/16/2025 06:55:20 02/14/20 25 02/15/2025 BACTE RIAL VAGIN OSIS+ WITH LACTO PROFI LING mobiluncus mulieris Not Detect ed normal Not Available [facility] ([facility]) [address] [place] [address] Dr Laureano, [place], [address], 02/16/2025 06:55:20 02/14/20 25 02/15/2025 BACTE RIAL VAGIN OSIS+ WITH LACTO PROFI LING mobiluncus curtisii Not Detect ed normal Not Available [facility] ([facility]) [address] [place] [address] Dr Laureano, [place], [address], 02/16/2025 06:55:20 02/14/20 25 02/15/2025 BACTE RIAL VAGIN OSIS+ WITH LACTO PROFI LING mycoplasma hominis Not Detect ed normal Not Available [facility] ([facility]) [address] [place] [address] Dr Laureano, [place], [address], 02/16/2025 06:55:20 02/14/20 25 02/15/2025 BACTE RIAL VAGIN OSIS+ WITH LACTO PROFI LING ureaplasma urealyticum Not Detect ed normal Not Available [facility] ([facility]) [address] [place] [address] Dr Laureano, [place], [address], 02/16/2025 06:55:20 02/14/20 25 02/13/2025 wet mount panel , vagin al fluid Unknown Analyte >20% Not Available [id number], [place], [address], 02/13/2025 12:10:36 02/14/20 25 02/13/2025 wet mount panel , vagin al fluid Unknown Analyte positi ve Not Available [id number], [place], [address], 02/13/2025 12:10:36 02/14/20 25 02/13/2025 wet mount panel , vagin al fluid Unknown Analyte Negati ve Not Available [id number], [place], [address], 02/13/2025 12:10:36 03/05/20 25 03/05/2025 US, pelvi s, trans abdom inal + trans vagin al No observ ation record ed. [facility] [address], [place], [address], 03/10/2025 10:11:44 Result Notes None recorded. 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 Procedures Surgical History Date Name Laterality Status Provider Name and Address Organization Details Recorded Time 11/26/19 24 Date of Last Mammogram completed [facility] 02/12/2025 11:04:11 11/26/19 24 Date of Last Colonoscopy completed [facility] 02/12/2025 11:04:21 discectomy of spine completed [facility] 02/12/2025 11:05:54 Laparoscopy completed [facility] 02/12/2025 11:06:06 hysterectomy completed [facility] 02/12/2025 11:06:23 laminotomy completed [facility] 02/12/2025 11:06:39 partial excision of rib completed [facility] 02/12/2025 11:06:46 Endometrial Biopsy completed [facility] 02/13/2025 11:29:51 Appendectomy completed [facility] 02/13/2025 11:29:51 Imaging Results Imaging Date Name Status LastModified by Organization Details LastModified Time 03/05/2025 US, pelvis, transabdominal + transvaginal completed [place] [address], [place], [address], 03/10/2025 10:11:44 Procedure Notes None recorded. Medical [...] Updated DateTime 02/13/2025 162.56 cm 26.9 kg/m2 52538 g 134 mm[Hg] 74 mm[Hg] Zev Fonseca [facility] for [facility] 11:29:32 Social History Question Answer Notes LastModified by Organizat ion Details LastModified Time Tobacco Smoking Status Former Smoker Zev Fonseca [facility] for [facility] 02/13/2025 11:29:47 What Is Your Level Of [...] SNOMED-CT Code Diagnosis ICD10 Code Diagnosis Note [id number] RIVKA GARCIA RD, MD [id number] [place] [address] 02/13/2025 11:24:15 02/13/2025 12:10:04 Bacterial vaginosis 620418568 N76.0 Atrophic vaginitis 36391 000 N95.2 Acute myel oid leukemia, disease 90642616 C92.00 Continue care with oncologist Pain in pelvis 34329568 R10.2 Health Concerns Section Related Observation LastModified by Organization Detai ls LastModified Time None Recorded Concern Status LastModified by Organization Details LastModified Time None Recorded Advance Directives Directive None Recorded Payers Encounter Date Sequence Insurance Name Policy Number Policy Hawkins Covered Member ID Hawkins Member ID Guarantor Name 02/13/2025 1 [place] Angelica Guerra [id number] Angelica Guerra 02/13/2025 2 [place] [id number] Angelica Guerra [id number] Angelica Guerra Notes Date Note Type Note [...] Thick green discharge. RIVKA CASTILLO MD [address] [facility] [address], [place], [address], [facility] 02/13/2025 12:16:50 OBGyn Episode No OBEpisode recorded.
--- OUTSIDE RECORDS SUMMARY | 2025-03-23 01:50 | XMS_ITS | Encounter Summary ---
Author Organization [facility] Address [address] 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 documented in this encounter Plan of Treatment Not on file documented as of this encounter Goals Goal Patient Goal Type Associated Problems Recent Progress Patient-Stated? Author Angeilca would like to go back to the gym and turn over in bed Pain Management No Cinda Funez RN Note: Goal Reviewed with: patient Readiness to change: Ready to change Department associated with goal: [facility] Steps to achieve goal: 1. Will start Physical therapy in two weeks 2. Medications documented as of this encounter Visit Diagnoses Not on filedocumented in this encounter Additional Health Concerns Assessment Noted Time PHQ-9 Depression Total Score: 1 04/02/20 20 9:00 AM CDT documented as of this encounter Care Teams Washer Blanket Relationship Specialty Start Date End Date Sen Pruitt MD PCP - General Internal Medicine/Pediatrics 07/23/18 05/30/23 Alli Mancuso MD [address] [place] [address] Consulting Physician Gastroenterology 04/14/20 documented as of this encounter
--- OUTSIDE RECORDS SUMMARY | 2025-03-23 01:50 | XMS_ITS | Encounter Summary ---
Author Organization [facility] Address [address] 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 Will start Physical therapy in two weeks 2. Medications documented as of this encounter Visit Diagnoses Not on filedocumented in this encounter Additional Health Concerns Assessment Noted Time PHQ-9 Depression Total Score: 1 04/02/20 20 9:00 AM CDT documented as of this encounter Care Teams Vice President Diversity Relationship Specialty Start Date End Date Rose Pruitt MD PCP - General Internal Medicine/Pediatrics 07/23/18 05/30/23 Alli Mancuso MD [address] [place] [address] Consulting Physician Gastroenterology 04/14/20 documented as of this encounter
--- OUTSIDE RECORDS SUMMARY | 2025-03-23 01:50 | XMS_ITS | Encounter Summary ---
Author Organization [facility] Address [address] 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
--- OUTSIDE RECORDS SUMMARY | 2025-03-23 01:50 | XMS_ITS ---
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 Voss at [facility]
--- OUTSIDE RECORDS SUMMARY | 2025-03-23 01:50 | XMS_ITS | Continuity of Care Document ---
Author Organization [facility] Address [address] [place] [address] Phone Care Team Providers Care Lead Web Application Developer Name Role Phone Fabian Dalton PT Unavailable [...] Diagnoses Date Provider Providers Copied on Encounter [facility] [address] [place] [address], [id number], tel:[phone] [place] No Information 5 Krystle Peralta. . Referring Provider: Thomas Horowitz, [address] [place] [address], [address]. tel:[phone] [place] [address], [id number], tel:[phone] [place] No Information 5 Liam Devi. [address] [place] [address], [address], [place], [facility], . tel: [phone] Referring Provider: Thomas Horowitz, [address] [place] [address], [address]. tel:[phone] [place] [address], [id number], tel:[phone] [place] No Information 5 Benigno Reyes . Referring Provider: Thomas Horowitz, [address] [place] [address], [address]. tel:[phone] [place] [address], [id number], [place] tel:[phone] [place] No Information 5 Krystle Greenwood . Referring Provider: Thomas Horowitz, [address] [place] [address], [address]. tel:[phone], [id number], tel:[phone] [place] No Information 5 Krystle Fabian. . Referring Provider: Thomas Horowitz, [address] [place] [address], [address]. tel:[phone] [place] [address], [id number], tel:[phone] [place] No Information 5 Krystle Fabian. . Referring Provider: Thomas Horowitz, [address] [place] [address], [address]. tel:[phone] [place] [address], [id number], [place] tel:[phone] [place] No Information 5 Krystle Fabian. . Referring Provider: Thomas Horowitz, [address] [place] [address], [address]. tel:[phone] [place] [address], [id number], [place] tel:[phone] [place] No Information 5 Krystle Fabian. . Referring Provider: Thomas Horowitz, [address] [place] [address], [address]. tel:[phone] [place] [address], [id number], [place] tel:[phone] [place] No Information 5 Krystle Fabian. . Referring Provider: Thomas Horowitz, [address] [place] [address], [address]. tel:[phone] [place] [address], [id number], [place] tel:[phone] [place] No Information 5 Liam Butler [address] [facility], [address], [place], [facility], . tel: [phone] Referring Provider: Thomas Horowitz [address] [place] [address], [address]. tel:[phone] [place] [address], [id number], tel:[phone] [place] No Information 5 Krystle Avilaon. . Referring Provider: Thomas Horowitz, [address] [place] [address], [address]. tel:[phone] [place] [address], [id number], tel:[phone] [place] No Information 5 Krystle Avilaon. . Referring Provider: Thomas Horowitz, [address] [place] [address], [address]. tel:[phone] [place] [address], [id number], tel:[phone] [place] No Information 5 Krystle Avilaon. . Referring Provider: Thomas Horowitz, [address] [place] [address], [address]. tel:[phone] [place] [address], [id number], tel:[phone] [facility] No Information 4 Maulik Moe. [address] [facility], [address], [place], [address], [place]. [phone] Referring Provider: Rui Graham, [facility] [address], [place], [address]. tel:[phone] Family History Family Member Type Diagnosis Age At Onset No Information Payers Payer name Insurance type Covered green party ID Authoriza tion(s) Medicare [place] [id number] Medicaid OON Write Off CI 00 Social [...]
--- OUTSIDE RECORDS SUMMARY | 2025-03-23 01:50 | XMS_ITS | Encounter Summary ---
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 Legal Sex Female 8:10 PM CDT Gender Identity Female 11/11/2024 10:08 AM PROFESSIONAL HEALTHCARE REPRESENTATIVE Sexual Orientation Not on file documented as of this encounter Plan of Treatment Upcoming Encounters Date Type Department Care Team (Late Contact Info) Description 04/14/2025 10:20 AM CDT Office Visit [facility] Family & Internal Medicine - [address] [address] Thomas Horowitz DO [address] [place] [address] documented as of this encounter Visit Diagnoses Not on filedocumented in this encounter Additional Health Concerns Assessment Noted Time PHQ-9 Depression Total Score: 15 024 11:51 AM CDT documented as of this encounter Care Teams Material Requirements Worker Relationship Specialty Start Date End Date Thomas Horowitz DO [address] [place] [address] PCP - General FAMILY PRACTICE 12/31/23 documented as of this encounter
--- OUTSIDE RECORDS SUMMARY | 2025-03-23 01:50 | XMS_ITS | Clinical Summary ---
Author Organization [facility] Address [address] [place] [address] Care Team Providers Care Material Hauler Name Role Phone Jarad Lagos DO Primary [...] mpression fracture of L4 vertebra, initial encounter ([facility]) Take 3 capsules (900 mg total) by [...] Diagnosed Date History of colon polyps 02/18/2024 Mtbke-xvcmsc-auwq disease ([facility]) 08/26 Immunocompromised ([facility]) 01/19/2023 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) 12/26/2022 AML (acute myeloid leukemia) in remission ([facility]) 08/29/2022 Anxiety 04/07/2022 Overview (12/31/2023): [...] of axillary vein of left upper extremity ([facility]) 10/02/2022 03/11/2024 Left upper extremity [...] GERD (gastroesophageal reflux disease) 04/07/2022 12/31/2023 Seizures ([facility]) 04/07/2022 0 12/31/2023 Overview (12/31/2023): Hx of [...] Encounters Date Type Department Care Team Description 03/20/2025 Telephone [facility] Family & Internal Medicine [address] [phone] Jarad Lagos, DO Referral 03/17/2025 Results Follow-Up [facility] Family & Internal Medicine [address] [phone] Luchtefeld, Jarad P, DO MRI LUMB SPINE WO CON 03/13/2025 11:37 AM CDT - 03/13/2025 11:59 PM CDT Hospital Encounter [facility] [address] [facility] [place] [address] Jarad Lagos, DO Discharge Disposition: Home or Self Care (Routine Discharge) 03/13/2025 Travel 03/05/2025 Scan [facility] Scanned, [facility] Ultrasound (SCAN) 03/04/2025 Telephone [facility] Internal [address] [phone] Jarad Lagos, DO Error 02/26/2025 Scan [facility] Scanned, [facility] 02/24/2025 9:00 AM CDT Office Visit [address] [phone] Jarad Lagos, DO Back Pain (The patient [...] Group 01/23/2025 Telephone [facility] Internal [address] [phone] Jarad Lagos, DO Referral 01/08/2025 Scan [facility] Scanned, [facility] 01/01/2025 MyChart Message Enc [facility] Internal [address] [phone] Jarad Lagos, DO Jakafi from Last 3 Months Immunizations Immunization Administration Dates Next Due PFIZER COVID-19 (ORIGINAL [...] Sex Assigned at Female 11/11/2024 10: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 Legal Sex Female 8:10 PM CDT Gender Identity Female 11/11/2024 10: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 Sexual Orientation Not on file Last Filed [...] Description 04/14/2025 10:20 AM CDT Office Visit [facility] Family & Internal Medicine - [address] [phone] Jarad Lagos, [address] [place] [phone] Health Maintenance Due Date Last Done Comments Annual Physical 1963 Pneumococcal Vaccine: 50+ Years (1 of 2 - PCV) 1981 COVID-19 Vaccine (3 - Pfizer risk [...] Colorectal Cancer Screening Colonoscopy (10 Years) 04/30/2029 04/30/2024, 04/30/2024 Hepatitis C Completed 08/26/2024 PHQ-2 (Physician [place]) Completed 02/24/2025 Meningococcal B Vaccine Aged Out No l onger eligible based on patient's age to complete this topic Meningococcal Vaccine Aged Out No michael mynor eligible based on patient's age to complete this topic RSV Immunizations Under 20 Months Aged Out No longer eligible based on patient's age to complete this topic Procedures Procedure Name Priority Date/Time Associated Diagnosis Comments MRI LUMB SPINE WO CON [place] 03/13/2025 12:30 PM CDT Lumbar radiculopathy Compression fracture of L4 vertebra, initial encounter ([facility]) ULTRASOUND GENERIC (SCAN ORDER) 03/05/2025 XR LUMB SPINE 3V Routine 02/24/2025 9:55 AM CDT Lumbar radiculopathy MRI GENERIC 02/22/2025 HEPATITIS C ANTIBODY Routine 08/26/2024 8:55 AM CDT Annual physical exam Screening for lipid disorders Need for hepatitis C screening test MAMMOGRAM GENERIC (SCAN ORDER) 06/18/2024 COLONOSCOPY Routine 04/30/2024 6:37 AM CDT from Last 3 Months or Most Recently Relevant to Health Maintenance Results * MRI LUMB SPINE WO CON (03/13/2025 12:30 PM CDT) Anatomical Region Laterality Modality Spine Magnetic Resonan ce 03/13/2025 12:4 5 PM CDT Impressions 03/13/2025 12:56 PM CDT IMPRESSION: 1. Severe central canal stenosis at L3/L4 due to disc bulging, facet arthropathy and thickening of the ligamentum flavum. Mild central canal stenosis at T11/T12 and L1/L2. 2. Mild chronic compression fractures of L1 and L4. No acute osseous abnormality. 3. Nonspecific heterogeneous decreased T1 signal noted diffusely throughout the bone marrow may reflect red marrow hyperplasia. Osseous metastasis or a lymphoproliferative disorder cannot be excluded. 4. Severe bilateral foraminal stenosis at L1/L2, L3/L4 and L4/L5. 5. Cholelithiasis. Referred By: JARAD LAGOS Interpreted By: Dash Escudero MD, 03/13/2025 12:45 PM Narrative 03/13/2025 12:[address] PM [address]T [address] [id number] EXAMINATION:MRI of the lumbar spine without contrast 03/13/2025 INDICATION:Progressive lower back pain, right-sided radiculopathy, possible compression fracture TECHNIQUE: Multiplanar multisequence MR imaging of the lumbar spine was performed without intravenous contrast. COMPARISON: Lumbar radiographs , lumbar radiographs 11/11/2024 FINDINGS:Last fully formed disc space is presumed represent L5/S1. Heterogeneous and decreased T1 signal is noted diffusely throughout the bone marrow. There is a chronic compression fracture of L1 with depression of the inferior endplate and 20% loss of height. There is a chronic compression fracture of L4 with depression of the superior endplate and 10% loss of height. No acute fracture or dislocation. Minimal Modic type I degenerative changes are noted L1/L2. No ligamentous discontinuity or signal abnormality. There is a 0.9 cm rounded lesion within the dorsal left aspect of the T12 vertebral body demonstrating increased in T2 and STIR signal with intermediate to mildly increased T1 signal, compatible with a hemangioma. The conus terminates at the T12/L1 level and is unremarkable in contour and signal. No paraspinal mass or fluid collection visualized aorta is unremarkable in contour. There are is a filling defect within the dependent gallbladder lumen. T11/T12: Disc space narrowing disc bulging and facet arthropathy causing mild central canal stenosis and mild bilateral neural foraminal stenosis. Thecal sac measures 8 mm T12/L1: Negative L1/L2: Disc space narrowing with a posterior disc/osteophyte complex, facet arthropathy and bilateral foraminal disc/osteophyte complexes causing mild central canal stenosis and severe bilateral foraminal stenosis. Thecal sac measures 8 mm L2/L3: Disc space narrowing disc bulging and facet arthropathy causing slight effacement of ventral thecal sac and mild bilateral neural foraminal stenosis L3/L4: Disc space narrowing, disc bulging, facet arthropathy and thickening of the ligamentum flavum causing severe central canal stenosis and severe bilateral foraminal stenosis. Thecal sac measures 4 mm L4/L5: Disc space narrowing, disc bulging, facet arthropathy and bilateral foraminal disc/osteophyte complexes causing severe bilateral neural foraminal stenosis L5/S1: Disc space narrowing with 4 mm of retrolisthesis, facet arthropathy and bilateral foraminal disc/osteophyte complexes causing mild left neural foraminal stenosis. Procedure Note Dash Escudero MD - 03/13/2025 [facility] [place] [address] EXAMINATION:MRI of the lumbar spine without contrast 03/13/2025 INDICATION:Progressive lower back pain, right-sided radiculopathy,possible compression fracture TECHNIQUE: Multiplanar multisequence MR imaging of the lumbar spine wasperformed without intravenous contrast. COMPARISON: Lumbar radiographs , lumbar radiographs 11/11/2024 FINDINGS:Last fully formed disc space is presumed represent L5/S1.Heterogeneous and decreased T1 signal is noted diffusely throughout thebone marrow. There is a chronic compression fracture of L1 with depression of theinferior endplate and 20% loss of height. There is a chronic compression fracture of L4 with depression of thesuperior endplate and 10% loss of height. No acute fracture ordislocation. Minimal Modic type I degenerative changes are noted L1/L2.No ligamentous discontinuity or signal abnormality. There is a 0.9 cm rounded lesion within the dorsal left aspect of the [id number] body demonstrating increased in T2 and STIR signal withintermediate to mildly increased T1 signal, compatible with ahemangioma. The conus terminates at the T12/L1 level and is unremarkable in contourand signal. No paraspinal mass or fluid collection visualized aorta isunremarkable in contour. There are is a filling defect within thedependent gallbladder lumen. T11/T12: Disc space narrowing disc bulging and facet arthropathy causingmild central canal stenosis and mild bilateral neural foraminal stenosis.Thecal sac measures 8 mm T12/L1: Negative L1/L2: Disc space narrowing with a posterior disc/osteophyte complex,facet arthropathy and bilateral foraminal disc/osteophyte complexescausing mild central canal stenosis and severe bilateral foraminalstenosis. Thecal sac measures 8 mm L2/L3: Disc space narrowing disc bulging and facet arthropathy causingslight effacement of ventral thecal sac and mild bilateral neuralforaminal stenosis L3/L4: Disc space narrowing, disc bulging, facet arthropathy andthickening of the ligamentum flavum causing severe central canal stenosisand severe bilateral foraminal stenosis. Thecal sac measures 4 mm L4/L5: Disc space narrowing, disc bulging, facet arthropathy and bilateralforaminal disc/osteophyte complexes causing severe bilateral neuralforaminal stenosis L5/S1: Disc space narrowing with 4 mm of retrolisthesis, facet arthropathyand bilateral foraminal disc/osteophyte complexes causing mild left neuralforaminal stenosis. IMPRESSION: 1. Severe central canal stenosis at L3/L4 due to disc bulging, facetarthropathy and thickening of the ligamentum flavum. Mild central canalstenosis at T11/T12 and L1/L2. 2. Mild chronic compression fractures of L1 and L4. No acute osseousabnormality. 3. Nonspecific heterogeneous decreased T1 signal noted diffuselythroughout the bone marrow may reflect red marrow hyperplasia. Osseousmetastasis or a lymphoproliferative disorder cannot be excluded. 4. Severe bilateral foraminal stenosis at L1/L2, L3/L4 and L4/L5. 5. Cholelithiasis. Referred By: JARAD LAGOS Interpreted By: Dash Escudero MD, 03/13/2025 12:45 PM us Jarad Lagos DO MRI Final Re sult * ULTRASOUND GENERIC (SCAN ORDER) (03/05/2025) Anatomical Region Laterality Modality Other 03/05/2025 us [facility] Scanned SCANNING Final Resu lt * XR LUMB SPINE 3V (02/24/2025 9:55 AM CDT) Anatomical Region Laterality Modality Spine Radiographic Valarie ging 02/24/2025 3:20 PM CDT Impressions 02/24/2025 3:21 PM CDT IMPRESSION: 1) No significant interval change compared to 11/11/2024. Ordered By: JARAD LAGOS Interpreted By: Gil Sharma MD, 02/24/2025 3:20 PM Narrative 02/24/2025 3:21 PM CDT [facility] Family [place] [address] Examination: XR LUMB SPINE 3V Exam time: [...] Procedure Note Gil Sharma MD - 02/24/2025 [facility] Family and Internal Medicine - [address] [address] Examination: XR LUMB SPINE 3V Exam time: [...] (02/22/2025) Anatomical Region Laterality Modality Other 02/22/2025 [facility] Scanned SCANNING Final Resu lt * HEPATITIS C ANTIBODY (08/26/2024 8:55 AM CDT) HEPATITIS C AB NON-REACTI VE NON-REACT MARLEE 08/26/2024 9:50 PM CDT [facility] Comment: ANTIBODIES TO HCV NOT DETECTED. DOES NOT EXCLUDE THE POSSIBILITY OF EXPOSURE TO HCV. 08/26/2024 8:55 AM CDT Jarad Lagos DO LABORATORY Final Re sult [facility] [address] [place] [address], [id number] * MAMMOGRAM GENERIC (SCAN ORDER) (06/18/2024) Anatomical Region Laterality Modality Other 06/18/2024 [facility] Scanned SCANNING Final Resu lt from Last 3 Months or Most Recently Relevant to Health Maintenance Insurance MEDICARE MEDICAID Care Teams Material Hauler Relationship Specialty Start Date End Date Jarad Lagos DO [address] [place] [id number] PCP - General FAMILY PRACTICE 12/31/23
--- OUTSIDE RECORDS SUMMARY | 2025-03-23 01:50 | XMS_ITS | Referral Summary ---
Author Organization [facility] Address [facility] [place] [address] Care Team Providers Care Delinquent Tax Collector Name Role Phone Neeraj Sandoval MD Unavailable Thomas Horowitz DO Primary Care Provide r Encounters Date Type Department Care Team Description 03/13/2025 Orders Only [facility] ONCOLOGY Scanning, Provider 03/05/2025 Orders Only [address] [address] Rupa Segovia RN 02/11/2025 Orders Only [facility] Bone Marrow Transplant [address] [place] [phone] Neeraj Sandoval MD 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) 01/30/2025 Orders Only [facility] Bone Marrow Transplant [address] [place] [phone] Neeraj Sandoval MD 01/26/2025 Orders Only [facility] Infusion [address] [address] Jana Schaffer, RN 01/25/2025 Orders Only [facility] Oncology [address] [place] [phone] Neeraj Sandoval MD 01/16/2025 Orders Only [facility] Infusion [address] [address] Jana Schaffer, RN 01/15/2025 Orders Only [facility] Bone Marrow Transplant [facility] Floor 6 [place] [address] Neeraj Sandoval MD 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); History of allogeneic bone marrow transplant (HCC); 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) 01/12/2025 Results Follow-Up [address] Medical Office Building [address] [place] [address] Parris Sanders MD 01/12/2025 2:30 PM DRILL PRESS SET UP OPERATOR RADIAL Office Visit [facility] Dermatology [facility] Floor 6 [place] [address] Len Parsons MD Multiple benign nevi (Primary Dx); History of allogeneic bone marrow transplant (HCC); 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); 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); Seborrheic keratosis; Solar purpura 01/09/[address] Medical Office [address] [place] [address] Parris Sanders MD 01/09/2025 1:58 PM DRILL PRESS SET UP OPERATOR RADIAL - 01/09/2025 11:59 PM DRILL PRESS SET UP OPERATOR RADIAL Hospital [facility] Radiology at [facility] [address] [place] [id number] Osteopenia of left hip; 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); Postmenopausal Discharge Disposition: Discharge to home or self care 01/09/2025 1:55 PM DRILL PRESS SET UP OPERATOR RADIAL Lab [facility] [address] [place] [address] [address] [place] [address] Osteopenia of left hip; 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); Postmenopausal; History of allogeneic bone marrow transplant (HCC) 01/09/2025 12:10 PM DRILL PRESS SET UP OPERATOR RADIAL Clinical Support [address] [facility] [address] [place] [address] Osteopenia of left hip 01/09/2025 12:40 PM DRILL PRESS SET UP OPERATOR RADIAL Office Visit [address] [place] [address] Parris Sanders MD Osteopenia of left hip (Primary Dx); 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); Postmenopausal 01/08/2025 Telephone [facility] Medical Office Building 2 [address] [place] [address] Parris Sanders MD 12/31/2024 12:45 PM DRILL PRESS SET UP OPERATOR RADIAL - 12/31/2024 11:59 PM DRILL PRESS SET UP OPERATOR RADIAL Hospital Encounter [facility] - Diagnostic Imaging [address] [facility] Floor 8 [place] [address] History of allogeneic bone marrow transplant (HCC); 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) Discharge Disposition: Discharge to home or self care 12/31/2024 11:00 AM DRILL PRESS SET UP OPERATOR RADIAL Lab [facility] - Lab Collection [address] [facility] Floor 6 [place] [address] 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) 12/31/2024 11:40 AM DRILL PRESS SET UP OPERATOR RADIAL Office Visit [facility] Bone Marrow Transplant [address] [place] [address] 6 [place] [address] Neeraj Sandoval MD History of allogeneic bone marrow transplant (HCC) (Primary Dx); 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); 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 Voss at [place] Immunizations Immunization Administration Dates Next Due Pfizer [...] on file Legal Sex Female 6:18 PM DRILL PRESS SET UP OPERATOR RADIAL Gender Identity Female 08/30/2023 12:40 PM CDT Sexual Orientation Not on file Last Filed Vital Signs Vital Sign Reading Time Taken Comments Blood Pressure 129/85 12/31/2024 11:17 AM DRILL PRESS SET UP OPERATOR RADIAL Pulse 69 12/31/2024 11:17 AM DRILL PRESS SET UP OPERATOR RADIAL Temperature 36.3 C (97.3 F) 12/31/2024 11:17 AM DRILL PRESS SET UP OPERATOR RADIAL Respiratory Rate 17 12/31/2024 11:17 AM DRILL PRESS SET UP OPERATOR RADIAL Oxygen Saturation 99% 12/31/2024 11:17 AM DRILL PRESS SET UP OPERATOR RADIAL Inhaled Oxygen Concentration - - Weight 70.1 kg (154 lb 9.6 oz) 01/09/2025 12:20 PM DRILL PRESS SET UP OPERATOR RADIAL Height 162.5 cm (5' 3.98 ) 01/09/2025 12:[address] Body Mass Index 26.56 01/09/2025 12:20 PM DRILL PRESS SET UP OPERATOR RADIAL Plan of Treatment Not on file Procedures [...] Read Routine (OP Routine) 01/09/2025 2:12 PM DRILL PRESS SET UP OPERATOR RADIAL Osteopenia of left hip 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) Postmenopausal XR SPINE LUMBAR 2 OR 3 VIEWS Schedule Routine, Read Routine (OP Routine) 01/09/2025 2:12 PM DRILL PRESS SET UP OPERATOR RADIAL Osteopenia of left hip 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) Postmenopausal EGFR Routine 01/09/2025 2:00 PM DRILL PRESS SET UP OPERATOR RADIAL Osteopenia of left hip 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) Postmenopausal DIFFERENTIAL AUTO Routine 01/09/2025 2:0 0 PM DRILL PRESS SET UP OPERATOR RADIAL 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) CBC WITH AUTO DIFFERENTIAL Routine 01/09/2025 2:00 PM DRILL PRESS SET UP OPERATOR RADIAL 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) LACTATE DEHYDROGENASE Routine 01/09/2025 2:00 PM DRILL PRESS SET UP OPERATOR RADIAL 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) PHOSPHORUS Routine 01/09/2025 2:00 PM DRILL PRESS SET UP OPERATOR RADIAL Osteopenia of left hip 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) Postmenopausal PTH Routine 01/09/2025 2:00 PM DRILL PRESS SET UP OPERATOR RADIAL Osteopenia of left hip 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) Postmenopausal VITAMIN D 25 HYDROXY Routine 01/09/2025 2:00 PM DRILL PRESS SET UP OPERATOR RADIAL Osteopenia of left hip 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) Postmenopausal COMPREHENSIVE METABOLIC PANEL Routine 01/09/2025 2:00 PM DRILL PRESS SET UP OPERATOR RADIAL Osteopenia of left hip 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) Postmenopausal DEXA TBS AXIAL SKELETON BONE DENSITY 1 OR MORE SITES Schedule Routine, Read Routine (OP Routine) 01/09/2025 11:49 AM DRILL PRESS SET UP OPERATOR RADIAL Osteopenia of left hip XR HIP RIGHT 2 OR 3 VIEWS Schedule Routine, Read Routine (OP Routine) 12/31/2024 1:08 PM DRILL PRESS SET UP OPERATOR RADIAL 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) EGFR Routine 12/31/2024 10:51 AM DRILL PRESS SET UP OPERATOR RADIAL 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) DIFFERENTIAL AUTO Routine 12/31/2024 10: 51 AM DRILL PRESS SET UP OPERATOR RADIAL 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) CBC WITH AUTO DIFFERENTIAL Routine 12/31/2024 10:51 AM DRILL PRESS SET UP OPERATOR RADIAL 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) COMPREHENSIVE METABOLIC PANEL Routine 12/31/2024 10:51 AM DRILL PRESS SET UP OPERATOR RADIAL 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) LACTATE DEHYDROGENASE Routine 12/31/2024 10:51 AM DRILL PRESS SET UP OPERATOR RADIAL 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) [...] D, (D2,D3), LC/MS/MS is recommended: order code [id number] (patients >2yrs). See Note 1 Note 1 For additional information, please refer to http://education.[employer]/faq/JXM273 (This link is being provided for informational/ educational purposes only.) Blood 02/11/2025 12:2 3 PM CDT 02/11/2025 12:24 PM CDT Neeraj Sandoval MD LAB BLOOD ORDERABLES Final Resul t Performing Organization Address City/[facility]/ZIP Co de Phone Number [facility] [address] [facility] [address] * Uric acid (02/11/2025 12:23 PM CDT) Uric acid 4.0 2.5 - 7.0 mg/dL [facility] Comment: Therapeutic target for gout patients: <6.0 mg/dL Blood 02/11/2025 12:2 3 PM CDT 02/11/2025 12:24 PM CDT Neeraj Sandoval MD LAB BLOOD ORDERABLES Final Resul t Performing Organization Address City/[facility]/ZIP Co de Phone Number [facility] [address] [facility] [place] [address] * (ABNORMAL) Cytomegalovirus (CMV) DNA PCR, quantitative Blood (02/11/2025 12:21 PM CDT) CMV DNA qn <34.5(A) Not Detected IU/mL [facility] Comment: Detected CMV DNA was detected below 34.5 IU/mL. Viral load in this range cannot be accurately quantified by t CMV DNA log IU/mL <1.54(A) Not Detected Log IU/mL [facility] Comment: Detected (Note) For additional information, please refer to http://education.P[employer]/faq/CMVandEBVPCR (This link is being provided for informational/educational purposes only.) [facility] [address] [facility] [address] [facility] [id number] Fermin Jasso MD, PhD Blood 02/11/2025 12:2 1 PM CDT 02/11/2025 12:22 PM CDT Narrative [facility] - 02/14/2025 3:53 PM CDT FASTING:NO FASTING: NO us Neeraj Sandoval MD LAB MICROBIOLOGY - GENERAL ORDER BEATA Final Result [facility] [address] [address], [address] [place] [address] * CBC with auto differential (02/11/2025 12:21 PM CDT) Pathologist [facility] WBC 6.5 3.8 - 10.8 Thousand/u L [...] ORDERABLES Final Resul t Performing Organization Address City/[facility]/ZIP Co de Phone Number [facility] [address] [place] [address] * T3, free (02/11/2025 12:21 PM CDT) Pathologist [facility] Free T3 2.8 2.3 - 4.2 pg/mL [facility] Blood 02/11/2025 12:2 1 PM CDT 02/11/2025 12:22 PM CDT Narrative [facility] - 02/14/2025 3:53 PM CDT FASTING:NO FASTING: NO Neeraj Sandoval MD LAB BLOOD ORDERABLES Final Resul t Performing Organization Address City/[facility] Co de Phone Number [facility] [address] [place] [address] * TSH (02/11/2025 12:21 PM CDT) Pathologist [facility] TSH 1.48 0.40 - 4.50 mIU/L [facility] Blood 02/11/2025 12:2 1 PM CDT 02/11/2025 12:22 PM CDT Narrative [facility] - 02/14/2025 3:53 PM CDT FASTING:NO FASTING: NO us Neeraj Sandoval MD LAB BLOOD ORDERABLES Final Resul t Performing Organization Address [facility] Co de Phone Number [facility] [address] [place] [address] * T4, free (02/11/2025 12:21 PM CDT) Free T4 1.1 0.8 - 1.8 ng/dL [facility] Blood 02/11/2025 12:2 1 PM CDT 02/11/2025 12:22 PM CDT Narrative [facility] - 02/14/2025 3:53 PM CDT FASTING:NO FASTING: NO us Neeraj Sandoval MD LAB BLOOD ORDERABLES Final Resul t Performing Organization Address [facility] de Phone Number [facility] [address] [place] [address] * Lactate dehydrogenase (LD) (02/11/2025 12:21 PM CDT) Lactate dehydrogenase (LDH) 249 120 - 250 U/L [facility] Blood 02/11/2025 12:2 1 PM CDT 02/11/2025 12:22 PM CDT Narrative [facility] - 02/14/2025 3:53 PM CDT FASTING:NO FASTING: NO us Neeraj Sandoval MD LAB BLOOD ORDERABLES Final Resul t Performing Organization Address [facility] Co de Phone Number [facility] [address] [facility] [place] [address] * LH (02/11/2025 12:21 PM CDT) LH 56.4 mIU/mL [facility] Comment: Reference Range Follicular Phase 1.9-12.5 Mid-Cycle Peak 8.7-76.3 Luteal Phase 0.5-16.9 Postmenopausal 10.0-54.7 Blood 02/11/2025 12:2 1 PM CDT 02/11/2025 12:22 PM CDT Narrative [facility] - 02/14/2025 3:53 PM CDT FASTING:NO FASTING: NO us Neeraj Sandoval MD LAB BLOOD ORDERABLES Final Resul t Performing Organization Address [facility] de Phone Number [facility] [address] [place] [address] * Follicle stimulating hormone (02/11/2025 12:21 PM CDT) FSH 92.8 mIU/mL [facility] Comment: Reference Range Follicular Phase 2.5-10.2 Mid-cycle Peak 3.1-17.7 Luteal Phase 1.5- 9.1 Postmenopausal 23.0-116.3 Blood 02/11/2025 12:2 1 PM CDT 02/11/2025 12:22 PM CDT Narrative [facility] - 02/14/2025 3:53 PM CDT FASTING:NO FASTING: NO us Neeraj Sandoval MD LAB BLOOD ORDERABLES Final Resul t Performing Organization Address [facility] de Phone Number [facility] [employer] | mentor | [facility] [address] [place] [address] * (ABNORMAL) Comprehensive metabolic panel (02/11/2025 12:21 [...] BLOOD ORDERABLES Final Resul t [facility] [address] [facility] [place] [address] * XR Spine Lumbar 2 or 3 Views (01/09/2025 2:12 PM DRILL PRESS SET UP OPERATOR RADIAL) Anatomical Region Laterality Modality Spine N/A Computed Radiogr aphy 01/09/2025 3:23 PM DRILL PRESS SET UP OPERATOR RADIAL Impressions 01/09/2025 3:32 PM DRILL PRESS SET UP OPERATOR RADIAL 1. Compression deformities of L2 and L4 superior endplates with less than 25% height loss and no osseous retropulsion. 2. Possible L1 inferior endplate deformity with less than 25% height loss and no osseous retropulsion. 3. No compression deformity in the thoracic spine. Dictated by: Pablito Braynt MD The radiology attending physician has personally reviewed this study, and had reviewed and/or edited this written report and agrees with it. Electronically signed by: Tee Gonzalez M.D. Narrative 01/09/2025 3:32 PM DRILL PRESS SET UP OPERATOR RADIAL EXAMINATION: XR SPINE THORACIC 2 VIEWS, XR [...] Spine Thoracic 2 Views (01/09/2025 2:12 PM DRILL PRESS SET UP OPERATOR RADIAL) Anatomical Region Laterality Modality Spine N/A Computed Radiogr aphy 01/09/2025 3:23 PM DRILL PRESS SET UP OPERATOR RADIAL Impressions 01/09/2025 3:32 PM DRILL PRESS SET UP OPERATOR RADIAL 1. Compression deformities of L2 and L4 superior endplates with less than 25% height loss and no osseous retropulsion. 2. Possible L1 inferior endplate deformity with less than 25% height loss and no osseous retropulsion. 3. No compression deformity in the thoracic spine. Dictated by: Pbalito Bryant MD The radiology attending physician has personally reviewed this study, and had reviewed and/or edited this written report and agrees with it. Electronically signed by: Tee Gonzalez M.D. Narrative 01/09/2025 3:32 PM DRILL PRESS SET UP OPERATOR RADIAL EXAMINATION: XR SPINE THORACIC 2 VIEWS, XR [...] Re sult * eGFR (01/09/2025 2:00 PM DRILL PRESS SET UP OPERATOR RADIAL) eGFR 64 >=60 mL/min/1. 73 m2 Comment: [...] last reviewed 2021. Blood 01/09/2025 2:00 PM DRILL PRESS SET UP OPERATOR RADIAL 01/09/2025 4:34 PM DRILL PRESS SET UP OPERATOR RADIAL us Parris Sanders MD LAB BLOOD ORDERABLES Final Result [facility] [place] [address] * Differential, auto (01/09/2025 2:00 PM DRILL PRESS SET UP OPERATOR RADIAL) Neutrophil abs 1.8 1.5 - 6.5 K/cumm Imm gran abs 0.0 0.0 - 0.1 K/cumm [facility] Lymphocyte abs 1.5 0.8 - 3.3 K/cumm [facility] Monocyte abs 0.4 0.2 - 0.8 K/cumm [facility] Eosinophil abs 0.1 0.0 - 0.5 K/cumm [facility] Basophil abs 0.0 0.0 - 0.1 K/cumm [facility] Neutrophil pct 46.5 % [facility] Comment: Interpretive Data Percent cell count reference ranges are not reported, since discordance with absolute values may lead to misinterpretation of CBC data. Current Interpretive Data was last revised on 2018. Imm gran pct 0.5 % [facility] Comment: Interpretive Data Percent cell count reference ranges are not reported, since discordance with absolute values may lead to misinterpretation of CBC data. Current Interpretive Data was last revised on 2018. Lymphocyte pct 38.8 % [facility] Comment: Interpretive Data Percent cell count reference ranges are not reported, since discordance with absolute values may lead to misinterpretation of CBC data. Current Interpretive Data was last revised on 2018. Monocyte pct 10.2 % [facility] Comment: Interpretive Data Percent cell count reference ranges are not reported, since discordance with absolute values may lead to misinterpretation of CBC data. Current Interpretive Data was last revised on 2018. Eosinophil pct 3.0 % [facility] Comment: Interpretive Data Percent cell count reference ranges are not reported, since discordance with absolute values may lead to misinterpretation of CBC data. Current Interpretive Data was last revised on 2018. Basophil pct 1.0 % [facility] Comment: Interpretive Data Percent cell count reference ranges are not reported, since discordance with absolute values may lead to misinterpretation of CBC data. Current Interpretive Data was last revised on 2018. Blood 01/09/2025 2:00 PM DRILL PRESS SET UP OPERATOR RADIAL 01/09/2025 4:16 PM DRILL PRESS SET UP OPERATOR RADIAL Neeraj Sandoval MD LAB BLOOD ORDERABLES Final Resul t Performing Organization Address [facility] Co de Phone Number [facility] [place] [address] * (ABNORMAL) CBC with auto differential (01/09/2025 2:00 PM DRILL PRESS SET UP OPERATOR RADIAL) Pathologist [facility] WBC 3.9 3.8 - 9.9 K/cumm Hgb 13.4 11.9 - 15.5 g/dL [facility] Hct 41.4 35.6 - 45.5 % [facility] Plt 192 150 - 400 K/cumm [facility] MPV 9.4 9.1 - 12.3 fL [facility] RBC 4.26 3.90 - 5.20 M/cumm [facility] MCV 97.2(H) 81.3 - 96.4 fL [facility] MCH 31.5 27.1 - 33.3 pg [facility] MCHC 32.4 32.3 - 35.7 g/dL [facility] RDW CV 14.6 11.1 - 14.9 % [facility] RDW SD 52.0(H) 35.7 - 48.1 fL [facility] NRBC abs 0.00 0.00 - 0.01 K/cumm [facility] Blood 01/09/2025 2:00 PM DRILL PRESS SET UP OPERATOR RADIAL 01/09/2025 4:16 PM DRILL PRESS SET UP OPERATOR RADIAL Neeraj Sandoval MD LAB BLOOD ORDERABLES Final Resul t Performing Organization Address [facility]/ZIP Co de Phone Number [facility] [address] * Vitamin D 25 hydroxy (01/09/2025 2:00 PM DRILL PRESS SET UP OPERATOR RADIAL) Pathologist [facility] Vitamin D 25-OH 74 30 - 80 ng/mL Blood 01/09/2025 2:00 PM DRILL PRESS SET UP OPERATOR RADIAL 01/09/2025 4:16 PM DRILL PRESS SET UP OPERATOR RADIAL us Parris Sanders MD LAB BLOOD ORDERABLES Final Result Performing Organization Address [facility] Co de Phone Number [facility] [place] [address] * Phosphorus (01/09/2025 2:00 PM DRILL PRESS SET UP OPERATOR RADIAL) Phosphorus, pl 4.1 2.3 - 4.5 mg/dL Blood 01/09/2025 2:00 PM DRILL PRESS SET UP OPERATOR RADIAL 01/09/2025 4:16 PM DRILL PRESS SET UP OPERATOR RADIAL us Parris Sanders MD LAB BLOOD ORDERABLES Final Result Performing Organization Address [facility] de Phone Number [facility] [place] [address] * (ABNORMAL) PTH (01/09/2025 2:00 PM DRILL PRESS SET UP OPERATOR RADIAL) Pathologist [facility] PTH 70(H) 15 - 65 pg/mL Blood 01/09/2025 2:00 PM DRILL PRESS SET UP OPERATOR RADIAL 01/09/2025 4:16 PM DRILL PRESS SET UP OPERATOR RADIAL Parris Sanders MD LAB BLOOD ORDERABLES Final Result Performing Organization Address [facility] [place] [address] * (ABNORMAL) Lactate dehydrogenase (LD) (01/09/2025 2:00 PM DRILL PRESS SET UP OPERATOR RADIAL) Lactate dehydrogenase (LDH) 283(H) 100 - 250 Units/L Blood 01/09/2025 2:00 PM DRILL PRESS SET UP OPERATOR RADIAL 01/09/2025 4:16 PM DRILL PRESS SET UP OPERATOR RADIAL Neeraj Sandoval MD LAB BLOOD ORDERABLES Final Resul t [facility] [place] [address] * Comprehensive metabolic panel (01/09/2025 2:00 PM DRILL PRESS SET UP OPERATOR RADIAL) Sodium 145 135 - 145 mmol/L Potassium, pl 4.8 3.3 - 4.9 mmol/L [facility] Chloride 105 97 - 110 mmol/L [facility] CO2 31 22 - 32 mmol/L [facility] Anion gap 9 2 - 15 mmol/L [facility] BUN 8 6 - 25 mg/dL [facility] Creatinine 0.99 0.60 - 1.10 mg/dL [facility] Glucose 79 70 - 199 mg/dL [facility] Comment: Interpretive Data Fasting glucose [...] 2022. Calcium 9.5 8.5 - 10.3 mg/dL [facility] Bilirubin, total 0.4 0.1 - 1.2 mg/dL [facility] Protein, pl 7.2 6.5 - 8.5 g/dL [facility] Albumin 4.3 3.5 - 5.0 g/dL [facility] Alk phos 100 40 - 130 Units/L [facility] ALT 33 7 - 45 Units/L [facility] AST 24 10 - 45 Units/L [facility] Blood 01/09/2025 2:00 PM DRILL PRESS SET UP OPERATOR RADIAL 01/09/2025 4:16 PM DRILL PRESS SET UP OPERATOR RADIAL Parris Sanders MD LAB BLOOD ORDERABLES Final Result [facility] [place] [address] * Dexa TBS Axial Skeleton Bone Density 1 or more sites (01/09/2025 11:49 AM DRILL PRESS SET UP OPERATOR RADIAL) Anatomical Region Laterality Modality Wrist, Body N/A Radiographic Valarie ging Narrative 01/12/2025 9:24 PM DRILL PRESS SET UP OPERATOR RADIAL Patient Name: Angelica Guerra Date of : 1960 Date of scan: 01/09/2025 Bone mineral density was performed on a [employer] Discovery Densitometer. Based on machine cross-calibration and [...] by the International Society of Clinical Densitometry. [id number] us Parris Sanders MD [facility] DXA PROCEDURES Final R esult * XR Hip Right 2 or 3 Views (12/31/2024 1:08 PM DRILL PRESS SET UP OPERATOR RADIAL) Anatomical Region Laterality Modality Lower Extremities, Hip, Pelvis Right D igital Radiography 12/31/2024 2:02 PM DRILL PRESS SET UP OPERATOR RADIAL Impressions 12/31/2024 2:29 PM DRILL PRESS SET UP OPERATOR RADIAL 1. 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 Dictated by: Elijah Tolentino M.D. The radiology attending physician has personally reviewed this study, and had reviewed and/or edited this written report and agrees with it. Electronically signed by: Tee Gonzalez M.D. Narrative 12/31/2024 2:29 PM DRILL PRESS SET UP OPERATOR RADIAL EXAMINATION: XR HIP RIGHT 2 OR 3 [...] Final Result * eGFR (12/31/2024 10:51 AM DRILL PRESS SET UP OPERATOR RADIAL) eGFR 79 >=60 mL/min/1. 73 m2 Comment: [...] reviewed 2021. Blood 12/31/2024 10:5 1 AM DRILL PRESS SET UP OPERATOR RADIAL 12/31/2024 11:02 AM DRILL PRESS SET UP OPERATOR RADIAL us Neeraj Sandoval MD LAB BLOOD ORDERABLES Final Resul t [facility] [place] [address] * Differential, auto (12/31/2024 10:51 AM DRILL PRESS SET UP OPERATOR RADIAL) Neutrophil abs 2.2 1.5 - 6.5 K/cumm Comment:Testing performed by : [facility], [address] [place], [place] [phone] Lymphocyte abs 1.4 0.8 - 3.3 K/cumm CERNER BJ Comment:Testing performed by : [facility], [address] [place] [phone] Monocyte abs 0.5 0.2 - 0.8 K/cumm CERNER BJ Comment:Testing performed by : [facility], [address] [place] [address] Eosinophil abs 0.2 0.0 - 0.5 K/cumm CERNER BJ Comment:Testing performed by : [facility], [address] [place] [phone] Basophil abs 0.0 0.0 - 0.1 K/cumm CERNER BJ Comment:Testing performed by : [facility], [address] [place], [place] [phone] Neutrophil pct 52.0 % CERNER [facility] Comment: Interpretive Data Percent cell count reference ranges are not reported, since discordance with absolute values may lead to misinterpretation of CBC data. Current Interpretive Data was last revised on 2018. Testing performed by: [facility], [address] [place] [phone] Lymphocyte pct 32.5 % LION CRUZ Comment: Interpretive Data Percent cell count reference ranges are not reported, since discordance with absolute values may lead to misinterpretation of CBC data. Current Interpretive Data was last revised on 2018. Testing performed by: [facility], [address] [place] [phone] Monocyte pct 10.7 % LION CRUZ Comment: Interpretive Data Percent cell count reference ranges are not reported, since discordance with absolute values may lead to misinterpretation of CBC data. Current Interpretive Data was last revised on 2018. Testing performed by: [facility], [address] [place] [phone] Eosinophil pct 4.1 % LION CRUZ Comment: Interpretive Data Percent cell count reference ranges are not reported, since discordance with absolute values may lead to misinterpretation of CBC data. Current Interpretive Data was last revised on 2018. Testing performed by: [facility], [address] [place] [phone] Basophil pct 0.7 % LION CRUZ Comment: Interpretive Data Percent cell count reference ranges are not reported, since discordance with absolute values may lead to misinterpretation of CBC data. Current Interpretive Data was last revised on 2018. Testing performed by: [facility], [address] [place] [phone] Blood 12/31/2024 10:5 1 AM DRILL PRESS SET UP OPERATOR RADIAL 12/31/2024 11:00 AM DRILL PRESS SET UP OPERATOR RADIAL us Neeraj Sandoval MD LAB BLOOD ORDERABLES Final Resul t LION ALEJANDRA [facility] [place] [address] * CBC with auto differential (12/31/2024 10:51 AM DRILL PRESS SET UP OPERATOR RADIAL) WBC 4.3 3.8 - 9.9 K/cumm Comment:Testing performed by : [facility], [address] [place] [address] Hgb 12.6 11.9 - 15.5 g/dL CERNER BJ Comment:Testing performed by : [facility], [address] [place], [place] [phone] Hct 37.9 35.6 - 45.5 % CERNER BJ Comment:Testing performed by : [facility], [address] [place], [place] [phone] Plt 201 150 - 400 K/cumm CERNER BJ Comment:Testing performed by : [facility], [address] [place], [place] [phone] MPV 7.9 6.8 - 10.4 fL CERNER BJ Comment:Testing performed by : [facility], [address] [place], [place] [phone] RBC 3.95 3.90 - 5.20 M/cumm CERNER BJ Comment:Testing performed by : [facility], [address] [place], [place] [phone] MCV 96.0 81.3 - 96.4 fL CERNER BJ Comment:Testing performed by : [facility], [address] [place], [place] [phone] MCH 31.9 27.1 - 33.3 pg CERNER BJ Comment:Testing performed by : [facility], [address] [place] [address] MCHC 33.2 32.3 - 35.7 g/dL CERNER BJ Comment:Testing performed by : [facility], [address] [place] [address] RDW CV 14.8 11.1 - 14.9 % CERNER BJ Comment:Testing performed by : [facility], [address] [place] [address] NRBC abs 0.00 0.00 - 0.01 K/cumm CERNER BJ Comment:Testing performed by : [facility], [address] [place] [address] Blood 12/31/2024 10:5 1 AM DRILL PRESS SET UP OPERATOR RADIAL 12/31/2024 11:00 AM DRILL PRESS SET UP OPERATOR RADIAL Neeraj Sandoval MD LAB BLOOD ORDERABLES Final Resul t Performing Organization Address City/[facility] Co de Phone Number [facility] [place] [address] * Lactate dehydrogenase (LD) (12/31/2024 10:51 AM DRILL PRESS SET UP OPERATOR RADIAL) Lactate dehydrogenase (LDH) 239 100 - 250 Units/L Blood 12/31/2024 10:5 1 AM DRILL PRESS SET UP OPERATOR RADIAL 12/31/2024 11:02 AM DRILL PRESS SET UP OPERATOR RADIAL Neeraj Sandoval MD LAB BLOOD ORDERABLES Final Resul t Performing Organization Address [facility] de Phone Number [facility] [place] [address] * (ABNORMAL) Comprehensive metabolic panel (12/31/2024 10:51 AM DRILL PRESS SET UP OPERATOR RADIAL) Sodium 141 135 - 145 mmol/L Potassium, pl 5.1(H) 3.3 - 4.9 mmol/L [facility] Chloride 105 97 - 110 mmol/L [facility] CO2 32 22 - 32 mmol/L [facility] Anion gap 4 2 - 15 mmol/L [facility] BUN 10 6 - 25 mg/dL [facility] Creatinine 0.84 0.60 - 1.10 mg/dL [facility] Glucose 83 70 - 199 mg/dL [facility] Comment: Interpretive Data Fasting glucose [...] CERNER BJ Blood 12/31/2024 10:5 1 AM DRILL PRESS SET UP OPERATOR RADIAL 12/31/2024 11:02 AM DRILL PRESS SET UP OPERATOR RADIAL us Neeraj Sandoval MD LAB BLOOD ORDERABLES Final Resul t [facility] [place] [address] from Last 3 Months Insurance [facility] MEDICARE [facility] Address: [address] [address] [facility] MEDICARE [facility] Address: [address] [address] [employer] Advance Directives For more information, please contact: [phone] * Full Code (Latest Code Status on File) Date Activated Date Inactivated Comments 04/09/2024 9:57 AM 04/10/2024 5:28 AM Care Teams Delinquent Tax Collector Relationship Specialty Start Date End Date Thomas Horowitz DO [address] [place] [address] [phone] PCP - General Family Medicine 04/24/24 Neeraj Sandoval MD [address] [facility] [address] [place] [address] Medical Oncologist/Quality Intern Medical Oncology 08/01/23"
--- OUTSIDE RECORDS SUMMARY | 2025-03-23 01:50 | XMS_ITS | Encounter Summary ---
Author Organization [facility] Address [facility] [place] [address] Care Team Providers Care Rn Physician Office Name Role Phone Thomas Horowitz DO Primary Care Provider + Reason for Visit * Reason Onset Date Comments Refill Request 11/03/2024 Encounter Details Date Type Department Care Team (Late st Contact Info) Description 11/03/2024 MyChart Message Enc [facility] Family & Internal Medicine [facility] [address] [place] [address] Thomas Horowitz DO [facility] [place] [address] [place] Social History Tobacco Use [...] Sex Assigned at Female 11/11/2024 10:08 AM AIRCRAFT ENGINE INSTALLER Legal Sex Female 8:10 PM CDT Gender Identity Female 11/11/2024 10:08 AM AIRCRAFT ENGINE INSTALLER Sexual Orientation Not on file documented as of this encounter Plan of Treatment Upcoming Encounters Date Type Department Care Team (Late st Contact Info) Description 04/14/2025 10:20 AM CDT Office Visit [facility] Family & Internal Medicine - [place] [phone] [place] [address] Thomas Horowitz DO [address] [place] [phone] documented as of this encounter Visit Diagnoses Not on filedocumented in this encounter Additional Health Concerns Assessment Noted Time PHQ-9 Depression Total Score: 15 024 11:51 AM CDT documented as of this encounter Care Teams Rn Physician Office Relationship Specialty Start Date End Date Thomas Horowitz DO [address] [place] [id number] PCP - General FAMILY PRACTICE 12/31/23 documented as of this encounter
--- OUTSIDE RECORDS SUMMARY | 2025-03-23 01:50 | XMS_ITS | Encounter Summary ---
Author Organization [facility] Address [address] [facility] 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 Will start Physical therapy in two weeks 2. Medications documented as of this encounter Visit Diagnoses Not on filedocumented in this encounter Additional Health Concerns Assessment Noted Time PHQ-9 Depression Total Score: 1 04/02/20 20 9:00 AM CDT documented as of this encounter Care Teams Maintenance Supervisor Electrical Relationship Specialty Start Date End Date Sen Pruitt MD PCP - General Internal Medicine/Pediatrics 07/23/18 05/30/23 Alli Mancuso MD [address] [place] [address] Consulting Physician Gastroenterology 04/14/20 documented as of this encounter
--- OUTSIDE RECORDS SUMMARY | 2025-03-23 01:50 | XMS_ITS | Encounter Summary ---
Author Organization [facility] Address [facility] [place] [address] Care Team Providers Care Inspector Machine Parts Name Role Phone Thomas Horowitz DO Primary Care Provider + Encounter Details Date Type Department Care Team (Late Contact Info) Description 01/01/2025 MyChart Message Enc [facility] Family & Internal [place] [address] [place] [address] Thomas Horowitz DO [address] [place] [id number] [place] Social History Tobacco Use Types [...] Sex Assigned at Female 11/11/2024 10:08 AM HEALTH INFORMATION CLERK Legal Sex Female 8:10 PM CDT Gender Identity Female 11/11/2024 10:08 AM HEALTH INFORMATION CLERK Sexual Orientation Not on file documented as of this encounter Plan of Treatment Upcoming Encounters Date Type Department Care Team (Late Contact Info) Description 04/14/2025 10:20 AM CDT Office Visit [facility] Family & Internal Medicine - [address] [phone] Thomas Horowitz DO [address] [place] [phone] documented as of this encounter Visit Diagnoses Not on filedocumented in this encounter Additional Health Concerns Assessment Noted Time PHQ-9 Depression Total Score: 15 024 11:51 AM CDT documented as of this encounter Care Teams Inspector Machine Parts Relationship Specialty Start Date End Date Thomas Horowitz DO [address] [place] [id number] PCP - General FAMILY PRACTICE 12/31/23 documented as of this encounter
--- OUTSIDE RECORDS SUMMARY | 2025-03-23 01:50 | XMS_ITS | Clinical Summary ---
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 Voss at [facility] Date Type Department Care Team Description 03/13/2025 Orders Only [facility] ONCOLOGY Scanning, Provider 03/05/2025 Orders Only [address] [address] Rupa Segovia RN 02/11/2025 Orders Only [facility] Bone Marrow Transplant [address] [place] [phone] Neeraj Sandoval MD 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) 01/30/2025 Orders Only [facility] Bone Marrow Transplant [address] [place] [phone] Neeraj Sandoval MD 01/26/2025 Orders Only [facility] Infusion [address] [address] Jana Schaffer RN 01/25/2025 Orders Only [facility] Oncology [address] [place] [phone] Neeraj Sandoval MD 01/16/2025 Orders Only [facility] Infusion Center [address] [place] [address] Jana Schaffer, LISY 01/15/2025 Orders Only [facility] Bone Marrow Transplant [address] [place] [phone] Neeraj Sandoval MD 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); History of allogeneic bone marrow transplant (HCC); 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) 01/12/2025 2:30 PM GEOSPATIAL ENGINEER Office Visit [facility] Dermatology [address] [facility] Floor 6 [place] [address] Len Parsons MD Multiple benign nevi (Primary Dx); History of allogeneic bone marrow transplant (HCC); 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); 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); Seborrheic keratosis; Solar purpura 01/12/2025 Results Follow-Up [address] Medical [address] [place] [address] Parris Sanders MD 01/09/2025 1:58 PM GEOSPATIAL ENGINEER - 01/09/2025 11:59 PM GEOSPATIAL ENGINEER [facility] Radiology at [facility] [address] [place] [phone] Osteopenia of left hip; 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); Postmenopausal Discharge Disposition: Discharge to home or self care 01/09/2025 1:55 PM GEOSPATIAL ENGINEER [facility] [address] [place] [address] [address] [place] [address] Osteopenia of left hip; 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); Postmenopausal; History of allogeneic bone marrow transplant (HCC) 01/09/2025 12:40 PM GEOSPATIAL ENGINEER Office Visit [facility] [address] [facility] [address] [place] [address] Parris Sanders MD Osteopenia of left hip (Primary Dx); AML (acute myeloid leukemia) in remission (HCC); Postmenopausal 01/09/2025 12:10 PM GEOSPATIAL ENGINEER Clinical Support [facility] [address] [facility] [address] [place] [address] Osteopenia of left hip 01/09/[address] Medical Office [address] [place] [address] Parris Sanders MD 01/08/[address] [place] [address] Parris Sanders MD 12/31/2024 12:45 PM GEOSPATIAL ENGINEER - 12/31/2024 11:59 PM GEOSPATIAL ENGINEER Hospital Encounter [facility] [place] - Diagnostic Imaging [address] [facility] [address] [place] [address] History of allogeneic bone marrow transplant (HCC); AML (acute myeloid leukemia) in remission (HCC) Discharge Disposition: Discharge to home or self care 12/31/2024 11:40 AM GEOSPATIAL ENGINEER Office Visit [facility] Bone Marrow Transplant [address] [place] [address] [address] [place] [phone] Neeraj Sandoval MD History of allogeneic bone marrow transplant (HCC) (Primary Dx); AML (acute myeloid leukemia) in remission (HCC); 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) 12/31/2024 11:00 AM GEOSPATIAL ENGINEER Lab [facility] - Lab Collection [address] [place] [address] 6 [place] [address] AML (acute myeloid leukemia) in remission (HCC) 12/31/2024 10:30 AM GEOSPATIAL ENGINEER Lab [facility] Oncology Lab [address] [place] [phone] AML (acute myeloid leukemia) in remission (HCC) [...] on file Legal Sex Female 6:18 PM GEOSPATIAL ENGINEER Gender Identity Female 08/30/2023 12:40 PM CDT Sexual Orientation Not on file Obstetrics History Last Filed Vital Signs Vital Sign Reading Time Taken Comments Blood Pressure 129/85 12/31/2024 11:17 AM GEOSPATIAL ENGINEER Pulse 69 12/31/2024 11:17 AM GEOSPATIAL ENGINEER Temperature 36.3 C (97.3 F) 12/31/2024 11:17 AM GEOSPATIAL ENGINEER Respiratory Rate 17 12/31/2024 11:17 AM GEOSPATIAL ENGINEER Oxygen Saturation 99% 12/31/2024 11:17 AM GEOSPATIAL ENGINEER Inhaled Oxygen Concentration - - Weight 70.1 kg (154 lb 9.6 oz) 01/09/2025 12:20 PM GEOSPATIAL ENGINEER Height 162.5 cm (5' 3.98 ) 01/09/2025 12:[address] Body Mass Index 26.56 01/09/2025 12:20 PM GEOSPATIAL ENGINEER Plan of Treatment Health Maintenance Due Date [...] Read Routine (OP Routine) 01/09/2025 2:12 PM GEOSPATIAL ENGINEER Osteopenia of left hip AML (acute myeloid leukemia) in remission (HCC) Postmenopausal XR SPINE LUMBAR 2 OR 3 VIEWS Schedule Routine, Read Routine (OP Routine) 01/09/2025 2:12 PM GEOSPATIAL ENGINEER Osteopenia of left hip AML (acute myeloid leukemia) in remission (HCC) Postmenopausal EGFR Routine 01/09/2025 2:00 PM GEOSPATIAL ENGINEER Osteopenia of left hip AML (acute myeloid leukemia) in remission (HCC) Postmenopausal DIFFERENTIAL AUTO Routine 01/09/2025 2:0 0 PM GEOSPATIAL ENGINEER 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) CBC WITH AUTO DIFFERENTIAL Routine 01/09/2025 2:00 PM GEOSPATIAL ENGINEER 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) LACTATE DEHYDROGENASE Routine 01/09/2025 2:00 PM GEOSPATIAL ENGINEER 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) PHOSPHORUS Routine 01/09/2025 2:00 PM GEOSPATIAL ENGINEER Osteopenia of left hip AML (acute myeloid leukemia) in remission (HCC) Postmenopausal PTH Routine 01/09/2025 2:00 PM GEOSPATIAL ENGINEER Osteopenia of left hip AML (acute myeloid leukemia) in remission (HCC) Postmenopausal VITAMIN D 25 HYDROXY Routine 01/09/2025 2:00 PM GEOSPATIAL ENGINEER Osteopenia of left hip AML (acute myeloid leukemia) in remission (HCC) Postmenopausal COMPREHENSIVE METABOLIC PANEL Routine 01/09/2025 2:00 PM GEOSPATIAL ENGINEER Osteopenia of left hip AML (acute myeloid leukemia) in remission (HCC) Postmenopausal DEXA TBS AXIAL SKELETON BONE DENSITY 1 OR MORE SITES Schedule Routine, Read Routine (OP Routine) 01/09/2025 11:49 AM GEOSPATIAL ENGINEER Osteopenia of left hip XR HIP RIGHT 2 OR 3 VIEWS Schedule Routine, Read Routine (OP Routine) 12/31/2024 1:08 PM GEOSPATIAL ENGINEER 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) EGFR Routine 12/31/2024 10:51 AM GEOSPATIAL ENGINEER AML (acute myeloid leukemia) in remission (HCC) DIFFERENTIAL AUTO Routine 12/31/2024 10: 51 AM GEOSPATIAL ENGINEER AML (acute myeloid leukemia) in remission (HCC) CBC WITH AUTO DIFFERENTIAL Routine 12/31/2024 10:51 AM GEOSPATIAL ENGINEER AML (acute myeloid leukemia) in remission (HCC) COMPREHENSIVE METABOLIC PANEL Routine 12/31/2024 10:51 AM GEOSPATIAL ENGINEER AML (acute myeloid leukemia) in remission (HCC) LACTATE DEHYDROGENASE Routine 12/31/2024 10:51 AM GEOSPATIAL ENGINEER AML (acute myeloid leukemia) in remission (HCC) [...] D, (D2,D3), LC/MS/MS is recommended: order code 18339 (patients >2yrs). See Note 1 Note 1 For additional information, please refer to http://education.The Daily Voice/faq/SWG034 (This link is being provided for informational/ educational purposes only.) Blood 02/11/2025 12:2 3 PM CDT 02/11/2025 12:24 PM CDT Neeraj Sandoval MD LAB BLOOD ORDERABLES Final Resul t Performing Organization Address City/[facility]/ZIP Co de Phone Number [facility] [address] [place] [address] * Uric acid (02/11/2025 12:23 PM CDT) Pathologist [facility] Uric acid 4.0 2.5 - 7.0 mg/dL [facility] Comment: Therapeutic target for gout patients: <6.0 mg/dL Blood 02/11/2025 12:2 3 PM CDT 02/11/2025 12:24 PM CDT Neeraj Sandoval MD LAB BLOOD ORDERABLES Final Resul t Performing Organization Address City/[facility]/ZIP Co de Phone Number [facility] [address] [place] [address] * (ABNORMAL) Cytomegalovirus (CMV) DNA PCR, quantitative Blood (02/11/2025 12:21 PM CDT) CMV DNA qn <34.5(A) Not Detected IU/mL [facility] Comment: Detected CMV DNA was detected below 34.5 IU/mL. Viral load in this range cannot be accurately quantified by t CMV DNA log IU/mL <1.54(A) Not Detected Log IU/mL [facility] Comment: Detected (Note) For additional information, please refer to http://education.Telecardia.DXY/faq/CMVandEBVPCR (This link is being provided for informational/educational purposes only.) [facility] [address] [address],[address] [place] [address] Fermin Jasso MD, PhD Blood 02/11/2025 12:2 1 PM CDT 02/11/2025 12:22 PM CDT Narrative [facility] - 02/14/2025 3:53 PM CDT FASTING:NO FASTING: NO us Neeraj Sandoval MD LAB MICROBIOLOGY - GENERAL ORDER BEATA Final Result [facility] [address] [address], [address] [place] [address] * CBC with auto differential (02/11/2025 12:21 [...] Performing Organization Address [facility] de Phone Number [facility] [address] [place] [address] * T3, free (02/11/2025 12:21 PM CDT) Free T3 2.8 2.3 - 4.2 pg/mL [facility] Blood 02/11/2025 12:2 1 PM CDT 02/11/2025 12:22 PM CDT Narrative [facility] - 02/14/2025 3:53 PM CDT FASTING:NO FASTING: NO Neeraj Sandoval MD LAB BLOOD ORDERABLES Final Resul t Performing Organization Address City/[facility] Co de Phone Number [facility] [address] [place] [address] * TSH (02/11/2025 12:21 PM CDT) TSH 1.48 0.40 - 4.50 mIU/L [facility] Blood 02/11/2025 12:2 1 PM CDT 02/11/2025 12:22 PM CDT Narrative [facility] - 02/14/2025 3:53 PM CDT FASTING:NO FASTING: NO Neeraj Sandoval MD LAB BLOOD ORDERABLES Final Resul t Performing Organization Address [facility]/ZIP Co de Phone Number [facility] [address] [place] [address] * T4, free (02/11/2025 12:21 PM CDT) Pathologist [facility] Free T4 1.1 0.8 - 1.8 ng/dL [facility] Blood 02/11/2025 12:2 1 PM CDT 02/11/2025 12:22 PM CDT Narrative [facility] - 02/14/2025 3:53 PM CDT FASTING:NO FASTING: NO Neeraj Sandoval MD LAB BLOOD ORDERABLES Final Resul t Performing Organization Address [facility] Co de Phone Number [facility] [address] [place] [address] * Lactate dehydrogenase (LD) (02/11/2025 12:21 PM CDT) Lactate dehydrogenase (LDH) 249 120 - 250 U/L [facility] Blood 02/11/2025 12:2 1 PM CDT 02/11/2025 12:22 PM CDT Narrative [facility] - 02/14/2025 3:53 PM CDT FASTING:NO FASTING: NO us Neeraj Sandoval MD LAB BLOOD ORDERABLES Final Resul t Performing Organization Address [facility] Co de Phone Number [facility] [address] [facility] [place] [address] * LH (02/11/2025 12:21 PM CDT) LH 56.4 mIU/mL [facility] Comment: Reference Range Follicular Phase 1.9-12.5 Mid-Cycle Peak 8.7-76.3 Luteal Phase 0.5-16.9 Postmenopausal 10.0-54.7 Blood 02/11/2025 12:2 1 PM CDT 02/11/2025 12:22 PM CDT Narrative [facility] - 02/14/2025 3:53 PM CDT FASTING:NO FASTING: NO Neeraj Sandoval MD LAB BLOOD ORDERABLES Final Resul t Performing Organization Address [facility] de Phone Number [facility] [address] [place] [address] * Follicle stimulating hormone (02/11/2025 12:21 PM CDT) [facility] FSH 92.8 mIU/mL [facility] Comment: Reference Range Follicular Phase 2.5-10.2 Mid-cycle Peak 3.1-17.7 Luteal Phase 1.5- 9.1 Postmenopausal 23.0-116.3 Blood 02/11/2025 12:2 1 PM CDT 02/11/2025 12:22 PM CDT Narrative [facility] - 02/14/2025 3:53 PM CDT FASTING:NO FASTING: NO Neeraj Sandoval MD LAB BLOOD ORDERABLES Final Resul t Performing Organization Address [facility] de Phone Number [facility] [address] [place] [address] * (ABNORMAL) Comprehensive metabolic panel (02/11/2025 12:21 PM CDT) [facility] Glucose 94 65 - 139 mg/dL [...] BLOOD ORDERABLES Final Resul t [facility] [address] [place] [address] * XR Spine Lumbar 2 or 3 Views (01/09/2025 2:12 PM GEOSPATIAL ENGINEER) Anatomical Region Laterality Modality Spine N/A Computed Radiogr aphy 01/09/2025 3:23 PM GEOSPATIAL ENGINEER Impressions 01/09/2025 3:32 PM GEOSPATIAL ENGINEER 1. Compression deformities of L2 and L4 [...] Tee Gonzalez M.D. Narrative 01/09/2025 3:32 PM GEOSPATIAL ENGINEER EXAMINATION: XR SPINE THORACIC 2 VIEWS, XR [...] Spine Thoracic 2 Views (01/09/2025 2:12 PM GEOSPATIAL ENGINEER) Anatomical Region Laterality Modality Spine N/A Computed Radiogr aphy 01/09/2025 3:23 PM GEOSPATIAL ENGINEER Impressions 01/09/2025 3:32 PM GEOSPATIAL ENGINEER 1. Compression deformities of L2 and L4 [...] Tee Gonzalez M.D. Narrative 01/09/2025 3:32 PM GEOSPATIAL ENGINEER EXAMINATION: XR SPINE THORACIC 2 VIEWS, XR [...] Re sult * eGFR (01/09/2025 2:00 PM GEOSPATIAL ENGINEER) eGFR 64 >=60 mL/min/1. 73 m2 Comment: [...] last reviewed 2021. Blood 01/09/2025 2:00 PM GEOSPATIAL ENGINEER 01/09/2025 4:34 PM GEOSPATIAL ENGINEER Parris Sanders MD LAB BLOOD ORDERABLES Final Result [facility] Department [place] [address] * Differential, auto (01/09/2025 2:00 PM GEOSPATIAL ENGINEER) Neutrophil abs 1.8 1.5 - 6.5 K/cumm Imm gran abs 0.0 0.0 - 0.1 K/cumm [facility] Lymphocyte abs 1.5 0.8 - 3.3 K/cumm [facility] Monocyte abs 0.4 0.2 - 0.8 K/cumm [facility] Eosinophil abs 0.1 0.0 - 0.5 K/cumm [facility] Basophil abs 0.0 0.0 - 0.1 K/cumm [facility] Neutrophil pct 46.5 % [facility] Comment: Interpretive Data Percent cell count reference ranges are not reported, since discordance with absolute values may lead to misinterpretation of CBC data. Current Interpretive Data was last revised on 2018. Imm gran pct 0.5 % [facility] Comment: Interpretive Data Percent cell count reference ranges are not reported, since discordance with absolute values may lead to misinterpretation of CBC data. Current Interpretive Data was last revised on 2018. Lymphocyte pct 38.8 % [facility] Comment: Interpretive Data Percent cell count reference ranges are not reported, since discordance with absolute values may lead to misinterpretation of CBC data. Current Interpretive Data was last revised on 2018. Monocyte pct 10.2 % [facility] Comment: Interpretive Data Percent cell count reference ranges are not reported, since discordance with absolute values may lead to misinterpretation of CBC data. Current Interpretive Data was last revised on 2018. Eosinophil pct 3.0 % [facility] Comment: Interpretive Data Percent cell count reference ranges are not reported, since discordance with absolute values may lead to misinterpretation of CBC data. Current Interpretive Data was last revised on 2018. Basophil pct 1.0 % [facility] Comment: Interpretive Data Percent cell count reference ranges are not reported, since discordance with absolute values may lead to misinterpretation of CBC data. Current Interpretive Data was last revised on 2018. Blood 01/09/2025 2:00 PM GEOSPATIAL ENGINEER 01/09/2025 4:16 PM GEOSPATIAL ENGINEER Neeraj Sandoval MD LAB BLOOD ORDERABLES Final Resul t Performing Organization Address City/[facility]/ZIP Co de Phone Number [facility] [place] [address] * (ABNORMAL) CBC with auto differential (01/09/2025 2:00 PM GEOSPATIAL ENGINEER) [facility] WBC 3.9 3.8 - 9.9 K/cumm Hgb 13.4 11.9 - 15.5 g/dL [facility] Hct 41.4 35.6 - 45.5 % [facility] Plt 192 150 - 400 K/cumm [facility] MPV 9.4 9.1 - 12.3 fL [facility] RBC 4.26 3.90 - 5.20 M/cumm [facility] MCV 97.2(H) 81.3 - 96.4 fL [facility] MCH 31.5 27.1 - 33.3 pg [facility] MCHC 32.4 32.3 - 35.7 g/dL [facility] RDW CV 14.6 11.1 - 14.9 % [facility] RDW SD 52.0(H) 35.7 - 48.1 fL [facility] NRBC abs 0.00 0.00 - 0.01 K/cumm [facility] Blood 01/09/2025 2:00 PM GEOSPATIAL ENGINEER 01/09/2025 4:16 PM GEOSPATIAL ENGINEER us Neeraj Sandoval MD LAB BLOOD ORDERABLES Final Resul t Performing Organization Address City/[facility]/ZIP Co de Phone Number [facility] [place] [address] * Vitamin D 25 hydroxy (01/09/2025 2:00 PM GEOSPATIAL ENGINEER) [facility] Vitamin D 25-OH 74 30 - 80 ng/mL Blood 01/09/2025 2:00 PM GEOSPATIAL ENGINEER 01/09/2025 4:16 PM GEOSPATIAL ENGINEER us Parris Sanders MD LAB BLOOD ORDERABLES Final Result Performing Organization Address [facility] Phone Number [facility] [place] [address] * Phosphorus (01/09/2025 2:00 PM GEOSPATIAL ENGINEER) [facility] Phosphorus, pl 4.1 2.3 - 4.5 mg/dL Blood 01/09/2025 2:00 PM GEOSPATIAL ENGINEER 01/09/2025 4:16 PM GEOSPATIAL ENGINEER us Parris Sanders MD LAB BLOOD ORDERABLES Final Result Performing Organization Address [facility] Phone Number [facility] Department [place] [address] * (ABNORMAL) PTH (01/09/2025 2:00 PM GEOSPATIAL ENGINEER) [facility] PTH 70(H) 15 - 65 pg/mL Blood 01/09/2025 2:00 PM GEOSPATIAL ENGINEER 01/09/2025 4:16 PM GEOSPATIAL ENGINEER Result [facility] Parris Sanders MD LAB BLOOD ORDERABLES Final Result Performing Organization Address [facility] Phone Number [facility] [place] [address] * (ABNORMAL) Lactate dehydrogenase (LD) (01/09/2025 2:00 PM GEOSPATIAL ENGINEER) [facility] Lactate dehydrogenase (LDH) 283(H) 100 - 250 Units/L Blood 01/09/2025 2:00 PM GEOSPATIAL ENGINEER 01/09/2025 4:16 PM GEOSPATIAL ENGINEER Result [facility] Neeraj Sandoval MD LAB BLOOD ORDERABLES Final Resul t [facility] Department [place] [address] * Comprehensive metabolic panel (01/09/2025 2:00 PM GEOSPATIAL ENGINEER) Sodium 145 135 - 145 mmol/L Potassium, pl 4.8 3.3 - 4.9 mmol/L [facility] Chloride 105 97 - 110 mmol/L [facility] CO2 31 22 - 32 mmol/L [facility] Anion gap 9 2 - 15 mmol/L [facility] BUN 8 6 - 25 mg/dL [facility] Creatinine 0.99 0.60 - 1.10 mg/dL [facility] Glucose 79 70 - 199 mg/dL [facility] Comment: Interpretive Data Fasting glucose >/= 126 [...] Calcium 9.5 8.5 - 10.3 mg/dL [facility] Bilirubin, total 0.4 0.1 - 1.2 mg/dL [facility] Protein, pl 7.2 6.5 - 8.5 g/dL [facility] Albumin 4.3 3.5 - 5.0 g/dL [facility] Alk phos 100 40 - 130 Units/L [facility] ALT 33 7 - 45 Units/L [facility] AST 24 10 - 45 Units/L [facility] Blood 01/09/2025 2:00 PM GEOSPATIAL ENGINEER 01/09/2025 4:16 PM GEOSPATIAL ENGINEER Parris Sanders MD LAB BLOOD ORDERABLES Final Result [facility] Department [place] [address] * Dexa TBS Axial Skeleton Bone Density 1 or more sites (01/09/2025 11:49 AM GEOSPATIAL ENGINEER) Anatomical Region Laterality Modality Wrist, Body N/A Radiographic Valarie ging Narrative 01/12/2025 9:24 PM GEOSPATIAL ENGINEER Patient Name: Angelica Guerra Date of : 1960 Date of scan: 01/09/2025 Bone mineral density was performed on a [employer] Discovery Densitometer. Based on machine cross-calibration and [...] by the International Society of Clinical Densitometry. [id number] Parris Sanders MD [facility] DXA PROCEDURES Final R esult * XR Hip Right 2 or 3 Views (12/31/2024 1:08 PM GEOSPATIAL ENGINEER) Anatomical Region Laterality Modality Lower Extremities, Hip, Pelvis Right D igital Radiography 12/31/2024 2:02 PM GEOSPATIAL ENGINEER Impressions 12/31/2024 2:29 PM GEOSPATIAL ENGINEER 1. 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 Dictated by: Elijah Tolentino M.D. The radiology attending physician has personally reviewed this study, and had reviewed and/or edited this written report and agrees with it. Electronically signed by: Tee Gonzalez M.D. Narrative 12/31/2024 2:29 PM GEOSPATIAL ENGINEER EXAMINATION: XR HIP RIGHT 2 OR 3 [...] Final Result * eGFR (12/31/2024 10:51 AM GEOSPATIAL ENGINEER) eGFR 79 >=60 mL/min/1. 73 m2 Comment: [...] reviewed 2021. Blood 12/31/2024 10:5 1 AM GEOSPATIAL ENGINEER 12/31/2024 11:02 AM GEOSPATIAL ENGINEER us Neeraj Sandoval MD LAB BLOOD ORDERABLES Final Resul t [facility] Department [place] [address] * Differential, auto (12/31/2024 10:51 AM GEOSPATIAL ENGINEER) Neutrophil abs 2.2 1.5 - 6.5 K/cumm Comment:Testing performed by : [facility], [address] [place] [phone] Lymphocyte abs 1.4 0.8 - 3.3 K/cumm [facility] Comment:Testing performed by : [facility], [address] [place] [phone] Monocyte abs 0.5 0.2 - 0.8 K/cumm [facility] Comment:Testing performed by : [facility], [address] [place] [phone] Eosinophil abs 0.2 0.0 - 0.5 K/cumm [facility] Comment:Testing performed by : [facility], [address] [place] [phone] Basophil abs 0.0 0.0 - 0.1 K/cumm [facility] Comment:Testing performed by : [facility], [address] [place] [phone] Neutrophil pct 52.0 % CERSTONE CRUZ Comment: Interpretive Data Percent cell count reference ranges are not reported, since discordance with absolute values may lead to misinterpretation of CBC data. Current Interpretive Data was last revised on 2018. Testing performed by: [facility], [address] [place] [id number] Lymphocyte pct 32.5 % CERNER BJ Comment: Interpretive Data Percent cell count reference ranges are not reported, since discordance with absolute values may lead to misinterpretation of CBC data. Current Interpretive Data was last revised on 2018. Testing performed by: [facility], [address] [place] [phone] Monocyte pct 10.7 % CERSTONE BJ Comment: Interpretive Data Percent cell count reference ranges are not reported, since discordance with absolute values may lead to misinterpretation of CBC data. Current Interpretive Data was last revised on 2018. Testing performed by: [facility], [address] [place] [phone] Eosinophil pct 4.1 % CERSTONE [facility] Comment: Interpretive Data Percent cell count reference ranges are not reported, since discordance with absolute values may lead to misinterpretation of CBC data. Current Interpretive Data was last revised on 2018. Testing performed by: [facility], [address] [place] [phone] Basophil pct 0.7 % CERNER [facility] Comment: Interpretive Data Percent cell count reference ranges are not reported, since discordance with absolute values may lead to misinterpretation of CBC data. Current Interpretive Data was last revised on 2018. Testing performed by: [facility], [address] [place] [phone] Blood 12/31/2024 10:5 1 AM GEOSPATIAL ENGINEER 12/31/2024 11:00 AM GEOSPATIAL ENGINEER us Neeraj Sandoval MD LAB BLOOD ORDERABLES Final Resul t LION CRUZ [facility] Department [place] [address] * CBC with auto differential (12/31/2024 10:51 AM GEOSPATIAL ENGINEER) WBC 4.3 3.8 - 9.9 K/cumm Comment:Testing performed by : [facility], [address] [place] [address] Hgb 12.6 11.9 - 15.5 g/dL CERNER BJ Comment:Testing performed by : [facility], [address] [place] [address] Hct 37.9 35.6 - 45.5 % CERNER BJ Comment:Testing performed by : [facility], [address] [place], [place] [phone] Plt 201 150 - 400 K/cumm CERNER BJ Comment:Testing performed by : [facility], [address] [place], [place] [id number] MPV 7.9 6.8 - 10.4 fL CERNER BJ Comment:Testing performed by : [facility], [address] [place], [place] [id number] RBC 3.95 3.90 - 5.20 M/cumm CERNER BJ Comment:Testing performed by : [facility], [address] [place] [address] MCV 96.0 81.3 - 96.4 fL CERNER BJ Comment:Testing performed by : [facility], [address] [place], [place] [phone] MCH 31.9 27.1 - 33.3 pg CERNER BJ Comment:Testing performed by : [facility], [address] [place] [address] MCHC 33.2 32.3 - 35.7 g/dL CERNER BJ Comment:Testing performed by : [facility], [address] [place] [address] RDW CV 14.8 11.1 - 14.9 % CERNER BJ Comment:Testing performed by : [facility], [address] [place], [place] [phone] NRBC abs 0.00 0.00 - 0.01 K/cumm CERNER BJ Comment:Testing performed by : [facility], [address] [place] [phone] Blood 12/31/2024 10:5 1 AM GEOSPATIAL ENGINEER 12/31/2024 11:00 AM GEOSPATIAL ENGINEER Neeraj Sandoval MD LAB BLOOD ORDERABLES Final Resul t Performing Organization Address City/[facility] [place] [address] * Lactate dehydrogenase (LD) (12/31/2024 10:51 AM GEOSPATIAL ENGINEER) Lactate dehydrogenase (LDH) 239 100 - 250 Units/L Blood 12/31/2024 10:5 1 AM GEOSPATIAL ENGINEER 12/31/2024 11:02 AM GEOSPATIAL ENGINEER Neeraj Sandoval MD LAB BLOOD ORDERABLES Final Resul t Performing Organization Address [facility] Phone Number [facility] [place] [address] * (ABNORMAL) Comprehensive metabolic panel (12/31/2024 10:51 AM GEOSPATIAL ENGINEER) Sodium 141 135 - 145 mmol/L Potassium, pl 5.1(H) 3.3 - 4.9 mmol/L [facility] Chloride 105 97 - 110 mmol/L [facility] CO2 32 22 - 32 mmol/L [facility] Anion gap 4 2 - 15 mmol/L [facility] BUN 10 6 - 25 mg/dL [facility] Creatinine 0.84 0.60 - 1.10 mg/dL [facility] Glucose 83 70 - 199 mg/dL [facility] Comment: Interpretive Data Fasting glucose >/= 126 [...] CERNER BJ Blood 12/31/2024 10:5 1 AM GEOSPATIAL ENGINEER 12/31/2024 11:02 AM GEOSPATIAL ENGINEER us Neeraj Sandoval MD LAB BLOOD ORDERABLES Final Resul t [facility] Department [place] [address] from Last 3 Months Insurance [facility] MEDICARE [facility] Address: [id number] [place] [phone] FORMERLY [facility] MEDICARE IDPA Advance Directives For more information, please contact: [phone] * Full Code (Latest Code Status on File) Date Activated Date Inactivated Comments 04/09/2024 9:57 AM 04/10/2024 5:28 AM Care Teams Banking Teacher Relationship Specialty Start Date End Date Thomas Horowitz DO [address] [place] [id number] PCP - General Family Medicine 04/24/24 Neeraj Sandoval MD [address] [facility] 7 DIV [place] [address] Medical Oncologist/Sr Technical Sales Consultant Medical Oncology 08/01/23
--- OUTSIDE RECORDS SUMMARY | 2025-03-23 01:50 | XMS_ITS | Encounter Summary ---
Author Organization [facility] Healthcare Address [address] [place] [address] Care Team Providers Care Apparatus Cleaner Name Role Phone Neeraj Sandoval MD Unavailable Unknown, Notidonis Primary Care Provider Unavail able Thomas Horowitz DO Primary Care Provide r Encounter Details Date Type Department Care Team (Late st Contact Info) Description 04/03/2024 Telephone [facility] Radiology [address] [place] [address] José Luis Lyon, RN Social History Tobacco Use Types Packs/Day Years Used Date Smoking Tobacco: Former Cigarettes 0.8 15.3 S tarted: 1975 Smokeless Tobacco: Never Personal Safety Answer Date Recorded Getting School Help Needed Not on file 11/07 Comments Unknown Sex and Gender Information Value Date Recorded Sex Assigned at Not on file Legal Sex Female 6:18 PM BAND PRESSER Gender Identity Female 08/30/2023 12:40 PM CDT Sexual Orientation Not on file documented as of this encounter Plan of Treatment Not on file documented as of this encounter Visit Diagnoses Not on filedocumented in this encounter Care Teams Apparatus Cleaner Relationship Specialty Start Date End Date Unknown, Isac PCP - General 08/27/23 04/23/24 Thomas Horowitz DO [address] [place] [address] PCP - General Family Medicine 04/24/24 Neeraj Sandoval MD [address] [place] [address] [address] [place] [address] DIV [place] [address] Medical Oncologist/Lockstitch Waistline Joiner Medical Oncology 08/01/23 documented as of this encounter
--- OUTSIDE RECORDS SUMMARY | 2025-03-23 01:50 | XMS_ITS | Encounter Summary ---
Author Organization [facility] Address [facility] [place] [address] Care Team Providers Care Patient Relations Coordinator Name Role Phone Thomas Horowitz DO Primary Care Provider + Encounter Details Date Type Department Care Team (Late st Contact Info) Description 09/02/2024 [employer] Message Enc [facility] Family & Internal Medicine [facility] [address] [place] [address] Thomas Horowitz DO [address] [place] [address] Medical marijuana card Social History [...] Sex Assigned at Female 11/11/2024 10:08 AM SUPERVISOR ROCKET PROPELLANT PLANT Legal Sex Female 8:10 PM CDT Gender Identity Female 11/11/2024 10:08 AM SUPERVISOR ROCKET [employer]ANT [employer]ANT Sexual Orientation Not on file documented as [...] Description 04/14/2025 10:20 AM CDT Office Visit [facility] Family & Internal Medicine - [address] [phone] Thomas Horowitz DO [address] [place] [address] documented as of this encounter Visit Diagnoses Not on filedocumented in this encounter Additional Health Concerns Assessment Noted Time PHQ-9 Depression Total Score: 15 0416/2 024 11:51 AM CDT documented as of this encounter Care Teams Patient Relations Coordinator Relationship Specialty Start Date End Date Thomas Horowitz DO [address] [place] [address] PCP - General FAMILY PRACTICE 12/31/23 documented as of this encounter
--- OUTSIDE RECORDS SUMMARY | 2025-03-23 01:50 | XMS_ITS | Clinical Summary ---
Author Organization [facility] Address [address] [place] [address] Phone Care Team Providers Care Rooming House Operator Name Role Phone Alli Mancuso MD Unavailable [phone] Allergies No known active allergies Medications Multiple [...] 10 PO) Take by mouth daily. Active [place]-3 Fatty Acids (OMEGA 3 PO) Take by [...] on file Legal Sex Female 4:02 AM CUE SELECTOR Gender Identity Not on file Sexual Orientation Not on file Last Filed Vital Signs Vital Sign Reading Time Taken Comments Blood Pressure 112/78 10/15/2020 2:30 PM CUE SELECTOR Pulse 84 10/15/2020 2:30 PM CUE SELECTOR Temperature 36.7 C (98.1 F) 07/02/2020 12:53 PM CDT Respiratory Rate 18 10/15/2020 2:30 PM CUE SELECTOR Oxygen Saturation 100% 09/15/2020 3:13 PM CDT Inhaled Oxygen Concentration - - Weight 74.5 kg (164 lb 4.8 oz) 10/15/2020 2:30 P M CUE SELECTOR Height 165.1 cm (5' 5 ) 10/15/2020 2:30 PM CUE SELECTOR Body Mass Index 27.34 10/15/2020 2:30 PM CUE SELECTOR Plan of Treatment Health Maintenance Due Date [...] to change Department associated with goal: [facility] Steps to achieve goal: 1. Will start Physical therapy in two weeks 2. Medications Procedures Procedure Name Priority Date/Time Associated Diagnosis Comments STOOL, OCCULT BLOOD IMMUNOASSAY (IFOB) Routine 08/22/2018 8:00 AM CDT Anemia, unspecified type [facility] DIAG BILATERAL DIGITAL WO CAD W JAZZMINE Routine 09/04/2017 7:41 AM CDT Mammogram abnormal Breast calcifications from Last 3 Months or Most Recently Relevant to Health Maintenance Results * STOOL, OCCULT BLOOD IMMUNOASSAY (IFOB) (08/22/2018 8:00 AM CDT) OCCULT BLOOD - IFOB Negative Negative 08/22/2018 2:10 PM CDT [facility] Specimen of unknown material (specimen) STOOL SPECIMEN / Unknown Non-Phlebotomy Collection / Unknown 08/22/2018 8:00 AM CDT 08/22/2018 10:31 AM CDT us Sen Pruitt MD BODY FLUIDS & STOOLS O RDERABLES Final Result Performing Organization Address City/State/[facility] Co de Phone Number [facility] [address] [place] [address], [place] * [facility] DIAG BILATERAL DIGITAL WO [...] CDT DICTATING PHYSICIAN: Michael Gordillo D.O. EXAM: [facility] ABBEY BILATERAL DIGITAL WO [...] 09/04/2017 DICTATING PHYSICIAN: Michael Gordillo D.O. EXAM: [facility] BILATERAL DIGITAL WO CAD W JAZZMINE, [...] concur with this interpretation. us Kamille Claudio WEB MERCHANT, TECHNICAL REPORT WRITER IMG MAMMO ORDERABLES Dionna l Result from Last 3 Months or Most Recently Relevant to Health Maintenance Insurance [facility] Address: [facility] [address] [place] [address] Care Teams Rooming House Operator Relationship Specialty Start Date End Date Alli Mancuso MD [address] [place] [address] Consulting Physician Gastroenterology 04/14/20
--- OUTSIDE RECORDS SUMMARY | 2025-03-23 01:50 | XMS_ITS | Encounter Summary ---
Author Organization [facility] Address [address] [facility] [place] [address] Phone Care Team Providers Care Financial Compliance Manager Name Role Phone Sen Pruitt MD Primary Care Provider Alli Mancuso MD Unavailable Encounter Details Date Type Department Care Team (Late st Contact Info) Description 06/02/2020 Lab [facility] [address] [place] [address] Jeffrey Wallace MD [address] [place] [address] Anemia, unspecified Social History Tobacco Use Types [...] on file Legal Sex Female 4:02 AM GLOVE PARTS CUTTER Gender Identity Not on file Sexual [...] - 250 mg/dL 06/02/2020 5:41 PM CDT [facility] Blood 06/02/2020 2:09 PM CDT 06/02/2020 5:09 PM CDT us Jeffrey Wallace MD CHEMISTRY ORDERABLES Fin al Result [facility] [address] [place] [address], [place] documented in this encounter Visit Diagnoses Diagnosis Anemia, unspecified documented in this encounter Additional Health Concerns Assessment Noted Time PHQ-9 Depression Total Score: 1 04/02/20 20 9:00 AM CDT documented as of this encounter Care Teams Financial Compliance Manager Relationship Specialty Start Date End Date Sen Pruitt MD PCP - General Internal Medicine/Pediatrics 07/23/18 05/30/23 Alli Mancuso MD [address] [place] [address] Consulting Physician Gastroenterology 04/14/20 documented as of this encounter
--- OUTSIDE RECORDS SUMMARY | 2025-03-23 01:50 | XMS_ITS | Encounter Summary ---
Author Organization [facility] Address [facility] [place] [address] Care Team Providers Care Epic Prelude Analyst Name Role Phone Thomas Horowitz DO Primary Care Provider + Encounter Details Date Type Department Care Team (Late Contact Info) Description 06/24/2024 TableNOW Message Enc [facility] Family & Internal Medicine [address] [phone] [facility] Provider Appointment for 07/11/2024 Social [...] Sex Assigned at Female 11/11/2024 10:08 AM NATIONAL ACCOUNT MANAGER Legal Sex Female 8:10 PM CDT Gender Identity Female 11/11/2024 10:08 AM NATIONAL ACCOUNT MANAGER Sexual Orientation Not on file documented as of this encounter Plan of Treatment Upcoming Encounters Date Type Department Care Team (Late Contact Info) Description 04/14/2025 10:20 AM CDT Office Visit [facility] Family & Internal [address] [phone] Thomas Horowitz DO [facility] [place] [place] [address] documented as of this encounter Visit Diagnoses Not on filedocumented in this encounter Additional Health Concerns Assessment Noted Time PHQ-9 Depression Total Score: 15 024 11:51 AM CDT documented as of this encounter Care Teams Epic Prelude Analyst Relationship Specialty Start Date End Date Thomas Horowitz DO [address] [place] [address] PCP - General FAMILY PRACTICE 12/31/23 documented as of this encounter
--- OUTSIDE RECORDS SUMMARY | 2025-03-23 01:50 | XMS_ITS | Encounter Summary ---
Author Organization [facility] Address [address] [place] [address] Phone Care Team Providers Care Phone Engineer Name Role Phone Sen Pruitt MD Primary Care Provider Alli Mancuso MD Unavailable [phone] Reason for Visit * Reason Comments Medication Refill Encounter Details Date Type Department Care Team (Late st Contact Info) Description 11/21/2020 Refill [facility] [address] [place] [address] Sen Pruitt MD [address] [place] [address] Medication Refill Social History Tobacco [...] on file Legal Sex Female 4:02 AM TITLE SEARCH MANAGER Gender Identity Not on file Sexual Orientation Not on file COVID-19 Exposure Response Date Recorded In the last month, have you been in contact with someone who was confirmed or suspected to have Coronavirus / COVID-19? No / Unsure 11/15/2020 4:57 PM TITLE SEARCH MANAGER documented as of this encounter Miscellaneous Notes * Telephone Encounter - Sen Pruitt MD - 11/22/2020 1:11 PM TITLE SEARCH MANAGER Script(s) signed and e-prescribed to listed pharmacy E SEARCH MANAGER * Telephone Encounter - Julieth Abreu RN [...] Outpatient Visits 1 month ago Essential hypertension [facility] - Internal Medicine & Pediatrics - Sen Red MD 2 months ago Vaginal discharge [facility] Medical [facility] - Internal Medicine & Pediatrics - Sen Red MD 3 months ago Attention deficit hyperactivity disorder (ADHD), predominantly inattentive type [facility] Medical [facility] - Internal Medicine & Pediatrics Kamille Camejo APN, RADIATION ENGINEER 3 months ago Mood changes [facility] Medical [facility] - Internal Medicine & Pediatrics - Sen Red MD 7 months ago Essential hypertension [facility] - Internal Medicine & Pediatrics - Sen Red MD Upcoming Appointments BRASS BOBBIN WINDER - Recent and Past Visits Recent Visits Date Type Provider Dept 10/15/20 Office Visit Sen Pruitt MD [facility]ediatric[facility] [place] [place] 09/15/20 Office Visit Sen Pruitt MD [facility] [place] [place] 08/18/20 Office Visit Kamille Claudio APN, RADIATION ENGINEER [facility]/Pediatrics [place] [place] 08/04/20 Office Visit Sen Pruitt MD [facility] Im/Pediatrics [facility] 04/02/20 Office Visit Sen Pruitt MD [facility] Im/Pediatrics [place] [place] 11/24/19 Office Visit Sen Pruitt MD [facility] Im/Pediatrics [place] [place] 08/20/19 Office Visit Sen Pruitt MD [facility] Im/Pediatrics [place] [place] Showing recent visits within past 460 days with a meds authorizing provider and meeting all other requirements Future Appointments No visits were found meeting these conditions. Showing future appointments within next 90 days with a meds authorizing provider and meeting all other requirements E SEARCH MANAGER documented in this encounter Plan of Treatment Not on file documented as of this encounter Goals Goal Patient Goal Type Associated Problems Recent Progress Patient-Stated? Author Angelica would like to go back to the gym and turn over in bed Pain Management No Cinda Funez RN Note: Goal Reviewed with: patient Readiness to change: Ready to change Department associated with goal: [facility] Steps to achieve goal: 1. Will start Physical therapy in two weeks 2. Medications documented as of this encounter Visit Diagnoses Not on filedocumented in this encounter Additional Health Concerns Assessment Noted Time PHQ-9 Depression Total Score: 1 04/02/20 20 9:00 AM CDT documented as of this encounter Care Teams Phone Engineer Relationship Specialty Start Date End Date Sen Pruitt MD PCP - General Internal Medicine/Pediatrics 07/23/18 05/30/23 Alli Mancuso MD [address] [place] [address] Consulting Physician Gastroenterology 04/14/20 documented as of this encounter
[2025-03-23] MEDS: ACETAMINOPHEN 500 MG TABLET 1000 MG PO (09:00)
[2025-03-23] MEDS: KETOROLAC 15 MG/ML VIAL (*BKC) IV PUSH (09:00)
[2025-03-23] MEDS: LACTATED RINGERS 1,000 ML 30 ML IV CONT (09:00)
--- NOTE | 2025-03-23 09:20 | WPDHPUPDATE1 ---
History and Physical Update Update Date/Time: 03/23/25 09:20 History and Physical has been reviewed, including an updated exam of the patient. There are NO changes in the patient's condition. Risks, benefits, and alternatives have been discussed and questions answered. Patient agrees to proceed with procedure.
--- NOTE | 2025-03-23 09:29 | WPDANESEPPF ---
Anes - Initial Pre Proc Eval Procedure: Operation Date: 03/23/25 10:30 Proposed Procedures p Left Knee Arthroscopy, Partial Meniscectomy, Proceed As Indicated - Gorge Palacio MD Date/Time: 03/23/25 09:29 Surgeon: Gorge Palacio MD Pre Op Diagnosis: left knee medial meniscal tear Patient Data Age: 65 Gender: F Height: 1.63 m Weight: 69.1 kg Allergies Allergy/AdvReac Type Severity Reaction Status Date / Time No Known Allergies Allergy Verified 03/16/25 10:36 Home Medications ?Medication ?Instructions ?Recorded ?Confirmed ?Type acyclovir 400 mg tablet 400 mg PO BID 02/12/25 03/16/25 History amlodipine 5 mg tablet 5 mg PO DAILY 02/12/25 03/16/25 History buspirone 10 mg tablet 30 mg PO DAILY 02/12/25 03/16/25 History dextran 70-hypromellose 0.1 %-0.3 1 drp EACH EYE 4-6XD PRN dry eye(s) 02/12/25 03/16/25 History % eye drops gabapentin 300 mg capsule 900 mg PO TID 02/12/25 03/16/25 History gilteritinib 40 mg tablet (Xospata) 120 mg PO DAILY 02/12/25 03/16/25 History rivaroxaban 20 mg tablet (Xarelto) 20 mg PO DAILY 02/12/25 03/16/25 History venlafaxine 150 mg 150 mg PO DAILY 02/12/25 03/16/25 History capsule,extended release 24 hr ergocalciferol (vitamin D2) 1,250 1,250 mcg PO WEEKLY 02/26/25 03/16/25 History mcg (50,000 unit) capsule tizanidine 2 mg capsule 2 mg PO TID PRN muscle spasticity 02/26/25 03/16/25 History Patient hx anesthesia problems: none Family hx anesthesia problems: none Results Review: All pre-operative results and documents have been reviewed as part of the pre-operative evaluation. [facility] Past Medical History Medical History (Updated 03/23/25 @ 09:30 by Mg Horowitz DO) AML (acute myeloblastic leukemia) Hypertension Seizure syncope which lead to head injury and subsequent seizure 1997 Family History Family History Father Cerebrovascular accident Social History Social History Smoking packs per day: 0.5 Smoking cigarettes per day: 10.0 Years smoked: 35 Smoking pack-years: 17.50 Smoking status: Former smoker Tobacco type: cigarettes Additional smoking assessment comments: quit in 2011 Alcohol intake: never Substance use: never Substance use type: marijuana Other substance usage details: Sometimes Do You Feel Safe in your Home?: Yes Lack of Transportation: No Lack of Food: Never True Current Housing: I Have Housing Concerned About Future Housing: No Difficulty Paying Gas/Electric Bills: No Difficulty Paying for Meds: No Currently Unemployed: No Education: Associate Degree Difficulty w/ Childcare or Family Care: No Living arrangements: alone Anes - Evia Final PreProcedure Day of Procedure 03/23/25 09:29 Patient weight: overweight Heart: regular rate and rhythm Lungs: clear to auscultation Airway: Mallampati scale class II Neurological: alert and oriented Last oral intake: >/= 8 hours ASA classification: III Emergent: no Anesthetic plan: proceed Anesthesia type and monitoring: general LMA and standard monitoring Results Review: All pre-operative results and documents have been reviewed as part of the pre-operative evaluation. Informed Consent: The patient's anesthetic plan and its attendant risks and benefits were discussed with the patient/family/POA. Questions were solicited and answers provided to the satisfaction of the patient/family/POA.
[2025-03-23] MEDS: ceFAZolin 2 GM/D5W 50 ML 2 GM/50 ML BAG IVPB (10:13)
[2025-03-23] MEDS: LIDO 1%/EPINEPHRINE 1:100,000 20 ML VIAL INFILTRATE (10:34)
--- NOTE | 2025-03-23 10:46 | W.PM.PROC2 ---
Procedure Note - Detailed Date of Procedure 03/23/25 Pre-op Diagnosis LEFT knee, medial meniscal tear Post-op Diagnosis Same Procedure Performed Arthroscopy partial medial meniscectomy debridement chondromalacia with an awl. Surgeon Gorge Palacio MD Anesthesia General Indications Pain, Locking and Catching Description of Procedure Patient brought to operating room # 8. An anesthetic was administered. The knee was sterilely prepped and draped in the usual manner. Standard portals were used. Superior medial portal was used for the outflow cannula, inferior lateral portal was used for the scope, inferior medial portal was used for the instruments. Arthroscopy was performed, the patellar femoral joint degenerative changes. The medial compartment showed a complex tear. There were grade 3 and near grade 4 changes of the medial femoral condyle. A Gricel pick was used to broach the cortex and hopefully induce bleeding and cartilaginous on growth. 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 The lateral compartment showed fraying. The ACL was intact. Using baskets and ladi the meniscal tear was trimmed back to a stable base so the nothing further could be pulled into the joint. Any loose or delaminated fragments were gently trimmed to a stable base. She had a good size plica. This is debrided as well. She was down to bone on the patellofemoral joint particularly medially. With grade 4 changes. At this point the instruments were withdrawn, sutures placed and patient left the operating room in satisfactory condition. Estimated Blood Loss 20 Drains No Packing No Pathology None sent Complications No immediate complications Condition Stable Disposition PACU [facility] Billing Surgery - Charge Forward: Surgery Billing (14144 Scope partial meniscectomy)
[2025-03-23] MEDS: oxyCODONE HCL (*CRX) 5 MG TAB IR PO (12:12)
== END 2025-03-23 12:48 | disposition home or self-care (01) ==
PROVIDERS: PCP Student in an Organized Health Care Education/Training Program; Visit Provider Orthopaedic Surgery
PROC: (CPT 29870; principal; 2025-03-23 10:30)
DX: M23.332 Other meniscus derangements, other medial meniscus, left knee (principal); M22.42 Chondromalacia patellae, left knee; Z87.891 Personal history of nicotine dependence; F12.90 Cannabis use, unspecified, uncomplicated
CPT/HCPCS: 29881; A9270; J0690; J1100; J1885; J2003; J2004; J2250; J2371; J2704; J3010; J7120